=== PATIENT | female | born 1950 | race Caucasian/White ===

== ENCOUNTER 2017-06-24 09:01 | Emergency (ER) | payer OTHER ==
[~2017-06-24] VITALS: Ht 167.6 cm; Wt 102.5 kg
[~2017-06-24 09:01] MED LIST: ALLO100T PO; ASPI81CH43 GT; ATEN-60 PO; EZET10TA38 PO; GLIM2TAB33 PO; METF-370 PO
[2017-06-24 10:07] VITALS: BP 167/86
[2017-06-24 10:33] LABS: Basophils # (auto) 0.1 uL; Basophils % (auto) 0.7 % (0.0-2.0); Eosinophils # (auto) 0.1 uL; Eosinophils % (auto) 1.5 % (0.0-7.0); Hematocrit 41.3 % (36.0-46.0); Hemoglobin 13.9 g/dL (12.2-16.2); Lymphocytes # (auto) 2.1 uL; Lymphocytes % (auto) 25.6 % (10.0-50.0); Mean Corpuscular Hgb Conc. 33.8 g/dL (32.0-36.0); Mean Platelet Volume 9.3 fL (6.9-10.8); Monocytes # (auto) 0.4 uL; Monocytes % (auto) 4.4 % (0.0-12.0); Neutrophils # (auto) 5.5 uL; Neutrophils % (auto) 67.8 % (37.0-80.0); Nucleated Red Blood Cells % 0.2 %; Platelet Count (auto) 236 10^3/uL (140-450); Red Cell Distribution Width 13.3 % (11.8-14.3); White Blood Cell 8.1 10^3/uL (4.4-10.8)
[2017-06-24 10:37] LABS: Urine Bilirubin Negative (Negative); Urine Blood Negative /uL (Negative); Urine Color Yellow (Yellow); Urine Glucose Normal (Normal); Urine Ketone Negative (Negative); Urine Nitrite Negative (Negative); Urine RBC 9 /hpf (0 - 4); Urine Squamous Epithelial Cell FEW /hpf (<5); Urine Urobilinogen Normal (Negative); Urine WBC Clumps PRESENT /hpf (None Seen)
[2017-06-24 10:41] LABS: Albumin 3.6 g/dL (3.4-5.0); BUN/Creatinine Ratio 18.8; Bilirubin, Total 0.5 mg/dL (0.2-1.0); Calcium 9.6 mg/dL (8.5-10.1); Potassium 4.2 mmol/L (3.5-5.1); Total Protein 7.7 g/dL (6.4-8.2)
[2017-06-24] MEDS ORDERED: SODIUM CHLORIDE 0.9% 1,000 ML IV ONE (11:05)
[2017-06-24] MEDS ORDERED: cefTRIAXone 1GM/50ML D5W 50 ML IV ONE (11:15)
[2017-06-24] MEDS ORDERED: DIPHENOXYLATE W/ATROPINE 2.5 MG TAB PO ONE (11:45)
== END 2017-06-24 12:43 | disposition home or self-care (01) ==
LOC: ER 09:01
DX: N39.0 Urinary tract infection, site not specified (principal); R19.7 Diarrhea, unspecified; E11.9 Type 2 diabetes mellitus without complications; E78.5 Hyperlipidemia, unspecified; I25.2 Old myocardial infarction; F17.210 Nicotine dependence, cigarettes, uncomplicated; Z87.442 Personal history of urinary calculi; Z90.89 Acquired absence of other organs; Z90.710 Acquired absence of both cervix and uterus; Z95.1 Presence of aortocoronary bypass graft; Z79.899 Other long term (current) drug therapy; Z88.6 Allergy status to analgesic agent; Z88.8 Allergy status to other drugs, medicaments and biological substances
CPT/HCPCS: 36415; 80053; 81001; 85025; 87493; 93005; 96365; 99285; J0696; J7030

== ENCOUNTER 2020-11-13 09:35 | Emergency (ER) | payer OTHER ==
[~2020-11-13] VITALS: Ht 170.2 cm; Wt 104.3 kg
[~2020-11-13 09:35] MED LIST changes: +EZET10TA24 PO; -EZET10TA38 PO
[2020-11-13 10:11] LABS: Basophils # (auto) 0.1 10 ^3/uL (0-0.2); Basophils % (auto) 1.1 % (0.0-2.0); Eosinophils # (auto) 0.1 10 ^3/uL (0-0.8); Eosinophils % (auto) 2.2 % (0.0-7.0); Hematocrit 37.4 % (36.0-46.0); Hemoglobin 12.7 g/dL (12.2-16.2); Lymphocytes # (auto) 1.8 10 ^3/uL (0.4-5.4); Lymphocytes % (auto) 26.1 % (10.0-50.0); Mean Corpuscular Hemoglobin 29.7 pg (28.0-32.0); Mean Corpuscular Hgb Conc. 33.9 g/dL (32.0-36.0); Mean Corpuscular Volume 87.7 fL (80.0-100.0); Monocytes # (auto) 0.4 10 ^3/uL (0-1.3); Monocytes % (auto) 5.3 % (0.0-12.0); Neutrophils # (auto) 4.5 10 ^3/uL (1.6-8.6); Neutrophils % (auto) 65.3 % (37.0-80.0); Platelet Count (auto) 195 10^3/uL (140-450); Red Blood Cells 4.26 10^6/uL (4.0-5.20); Red Cell Distribution Width 13.8 % (11.8-14.3); White Blood Cell 6.8 10^3/uL (4.4-10.8)
[2020-11-13 10:23] LABS: Urine Bacteria FEW /hpf (None Seen); Urine Blood TRACE /uL (Negative); Urine Specific Gravity 1.014 (1.001-1.035); Urine WBC 2 /hpf (0 - 5)
[2020-11-13 10:27] LABS: Potassium 4.1 mmol/L (3.5-5.1)
[2020-11-13 10:33] LABS: Albumin 2.8 g/dL (3.4-5.0); BUN/Creatinine Ratio 15.1; Bilirubin, Total 0.4 mg/dL (0.2-1.0); Calcium 8.8 mg/dL (8.5-10.1); Magnesium 1.9 mg/dL (1.6-2.6); Total Protein 6.3 g/dL (6.4-8.2)
[2020-11-13 13:00] VITALS: BP 131/73
== END 2020-11-13 13:08 | disposition home or self-care (01) ==
LOC: ER 09:35
DX: N20.0 Calculus of kidney (principal); E11.65 Type 2 diabetes mellitus with hyperglycemia; E44.0 Moderate protein-calorie malnutrition; E78.5 Hyperlipidemia, unspecified; I25.2 Old myocardial infarction; F17.210 Nicotine dependence, cigarettes, uncomplicated; Z90.710 Acquired absence of both cervix and uterus; Z68.36 Body mass index [BMI] 36.0-36.9, adult; Z88.6 Allergy status to analgesic agent
CPT/HCPCS: 36415; 71045; 74176; 80053; 81001; 83735; 84484; 85025; 93005

== ENCOUNTER 2021-08-10 07:17 | Inpatient (IN) | payer OTHER ==
[~2021-08-10] VITALS: Ht 172.7 cm; Wt 109.7 kg
[2021-08-10 08:11] LABS: Basophils # (auto) 0.1 10 ^3/uL (0-0.2); Eosinophils # (auto) 0.2 10 ^3/uL (0-0.8); Eosinophils % (auto) 2.3 % (0.0-7.0); Hematocrit 38.6 % (36.0-46.0); Hemoglobin 12.6 g/dL (12.2-16.2); Lymphocytes # (auto) 1.8 10 ^3/uL (0.4-5.4); Lymphocytes % (auto) 22.2 % (10.0-50.0); Mean Corpuscular Hemoglobin 29.3 pg (28.0-32.0); Mean Corpuscular Hgb Conc. 32.6 g/dL (32.0-36.0); Mean Corpuscular Volume 89.9 fL (80.0-100.0); Monocytes # (auto) 0.4 10 ^3/uL (0-1.3); Monocytes % (auto) 5.3 % (0.0-12.0); Neutrophils # (auto) 5.5 10 ^3/uL (1.6-8.6); Neutrophils % (auto) 69.2 % (37.0-80.0); Nucleated Red Blood Cells % 0.1 %; Red Blood Cells 4.29 10^6/uL (4.0-5.20); Red Cell Distribution Width 13.6 % (11.8-14.3); White Blood Cell 7.9 10^3/uL (4.4-10.8)
[2021-08-10 08:21] LABS: Albumin 2.4 g/dL (3.4-5.0); Calcium 8.8 mg/dL (8.5-10.1); Potassium 4.3 mmol/L (3.5-5.1)
[2021-08-10 08:26] LABS: BUN/Creatinine Ratio 16.9; Bilirubin, Total 0.4 mg/dL (0.2-1.0); Total Protein 6.1 g/dL (6.4-8.2)
[2021-08-10] MEDS ORDERED: IOHEXOL 350 MG/ML 100ML IJ ONE (08:52)
[2021-08-10] MEDS ORDERED: ONDANSETRON HCL 4 MG/2 ML VIAL IV ONE (10:15)
[2021-08-10] MEDS ORDERED: MORPHINE SULFATE 4 MG/ML SYR/VIAL IV ONE (10:15)
[2021-08-10] MEDS ORDERED: NITROGLYCERIN 0.4 MG SL TAB SL ONE (12:00)
[2021-08-10] MEDS ORDERED: ONDANSETRON HCL 4 MG/2 ML VIAL IV PRN (13:45)
[2021-08-10] MEDS ORDERED: NITROGLYCERIN 0.4 MG SL TAB SL PRN (13:45)
[2021-08-10] MEDS ORDERED: FUROSEMIDE 40 MG/4 ML VIAL IV ONE (13:45)
[2021-08-10] MEDS ORDERED: ALBUTEROL SULF 2.5 MG/0.5ML(0.5%) NEB SOLN NEB PRN (13:45)
[2021-08-10] MEDS ORDERED: ASPirin 81 mg TAB PO ONE (13:45)
[2021-08-10] MEDS ORDERED: DEXTROSE (50%) 50ML SYRG IV PRN (13:45)
[2021-08-10] MEDS ORDERED: MORPHINE SULFATE INJECTION 2 MG/ML SYRG IV PRN (13:45)
[2021-08-10] MEDS ORDERED: ACETAMINOPHEN 325 MG TAB PO PRN (13:45)
[2021-08-10] MEDS ORDERED: METOPROLOL TARTRATE 25 MG TAB PO ONE (13:45)
[2021-08-10] MEDS: traMADol HCL 50 MG TAB PO PRN (15:06)
[2021-08-10] MEDS: ACCU-CHEK COMFORT CURVE STRIP VI SCH (18:17)
[2021-08-10 18:33] LABS: Urine Bacteria FEW /hpf (None Seen); Urine Blood Negative /uL (Negative); Urine Hyaline Cast FEW /lpf (0 - 2); Urine Specific Gravity 1.013 (1.001-1.035); Urine WBC 1 /hpf (0 - 5)
[2021-08-10] MEDS ORDERED: ENOXAPARIN SOD 100 MG/1 ML SYRINGE SC ONE (19:15)
[2021-08-10] MEDS: InsuLIN REG 1unit/0.01ml Soln (100units/ml) SC SCH (19:21)
[2021-08-11] MEDS: ATORVASTATIN 20 MG TAB PO SCH ×2 (00:01→21:54)
[2021-08-11] MEDS: TICAGRELOR 90 MG TAB PO SCH ×3 (00:01→21:54)
[2021-08-11] MEDS: RANOLAZINE ER 500 MG TAB PO SCH ×3 (00:02→21:52)
[2021-08-11] MEDS: METOPROLOL TARTRATE 25 MG TAB PO SCH ×3 (00:02→21:54)
[2021-08-11] MEDS: ACCU-CHEK COMFORT CURVE STRIP VI SCH ×4 (00:55→17:25)
[2021-08-11] MEDS: InsuLIN REG 1unit/0.01ml Soln (100units/ml) SC SCH ×4 (00:55→17:27)
[2021-08-11 04:12] VITALS: BP 155/69
[2021-08-11 06:02] LABS: Basophils # (auto) 0.1 10 ^3/uL (0-0.2); Basophils % (auto) 0.9 % (0.0-2.0); Eosinophils # (auto) 0.2 10 ^3/uL (0-0.8); Eosinophils % (auto) 2.4 % (0.0-7.0); Hematocrit 35.6 % (36.0-46.0); Lymphocytes % (auto) 23.7 % (10.0-50.0); Mean Corpuscular Hemoglobin 30.2 pg (28.0-32.0); Mean Corpuscular Hgb Conc. 33.8 g/dL (32.0-36.0); Mean Corpuscular Volume 89.2 fL (80.0-100.0); Monocytes # (auto) 0.6 10 ^3/uL (0-1.3); Monocytes % (auto) 6.5 % (0.0-12.0); Neutrophils # (auto) 5.7 10 ^3/uL (1.6-8.6); Neutrophils % (auto) 66.5 % (37.0-80.0); Red Blood Cells 3.99 10^6/uL (4.0-5.20); Red Cell Distribution Width 13.6 % (11.8-14.3); White Blood Cell 8.6 10^3/uL (4.4-10.8)
[2021-08-11] MEDS ORDERED: [UNRECOGNIZED DRUG - CODE] XX (06:14)
[2021-08-11] MEDS ORDERED: EZET10TA22 PO (06:14)
[2021-08-11] MEDS ORDERED: DICL1GEL50 TD (06:14)
[2021-08-11] MEDS ORDERED: NITR0.4S29 SL (06:14)
[2021-08-11] MEDS ORDERED: CHOL20007 OR (06:14)
[2021-08-11] MEDS ORDERED: CARV6.25 PO (06:14)
[2021-08-11] MEDS ORDERED: BENA10TA14 GT (06:14)
[2021-08-11] MEDS ORDERED: TICA90TA PO (06:14)
[2021-08-11] MEDS ORDERED: LEVEMIR SC (06:14)
[2021-08-11] MEDS ORDERED: LIDO5DIS21 TOP (06:14)
[2021-08-11] MEDS ORDERED: ATO40T PO (06:14)
[2021-08-11] MEDS ORDERED: LACT1CAP20 PO (06:14)
[2021-08-11] MEDS ORDERED: PANT40T PO (06:14)
[2021-08-11] MEDS ORDERED: GLIP10TA9 PO (06:14)
[2021-08-11] MEDS ORDERED: ISOS20TA49 PO (06:14)
[2021-08-11] MEDS ORDERED: GABA100C9 PO (06:14)
[2021-08-11] MEDS ORDERED: ACET-1156 PO (06:14)
[2021-08-11] MEDS ORDERED: AML5T GT (06:14)
[2021-08-11] MEDS ORDERED: ASPI81CH49 PO (06:14)
[2021-08-11 06:24] LABS: BUN/Creatinine Ratio 18.8; Calcium 8.8 mg/dL (8.5-10.1); Potassium 4.2 mmol/L (3.5-5.1)
[2021-08-11 06:29] LABS: INR 1.05 (0.9-1.15); Partial Thromboplastin Time 32.7 sec (23.6-33.0)
[2021-08-11 06:49] VITALS: BP 145/79
[2021-08-11] MEDS: ASPirin 81 mg TAB PO SCH (09:08)
[2021-08-11] MEDS: ENOXAPARIN SOD 40 MG/0.4 ML SYRINGE SC SCH (09:11)
[2021-08-11] MEDS: cefTRIAXone 1GM/50ML D5W 50 ML IV SCH (09:11)
[2021-08-11] MEDS: FUROSEMIDE 40 MG/4 ML VIAL IV SCH ×2 (11:27→17:44)
[2021-08-11 12:43] VITALS: BP 155/54
[2021-08-11 17:00] VITALS: BP 157/60
[2021-08-11 20:00] VITALS: BP 158/86
[2021-08-11] MEDS ORDERED: TEMAZEPAM 15 MG CAP PO ONE (21:15)
[2021-08-12] MEDS: InsuLIN REG 1unit/0.01ml Soln (100units/ml) SC SCH ×5 (00:42→23:39)
[2021-08-12] MEDS: ACCU-CHEK COMFORT CURVE STRIP VI SCH ×5 (00:45→23:40)
[2021-08-12] MEDS: FUROSEMIDE 40 MG/4 ML VIAL IV SCH ×2 (05:38→18:17)
[2021-08-12 05:48] VITALS: BP 142/65
[2021-08-12 06:22] LABS: BUN/Creatinine Ratio 19.4; Calcium 8.6 mg/dL (8.5-10.1); Magnesium 2.6 mg/dL (1.6-2.6); Potassium 3.8 mmol/L (3.5-5.1)
[2021-08-12] MEDS ORDERED: OMNIPAQUE ORAL SOLN 500ml 12mg/ml PO ONE (08:15)
[2021-08-12 08:20] LABS: Amylase 69 U/L (25-115); Lipase 170 U/L (73-393)
[2021-08-12] MEDS: cefTRIAXone 1GM/50ML D5W 50 ML IV SCH (08:50)
[2021-08-12 09:00] VITALS: BP 146/76
[2021-08-12] MEDS: TICAGRELOR 90 MG TAB PO SCH ×2 (10:35→21:36)
[2021-08-12] MEDS: RANOLAZINE ER 500 MG TAB PO SCH ×2 (10:35→21:36)
[2021-08-12] MEDS: ASPirin 81 mg TAB PO SCH (10:35)
[2021-08-12] MEDS: METOPROLOL TARTRATE 25 MG TAB PO SCH ×2 (10:36→21:50)
[2021-08-12] MEDS: ENOXAPARIN SOD 40 MG/0.4 ML SYRINGE SC SCH (10:36)
[2021-08-12 13:00] VITALS: BP 137/73
[2021-08-12 16:46] VITALS: BP 139/73
[2021-08-12] MEDS: ATORVASTATIN 20 MG TAB PO SCH (21:50)
[2021-08-12 22:00] VITALS: BP 149/79
[2021-08-12] MEDS ORDERED: TEMAZEPAM 15 MG CAP PO PRN (22:00)
[2021-08-13 05:00] VITALS: BP 137/50
[2021-08-13] MEDS: FUROSEMIDE 40 MG/4 ML VIAL IV SCH ×3 (05:59→18:16)
[2021-08-13] MEDS: ACCU-CHEK COMFORT CURVE STRIP VI SCH ×3 (06:01→17:34)
[2021-08-13] MEDS: InsuLIN REG 1unit/0.01ml Soln (100units/ml) SC SCH ×3 (06:01→18:15)
[2021-08-13] MEDS: traMADol HCL 50 MG TAB PO PRN (08:27)
[2021-08-13 09:00] VITALS: BP 152/77
[2021-08-13] MEDS: ASPirin 81 mg TAB PO SCH (10:59)
[2021-08-13] MEDS: RANOLAZINE ER 500 MG TAB PO SCH (10:59)
[2021-08-13] MEDS: METOPROLOL TARTRATE 25 MG TAB PO SCH (11:00)
[2021-08-13] MEDS: TICAGRELOR 90 MG TAB PO SCH (11:00)
[2021-08-13] MEDS: ENOXAPARIN SOD 40 MG/0.4 ML SYRINGE SC SCH (11:03)
[2021-08-13] MEDS: cefTRIAXone 1GM/50ML D5W 50 ML IV SCH (11:10)
[2021-08-13 13:00] VITALS: BP 157/62
[2021-08-13 16:54] VITALS: BP 152/72
[2021-08-13 17:00] VITALS: BP 178/78
[2021-08-13] MEDS ORDERED: cloNIDine HCL 0.1 MG TAB PO ONE (17:15)
[2021-08-13 18:05] VITALS: BP 158/78
== END 2021-08-13 18:30 | disposition home or self-care (01) | DRG 280 ==
LOC: ER 07:17 → TELE 13:41 → TELE-WESTW 23:36
PROVIDERS: ADMIT Internal Medicine; ATTEND Internal Medicine
DX: I21.4 Non-ST elevation (NSTEMI) myocardial infarction (principal); I50.41 Acute combined systolic (congestive) and diastolic (congestive) heart failure; E43 Unspecified severe protein-calorie malnutrition; N39.0 Urinary tract infection, site not specified; I13.0 Hypertensive heart and chronic kidney disease with heart failure and stage 1 through stage 4 chronic kidney disease, or unspecified chronic kidney disease; K86.3 Pseudocyst of pancreas; I25.10 Atherosclerotic heart disease of native coronary artery without angina pectoris; E66.01 Morbid (severe) obesity due to excess calories; E11.22 Type 2 diabetes mellitus with diabetic chronic kidney disease; I35.0 Nonrheumatic aortic (valve) stenosis; E78.5 Hyperlipidemia, unspecified; F17.210 Nicotine dependence, cigarettes, uncomplicated; Z20.822 Contact with and (suspected) exposure to COVID-19; I49.3 Ventricular premature depolarization; K57.10 Diverticulosis of small intestine without perforation or abscess without bleeding; N18.9 Chronic kidney disease, unspecified; Z79.82 Long term (current) use of aspirin; Z68.36 Body mass index [BMI] 36.0-36.9, adult; Z87.442 Personal history of urinary calculi; Z90.710 Acquired absence of both cervix and uterus; Z95.1 Presence of aortocoronary bypass graft; Z90.5 Acquired absence of kidney; Z88.5 Allergy status to narcotic agent; Z88.8 Allergy status to other drugs, medicaments and biological substances; Z90.49 Acquired absence of other specified parts of digestive tract; Z71.6 Tobacco abuse counseling
CPT/HCPCS: 36415; 71045; 71275; 74176; 80048; 80053; 81001; 82150; 82728; 82962; 83036; 83690; 83735; 83880; 84443; 84484; 85025; 85610; 85730; 86141; 86301; 86850; 86900; 86901; 87086; 87426; 93005; 93306; 96374; 96375; 99291; G0378; J0696; J1815; J2405

== ENCOUNTER 2023-07-21 09:52 | Inpatient (IN) | payer OTHER ==
[~2023-07-21] VITALS: Ht 167.6 cm; Wt 106.7 kg
[~2023-07-21 09:52] MED LIST changes: +ACET-1881 PO; +AML5T GT; +ASPI81CH49 PO; +ATO40T PO; +BENA10TA16 GT; +CARV6.25 PO; +CHOL20007 OR; +DICL1GEL73 TD; +EZET10TA22 PO; +GABA-1308 PO; +GLIP10TA9 PO; +ISOS20TA49 PO; +LACT1CAP20 PO; +LEVEMIR SC; +LIDO5DIS21 TOP; +NITR0.4S29 SL; +PANT40T PO; +TICA90TA PO; +[UNRECOGNIZED DRUG - CODE] XX
[2023-07-21 10:35] VITALS: PULSE 71; RESP 15; O2SAT 97
[2023-07-21 10:55] LABS: Basophils # (auto) 0.1 10 ^3/uL (0-0.2); Eosinophils # (auto) 0.2 10 ^3/uL (0-0.8); Eosinophils % (auto) 1.9 % (0.0-7.0); Hematocrit 30.9 % (36.0-46.0); Hemoglobin 10.3 g/dL (12.2-16.2); Lymphocytes # (auto) 2.1 10 ^3/uL (0.4-5.4); Lymphocytes % (auto) 24.7 % (10.0-50.0); Mean Corpuscular Hgb Conc. 33.2 g/dL (32.0-36.0); Mean Corpuscular Volume 90.4 fL (80.0-100.0); Monocytes # (auto) 0.6 10 ^3/uL (0-1.3); Monocytes % (auto) 7.6 % (0.0-12.0); Neutrophils # (auto) 5.4 10 ^3/uL (1.6-8.6); Neutrophils % (auto) 64.8 % (37.0-80.0); Red Blood Cells 3.42 10^6/uL (4.0-5.20); Red Cell Distribution Width 13.5 % (11.8-14.3); White Blood Cell 8.4 10^3/uL (4.4-10.8)
[2023-07-21 11:22] LABS: Alanine Aminotransferase 17 U/L (7-40); Albumin 3.6 g/dL (3.2-4.8); Alkaline Phosphatase 110 U/L (46-116); Anion Gap 9 (5-15); Aspartate Aminotransferase 17 U/L (13-40); Bilirubin, Total 0.3 mg/dL (0.2-1.0); Blood Urea Nitrogen 61 mg/dL (9-23); Calcium 8.8 mg/dL (8.5-10.1); Carbon Dioxide 20 mmol/L (20-30); Chloride 114 mmol/L (98-107); Glucose 158 mg/dL (74-106); Potassium 5.2 mmol/L (3.5-5.1); Sodium 143 mmol/L (136-145); Total Protein 5.4 g/dL (5.7-8.2)
[2023-07-21] MEDS ORDERED: DEXTROSE (50%) 50ML SYRG IV PRN (12:15)
[2023-07-21] MEDS ORDERED: ONDANSETRON HCL 4 MG/2 ML VIAL IV PRN (12:15)
[2023-07-21] MEDS ORDERED: NITROGLYCERIN 0.4 MG SL TAB SL PRN (12:15)
[2023-07-21] MEDS ORDERED: ACETAMINOPHEN 325 MG TAB PO PRN (12:15)
[2023-07-21 12:59] LABS: Triglycerides 184 mg/dL (< 150)
[2023-07-21 13:00] LABS: LDL Cholesterol 58 mg/dL (< 100)
[2023-07-21] MEDS ORDERED: SODIUM CHLORIDE 0.9% 1,000 ML IV SCH (13:00)
[2023-07-21] MEDS ORDERED: SODIUM ZIRCONIUM CYCL 10 GM PAK PO ONE (13:00)
[2023-07-21 13:01] LABS: Cholesterol 140 mg/dL (< 200); HDL Cholesterol 42 mg/dL (40-59)
[2023-07-21 13:06] LABS: INR 1.09 (0.9-1.15); Prothrombin Time 11.4 sec (9.3-11.8)
[2023-07-21] MEDS ORDERED: FUROSEMIDE 40 MG/4 ML VIAL IV ONE (13:15)
[2023-07-21 13:35] LABS: Urine Bacteria NONE SEEN /hpf (None Seen); Urine Blood TRACE /uL (Negative); Urine Clarity Clear (Clear); Urine Color Colorless (Yellow); Urine Protein, UAD 3+ (Negative); Urine Specific Gravity 1.013 (1.001-1.035); Urine Urobilinogen Normal (Negative); Urine WBC <1 /hpf (0 - 5); Urine pH 6.5 (5.0-8.0)
[2023-07-21 13:45] LABS: Amphetamine Screen, Urine Neg (NEGATIVE); Barbiturate Scree,Urine Neg (NEGATIVE); Benzodiazephine Screen, Urine Neg (NEGATIVE); Cocaine Screen, Urine Neg (NEGATIVE)
[2023-07-21 13:46] LABS: Cannabinoid Screen, Urine Neg (NEGATIVE); Creatinine, Urine 47.42 mg/dL (30.0-125.0); Opiate Scree,Urine Neg (NEGATIVE); Phencyclidine Screen, Urine Neg (NEGATIVE)
[2023-07-21] MEDS: GABAPENTIN 100 MG CAP PO SCH ×2 (14:00→22:00)
[2023-07-21] MEDS ORDERED: OLME20TA53 PO (14:13)
[2023-07-21] MEDS ORDERED: NIFE1TAB31 PO (14:30)
[2023-07-21] MEDS ORDERED: FURO40TA4 PO (14:31)
[2023-07-21] MEDS ORDERED: ERGO50003 PO (14:35)
[2023-07-21] MEDS ORDERED: DOCU-94 PO (14:37)
[2023-07-21] MEDS ORDERED: FLUT1SPR5 (14:38)
[2023-07-21] MEDS: InsuLIN REG 1unit/0.01ml Soln (100units/ml) SC SCH ×2 (17:00→22:00)
[2023-07-21] MEDS: ACCU-CHEK COMFORT CURVE STRIP VI SCH (17:16)
[2023-07-21 18:27] LABS: Magnesium 1.7 mg/dL (1.6-2.6)
[2023-07-21 18:28] LABS: Phosphorus 5.3 mg/dL (2.4-5.1)
[2023-07-21 18:37] VITALS: RESP 18
[2023-07-21 20:00] VITALS: PULSE 67; PULSE 71; RESP 20; O2SAT 98
[2023-07-21 22:00] VITALS: BP 150/50; PULSE 67; RESP 20; TEMP 97.6; O2SAT 98
[2023-07-21] MEDS: ENOXAPARIN SOD 100 MG/1 ML SYRINGE SC SCH (22:00)
[2023-07-21] MEDS: CARVEDILOL 3.125 MG TAB PO SCH (22:00)
[2023-07-21] MEDS: ISOSORBIDE MONONITRATE 20 MG TAB PO SCH (22:00)
[2023-07-22] VITALS (16 sets, daily range): BP systolic 113–173; BP diastolic 43–83; PULSE 58–85; RESP 12–24; TEMP 97.8–98.4; O2SAT 96–98
[2023-07-22] MEDS: D5W/SOD CHLO 0.9% 1,000 ML IV SCH ×2 (00:15→17:34)
[2023-07-22] MEDS: TICAGRELOR 90 MG TAB PO SCH ×3 (00:15→20:58)
[2023-07-22] MEDS: ATORVASTATIN 20 MG TAB PO SCH ×3 (00:19→21:23)
[2023-07-22] MEDS: ACCU-CHEK COMFORT CURVE STRIP VI SCH ×5 (00:21→21:22)
[2023-07-22 06:24] LABS: Basophils # (auto) 0.1 10 ^3/uL (0-0.2); Basophils % (auto) 0.7 % (0.0-2.0); Eosinophils # (auto) 0.2 10 ^3/uL (0-0.8); Eosinophils % (auto) 2.3 % (0.0-7.0); Hematocrit 29.5 % (36.0-46.0); Hemoglobin 9.5 g/dL (12.2-16.2); Lymphocytes # (auto) 2.4 10 ^3/uL (0.4-5.4); Lymphocytes % (auto) 32.9 % (10.0-50.0); Mean Corpuscular Hemoglobin 29.1 pg (28.0-32.0); Mean Corpuscular Hgb Conc. 32.2 g/dL (32.0-36.0); Mean Corpuscular Volume 90.4 fL (80.0-100.0); Monocytes # (auto) 0.6 10 ^3/uL (0-1.3); Neutrophils % (auto) 56.1 % (37.0-80.0); Nucleated Red Blood Cells % 0.1 %; Red Blood Cells 3.26 10^6/uL (4.0-5.20); Red Cell Distribution Width 13.7 % (11.8-14.3); White Blood Cell 7.2 10^3/uL (4.4-10.8)
[2023-07-22] MEDS: InsuLIN REG 1unit/0.01ml Soln (100units/ml) SC SCH ×4 (06:35→22:00)
[2023-07-22] MEDS: GABAPENTIN 100 MG CAP PO SCH ×3 (06:35→20:58)
[2023-07-22 06:38] LABS: Alanine Aminotransferase 12 U/L (7-40); Albumin 3.3 g/dL (3.2-4.8); Alkaline Phosphatase 87 U/L (46-116); Anion Gap 8 (5-15); Aspartate Aminotransferase 14 U/L (13-40); BUN/Creatinine Ratio 17.7 (10.0-20.0); Bilirubin, Total 0.2 mg/dL (0.2-1.0); Calcium 8.4 mg/dL (8.7-10.4); Carbon Dioxide 20 mmol/L (20-30); Chloride 118 mmol/L (98-107); Glucose 105 mg/dL (74-106); Potassium 4.2 mmol/L (3.5-5.1); Sodium 146 mmol/L (136-145)
[2023-07-22 06:39] LABS: Blood Urea Nitrogen 43 mg/dL (9-23); Total Protein 5.2 g/dL (5.7-8.2)
[2023-07-22 07:06] LABS: RPR Non Reactive (Non Reactive)
[2023-07-22] MEDS: ASPirin 81 mg TAB GT SCH (09:36)
[2023-07-22] MEDS: PANTOPRAZOLE 40 MG TAB PO SCH (09:37)
[2023-07-22] MEDS: amLODIPine BESYLATE 5 MG TAB GT SCH (09:37)
[2023-07-22] MEDS: FUROSEMIDE 40 MG/4 ML VIAL IV SCH (09:38)
[2023-07-22] MEDS: CARVEDILOL 3.125 MG TAB PO SCH ×2 (09:38→20:59)
[2023-07-22] MEDS: ENOXAPARIN SOD 100 MG/1 ML SYRINGE SC SCH (09:38)
[2023-07-22] MEDS: DOCUSATE SOD 100 MG CAP PO SCH (09:51)
[2023-07-22] MEDS ORDERED: BENAZEPRIL HCL 10 MG TAB GT SCH (10:00)
[2023-07-22] MEDS: ISOSORBIDE MONONITRATE 20 MG TAB PO SCH ×2 (10:00→20:59)
[2023-07-22] MEDS ORDERED: ACETYLCYSTEINE ORAL for CIN 20%(200MG/ML) 4ML PO ONE (11:00)
[2023-07-22] MEDS ORDERED: fentaNYL CITRATE 100 MCG/2 ML VL ONE (14:01)
[2023-07-22] MEDS ORDERED: VERAPAMIL 2.5MG/ML INJ 2ML VIAL IV ONE (14:01)
[2023-07-22] MEDS ORDERED: ANGIOMAX 250 MG VIAL IV ONE (14:01)
[2023-07-22] MEDS ORDERED: HEPARIN SODIUM (PORCINE) 5000 UNITS/ML 1ML VIAL ONE (14:01)
[2023-07-22] MEDS ORDERED: SODIUM CHL 0.9% 0 ML ONE (14:02)
[2023-07-22] MEDS ORDERED: MIDAZOLAM HCL 2MG/2ML 2ml VIAL (1mg/ml) ONE (14:02)
[2023-07-22] MEDS ORDERED: LIDOCAINE 2%HCL (LOCAL ANESTH.) INJ 20ML MDV ONE (14:02)
[2023-07-22] MEDS ORDERED: IODIXANOL 320MG/ML 100ML BTL IV ONE (14:02)
[2023-07-22] MEDS ORDERED: LORazepam 2MG/ML-1ML VIAL IV PRN (20:30)
[2023-07-22] MEDS: HEPARIN SODIUM (PORCINE) 5000 UNITS/ML 1ML VIAL SC SCH (21:03)
[2023-07-22] MEDS: ACETYLCYSTEINE ORAL for CIN 20%(200MG/ML) 4ML PO SCH (21:22)
[2023-07-23 04:34] LABS: Basophils # (auto) 0.1 10 ^3/uL (0-0.2); Basophils % (auto) 0.8 % (0.0-2.0); Eosinophils # (auto) 0.2 10 ^3/uL (0-0.8); Eosinophils % (auto) 2.2 % (0.0-7.0); Hematocrit 31.4 % (36.0-46.0); Hemoglobin 10.2 g/dL (12.2-16.2); Lymphocytes # (auto) 2.3 10 ^3/uL (0.4-5.4); Mean Corpuscular Hemoglobin 28.9 pg (28.0-32.0); Mean Corpuscular Hgb Conc. 32.4 g/dL (32.0-36.0); Mean Corpuscular Volume 89.2 fL (80.0-100.0); Monocytes # (auto) 0.7 10 ^3/uL (0-1.3); Monocytes % (auto) 8.5 % (0.0-12.0); Neutrophils # (auto) 4.9 10 ^3/uL (1.6-8.6); Neutrophils % (auto) 60.5 % (37.0-80.0); Red Blood Cells 3.52 10^6/uL (4.0-5.20); Red Cell Distribution Width 13.6 % (11.8-14.3); White Blood Cell 8.1 10^3/uL (4.4-10.8)
[2023-07-23 04:43] LABS: Chloride 113 mmol/L (98-107); Potassium 4.5 mmol/L (3.5-5.1); Sodium 142 mmol/L (136-145)
[2023-07-23 04:49] LABS: BUN/Creatinine Ratio 20.4 (10.0-20.0); Blood Urea Nitrogen 50 mg/dL (9-23); Glucose 135 mg/dL (74-106)
[2023-07-23 04:51] LABS: % Iron Saturation 24.7 % (15-50)
[2023-07-23 04:52] LABS: Anion Gap 9 (5-15); Carbon Dioxide 20 mmol/L (20-30)
[2023-07-23 05:00] VITALS: BP 128/60; PULSE 69; RESP 16; TEMP 98.3; O2SAT 96
[2023-07-23 05:02] LABS: Magnesium 1.5 mg/dL (1.6-2.6)
[2023-07-23] MEDS: GABAPENTIN 100 MG CAP PO SCH ×2 (05:47→13:59)
[2023-07-23] MEDS: ACCU-CHEK COMFORT CURVE STRIP VI SCH ×3 (05:53→18:01)
[2023-07-23] MEDS: InsuLIN REG 1unit/0.01ml Soln (100units/ml) SC SCH ×3 (05:53→18:03)
[2023-07-23 08:00] VITALS: PULSE 70; PULSE 75; RESP 20; O2SAT 97
[2023-07-23] MEDS: DOCUSATE SOD 100 MG CAP PO SCH (10:00)
[2023-07-23] MEDS: FUROSEMIDE 40 MG/4 ML VIAL IV SCH (10:04)
[2023-07-23] MEDS: ISOSORBIDE MONONITRATE 20 MG TAB PO SCH (10:05)
[2023-07-23] MEDS: ATORVASTATIN 20 MG TAB PO SCH (10:05)
[2023-07-23] MEDS: ASPirin 81 mg TAB GT SCH (10:06)
[2023-07-23] MEDS: PANTOPRAZOLE 40 MG TAB PO SCH (10:06)
[2023-07-23] MEDS: TICAGRELOR 90 MG TAB PO SCH (10:06)
[2023-07-23] MEDS: amLODIPine BESYLATE 5 MG TAB GT SCH (10:06)
[2023-07-23] MEDS: CARVEDILOL 3.125 MG TAB PO SCH (10:07)
[2023-07-23 10:12] VITALS: BP 157/52; PULSE 75; RESP 20; TEMP 98.1; O2SAT 97
[2023-07-23] MEDS: HEPARIN SODIUM (PORCINE) 5000 UNITS/ML 1ML VIAL SC SCH (10:16)
[2023-07-23 13:06] VITALS: BP 120/60; PULSE 62; RESP 20; TEMP 98.4; O2SAT 97
[2023-07-23] MEDS: ACETYLCYSTEINE ORAL for CIN 20%(200MG/ML) 4ML PO SCH (13:24)
[2023-07-23 17:00] VITALS: BP 133/59; PULSE 68; RESP 18; TEMP 98.4; O2SAT 97
[2023-07-23] MEDS: D5W/SOD CHLO 0.9% 1,000 ML IV SCH (18:12)
[2023-07-25 12:17] LABS: Folate (Folic Acid) 8.91 ng/mL (>5.38)
== END 2023-07-23 20:15 | disposition left against medical advice (07) | DRG 281 ==
LOC: ER 09:52 → TELE 12:37 → TELE-WESTW 18:21
PROVIDERS: ADMIT Internal Medicine Pulmonary Disease
PROC: 4A023N7 Measurement of Cardiac Sampling and Pressure, Left Heart, Percutaneous Approach (ICD-10-PCS; principal; 2023-07-22)
PROC: B211YZZ Fluoroscopy of Multiple Coronary Arteries using Other Contrast (ICD-10-PCS; 2023-07-22)
PROC: B215YZZ Fluoroscopy of Left Heart using Other Contrast (ICD-10-PCS; 2023-07-22)
PROC: B213YZZ Fluoroscopy of Multiple Coronary Artery Bypass Grafts using Other Contrast (ICD-10-PCS; 2023-07-22)
DX: I13.0 Hypertensive heart and chronic kidney disease with heart failure and stage 1 through stage 4 chronic kidney disease, or unspecified chronic kidney disease (principal); I21.A1 Myocardial infarction type 2; I50.32 Chronic diastolic (congestive) heart failure; N18.4 Chronic kidney disease, stage 4 (severe); D64.9 Anemia, unspecified; E87.5 Hyperkalemia; E11.22 Type 2 diabetes mellitus with diabetic chronic kidney disease; E78.5 Hyperlipidemia, unspecified; E66.9 Obesity, unspecified; K21.9 Gastro-esophageal reflux disease without esophagitis; F17.210 Nicotine dependence, cigarettes, uncomplicated; G89.29 Other chronic pain; E11.21 Type 2 diabetes mellitus with diabetic nephropathy; R80.9 Proteinuria, unspecified; I35.0 Nonrheumatic aortic (valve) stenosis; Z53.29 Procedure and treatment not carried out because of patient's decision for other reasons; M12.812 Other specific arthropathies, not elsewhere classified, left shoulder; Z79.899 Other long term (current) drug therapy; Z80.3 Family history of malignant neoplasm of breast; Z88.5 Allergy status to narcotic agent; I25.2 Old myocardial infarction; Z87.442 Personal history of urinary calculi; Z90.49 Acquired absence of other specified parts of digestive tract; Z90.5 Acquired absence of kidney; Z90.710 Acquired absence of both cervix and uterus; Z93.6 Other artificial openings of urinary tract status; Z95.1 Presence of aortocoronary bypass graft; Z98.61 Coronary angioplasty status; Z71.6 Tobacco abuse counseling; Z68.38 Body mass index [BMI] 38.0-38.9, adult
CPT/HCPCS: 36415; 70450; 70551; 71046; 72141; 73221; 76775; 80048; 80053; 80061; 80307; 81001; 82570; 82607; 82746; 82962; 83036; 83540; 83550; 83735; 83970; 84100; 84132; 84156; 84300; 84443; 84484; 85025; 85379; 85610; 86592; 92507; 92610; 93005; 93306; 93459; 93886; 93970; 97110; 97116; 97163; 97530; 99152; 99291; G0378; J1815; J2250; J7042; Q9967

== ENCOUNTER 2023-12-25 12:31 | Inpatient (IN) | payer OTHER ==
[~2023-12-25] VITALS: Ht 167.6 cm; Wt 99.3 kg
[~2023-12-25 12:31] MED LIST changes: -ATO40T PO; +ATOR-507 PO; -CARV6.25 PO; +CARV6.2517 PO; +DOCU-94 PO; +FLUT1SPR5; +FURO40TA4 PO; +NIFE1TAB31 PO; +OLME20TA53 PO; +[UNRECOGNIZED DRUG - CODE] PO
[2023-12-25 13:42] LABS: Alanine Aminotransferase 14 U/L (7-40); Albumin 3.8 g/dL (3.2-4.8); Alkaline Phosphatase 115 U/L (46-116); Anion Gap 8 (5-15); Aspartate Aminotransferase 15 U/L (13-40); BUN/Creatinine Ratio 14.3 (10.0-20.0); Bilirubin, Total 0.4 mg/dL (0.2-1.0); Blood Urea Nitrogen 38 mg/dL (9-23); Calcium 9.4 mg/dL (8.5-10.1); Carbon Dioxide 24 mmol/L (20-30); Chloride 111 mmol/L (98-107); Glucose 185 mg/dL (74-106); Magnesium 1.7 mg/dL (1.6-2.6); Potassium 4.7 mmol/L (3.5-5.1); Sodium 143 mmol/L (136-145); Total Protein 6.2 g/dL (5.7-8.2)
[2023-12-25 13:46] LABS: Basophils # (auto) 0.1 10 ^3/uL (0-0.2); Basophils % (auto) 1.1 % (0.0-2.0); Eosinophils # (auto) 0.2 10 ^3/uL (0-0.8); Eosinophils % (auto) 1.9 % (0.0-7.0); Hematocrit 30.1 % (36.0-46.0); Hemoglobin 9.8 g/dL (12.2-16.2); Lymphocytes # (auto) 2.2 10 ^3/uL (0.4-5.4); Lymphocytes % (auto) 25.8 % (10.0-50.0); Mean Corpuscular Hemoglobin 29.1 pg (28.0-32.0); Mean Corpuscular Hgb Conc. 32.5 g/dL (32.0-36.0); Mean Corpuscular Volume 89.4 fL (80.0-100.0); Monocytes # (auto) 0.6 10 ^3/uL (0-1.3); Monocytes % (auto) 6.7 % (0.0-12.0); Neutrophils # (auto) 5.6 10 ^3/uL (1.6-8.6); Neutrophils % (auto) 64.5 % (37.0-80.0); Red Blood Cells 3.36 10^6/uL (4.0-5.20); Red Cell Distribution Width 13.7 % (11.8-14.3); White Blood Cell 8.6 10^3/uL (4.4-10.8)
[2023-12-25 14:02] LABS: INR 1.06 (0.9-1.15); Partial Thromboplastin Time 26.3 SEC (24.5-34.5); Prothrombin Time 11.2 sec (9.3-11.8)
[2023-12-25] MEDS ORDERED: DOCUSATE SOD 100 MG CAP PO PRN (14:30)
[2023-12-25] MEDS ORDERED: NITROGLYCERIN 0.4 MG SL TAB SL PRN (14:30)
[2023-12-25] MEDS ORDERED: DEXTROSE (50%) 50ML SYRG IV PRN (14:30)
[2023-12-25 15:04] LABS: Urine Bacteria None Seen /hpf (None Seen)
[2023-12-25 15:16] LABS: Urine Blood TRACE /uL (Negative); Urine Clarity Clear (Clear); Urine Color Colorless (Yellow); Urine Protein, UAD 3+ (Negative); Urine Specific Gravity 1.008 (1.001-1.035); Urine Urobilinogen Normal (Negative); Urine WBC 2 /hpf (0 - 5)
[2023-12-25 15:45] LABS: Amphetamine Screen, Urine Neg (NEGATIVE); Barbiturate Scree,Urine Neg (NEGATIVE); Benzodiazephine Screen, Urine Neg (NEGATIVE); Cannabinoid Screen, Urine Neg (NEGATIVE); Cocaine Screen, Urine Neg (NEGATIVE); Opiate Scree,Urine Neg (NEGATIVE); Phencyclidine Screen, Urine Neg (NEGATIVE)
[2023-12-25] MEDS ORDERED: SODI650T PO (16:14)
[2023-12-25] MEDS ORDERED: LEVO25TA6 PO (16:14)
[2023-12-25] MEDS ORDERED: ATOR-47 PO (16:14)
[2023-12-25] MEDS ORDERED: HYDR25TA87 PO (16:14)
[2023-12-25] MEDS ORDERED: ISO60SRT PO (16:14)
[2023-12-25] MEDS: ATORVASTATIN 20 MG TAB PO SCH (20:35)
[2023-12-25] MEDS: SODIUM BICARBONATE 650 MG TAB PO SCH (20:36)
[2023-12-25] MEDS: CARVEDILOL 3.125 MG TAB PO SCH (20:36)
[2023-12-25] MEDS: FUROSEMIDE 40 MG/4 ML VIAL IV SCH (20:44)
[2023-12-25] MEDS: InsuLIN REG 1unit/0.01ml Soln (100units/ml) SC SCH (21:23)
[2023-12-25] MEDS: ACCU-CHEK COMFORT CURVE STRIP VI SCH (21:30)
[2023-12-25] MEDS: TICAGRELOR 90 MG TAB PO SCH (22:00)
[2023-12-26 06:14] LABS: Basophils # (auto) 0.1 10 ^3/uL (0-0.2); Eosinophils # (auto) 0.2 10 ^3/uL (0-0.8); Eosinophils % (auto) 2.4 % (0.0-7.0); Hematocrit 34.1 % (36.0-46.0); Hemoglobin 11.2 g/dL (12.2-16.2); Lymphocytes # (auto) 2.7 10 ^3/uL (0.4-5.4); Lymphocytes % (auto) 26.6 % (10.0-50.0); Mean Corpuscular Hemoglobin 29.6 pg (28.0-32.0); Mean Corpuscular Hgb Conc. 32.8 g/dL (32.0-36.0); Mean Corpuscular Volume 90.2 fL (80.0-100.0); Monocytes # (auto) 0.7 10 ^3/uL (0-1.3); Monocytes % (auto) 6.8 % (0.0-12.0); Neutrophils # (auto) 6.3 10 ^3/uL (1.6-8.6); Neutrophils % (auto) 63.2 % (37.0-80.0); Red Blood Cells 3.78 10^6/uL (4.0-5.20); Red Cell Distribution Width 13.8 % (11.8-14.3)
[2023-12-26 06:32] LABS: Alanine Aminotransferase 14 U/L (7-40); Alkaline Phosphatase 118 U/L (46-116); Anion Gap 10 (5-15); Aspartate Aminotransferase 16 U/L (13-40); BUN/Creatinine Ratio 15.2 (10.0-20.0); Blood Urea Nitrogen 44 mg/dL (9-23); Calcium 9.3 mg/dL (8.7-10.4); Carbon Dioxide 22 mmol/L (20-30); Chloride 111 mmol/L (98-107); Glucose 179 mg/dL (74-106); Potassium 4.5 mmol/L (3.5-5.1); Sodium 143 mmol/L (136-145)
[2023-12-26 06:33] LABS: Bilirubin, Total 0.4 mg/dL (0.2-1.0); Total Protein 6.7 g/dL (5.7-8.2)
[2023-12-26] MEDS: LEVOTHYROXINE SODIUM 25 MCG TAB PO SCH (08:16)
[2023-12-26 09:55] VITALS: PULSE 62; RESP 20; O2SAT 97
[2023-12-26] MEDS ORDERED: ENOXAPARIN SOD 30 MG/0.3 ML SYRINGE SC SCH (10:00)
[2023-12-26] MEDS: LOSARTAN POTASSIUM 50 MG TAB PO SCH (11:24)
[2023-12-26] MEDS: PANTOPRAZOLE 40 MG TAB PO SCH (11:25)
[2023-12-26] MEDS: ASPirin 81 mg TAB GT SCH (11:25)
[2023-12-26] MEDS: ISOSORBIDE MONONITRATE ER 60 MG TAB PO SCH (11:27)
[2023-12-26] MEDS: cefTRIAXone 1GM/50ML D5W 50 ML IV ONE (12:26)
[2023-12-26] MEDS: hydroCHLOROthiazide 25 MG TAB PO ONE (12:28)
[2023-12-26 12:29] LABS: CRP High Sensitivity 0.09 mg/dL (<1.0); Magnesium 1.7 mg/dL (1.6-2.6)
[2023-12-26] MEDS: ISOSORBIDE MONONITRATE ER 60 MG TAB PO ONE (12:29)
[2023-12-26 12:30] LABS: Phosphorus 5.6 mg/dL (2.4-5.1)
[2023-12-26] MEDS: amLODIPine BESYLATE 5 MG TAB PO ONE (12:30)
[2023-12-26 12:31] VITALS: PULSE 60; RESP 18; O2SAT 99
[2023-12-26] MEDS: hydrALAZINE HCL 20 MG/ML VL IV PRN (12:31)
[2023-12-26] MEDS: IPRATROPIUM BROM 0.5 MG/2.5ML INH SOL NEB SCH (12:31)
[2023-12-26] MEDS: LEVALBUTEROL HCL 1.25 MG/3 ML NEB NEB SCH (12:31)
[2023-12-26] MEDS: FUROSEMIDE 40 MG/4 ML VIAL IV SCH (14:21)
[2023-12-26] MEDS: ERGOCALCIFEROL 50,000 UNIT(1.25MG) CAP PO SCH (15:24)
[2023-12-26 17:04] VITALS: BP 141/54; PULSE 62; RESP 18; TEMP 97.5; O2SAT 95
[2023-12-26 17:20] VITALS: BP_SYST 152; BP_SYST 153; BP_DIAS 62; BP_DIAS 72; PULSE 77; PULSE 78; PULSE 85; RESP 20; TEMP 98; O2SAT 96
[2023-12-26 20:00] VITALS: BP 142/52; PULSE 66; PULSE 75; PULSE 83; RESP 18; RESP 75; TEMP 98.4; O2SAT 97
[2023-12-26 21:00] VITALS: BP 162/58; PULSE 75; RESP 17; TEMP 98.4; O2SAT 97
[2023-12-27] VITALS (17 sets, daily range): BP systolic 115–176; BP diastolic 51–85; PULSE 67–90; RESP 16–75; TEMP 97.2–98.4; O2SAT 90–100
[2023-12-27 07:26] LABS: Basophils # (auto) 0.1 10 ^3/uL (0-0.2); Eosinophils # (auto) 0.2 10 ^3/uL (0-0.8); Eosinophils % (auto) 2.4 % (0.0-7.0); Hematocrit 28.4 % (36.0-46.0); Hemoglobin 9.3 g/dL (12.2-16.2); Lymphocytes # (auto) 3.1 10 ^3/uL (0.4-5.4); Lymphocytes % (auto) 33.8 % (10.0-50.0); Mean Corpuscular Hemoglobin 29.5 pg (28.0-32.0); Mean Corpuscular Hgb Conc. 32.7 g/dL (32.0-36.0); Monocytes # (auto) 0.7 10 ^3/uL (0-1.3); Monocytes % (auto) 7.4 % (0.0-12.0); Neutrophils % (auto) 55.4 % (37.0-80.0); Nucleated Red Blood Cells % 0.1 %; Red Blood Cells 3.15 10^6/uL (4.0-5.20); Red Cell Distribution Width 13.9 % (11.8-14.3); White Blood Cell 9.1 10^3/uL (4.4-10.8)
[2023-12-27 08:51] LABS: Albumin 3.4 g/dL (3.2-4.8); Alkaline Phosphatase 91 U/L (46-116); Aspartate Aminotransferase 13 U/L (13-40); BUN/Creatinine Ratio 15.9 (10.0-20.0); Blood Urea Nitrogen 47 mg/dL (9-23); Calcium 9.2 mg/dL (8.5-10.1); Carbon Dioxide 23 mmol/L (20-30); Glucose 128 mg/dL (74-106); Magnesium 1.7 mg/dL (1.6-2.6); Potassium 4.2 mmol/L (3.5-5.1); Sodium 145 mmol/L (136-145)
[2023-12-27 08:52] LABS: Bilirubin, Total 0.3 mg/dL (0.2-1.0); Total Protein 5.5 g/dL (5.7-8.2)
[2023-12-27 08:56] LABS: Chloride 113 mmol/L (98-107)
[2023-12-27] MEDS ORDERED: ERGOCALCIFEROL 50,000 UNIT(1.25MG) CAP PO SCH (09:00)
[2023-12-27 09:01] LABS: Alanine Aminotransferase < 9 U/L (7-40)
[2023-12-27 09:02] LABS: Anion Gap 9 (5-15)
[2023-12-27] MEDS: cefTRIAXone 1GM/50ML D5W 50 ML IV SCH (09:39)
[2023-12-27] MEDS: hydroCHLOROthiazide 25 MG TAB PO SCH (09:40)
[2023-12-27] MEDS: ISOSORBIDE MONONITRATE ER 60 MG TAB PO SCH (09:41)
[2023-12-27] MEDS: amLODIPine BESYLATE 5 MG TAB PO SCH (09:43)
[2023-12-27] MEDS: ACETAMINOPHEN 325 MG TAB PO PRN (09:45)
[2023-12-27] MEDS ORDERED: GLIP10TA21 PO (14:06)
[2023-12-27] MEDS ORDERED: SODI5PAK PO (14:35)
[2023-12-27] MEDS ORDERED: ALBU108A5 INH (14:35)
[2023-12-27] MEDS ORDERED: CYCL-839 PO (14:35)
[2023-12-27] MEDS ORDERED: CHOL400T17 PO (14:35)
[2023-12-28] VITALS (12 sets, daily range): BP systolic 141–149; BP diastolic 57–81; PULSE 59–74; RESP 16–18; TEMP 36.6; O2SAT 94–100
[2023-12-28] MEDS: ONDANSETRON HCL 4 MG/2 ML VIAL IV PRN (01:15)
[2023-12-28 05:36] LABS: Basophils # (auto) 0.1 10 ^3/uL (0-0.2); Basophils % (auto) 0.8 % (0.0-2.0); Eosinophils # (auto) 0.2 10 ^3/uL (0-0.8); Eosinophils % (auto) 2.4 % (0.0-7.0); Hemoglobin 9.1 g/dL (12.2-16.2); Lymphocytes # (auto) 2.7 10 ^3/uL (0.4-5.4); Lymphocytes % (auto) 32.1 % (10.0-50.0); Mean Corpuscular Hemoglobin 29.2 pg (28.0-32.0); Mean Corpuscular Hgb Conc. 32.5 g/dL (32.0-36.0); Mean Corpuscular Volume 89.8 fL (80.0-100.0); Monocytes # (auto) 0.6 10 ^3/uL (0-1.3); Monocytes % (auto) 7.5 % (0.0-12.0); Neutrophils # (auto) 4.8 10 ^3/uL (1.6-8.6); Neutrophils % (auto) 57.2 % (37.0-80.0); Red Blood Cells 3.12 10^6/uL (4.0-5.20); Red Cell Distribution Width 13.9 % (11.8-14.3); White Blood Cell 8.4 10^3/uL (4.4-10.8)
[2023-12-28 05:56] LABS: Alkaline Phosphatase 90 U/L (46-116); Anion Gap 7 (5-15); Blood Urea Nitrogen 43 mg/dL (9-23); Calcium 8.6 mg/dL (8.7-10.4); Carbon Dioxide 25 mmol/L (20-30); Chloride 110 mmol/L (98-107); Glucose 160 mg/dL (74-106); Magnesium 1.8 mg/dL (1.6-2.6); Potassium 4.1 mmol/L (3.5-5.1); Sodium 142 mmol/L (136-145)
[2023-12-28 05:57] LABS: Albumin 3.2 g/dL (3.2-4.8); Aspartate Aminotransferase 10 U/L (13-40); Bilirubin, Total 0.4 mg/dL (0.2-1.0); Phosphorus 5.3 mg/dL (2.4-5.1)
[2023-12-28 05:58] LABS: Total Protein 5.5 g/dL (5.7-8.2)
[2023-12-28] MEDS: FUROSEMIDE 40 MG/4 ML VIAL IV SCH (06:00)
[2023-12-28 06:21] LABS: Alanine Aminotransferase 9 U/L (7-40)
[2023-12-28] MEDS: CARVEDILOL 12.5 MG TAB PO SCH (10:20)
[2023-12-28] MEDS: PANTOPRAZOLE 40 MG/10 ML VIAL INJ IV ONE (10:51)
[2023-12-28] MEDS ORDERED: EMPA1TAB PO (10:54)
[2023-12-28] MEDS ORDERED: FURO40TA4 PO (10:54)
[2023-12-28] MEDS ORDERED: CARV-216 PO (10:54)
[2023-12-28] MEDS ORDERED: diphenhdrAMINE HCL 25 MG CAP PO PRN (11:45)
[2023-12-28] MEDS: SUCRALFATE 1 GM TAB PO SCH (13:52)
[2023-12-28] MEDS ORDERED: FAMOTIDINE 20 MG TAB PO SCH (22:00)
[2023-12-28] MEDS ORDERED: PANTOPRAZOLE 40 MG/10 ML VIAL INJ IV SCH (22:00)
== END 2023-12-28 16:30 | disposition home or self-care (01) | DRG 291 ==
LOC: ER 12:31 → TELE 14:36 → TELE-WESTW 12-26 16:22
PROVIDERS: ADMIT Internal Medicine; ATTEND Anesthesiology
DX: I13.0 Hypertensive heart and chronic kidney disease with heart failure and stage 1 through stage 4 chronic kidney disease, or unspecified chronic kidney disease (principal); I50.33 Acute on chronic diastolic (congestive) heart failure; N17.0 Acute kidney failure with tubular necrosis; I24.9 Acute ischemic heart disease, unspecified; N18.4 Chronic kidney disease, stage 4 (severe); I25.10 Atherosclerotic heart disease of native coronary artery without angina pectoris; E78.5 Hyperlipidemia, unspecified; E11.22 Type 2 diabetes mellitus with diabetic chronic kidney disease; J45.909 Unspecified asthma, uncomplicated; E66.9 Obesity, unspecified; D64.9 Anemia, unspecified; I16.0 Hypertensive urgency; M10.9 Gout, unspecified; I35.0 Nonrheumatic aortic (valve) stenosis; E03.9 Hypothyroidism, unspecified; F17.210 Nicotine dependence, cigarettes, uncomplicated; Z95.1 Presence of aortocoronary bypass graft; Z88.1 Allergy status to other antibiotic agents; Z88.5 Allergy status to narcotic agent; Z79.899 Other long term (current) drug therapy; Z79.82 Long term (current) use of aspirin; Z79.1 Long term (current) use of non-steroidal anti-inflammatories (NSAID); Z90.710 Acquired absence of both cervix and uterus; Z87.442 Personal history of urinary calculi; Q75.2 Hypertelorism; Z80.3 Family history of malignant neoplasm of breast; Z90.5 Acquired absence of kidney; Z68.35 Body mass index [BMI] 35.0-35.9, adult
CPT/HCPCS: 36415; 71045; 74018; 76775; 80053; 80061; 80307; 81001; 82140; 82306; 82607; 82962; 83036; 83605; 83690; 83735; 83880; 84100; 84443; 84484; 85025; 85610; 85730; 86141; 86850; 86900; 86901; 86920; 87040; 87086; 87088; 87186; 93005; 93306; 93970; 94640; 96365; 99291; C9113; G0378; J1815; J2405

== ENCOUNTER 2024-01-31 15:25 | Emergency (ER) | payer OTHER ==
[~2024-01-31] VITALS: Ht 167.6 cm; Wt 95.0 kg
[~2024-01-31 15:25] MED LIST changes: -ACET-1881 PO; +ALBU108A5 INH; -AML5T GT; -ASPI81CH43 GT; -ATEN-60 PO; +ATOR-47 PO; -ATOR-507 PO; -BENA10TA16 GT; +CARV-216 PO; -CARV6.2517 PO; -CHOL20007 OR; -DICL1GEL73 TD; -EZET10TA24 PO; -GLIM2TAB33 PO; -GLIP10TA9 PO; +HYDR25TA87 PO; +ISO60SRT PO; -ISOS20TA49 PO; -LACT1CAP20 PO; -LEVEMIR SC; +LEVO25TA6 PO; -LIDO5DIS21 TOP; -NITR0.4S29 SL; -OLME20TA53 PO; +SODI5PAK PO; +SODI650T PO; -[UNRECOGNIZED DRUG - CODE] XX
[2024-01-31] MEDS: cloNIDine HCL 0.1 MG TAB PO ONE (16:16)
[2024-01-31 16:33] LABS: Urine Bacteria None Seen /hpf (None Seen)
[2024-01-31 16:47] LABS: Urine Blood TRACE /uL (Negative); Urine Clarity Clear (Clear); Urine Color Light-Yellow (Yellow); Urine Protein, UAD 3+ (Negative); Urine Specific Gravity 1.011 (1.001-1.035); Urine Urobilinogen Normal (Negative); Urine WBC 7 /hpf (0 - 5)
[2024-01-31 16:51] LABS: Basophils # (auto) 0.1 10 ^3/uL (0-0.2); Basophils % (auto) 0.9 % (0.0-2.0); Eosinophils # (auto) 0.1 10 ^3/uL (0-0.8); Eosinophils % (auto) 1.5 % (0.0-7.0); Hematocrit 28.9 % (36.0-46.0); Hemoglobin 9.5 g/dL (12.2-16.2); Lymphocytes % (auto) 20.9 % (10.0-50.0); Mean Corpuscular Hemoglobin 29.2 pg (28.0-32.0); Mean Corpuscular Hgb Conc. 32.8 g/dL (32.0-36.0); Mean Corpuscular Volume 89.1 fL (80.0-100.0); Monocytes # (auto) 0.7 10 ^3/uL (0-1.3); Monocytes % (auto) 7.2 % (0.0-12.0); Neutrophils # (auto) 6.7 10 ^3/uL (1.6-8.6); Neutrophils % (auto) 69.5 % (37.0-80.0); Red Blood Cells 3.24 10^6/uL (4.0-5.20); Red Cell Distribution Width 13.7 % (11.8-14.3); White Blood Cell 9.6 10^3/uL (4.4-10.8)
[2024-01-31 17:14] LABS: Alanine Aminotransferase 13 U/L (7-40); Alkaline Phosphatase 109 U/L (46-116); Anion Gap 6 (5-15); Aspartate Aminotransferase 11 U/L (13-40); BUN/Creatinine Ratio 20.8 (10.0-20.0); Blood Urea Nitrogen 57 mg/dL (9-23); Calcium 9.4 mg/dL (8.5-10.1); Carbon Dioxide 23 mmol/L (20-30); Chloride 115 mmol/L (98-107); Glucose 107 mg/dL (74-106); Potassium 4.7 mmol/L (3.5-5.1); Sodium 144 mmol/L (136-145)
[2024-01-31 17:15] LABS: Albumin 3.9 g/dL (3.2-4.8); Bilirubin, Total 0.4 mg/dL (0.2-1.0); Total Protein 6.3 g/dL (5.7-8.2)
[2024-01-31] MEDS ORDERED: CEFP200T15 PO (18:20)
[2024-01-31] MEDS ORDERED: HYDR-4902 PO (18:20)
[2024-01-31 18:36] VITALS: BP 151/57; PULSE 68; RESP 17; TEMP 98; O2SAT 95
== END 2024-01-31 18:37 | disposition home or self-care (01) ==
LOC: ER 15:25
DX: N12 Tubulo-interstitial nephritis, not specified as acute or chronic (principal); K80.20 Calculus of gallbladder without cholecystitis without obstruction; E11.9 Type 2 diabetes mellitus without complications; E78.5 Hyperlipidemia, unspecified; F17.210 Nicotine dependence, cigarettes, uncomplicated; Z90.710 Acquired absence of both cervix and uterus; Z87.442 Personal history of urinary calculi; Z88.6 Allergy status to analgesic agent
CPT/HCPCS: 36415; 71045; 74176; 76705; 80053; 81001; 82962; 83605; 83690; 83880; 84484; 85025; 93005

== ENCOUNTER 2024-02-07 16:41 | Emergency (ER) | payer OTHER ==
[~2024-02-07] VITALS: Ht 167.6 cm; Wt 102.3 kg
[~2024-02-07 16:41] MED LIST changes: +CEFP200T15 PO; +HYDR-4902 PO
[2024-02-07] MEDS: ACETAMINOPHEN 325 MG TAB PO ONE (21:00)
[2024-02-07 21:29] VITALS: BP 142/61; PULSE 66; RESP 17; TEMP 97.7; O2SAT 96
[2024-02-08] MEDS ORDERED: HYDR-4902 PO (00:33)
== END 2024-02-08 00:42 | disposition home or self-care (01) ==
LOC: ER 16:41
DX: J01.10 Acute frontal sinusitis, unspecified (principal); R51.9 Headache, unspecified; E11.22 Type 2 diabetes mellitus with diabetic chronic kidney disease; N18.9 Chronic kidney disease, unspecified; E78.5 Hyperlipidemia, unspecified; I25.2 Old myocardial infarction; F17.210 Nicotine dependence, cigarettes, uncomplicated; Z87.442 Personal history of urinary calculi; Z90.49 Acquired absence of other specified parts of digestive tract; Z90.710 Acquired absence of both cervix and uterus; Z95.1 Presence of aortocoronary bypass graft
CPT/HCPCS: 70450

== ENCOUNTER 2024-02-09 19:37 | Inpatient (IN) | payer OTHER ==
[~2024-02-09] VITALS: Ht 167.6 cm; Wt 110.8 kg
[2024-02-09 20:53] LABS: Basophils # (auto) 0.1 10 ^3/uL (0-0.2); Basophils % (auto) 1.1 % (0.0-2.0); Eosinophils # (auto) 0.1 10 ^3/uL (0-0.8); Hematocrit 23.8 % (36.0-46.0); Hemoglobin 7.9 g/dL (12.2-16.2); Lymphocytes # (auto) 2.8 10 ^3/uL (0.4-5.4); Lymphocytes % (auto) 37.7 % (10.0-50.0); Mean Corpuscular Hemoglobin 29.5 pg (28.0-32.0); Mean Corpuscular Hgb Conc. 33.2 g/dL (32.0-36.0); Monocytes # (auto) 0.5 10 ^3/uL (0-1.3); Monocytes % (auto) 6.5 % (0.0-12.0); Neutrophils # (auto) 3.8 10 ^3/uL (1.6-8.6); Neutrophils % (auto) 52.7 % (37.0-80.0); Nucleated Red Blood Cells % 0.1 %; Red Blood Cells 2.67 10^6/uL (4.0-5.20); Red Cell Distribution Width 13.8 % (11.8-14.3); White Blood Cell 7.3 10^3/uL (4.4-10.8)
[2024-02-09 21:13] LABS: Chloride 110 mmol/L (98-107); Potassium 4.7 mmol/L (3.5-5.1); Sodium 140 mmol/L (136-145)
[2024-02-09 21:14] LABS: Anion Gap 12 (5-15); Calcium 7.9 mg/dL (8.7-10.4); Carbon Dioxide 18 mmol/L (20-30)
[2024-02-09 21:19] LABS: BUN/Creatinine Ratio 18.6 (10.0-20.0); Blood Urea Nitrogen 72 mg/dL (9-23); Glucose 274 mg/dL (74-106)
[2024-02-09 21:30] VITALS: PULSE 79; RESP 94; O2SAT 96
[2024-02-09] MEDS: HEPARIN SODIUM (PORCINE) 5000 UNITS/ML 1ML VIAL IV ONE (22:41)
[2024-02-09 22:55] LABS: INR 1.07 (0.9-1.15); Partial Thromboplastin Time 27.1 SEC (24.5-34.5); Prothrombin Time 11.3 sec (9.3-11.8)
[2024-02-10] VITALS (9 sets, daily range): BP systolic 123–136; BP diastolic 40–46; PULSE 72–90; RESP 17–20; TEMP 97.9–98.8; O2SAT 95–98
[2024-02-10] MEDS ORDERED: DEXTROSE (50%) 50ML SYRG IV PRN
[2024-02-10] MEDS ORDERED: DOCUSATE SOD 100 MG CAP PO PRN
[2024-02-10] MEDS ORDERED: ACETAMINOPHEN 325 MG TAB PO PRN
[2024-02-10] MEDS ORDERED: hydrALAZINE HCL 20 MG/ML VL IV PRN
[2024-02-10] MEDS ORDERED: ONDANSETRON HCL 4 MG/2 ML VIAL IV PRN
[2024-02-10] MEDS: CALCIUM GLUC 1,000mg/50ml-NS 50 ML IV ONE (00:27)
[2024-02-10] MEDS: HEPARIN DRIP/D5W 100UNITS/ML 250 ML IV SCH ×2 (01:05→09:04)
[2024-02-10 01:40] LABS: Urine Bacteria FEW /hpf (None Seen); Urine Blood Negative /uL (Negative); Urine Clarity Clear (Clear); Urine Color Light-Yellow (Yellow); Urine Hyaline Cast FEW /lpf (0 - 2); Urine Protein, UAD 3+ (Negative); Urine Specific Gravity 1.015 (1.001-1.035); Urine Urobilinogen Normal (Negative); Urine WBC 4 /hpf (0 - 5)
[2024-02-10 04:40] LABS: Basophils # (auto) 0.1 10 ^3/uL (0-0.2); Basophils % (auto) 1.4 % (0.0-2.0); Eosinophils # (auto) 0.2 10 ^3/uL (0-0.8); Eosinophils % (auto) 2.3 % (0.0-7.0); Hematocrit 23.5 % (36.0-46.0); Hemoglobin 7.8 g/dL (12.2-16.2); Lymphocytes # (auto) 2.6 10 ^3/uL (0.4-5.4); Lymphocytes % (auto) 39.3 % (10.0-50.0); Mean Corpuscular Hemoglobin 29.7 pg (28.0-32.0); Mean Corpuscular Hgb Conc. 33.1 g/dL (32.0-36.0); Mean Corpuscular Volume 89.5 fL (80.0-100.0); Monocytes # (auto) 0.5 10 ^3/uL (0-1.3); Monocytes % (auto) 7.6 % (0.0-12.0); Neutrophils # (auto) 3.3 10 ^3/uL (1.6-8.6); Neutrophils % (auto) 49.4 % (37.0-80.0); Nucleated Red Blood Cells % 0.1 %; Red Blood Cells 2.63 10^6/uL (4.0-5.20); Red Cell Distribution Width 13.8 % (11.8-14.3); White Blood Cell 6.6 10^3/uL (4.4-10.8)
[2024-02-10 04:57] LABS: Alanine Aminotransferase 14 U/L (7-40); Albumin 3.3 g/dL (3.2-4.8); Alkaline Phosphatase 101 U/L (46-116); Anion Gap 10 (5-15); Aspartate Aminotransferase 23 U/L (13-40); BUN/Creatinine Ratio 19.4 (10.0-20.0); Blood Urea Nitrogen 75 mg/dL (9-23); Carbon Dioxide 20 mmol/L (20-30); Chloride 111 mmol/L (98-107); Glucose 158 mg/dL (74-106); Potassium 4.2 mmol/L (3.5-5.1); Sodium 141 mmol/L (136-145)
[2024-02-10 04:58] LABS: Bilirubin, Total < 0.2 mg/dL (0.2-1.0); Total Protein 4.9 g/dL (5.7-8.2)
[2024-02-10] MEDS: SODIUM CHLOR 0.9% PF (SALINE LOCK) 10ML VIAL/SYR IV SCH (06:02)
[2024-02-10] MEDS: LEVOTHYROXINE SODIUM 25 MCG TAB PO SCH (06:18)
[2024-02-10] MEDS: NITROGLYCERIN 0.4 MG SL TAB SL PRN (06:23)
[2024-02-10] MEDS: InsuLIN REG 1unit/0.01ml Soln (100units/ml) SC SCH ×2 (07:00→22:07)
[2024-02-10] MEDS: ACCU-CHEK COMFORT CURVE STRIP VI SCH (07:10)
[2024-02-10 07:14] LABS: INR 1.07 (0.9-1.15); Partial Thromboplastin Time 42.1 SEC (24.5-34.5); Prothrombin Time 11.3 sec (9.3-11.8)
[2024-02-10] MEDS: FAMOTIDINE (10MG/ML) 2ML VL IV SCH (08:56)
[2024-02-10] MEDS: CARVEDILOL 12.5 MG TAB PO SCH (08:57)
[2024-02-10 09:21] LABS: Amphetamine Screen, Urine Neg (NEGATIVE); Barbiturate Scree,Urine Neg (NEGATIVE); Benzodiazephine Screen, Urine Neg (NEGATIVE); Cocaine Screen, Urine Neg (NEGATIVE); Opiate Scree,Urine Neg (NEGATIVE); Phencyclidine Screen, Urine Neg (NEGATIVE)
[2024-02-10 09:22] LABS: Cannabinoid Screen, Urine Neg (NEGATIVE)
[2024-02-10 09:23] LABS: Magnesium 1.7 mg/dL (1.6-2.6)
[2024-02-10] MEDS ORDERED: EPOETIN ALFA-EPBX 10,000 UNIT/1ML VIAL SC ONE (10:00)
[2024-02-10] MEDS ORDERED: GLIP1TAB8 PO (10:19)
[2024-02-10] MEDS ORDERED: BUME2TAB5 PO (10:19)
[2024-02-10] MEDS ORDERED: ATOR-47 PO (10:19)
[2024-02-10] MEDS ORDERED: DICL1GEL59 EX (10:19)
[2024-02-10] MEDS ORDERED: INSUINJ37 SC (10:19)
[2024-02-10 16:29] LABS: INR 1.06 (0.9-1.15); Partial Thromboplastin Time 26.2 SEC (24.5-34.5); Prothrombin Time 11.2 sec (9.3-11.8)
[2024-02-10] MEDS: NICOTINE 21MG/24 HR TOPICAL PATCH TD ONE (18:45)
[2024-02-10] MEDS: MAGNESIUM OXIDE 400 MG TAB PO ONE (20:43)
[2024-02-10] MEDS: PANTOPRAZOLE 40 MG TAB PO ONE (20:44)
[2024-02-10] MEDS: ATORVASTATIN 20 MG TAB PO SCH (21:52)
[2024-02-10] MEDS ORDERED: ATORVASTATIN 20 MG TAB PO SCH (22:00)
[2024-02-11] VITALS (11 sets, daily range): BP systolic 114–138; BP diastolic 41–55; PULSE 65–76; RESP 18–21; TEMP 97.5–98.3; O2SAT 94–97
[2024-02-11 00:50] LABS: COVID19 ANTIGEN SOFIA FIA NEGATIVE (NEGATIVE); Rapid Influenza A Negative (Negative); Rapid Influenza B Negative (Negative)
[2024-02-11] MEDS: TICAGRELOR 60 MG TAB PO SCH (01:04)
[2024-02-11] MEDS: PANTOPRAZOLE 40 MG TAB PO SCH (05:45)
[2024-02-11] MEDS: FUROSEMIDE 100 MG/10ML VIAL IV SCH (06:00)
[2024-02-11 06:25] LABS: Calcium 8.1 mg/dL (8.5-10.1); Chloride 112 mmol/L (98-107); Potassium 4.3 mmol/L (3.5-5.1); Sodium 143 mmol/L (136-145)
[2024-02-11 06:26] LABS: Anion Gap 10 (5-15); Carbon Dioxide 21 mmol/L (20-30)
[2024-02-11 06:31] LABS: BUN/Creatinine Ratio 18.6 (10.0-20.0); Blood Urea Nitrogen 68 mg/dL (9-23); Glucose 75 mg/dL (74-106)
[2024-02-11 06:32] LABS: Magnesium 1.6 mg/dL (1.6-2.6)
[2024-02-11 06:33] LABS: Ferritin 47.6 ng/mL (10-291)
[2024-02-11] MEDS: NICOTINE 21MG/24 HR TOPICAL PATCH TD SCH (10:00)
[2024-02-11] MEDS: ASPirin 81 mg TAB PO SCH (10:06)
[2024-02-11] MEDS: ISOSORBIDE MONONITRATE ER 60 MG TAB PO SCH (10:07)
[2024-02-11] MEDS: MAGNESIUM OXIDE 400 MG TAB PO SCH (10:07)
[2024-02-11] MEDS: IRON SUCROSE COMPLEX 100 ML IV SCH (12:00)
[2024-02-11] MEDS: SEVELAMER 800 MG TAB PO SCH (17:53)
[2024-02-11] MEDS ORDERED: FUROSEMIDE 40 MG/4 ML VIAL IV SCH (18:00)
[2024-02-12] VITALS (16 sets, daily range): BP systolic 124–164; BP diastolic 46–83; PULSE 62–82; RESP 16–20; TEMP 97.7–98.8; O2SAT 94–100
[2024-02-12 05:49] LABS: Basophils # (auto) 0.1 10 ^3/uL (0-0.2); Basophils % (auto) 1.1 % (0.0-2.0); Eosinophils # (auto) 0.1 10 ^3/uL (0-0.8); Eosinophils % (auto) 2.1 % (0.0-7.0); Hematocrit 23.5 % (36.0-46.0); Hemoglobin 7.8 g/dL (12.2-16.2); Mean Corpuscular Hemoglobin 29.7 pg (28.0-32.0); Mean Corpuscular Hgb Conc. 33.2 g/dL (32.0-36.0); Mean Corpuscular Volume 89.5 fL (80.0-100.0); Monocytes # (auto) 0.5 10 ^3/uL (0-1.3); Monocytes % (auto) 8.3 % (0.0-12.0); Neutrophils # (auto) 3.6 10 ^3/uL (1.6-8.6); Neutrophils % (auto) 57.5 % (37.0-80.0); Nucleated Red Blood Cells % 0.1 %; Red Blood Cells 2.63 10^6/uL (4.0-5.20); Red Cell Distribution Width 13.5 % (11.8-14.3); White Blood Cell 6.3 10^3/uL (4.4-10.8)
[2024-02-12 05:59] LABS: Chloride 113 mmol/L (98-107); Potassium 4.5 mmol/L (3.5-5.1); Sodium 142 mmol/L (136-145)
[2024-02-12 06:00] LABS: Anion Gap 7 (5-15); Carbon Dioxide 22 mmol/L (20-30)
[2024-02-12 06:01] LABS: Calcium 8.8 mg/dL (8.7-10.4)
[2024-02-12 06:05] LABS: Glucose 106 mg/dL (74-106)
[2024-02-12 06:06] LABS: BUN/Creatinine Ratio 18.4 (10.0-20.0); Blood Urea Nitrogen 65 mg/dL (9-23); Magnesium 1.7 mg/dL (1.6-2.6)
[2024-02-12 06:08] LABS: Phosphorus 5.7 mg/dL (2.4-5.1)
[2024-02-12] MEDS: FUROSEMIDE 40 MG/4 ML VIAL IV SCH (09:40)
[2024-02-12] MEDS: SUCRALFATE 1 GM TAB PO SCH (10:25)
[2024-02-12] MEDS: ALBUTEROL SULF 2.5 MG/0.5ML(0.5%) NEB SOLN NEB PRN (10:46)
[2024-02-12] MEDS: IPRATROPIUM BROM 0.5 MG/2.5ML INH SOL NEB PRN (10:46)
[2024-02-12] MEDS: EPOETIN ALFA-EPBX 10,000 UNIT/1ML VIAL SC ONE (20:39)
[2024-02-13] VITALS (7 sets, daily range): BP systolic 101–186; BP diastolic 63–84; PULSE 61–76; RESP 18–20; TEMP 97.3–98.4; O2SAT 96–100
[2024-02-13 06:57] LABS: Basophils # (auto) 0.1 10 ^3/uL (0-0.2); Basophils % (auto) 1.1 % (0.0-2.0); Eosinophils # (auto) 0.1 10 ^3/uL (0-0.8); Eosinophils % (auto) 1.5 % (0.0-7.0); Hematocrit 25.8 % (36.0-46.0); Hemoglobin 8.7 g/dL (12.2-16.2); Lymphocytes # (auto) 2.1 10 ^3/uL (0.4-5.4); Lymphocytes % (auto) 29.8 % (10.0-50.0); Mean Corpuscular Hemoglobin 30.2 pg (28.0-32.0); Mean Corpuscular Hgb Conc. 33.7 g/dL (32.0-36.0); Mean Corpuscular Volume 89.6 fL (80.0-100.0); Monocytes # (auto) 0.6 10 ^3/uL (0-1.3); Neutrophils # (auto) 4.1 10 ^3/uL (1.6-8.6); Neutrophils % (auto) 58.6 % (37.0-80.0); Red Blood Cells 2.88 10^6/uL (4.0-5.20); Red Cell Distribution Width 14.2 % (11.8-14.3)
[2024-02-13 07:01] LABS: Anion Gap 8 (5-15); Carbon Dioxide 23 mmol/L (20-30); Chloride 114 mmol/L (98-107); Potassium 4.9 mmol/L (3.5-5.1); Sodium 145 mmol/L (136-145)
[2024-02-13 07:02] LABS: Calcium 8.7 mg/dL (8.5-10.1)
[2024-02-13 07:07] LABS: Blood Urea Nitrogen 62 mg/dL (9-23); Glucose 95 mg/dL (74-106)
[2024-02-13] MEDS: amLODIPine BESYLATE 5 MG TAB PO SCH (11:16)
[2024-02-13 13:01] LABS: Folate (Folic Acid) 7.14 ng/mL (>5.38)
[2024-02-13 13:02] LABS: Ferritin 104.4 ng/mL (10-291)
[2024-02-13 13:03] LABS: Folate (Folic Acid) 11.71 ng/mL (>5.38)
[2024-02-13] MEDS: CARVEDILOL 12.5 MG TAB PO ONE (13:15)
[2024-02-13] MEDS ORDERED: FERR1TAB36 PO (16:48)
[2024-02-13] MEDS ORDERED: SUCR1TAB PO (16:48)
[2024-02-13] MEDS ORDERED: NIC21P TD (16:48)
[2024-02-13] MEDS ORDERED: CARV-216 PO (16:48)
[2024-02-13] MEDS ORDERED: ACET-1882 PO (16:48)
[2024-02-13] MEDS ORDERED: CARVEDILOL 12.5 MG TAB PO SCH (22:00)
[2024-02-20 13:07] LABS: Vitamin D-2 25-Hydroxy 9.4 ng/mL (.)
[2024-02-21] MEDS ORDERED: CARV6.2551 PO (17:09)
== END 2024-02-13 19:15 | disposition home or self-care (01) | DRG 811 ==
LOC: ER 19:37 → EDBD 19:37 → EDSEX 19:37 → TELE 02-10 01:14 → TELE-WESTW 02-10 08:14
PROVIDERS: ADMIT Internal Medicine; ATTEND Emergency Medicine
PROC: 30233N1 Transfusion of Nonautologous Red Blood Cells into Peripheral Vein, Percutaneous Approach (ICD-10-PCS; principal; 2024-02-12)
DX: D50.9 Iron deficiency anemia, unspecified (principal); I21.A1 Myocardial infarction type 2; N17.0 Acute kidney failure with tubular necrosis; I50.32 Chronic diastolic (congestive) heart failure; N18.4 Chronic kidney disease, stage 4 (severe); I13.0 Hypertensive heart and chronic kidney disease with heart failure and stage 1 through stage 4 chronic kidney disease, or unspecified chronic kidney disease; I16.0 Hypertensive urgency; E11.22 Type 2 diabetes mellitus with diabetic chronic kidney disease; E11.65 Type 2 diabetes mellitus with hyperglycemia; E66.01 Morbid (severe) obesity due to excess calories; E78.5 Hyperlipidemia, unspecified; I35.0 Nonrheumatic aortic (valve) stenosis; K21.9 Gastro-esophageal reflux disease without esophagitis; E83.42 Hypomagnesemia; F17.210 Nicotine dependence, cigarettes, uncomplicated; E03.9 Hypothyroidism, unspecified; J45.909 Unspecified asthma, uncomplicated; Z20.822 Contact with and (suspected) exposure to COVID-19; K27.9 Peptic ulcer, site unspecified, unspecified as acute or chronic, without hemorrhage or perforation; E83.39 Other disorders of phosphorus metabolism; Z95.1 Presence of aortocoronary bypass graft; Z88.5 Allergy status to narcotic agent; Z88.8 Allergy status to other drugs, medicaments and biological substances; Z79.899 Other long term (current) drug therapy; Z79.891 Long term (current) use of opiate analgesic; Z90.710 Acquired absence of both cervix and uterus; Z87.442 Personal history of urinary calculi; Z88.6 Allergy status to analgesic agent; I25.2 Old myocardial infarction; Z80.3 Family history of malignant neoplasm of breast; Z68.39 Body mass index [BMI] 39.0-39.9, adult; Z90.5 Acquired absence of kidney; Z91.148 Patient's other noncompliance with medication regimen for other reason; Z80.0 Family history of malignant neoplasm of digestive organs; Z93.6 Other artificial openings of urinary tract status; Z98.61 Coronary angioplasty status
CPT/HCPCS: 36415; 71045; 80048; 80053; 80061; 80307; 81001; 82306; 82607; 82728; 82746; 82962; 83010; 83036; 83540; 83550; 83735; 83970; 84100; 84443; 84484; 85025; 85045; 85610; 85730; 86850; 86900; 86901; 86920; 87426; 87804; 93005; 94640; 99291; G0378; J1756; J1815; J3490

== ENCOUNTER 2024-03-02 11:24 | Inpatient (IN) | payer OTHER ==
[~2024-03-02] VITALS: Ht 167.6 cm; Wt 103.9 kg
[~2024-03-02 11:24] MED LIST changes: +ACET-1882 PO; -ALLO100T PO; +BUME2TAB5 PO; +CARV6.2551 PO; -CEFP200T15 PO; +DICL1GEL59 EX; -DOCU-94 PO; +FERR1TAB36 PO; -FURO40TA4 PO; +GLIP1TAB8 PO; +INSUINJ37 SC; -METF-370 PO; +NIC21P TD; -NIFE1TAB31 PO; +SUCR1TAB PO
[2024-03-02 13:32] LABS: Basophils # (auto) 0 10 ^3/uL (0-0.2); Basophils % (auto) 0.6 % (0.0-2.0); Eosinophils # (auto) 0.1 10 ^3/uL (0-0.8); Eosinophils % (auto) 1.4 % (0.0-7.0); Hematocrit 28.7 % (36.0-46.0); Hemoglobin 9.5 g/dL (12.2-16.2); Lymphocytes # (auto) 2.2 10 ^3/uL (0.4-5.4); Lymphocytes % (auto) 29.3 % (10.0-50.0); Mean Corpuscular Hemoglobin 29.8 pg (28.0-32.0); Mean Corpuscular Hgb Conc. 33.1 g/dL (32.0-36.0); Mean Corpuscular Volume 90.2 fL (80.0-100.0); Monocytes # (auto) 0.4 10 ^3/uL (0-1.3); Monocytes % (auto) 5.4 % (0.0-12.0); Neutrophils # (auto) 4.7 10 ^3/uL (1.6-8.6); Neutrophils % (auto) 63.3 % (37.0-80.0); Red Blood Cells 3.18 10^6/uL (4.0-5.20); Red Cell Distribution Width 14.4 % (11.8-14.3); White Blood Cell 7.4 10^3/uL (4.4-10.8)
[2024-03-02 13:50] LABS: Alanine Aminotransferase 16 U/L (7-40); Albumin 3.6 g/dL (3.2-4.8); Alkaline Phosphatase 97 U/L (46-116); Anion Gap 7 (5-15); Aspartate Aminotransferase 8 U/L (13-40); BUN/Creatinine Ratio 17.4 (10.0-20.0); Bilirubin, Total 0.3 mg/dL (0.2-1.0); Blood Urea Nitrogen 57 mg/dL (9-23); Calcium 9.2 mg/dL (8.7-10.4); Carbon Dioxide 24 mmol/L (20-30); Chloride 115 mmol/L (98-107); Glucose 86 mg/dL (74-106); Sodium 146 mmol/L (136-145); Total Protein 5.3 g/dL (5.7-8.2)
[2024-03-02 14:07] LABS: Urine Blood Negative /uL (Negative); Urine Clarity Clear (Clear); Urine Color Light-Yellow (Yellow); Urine Protein, UAD 3+ (Negative); Urine Specific Gravity 1.015 (1.001-1.035); Urine Urobilinogen Normal (Negative); Urine pH 6.5 (5.0-9.0)
[2024-03-02 15:11] LABS: INR 1.13 (0.9-1.15); Partial Thromboplastin Time 28.1 SEC (24.5-34.5); Prothrombin Time 11.9 sec (9.3-11.8)
[2024-03-02] MEDS ORDERED: ONDANSETRON HCL 4 MG/2 ML VIAL IV PRN (16:15)
[2024-03-02] MEDS ORDERED: ACETAMINOPHEN 325 MG TAB PO PRN (16:15)
[2024-03-02] MEDS ORDERED: HYDROmorphone HCL 2 MG/ML VL/or syr IV PRN (16:15)
[2024-03-02] MEDS: TAMSULOSIN HYDROCHLORIDE 0.4 MG CAP PO SCH (16:15)
[2024-03-02 18:30] VITALS: BP 148/46; PULSE 73; RESP 17; TEMP 98.1; O2SAT 95
[2024-03-02 18:43] VITALS: BP 148/46; PULSE 73; RESP 17; TEMP 98.1; O2SAT 95
[2024-03-02] MEDS: HYDROcodone-ACET 5/325MG TAB PO PRN (19:02)
[2024-03-02] MEDS: FUROSEMIDE 40 MG/4 ML VIAL IV SCH (19:03)
[2024-03-02 20:00] VITALS: PULSE 74; RESP 18; O2SAT 98
[2024-03-02] MEDS: TICAGRELOR 90 MG TAB PO SCH (21:18)
[2024-03-02] MEDS: METOPROLOL TARTRATE 25 MG TAB PO SCH (21:19)
[2024-03-02] MEDS: SODIUM CHLOR 0.9% PF (SALINE LOCK) 10ML VIAL/SYR IV SCH (21:19)
[2024-03-02 22:00] VITALS: BP 141/50; PULSE 77; RESP 18; TEMP 98.3; O2SAT 98
[2024-03-03] VITALS (8 sets, daily range): BP systolic 125–175; BP diastolic 49–78; PULSE 60–66; RESP 16–20; TEMP 97.6–98.1; O2SAT 95–100
[2024-03-03] MEDS: ASPirin 81 mg TAB PO SCH (09:26)
[2024-03-03] MEDS ORDERED: DEXTROSE (50%) 50ML SYRG IV PRN (11:30)
[2024-03-03] MEDS: InsuLIN REG 1unit/0.01ml Soln (100units/ml) SC SCH (11:30)
[2024-03-03] MEDS: ACCU-CHEK COMFORT CURVE STRIP VI SCH (11:30)
[2024-03-03] MEDS: LEVOTHYROXINE SODIUM 50 MCG TAB PO ONE (11:45)
[2024-03-03] MEDS: hydrALAZINE HCL 25 MG TAB PO SCH (12:25)
[2024-03-03 12:28] LABS: Chloride 114 mmol/L (98-107); Potassium 4.9 mmol/L (3.5-5.1); Sodium 144 mmol/L (136-145)
[2024-03-03 12:29] LABS: Anion Gap 6 (5-15); Calcium 9.4 mg/dL (8.7-10.4); Carbon Dioxide 24 mmol/L (20-30)
[2024-03-03 12:34] LABS: BUN/Creatinine Ratio 15.5 (10.0-20.0); Blood Urea Nitrogen 49 mg/dL (9-23); Glucose 76 mg/dL (74-106)
[2024-03-03] MEDS ORDERED: BUMETANIDE 2.5mg/10ml (0.25 mg/ml) INJ IV SCH (18:00)
[2024-03-03] MEDS: metOLazone 5 MG TAB PO ONE (18:30)
[2024-03-03] MEDS: BUMETANIDE INJECTION 12.5 MG in GIVE UN-DILUTED 0 ML IV SCH (18:30)
[2024-03-03] MEDS: ATORVASTATIN 20 MG TAB PO SCH (22:13)
[2024-03-03] MEDS: CARVEDILOL 3.125 MG TAB PO SCH (22:13)
[2024-03-04] VITALS (8 sets, daily range): BP systolic 132–166; BP diastolic 55–66; PULSE 60–84; RESP 14–20; TEMP 97.5–98.1; O2SAT 95–98
[2024-03-04] MEDS: LEVOTHYROXINE SODIUM 50 MCG TAB PO SCH (06:30)
[2024-03-04 09:17] LABS: Basophils # (auto) 0.1 10 ^3/uL (0-0.2); Basophils % (auto) 0.9 % (0.0-2.0); Eosinophils # (auto) 0.2 10 ^3/uL (0-0.8); Eosinophils % (auto) 2.6 % (0.0-7.0); Hematocrit 31.6 % (36.0-46.0); Hemoglobin 10.3 g/dL (12.2-16.2); Lymphocytes # (auto) 1.7 10 ^3/uL (0.4-5.4); Lymphocytes % (auto) 24.4 % (10.0-50.0); Mean Corpuscular Hgb Conc. 32.7 g/dL (32.0-36.0); Mean Corpuscular Volume 91.8 fL (80.0-100.0); Monocytes # (auto) 0.5 10 ^3/uL (0-1.3); Monocytes % (auto) 7.4 % (0.0-12.0); Neutrophils # (auto) 4.6 10 ^3/uL (1.6-8.6); Neutrophils % (auto) 64.7 % (37.0-80.0); Nucleated Red Blood Cells % 0.1 %; Red Blood Cells 3.44 10^6/uL (4.0-5.20); Red Cell Distribution Width 14.3 % (11.8-14.3); White Blood Cell 7.1 10^3/uL (4.4-10.8)
[2024-03-04] MEDS: metOLazone 5 MG TAB PO SCH (09:32)
[2024-03-04 09:38] LABS: Alanine Aminotransferase 14 U/L (7-40); Albumin 3.9 g/dL (3.2-4.8); Alkaline Phosphatase 105 U/L (46-116); Anion Gap 12 (5-15); Aspartate Aminotransferase 12 U/L (13-40); BUN/Creatinine Ratio 14.1 (10.0-20.0); Blood Urea Nitrogen 45 mg/dL (9-23); Calcium 9.3 mg/dL (8.7-10.4); Carbon Dioxide 17 mmol/L (20-30); Chloride 113 mmol/L (98-107); Glucose 116 mg/dL (74-106); LDL Cholesterol 104 mg/dL (< 100); Magnesium 1.5 mg/dL (1.6-2.6); Potassium 5.2 mmol/L (3.5-5.1); Sodium 142 mmol/L (136-145); Triglycerides 198 mg/dL (< 150)
[2024-03-04 09:39] LABS: Bilirubin, Total 0.4 mg/dL (0.2-1.0); Cholesterol 192 mg/dL (< 200); HDL Cholesterol 48 mg/dL (40-59)
[2024-03-04] MEDS: DOCUSATE SOD 100 MG CAP PO PRN (16:43)
[2024-03-04] MEDS: MAGNESIUM OXIDE 400 MG TAB PO ONE (16:43)
[2024-03-04] MEDS: SODIUM ZIRCONIUM CYCL 10 GM PAK PO ONE (16:43)
[2024-03-04] MEDS: SODIUM BICARBONATE 650 MG TAB PO SCH (21:47)
[2024-03-05] VITALS (8 sets, daily range): BP systolic 132–172; BP diastolic 41–67; PULSE 59–70; RESP 16–22; TEMP 97.6–98.2; O2SAT 94–100
[2024-03-05 07:02] LABS: Chloride 111 mmol/L (98-107); Potassium 4.7 mmol/L (3.5-5.1); Sodium 144 mmol/L (136-145)
[2024-03-05 07:03] LABS: Anion Gap 8 (5-15); Carbon Dioxide 25 mmol/L (20-30)
[2024-03-05 07:04] LABS: Calcium 8.9 mg/dL (8.7-10.4)
[2024-03-05 07:08] LABS: Glucose 86 mg/dL (74-106)
[2024-03-05 07:09] LABS: BUN/Creatinine Ratio 16.9 (10.0-20.0); Magnesium 1.6 mg/dL (1.6-2.6)
[2024-03-05 07:11] LABS: Phosphorus 5.5 mg/dL (2.4-5.1)
[2024-03-05 07:16] LABS: Blood Urea Nitrogen 59 mg/dL (9-23)
[2024-03-05] MEDS: MAGNESIUM OXIDE 400 MG TAB PO SCH (09:24)
[2024-03-05] MEDS ORDERED: FLUT1AER5 INH (17:09)
[2024-03-05] MEDS ORDERED: MIN25T PO (17:09)
[2024-03-05] MEDS ORDERED: NIFE1TAB31 PO (17:09)
[2024-03-06] VITALS (8 sets, daily range): BP systolic 140–165; BP diastolic 40–59; PULSE 70–90; RESP 16–20; TEMP 97.2–99.7; O2SAT 94–98
[2024-03-06 06:37] LABS: Chloride 108 mmol/L (98-107); Potassium 4.6 mmol/L (3.5-5.1); Sodium 143 mmol/L (136-145)
[2024-03-06 06:38] LABS: Anion Gap 8 (5-15); Calcium 9.2 mg/dL (8.7-10.4); Carbon Dioxide 27 mmol/L (20-30)
[2024-03-06 06:43] LABS: BUN/Creatinine Ratio 18.3 (10.0-20.0); Blood Urea Nitrogen 62 mg/dL (9-23); Glucose 108 mg/dL (74-106)
[2024-03-07 05:00] VITALS: BP 150/64; PULSE 97; RESP 18; TEMP 98.5; O2SAT 98
[2024-03-07 06:34] LABS: Anion Gap 10 (5-15); Carbon Dioxide 28 mmol/L (20-30); Chloride 104 mmol/L (98-107); Potassium 4.2 mmol/L (3.5-5.1); Sodium 142 mmol/L (136-145)
[2024-03-07 06:35] LABS: Calcium 9.4 mg/dL (8.7-10.4)
[2024-03-07 06:40] LABS: Blood Urea Nitrogen 61 mg/dL (9-23); Glucose 124 mg/dL (74-106)
[2024-03-07 08:30] VITALS: PULSE 75
[2024-03-07 09:00] VITALS: BP 155/54; PULSE 74; RESP 20; TEMP 98.4; O2SAT 97
[2024-03-07 09:54] VITALS: PULSE 73; RESP 16; O2SAT 95
[2024-03-07] MEDS ORDERED: BUME2TAB5 PO (09:59)
== END 2024-03-07 11:20 | disposition home or self-care (01) | DRG 280 ==
LOC: ER 11:24 → TELE 16:09 → ER 16:33 → TELE-EAST 18:12
PROVIDERS: ADMIT Internal Medicine; ATTEND Internal Medicine Geriatric Medicine
DX: I13.2 Hypertensive heart and chronic kidney disease with heart failure and with stage 5 chronic kidney disease, or end stage renal disease (principal); I50.33 Acute on chronic diastolic (congestive) heart failure; I21.A1 Myocardial infarction type 2; N17.9 Acute kidney failure, unspecified; N18.5 Chronic kidney disease, stage 5; N39.0 Urinary tract infection, site not specified; D63.8 Anemia in other chronic diseases classified elsewhere; E03.9 Hypothyroidism, unspecified; E66.01 Morbid (severe) obesity due to excess calories; E78.5 Hyperlipidemia, unspecified; I25.10 Atherosclerotic heart disease of native coronary artery without angina pectoris; I35.0 Nonrheumatic aortic (valve) stenosis; N20.0 Calculus of kidney; E11.22 Type 2 diabetes mellitus with diabetic chronic kidney disease; F17.210 Nicotine dependence, cigarettes, uncomplicated; E87.5 Hyperkalemia; E83.42 Hypomagnesemia; Z98.61 Coronary angioplasty status; Z95.1 Presence of aortocoronary bypass graft; Z90.710 Acquired absence of both cervix and uterus; Z80.3 Family history of malignant neoplasm of breast; Z80.0 Family history of malignant neoplasm of digestive organs; Z93.6 Other artificial openings of urinary tract status; Z90.5 Acquired absence of kidney; Z87.442 Personal history of urinary calculi; Z68.37 Body mass index [BMI] 37.0-37.9, adult
CPT/HCPCS: 36415; 71046; 74176; 76775; 80048; 80053; 80061; 81003; 82306; 82962; 83735; 83880; 83970; 84100; 84443; 84484; 85025; 85610; 85730; 93970; G0378; J1815

== ENCOUNTER 2024-03-15 10:16 | Inpatient (IN) | payer OTHER ==
[~2024-03-15] VITALS: Ht 167.6 cm; Wt 96.9 kg
[~2024-03-15 10:16] MED LIST changes: -CARV-216 PO; +FLUT1AER5 INH; -FLUT1SPR5; +MIN25T PO; +NIFE1TAB31 PO
[2024-03-15 10:55] LABS: Basophils # (auto) 0.1 10 ^3/uL (0-0.2); Basophils % (auto) 0.4 % (0.0-2.0); Eosinophils # (auto) 0.1 10 ^3/uL (0-0.8); Eosinophils % (auto) 0.6 % (0.0-7.0); Hematocrit 29.6 % (36.0-46.0); Hemoglobin 9.9 g/dL (12.2-16.2); Lymphocytes # (auto) 2.1 10 ^3/uL (0.4-5.4); Lymphocytes % (auto) 16.6 % (10.0-50.0); Mean Corpuscular Hemoglobin 29.7 pg (28.0-32.0); Mean Corpuscular Hgb Conc. 33.5 g/dL (32.0-36.0); Mean Corpuscular Volume 88.8 fL (80.0-100.0); Monocytes # (auto) 1.1 10 ^3/uL (0-1.3); Monocytes % (auto) 8.6 % (0.0-12.0); Neutrophils # (auto) 9.3 10 ^3/uL (1.6-8.6); Neutrophils % (auto) 73.8 % (37.0-80.0); Red Blood Cells 3.33 10^6/uL (4.0-5.20); Red Cell Distribution Width 14.1 % (11.8-14.3); White Blood Cell 12.6 10^3/uL (4.4-10.8)
[2024-03-15 11:00] VITALS: PULSE 78; RESP 19; O2SAT 95
[2024-03-15 11:00] LABS: Albumin 3.9 g/dL (3.2-4.8); Alkaline Phosphatase 105 U/L (46-116); Anion Gap 13 (5-15); Aspartate Aminotransferase < 8 U/L (13-40); BUN/Creatinine Ratio 25.5 (10.0-20.0); Carbon Dioxide 24 mmol/L (20-30); Chloride 105 mmol/L (98-107); Glucose 215 mg/dL (74-106); Potassium 3.8 mmol/L (3.5-5.1); Sodium 142 mmol/L (136-145)
[2024-03-15 11:01] LABS: Bilirubin, Total 0.3 mg/dL (0.2-1.0); Total Protein 6.4 g/dL (5.7-8.2)
[2024-03-15 11:02] LABS: Alanine Aminotransferase < 9 U/L (7-40)
[2024-03-15 11:05] LABS: Blood Urea Nitrogen 102 mg/dL (9-23)
[2024-03-15 11:15] LABS: Urine Bacteria FEW /hpf (None Seen); Urine Blood Negative /uL (Negative); Urine Clarity Turbid (Clear); Urine Color Light-Yellow (Yellow); Urine Protein, UAD 3+ (Negative); Urine Specific Gravity 1.014 (1.001-1.035); Urine Urobilinogen Normal (Negative); Urine WBC 1 /hpf (0 - 5); Urine pH 6.5 (5.0-9.0)
[2024-03-15] MEDS: BUMETANIDE 2.5mg/10ml (0.25 mg/ml) INJ IV ONE (11:37)
[2024-03-15] MEDS ORDERED: BUMETANIDE 2.5mg/10ml (0.25 mg/ml) INJ IV ONE (14:00)
[2024-03-15] MEDS ORDERED: methylPREDNISolone SOD SUCC 125 MG/2 ML VL IM ONE (14:00)
[2024-03-15] MEDS ORDERED: ALBUTEROL SULF 2.5 MG/0.5ML(0.5%) NEB SOLN NEB PRN (14:00)
[2024-03-15] MEDS ORDERED: DOCUSATE SOD 100 MG CAP PO PRN (14:00)
[2024-03-15] MEDS ORDERED: ONDANSETRON HCL 4 MG/2 ML VIAL IV PRN (14:00)
[2024-03-15] MEDS ORDERED: IPRATROPIUM BROM 0.5 MG/2.5ML INH SOL NEB PRN (14:00)
[2024-03-15] MEDS ORDERED: SODIUM BICARBONATE PO SCH (14:00)
[2024-03-15] MEDS ORDERED: NITROGLYCERIN 0.4 MG SL TAB SL PRN (14:00)
[2024-03-15] MEDS ORDERED: DEXTROSE (50%) 50ML SYRG IV PRN (14:00)
[2024-03-15] MEDS: HYDROcodone-ACET 5/325MG TAB PO ONE (14:57)
[2024-03-15 15:20] VITALS: BP 151/52; PULSE 74; RESP 16; TEMP 98.2; O2SAT 94
[2024-03-15] MEDS: ALBUTEROL SULF 2.5 MG/0.5ML(0.5%) NEB SOLN NEB ONE (15:21)
[2024-03-15] MEDS: IPRATROPIUM BROM 0.5 MG/2.5ML INH SOL NEB ONE (15:21)
[2024-03-15] MEDS: methylPREDNISolone SOD SUCC 125 MG/2 ML VL IV ONE (15:22)
[2024-03-15 15:31] LABS: Rapid Influenza A Negative (Negative); Rapid Influenza B Negative (Negative)
[2024-03-15 15:32] LABS: COVID19 ANTIGEN SOFIA FIA NEGATIVE (NEGATIVE)
[2024-03-15] MEDS: ACCU-CHEK COMFORT CURVE STRIP VI SCH (17:11)
[2024-03-15] MEDS: SUCRALFATE 1 GM TAB PO SCH (17:11)
[2024-03-15] MEDS: InsuLIN REG 1unit/0.01ml Soln (100units/ml) SC SCH ×2 (17:12→22:33)
[2024-03-15 18:01] VITALS: O2SAT 95
[2024-03-15 18:02] VITALS: O2SAT 95
[2024-03-15] MEDS: BUMETANIDE 2.5mg/10ml (0.25 mg/ml) INJ IV SCH (18:11)
[2024-03-15] MEDS: cefTRIAXone 1GM/50ML D5W 50 ML IV ONE (21:03)
[2024-03-15] MEDS: TICAGRELOR 90 MG TAB PO SCH (21:03)
[2024-03-15] MEDS: SODIUM BICARBONATE 650 MG TAB PO SCH (21:04)
[2024-03-15] MEDS: ATORVASTATIN 20 MG TAB PO SCH (21:04)
[2024-03-15] MEDS: HYDROcodone-ACET 5/325MG TAB PO PRN (21:05)
[2024-03-15] MEDS: CARVEDILOL 3.125 MG TAB PO SCH (21:06)
[2024-03-15] MEDS ORDERED: PATIENTS OWN MEDICATION (Carvedilol 1 TAB) PO SCH (22:00)
[2024-03-15 22:14] VITALS: BP 132/53; PULSE 79; RESP 20; TEMP 97.5; O2SAT 96
[2024-03-15] MEDS: GABAPENTIN 100 MG CAP PO SCH (22:36)
[2024-03-15] MEDS: methylPREDNISolone SOD SUCC 125 MG/2 ML VL IV SCH (23:08)
[2024-03-16] VITALS (12 sets, daily range): BP systolic 130–181; BP diastolic 43–71; PULSE 54–80; RESP 16–20; TEMP 97.1–97.8; O2SAT 94–97
[2024-03-16] MEDS: LEVOTHYROXINE SODIUM 25 MCG TAB PO SCH (06:19)
[2024-03-16 07:03] LABS: Basophils # (auto) 0 10 ^3/uL (0-0.2); Basophils % (auto) 0.1 % (0.0-2.0); Eosinophils # (auto) 0 10 ^3/uL (0-0.8); Hematocrit 30.3 % (36.0-46.0); Hemoglobin 10.1 g/dL (12.2-16.2); Lymphocytes # (auto) 0.6 10 ^3/uL (0.4-5.4); Lymphocytes % (auto) 6.5 % (10.0-50.0); Mean Corpuscular Hgb Conc. 33.4 g/dL (32.0-36.0); Mean Corpuscular Volume 89.6 fL (80.0-100.0); Monocytes # (auto) 0.2 10 ^3/uL (0-1.3); Monocytes % (auto) 1.7 % (0.0-12.0); Neutrophils # (auto) 9.1 10 ^3/uL (1.6-8.6); Neutrophils % (auto) 91.7 % (37.0-80.0); Red Blood Cells 3.38 10^6/uL (4.0-5.20); Red Cell Distribution Width 13.8 % (11.8-14.3); White Blood Cell 9.9 10^3/uL (4.4-10.8)
[2024-03-16 07:09] LABS: Albumin 3.7 g/dL (3.2-4.8); Alkaline Phosphatase 108 U/L (46-116); Anion Gap 14 (5-15); Aspartate Aminotransferase < 8 U/L (13-40); BUN/Creatinine Ratio 26.2 (10.0-20.0); Bilirubin, Total < 0.2 mg/dL (0.2-1.0); Calcium 9.4 mg/dL (8.7-10.4); Carbon Dioxide 23 mmol/L (20-30); Chloride 102 mmol/L (98-107); Potassium 3.8 mmol/L (3.5-5.1); Sodium 139 mmol/L (136-145); Total Protein 6.4 g/dL (5.7-8.2)
[2024-03-16 07:27] LABS: % Iron Saturation 16.6 % (15-50); Alanine Aminotransferase 9 U/L (7-40)
[2024-03-16 07:28] LABS: Blood Urea Nitrogen 106 mg/dL (9-23); Glucose 467 mg/dL (74-106)
[2024-03-16] MEDS: SODIUM CHLORIDE 0.9% 1,000 ML IV ONE (08:45)
[2024-03-16 09:17] LABS: Base Excess -3.5 mmol/L (-2.0-2.0)
[2024-03-16] MEDS: MINOXIDIL 2.5 MG TAB PO SCH (10:00)
[2024-03-16] MEDS ORDERED: INSULIN LANTUS (GLARGINE) 1 /0.01ml (100units/ml) SC SCH (10:00)
[2024-03-16] MEDS ORDERED: PATIENTS OWN MEDICATION (Atorvastatin Calcium 1 TAB) PO SCH (10:00)
[2024-03-16] MEDS: NICOTINE 21MG/24 HR TOPICAL PATCH TD SCH (10:00)
[2024-03-16] MEDS ORDERED: ENOXAPARIN SOD 30 MG/0.3 ML SYRINGE SC SCH (10:00)
[2024-03-16] MEDS: cefTRIAXone 1GM/50ML D5W 50 ML IV SCH (10:28)
[2024-03-16] MEDS: EPOETIN ALFA-EPBX 10,000 UNIT/1ML VIAL SC SCH (10:29)
[2024-03-16] MEDS: ISOSORBIDE MONONITRATE ER 60 MG TAB PO SCH (10:31)
[2024-03-16] MEDS: PANTOPRAZOLE 40 MG TAB PO SCH (10:32)
[2024-03-16] MEDS: NIFEdipine ER 30 MG TAB PO SCH (10:32)
[2024-03-16] MEDS: MUPIROCIN 2% OINT 15gm or 22gm FOR MRSA NARES EACHNOSTRI SCH (22:31)
[2024-03-17 01:00] VITALS: BP 127/54; PULSE 76; RESP 16; TEMP 98.1; O2SAT 96
[2024-03-17 05:00] VITALS: BP 132/52; PULSE 74; RESP 18; TEMP 97.7; O2SAT 95
[2024-03-17 07:34] LABS: Basophils # (auto) 0 10 ^3/uL (0-0.2); Eosinophils # (auto) 0 10 ^3/uL (0-0.8); Hematocrit 29.5 % (36.0-46.0); Hemoglobin 9.9 g/dL (12.2-16.2); Lymphocytes # (auto) 1.3 10 ^3/uL (0.4-5.4); Lymphocytes % (auto) 8.2 % (10.0-50.0); Mean Corpuscular Hemoglobin 29.5 pg (28.0-32.0); Mean Corpuscular Hgb Conc. 33.6 g/dL (32.0-36.0); Mean Corpuscular Volume 87.7 fL (80.0-100.0); Monocytes # (auto) 0.8 10 ^3/uL (0-1.3); Monocytes % (auto) 4.8 % (0.0-12.0); Neutrophils # (auto) 13.8 10 ^3/uL (1.6-8.6); Red Blood Cells 3.36 10^6/uL (4.0-5.20); Red Cell Distribution Width 13.9 % (11.8-14.3); White Blood Cell 15.8 10^3/uL (4.4-10.8)
[2024-03-17 07:50] LABS: Anion Gap 15 (5-15); Carbon Dioxide 23 mmol/L (20-30); Chloride 101 mmol/L (98-107); Potassium 3.9 mmol/L (3.5-5.1); Sodium 139 mmol/L (136-145)
[2024-03-17 07:52] LABS: Calcium 9.6 mg/dL (8.7-10.4)
[2024-03-17 07:56] LABS: Glucose 330 mg/dL (74-106)
[2024-03-17 07:57] LABS: BUN/Creatinine Ratio 26.4 (10.0-20.0)
[2024-03-17 07:58] LABS: Blood Urea Nitrogen 105 mg/dL (9-23)
[2024-03-17 08:00] VITALS: PULSE 60; RESP 20
[2024-03-17 09:23] VITALS: BP 129/69; PULSE 74; RESP 20; TEMP 98.4; O2SAT 96
[2024-03-17] MEDS: AZITHROMYCIN 500MG/ 250ML 250 ML IV SCH (09:50)
[2024-03-17] MEDS: ERGOCALCIFEROL 50,000 UNIT(1.25MG) CAP PO SCH (09:51)
[2024-03-17] MEDS: ASPirin 81 mg TAB PO SCH (09:56)
[2024-03-17] MEDS: INSULIN LANTUS (GLARGINE) 1 /0.01ml (100units/ml) SC SCH (11:17)
[2024-03-17 12:00] VITALS: BP 121/70; PULSE 65; RESP 20; TEMP 98.3; O2SAT 99
[2024-03-17] MEDS ORDERED: AZIT-74 PO (15:12)
[2024-03-17] MEDS ORDERED: AZIT500T PO (15:12)
[2024-03-17 16:53] VITALS: BP 128/55; PULSE 63; RESP 18; TEMP 98.2; O2SAT 96
== END 2024-03-17 17:52 | disposition home or self-care (01) | DRG 280 ==
LOC: ER 10:16 → TELE 14:08 → TELE-CENTR 22:15
PROVIDERS: ADMIT Internal Medicine; ATTEND Internal Medicine
DX: I21.4 Non-ST elevation (NSTEMI) myocardial infarction (principal); I50.33 Acute on chronic diastolic (congestive) heart failure; J96.00 Acute respiratory failure, unspecified whether with hypoxia or hypercapnia; I13.2 Hypertensive heart and chronic kidney disease with heart failure and with stage 5 chronic kidney disease, or end stage renal disease; N10 Acute pyelonephritis; N17.9 Acute kidney failure, unspecified; Z20.822 Contact with and (suspected) exposure to COVID-19; N18.5 Chronic kidney disease, stage 5; J44.0 Chronic obstructive pulmonary disease with (acute) lower respiratory infection; D72.829 Elevated white blood cell count, unspecified; D63.8 Anemia in other chronic diseases classified elsewhere; E11.22 Type 2 diabetes mellitus with diabetic chronic kidney disease; E66.01 Morbid (severe) obesity due to excess calories; F17.210 Nicotine dependence, cigarettes, uncomplicated; I35.0 Nonrheumatic aortic (valve) stenosis; E03.9 Hypothyroidism, unspecified; E11.65 Type 2 diabetes mellitus with hyperglycemia; J20.8 Acute bronchitis due to other specified organisms; E78.5 Hyperlipidemia, unspecified; Z87.442 Personal history of urinary calculi; Z68.33 Body mass index [BMI] 33.0-33.9, adult; I25.2 Old myocardial infarction; Z90.49 Acquired absence of other specified parts of digestive tract; Z90.710 Acquired absence of both cervix and uterus; Z95.1 Presence of aortocoronary bypass graft; Z88.5 Allergy status to narcotic agent; Z90.5 Acquired absence of kidney; Z80.3 Family history of malignant neoplasm of breast; Z80.0 Family history of malignant neoplasm of digestive organs; Z82.49 Family history of ischemic heart disease and other diseases of the circulatory system
CPT/HCPCS: 36415; 36600; 71045; 80048; 80053; 81001; 82010; 82306; 82607; 82728; 82805; 82962; 83036; 83540; 83550; 83880; 84484; 85025; 87070; 87081; 87086; 87205; 87426; 87804; 94640; 96365; 96372; 96375; 96376; 97110; 97116; 97163; 97530; G0378; J1815

== ENCOUNTER → 2024-04-03 | Outpatient (CLI) | payer OTHER ==
[~2024-04-03] MED LIST changes: +AZIT-74 PO; +AZIT500T PO; -MIN25T PO; -NIFE1TAB31 PO
[2024-04-03 10:34] LABS: Basophils # (auto) 0.1 10 ^3/uL (0-0.2); Basophils % (auto) 0.9 % (0.0-2.0); Eosinophils # (auto) 0.1 10 ^3/uL (0-0.8); Eosinophils % (auto) 1.6 % (0.0-7.0); Hematocrit 28.9 % (36.0-46.0); Hemoglobin 9.7 g/dL (12.2-16.2); Lymphocytes # (auto) 2.2 10 ^3/uL (0.4-5.4); Lymphocytes % (auto) 29.6 % (10.0-50.0); Mean Corpuscular Hemoglobin 29.6 pg (28.0-32.0); Mean Corpuscular Hgb Conc. 33.6 g/dL (32.0-36.0); Monocytes # (auto) 0.4 10 ^3/uL (0-1.3); Monocytes % (auto) 4.9 % (0.0-12.0); Neutrophils # (auto) 4.6 10 ^3/uL (1.6-8.6); Platelet Count (auto) 184 10^3/uL (140-450); Red Blood Cells 3.28 10^6/uL (4.0-5.20); Red Cell Distribution Width 14.3 % (11.8-14.3); White Blood Cell 7.3 10^3/uL (4.4-10.8)
[2024-04-03 11:00] LABS: Alanine Aminotransferase 13 U/L (7-40); Albumin 3.5 g/dL (3.2-4.8); Alkaline Phosphatase 90 U/L (46-116); Anion Gap 8 (5-15); Aspartate Aminotransferase 11 U/L (13-40); BUN/Creatinine Ratio 21.1 (10.0-20.0); Blood Urea Nitrogen 60 mg/dL (9-23); Calcium 8.4 mg/dL (8.7-10.4); Carbon Dioxide 22 mmol/L (20-30); Chloride 113 mmol/L (98-107); Cholesterol 151 mg/dL (< 200); Glucose 82 mg/dL (74-106); HDL Cholesterol 42 mg/dL (40-59); LDL Cholesterol 62 mg/dL (< 100); Potassium 3.8 mmol/L (3.5-5.1); Sodium 143 mmol/L (136-145); Triglycerides 223 mg/dL (< 150)
[2024-04-03 11:01] LABS: Bilirubin, Total 0.4 mg/dL (0.2-1.0); Total Protein 5.9 g/dL (5.7-8.2)
== END | disposition home or self-care (01) ==
LOC: LAB 10:20
PROVIDERS: ATTEND Internal Medicine
DX: I13.10 Hypertensive heart and chronic kidney disease without heart failure, with stage 1 through stage 4 chronic kidney disease, or unspecified chronic kidney disease (principal); E11.22 Type 2 diabetes mellitus with diabetic chronic kidney disease; E11.65 Type 2 diabetes mellitus with hyperglycemia; N18.9 Chronic kidney disease, unspecified; E55.9 Vitamin D deficiency, unspecified
CPT/HCPCS: 36415; 80053; 80061; 82306; 84443; 85025

== ENCOUNTER 2024-06-08 10:37 | Emergency (ER) | payer OTHER ==
[~2024-06-08] VITALS: Ht 167.6 cm; Wt 99.9 kg
[2024-06-08 11:24] LABS: Basophils # (auto) 0.1 10 ^3/uL (0-0.2); Basophils % (auto) 0.9 % (0.0-2.0); Eosinophils # (auto) 0.1 10 ^3/uL (0-0.8); Eosinophils % (auto) 1.5 % (0.0-7.0); Hematocrit 30.8 % (36.0-46.0); Hemoglobin 10.1 g/dL (12.2-16.2); Lymphocytes # (auto) 2.1 10 ^3/uL (0.4-5.4); Lymphocytes % (auto) 23.4 % (10.0-50.0); Mean Corpuscular Hemoglobin 29.7 pg (28.0-32.0); Mean Corpuscular Hgb Conc. 32.9 g/dL (32.0-36.0); Mean Corpuscular Volume 90.4 fL (80.0-100.0); Monocytes # (auto) 0.5 10 ^3/uL (0-1.3); Monocytes % (auto) 5.2 % (0.0-12.0); Neutrophils # (auto) 6.2 10 ^3/uL (1.6-8.6); Platelet Count (auto) 197 10^3/uL (140-450); Red Blood Cells 3.41 10^6/uL (4.0-5.20); Red Cell Distribution Width 14.6 % (11.8-14.3); White Blood Cell 8.9 10^3/uL (4.4-10.8)
[2024-06-08 11:27] LABS: Chloride 114 mmol/L (98-107); Potassium 4.5 mmol/L (3.5-5.1); Sodium 144 mmol/L (136-145)
[2024-06-08 11:28] LABS: Anion Gap 6 (5-15); Carbon Dioxide 24 mmol/L (20-31)
[2024-06-08 11:29] LABS: Calcium 8.8 mg/dL (8.7-10.4)
[2024-06-08 11:34] LABS: BUN/Creatinine Ratio 17.5 (10.0-20.0); Blood Urea Nitrogen 57 mg/dL (9-23); Glucose 140 mg/dL (74-106)
[2024-06-08 11:53] LABS: Urine Blood Negative /uL (Negative); Urine Clarity Turbid (Clear); Urine Color Colorless (Yellow); Urine Protein, UAD 3+ (Negative); Urine Specific Gravity 1.011 (1.001-1.035); Urine Urobilinogen Normal (Negative); Urine pH 6.5 (5.0-9.0)
[2024-06-08 14:17] LABS: Urine Bacteria MOD /hpf (None Seen)
[2024-06-08 14:18] LABS: Urine WBC None Seen /hpf (0 - 5)
[2024-06-08 15:35] VITALS: BP 164/72; TEMP 97.2
[2024-06-08 15:41] VITALS: PULSE 58; RESP 18; O2SAT 96
[2024-06-08] MEDS ORDERED: HYDROcodone-ACET 10/325MG TAB PO ONE (15:45)
== END 2024-06-08 15:49 | disposition home or self-care (01) ==
LOC: ER 10:37
DX: I50.9 Heart failure, unspecified (principal); I13.0 Hypertensive heart and chronic kidney disease with heart failure and stage 1 through stage 4 chronic kidney disease, or unspecified chronic kidney disease; N18.9 Chronic kidney disease, unspecified; E11.22 Type 2 diabetes mellitus with diabetic chronic kidney disease; I25.2 Old myocardial infarction; E78.5 Hyperlipidemia, unspecified; F17.210 Nicotine dependence, cigarettes, uncomplicated; Z90.49 Acquired absence of other specified parts of digestive tract; Z90.710 Acquired absence of both cervix and uterus; Z95.1 Presence of aortocoronary bypass graft; Z88.5 Allergy status to narcotic agent; Z88.8 Allergy status to other drugs, medicaments and biological substances; Z79.899 Other long term (current) drug therapy; Z79.51 Long term (current) use of inhaled steroids; Z79.02 Long term (current) use of antithrombotics/antiplatelets; Z79.84 Long term (current) use of oral hypoglycemic drugs
CPT/HCPCS: 36415; 80048; 81001; 83880; 85025; 93970

== ENCOUNTER 2024-06-29 09:34 | Inpatient (IN) | payer OTHER, MEDICAID ==
[~2024-06-29] VITALS: Ht 167.6 cm; Wt 109.6 kg
[2024-06-29] MEDS: ASPirin 81 mg TAB PO ONE (10:22)
--- NOTE | 2024-06-29 10:28 | ED.PDOC ---
History of Present Illness HPI Comments 73 year old female presents to the ED with chief complaint of chest/neck/back pain. Patient reports that she has been experiencing left sided chest pain with associated neck and back pain for the past week along with left arm pain for the past day. 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 Patient denies any N/V, SOB, fever, cough, dizziness, or headache. Chief Complaint: Back Pain Time Seen by MD: 10:24 Primary Care Provider: MAXWELL Reviewed Notes: Nurses Notes, Medications, Allergies Allergies: Coded Allergies: Codeine (Verified Allergy, Unknown, 09/05/15) Morphine (Verified Allergy, Unknown, 09/05/15) Nitrofurantoin (Verified Allergy, Unknown, 09/05/15) Home Meds Active Scripts Azithromycin (Zithromax) 250 Mg Tab, 250 MG PO DAILY for 4 Days, #4 TAB Prov:ROSELIA MONTOYA 03/17/24 Azithromycin (Zithromax) 500 Mg Tab, 1 TAB PO DAILY for 1 Day, #1 TAB Prov:ROSELIA MONTOYA RESIDENT 03/17/24 Bumetanide (Bumetanide) 2 Mg Tab, 1 TAB PO BID, #60 TAB 5 Refills Prov:REGINA CHRISTIAN MD 03/07/24 Ferrous Sulfate (Iron (Ferrous Sulfate)) 50 Mg Tab, 50 MG PO DAILY for 30 Days, #30 TAB Prov:BLANCA MARTINEZ 02/13/24 Sucralfate (Sucralfate) 1 Gm Tab, 1 GM PO QIDACHS for 30 Days, #120 TAB Prov:BLANCA MARTINEZ 02/13/24 Nicotine (Nicoderm 21MG/24HR) 1 Patch Ph, 1 PATCH TD DAILY for 30 Days, #1 PATCH Prov:BLANCA MARTINEZ 02/13/24 Acetaminophen (Acetaminophen) 325 Mg Tab, 650 MG PO Q6HP PRN for 30 Days, #240 TAB Prov:BLANCA MARTINEZ 02/13/24 Hydrocodone-Acetaminophen (Hydrocodone Bitartrate/AC 5-325 mg) 1 Tab Tab, 1 TAB PO Q6HPRN, #10 TAB 0 Refills Prov:HAYDE ELIZALDE 02/08/24 Reported Medications Fluticasone-Salmeterol (Wixela Inhub 100-50 Mcg/Dose) 1 Aer Aer, 1 PUFF INH Q12HR 03/05/24 Carvedilol (Carvedilol) 6.25 Mg Tab, 1 TAB PO BID 03/05/24 Atorvastatin Calcium (ATORVASTATIN CALCIUM) 80 Mg Tab, 1 TAB PO DAILY, #30 TAB 5 Refills 02/10/24 Glipizide (Glipizide Xl) 10 Mg Tab, 10 MG PO DAILY, TAB 02/10/24 Diclofenac Sodium (Topical) (Voltaren Arthritis Pain) 1 % Gel, 1 % EX PRN PRN for PAIN SCALE 1 THRU 6, GEL 02/10/24 Insulin Glargine (Lantus Solostar) 100 Unit/Ml Inj, 8 UNIT SC HS, INJ 02/10/24 Sodium Zirconium Cyclosilicate (Lokelma) 5 Gm Darrel, 5 GM PO UD Take 5 grams 3 times weekly. 12/27/23 Albuterol Sulfate (Albuterol Sulfate Hfa) 108 Mcg/Act Aer, 2 PUFF INH Q6HR PRN for WHEEZING 12/27/23 Levothyroxine Sodium (Levothyroxine Sodium) 25 Mcg Tab, 1 TAB PO QAM 12/25/23 Sodium Bicarbonate (Sodium Bicarbonate) 650 Mg Tab, 2 TAB PO TID 12/25/23 Isosorbide Mononitrate (Isosorbide Mononitrate ER) 60 Mg Tab, 1.5 TAB PO DAILY 12/25/23 Hydralazine HCl (Hydralazine HCl) 25 Mg Tab, 3 TAB PO TID 12/25/23 Ergocalciferol (Drisdol) 50,000 Unit Cap, 1 CAP PO QWEEKLY 07/21/23 Aspirin (Aspirin) 81 Mg Chw, 81 MG PO, TAB.CHEW 08/11/21 Ticagrelor Base (BRILINTA) 90 Mg Tab, 90 MG PO BID, TAB 08/11/21 Pantoprazole Sodium Sesquihydr (Pantoprazole Sodium) 40 Mg Tab, 1 TAB PO DAILY 08/11/21 Gabapentin (Gabapentin) 100 Mg Cap, 1 CAP PO BID 08/11/21 Ezetimibe (Zetia) 10 Mg Tab, 10 MG PO DAILY, TAB 12/28/21 Information Source: Patient Mode of Arrival: Ambulatory Severity: Moderate Timing: Weeks Duration: Since onset Prehospital treatment: None Past Medical History PAST MEDICAL HISTORY: CHF, CKF, DM, High Lipids, Kidney Stones, MS, UTI'S Surgical History: Appendectomy, CABG, Hysterectomy, PTCA Surgical History (Other): Partial Nephrectomy, Nephrostomy tube ORTHOTICS PROSTHETICS TECHNICIAN History: No Pertinent ORTHOTICS PROSTHETICS TECHNICIAN History Family History Family History: No family hx of Cancer, No family hx of Heart елена Social History Smoker: Cigarettes, Less Than 1 Pack/Day Alcohol: Denies ETOH Use Drugs: Denies Drug Use Lives In: Home Constitutional: denies: chills, diaphoresis, fatigue, fever, malaise, sweats, weakness, others EENTM: denies: blurred vision, double vision, ear bleeding, ear discharge, ear drainage, ear pain, ear ringing, eye pain, eye redness, hearing loss, mouth pain, mouth swelling, nasal discharge, nose bleeding, nose congestion, nose pain, photophobia, tearing, throat pain, throat swelling, voice changes, others Respiratory: denies: cough, hemoptysis, orthopnea, SOB at rest, shortness of breath, SOB with excertion, stridor, wheezing, others Cardiovascular: reports: chest pain, left arm pain; denies: dizzy spells, diaphoresis, Dyspnea on exertion, edema, irregular heart beat, lightheadedness, palpitations, PND, syncope, others Gastrointestinal: denies: abdomen distended, abdominal pain, blood streaked bowels, constipated, diarrhea, dysphagia, difficulty swallowing, hematemesis, melena, nausea, poor appetite, poor fluid intake, rectal bleeding, rectal pain, vomiting, others Genitourinary: denies: abnormal vagina bleeding, burning, dyspareunia, dysuria, flank pain, frequency, hematuria, incontinence, pain, , vagina discharge, urgency, others Neurological: denies: dizziness, fainting, headache, left sided numbness, left sided weakness, numbness, paresthesia, pre-existing deficit, right sided numbness, right sided weakness, seizure, speech problems, tingling, tremors, weakness, others Musculoskeletal: reports: back pain, neck pain; denies: gout, joint pain, joint swelling, muscle pain, muscle stiffness, others Integumetry: denies: bruises, change in color, change in hair/nails, dryness, laceration, lesions, lumps, rash, wounds, others Allergic/Immunocompromised: denies: Difficulty Healing, Frequent Infections, Hives, Itching, others Hematologic/Lymphatic: denies: anemia, blood clots, easy bleeding, easy bruising, swollen glands, others Endocrine: denies: excessive hunger, excessive sweating, excessive thirst, excessive urination, flushing, intolerance to cold, intolerance to heat, unexplained weight gain, unexplained weight loss, others Psychiatric: denies: anxiety, bipolar disorder, depression, hopeless, panic disorder, schizophrenia, sleepless, suicidal, others All Other Systems: Reviewed and Negative Physical Exam General Appearance: Moderate Distress, Normal HEENT: Normal ENT Inspection, PERRL/EOMI Neck: Full Range of Motion, Non-Tender, Normal, Normal Inspection Respiratory: Chest Non-Tender, Lungs Clear, No Accessory Muscle Use, No Respiratory Distress, Normal Breath Sounds Cardiovascular: No Edema, No JVD, No Murmur, No Gallop, Normal Peripheral Pulses, Regular Rate/Rhythm Breast Exam: Deferred Gastrointestinal: No Organomegaly, Non Tender, No Pulsatile Mass, Normal Bowel Sounds, Soft Genitalia: Deferred Pelvic: Deferred Rectal: Deferred Extremities: No calf tenderness, Normal capillary refill, Normal inspection, Normal range of motion, Non-tender, No pedal edema Musculoskeletal : Apperance: Normal Neurologic: Alert, litigation claim representative II-XII nml as Tested, No Motor Deficits, Normal Affect, Normal Mood, No Sensory Deficits Cerebellar Function: NOT DONE Reflexes: NOT DONE Skin: Dry, Normal Color, Warm Peripheral Pulses: 3+ Radial (R), 3+ Radial (L) Lymphatic: No Adenopathy Was a procedure done? Was a procedure done?: No Differential Dx Considerations may include: Chest pain Electrolyte imbalance X-Ray, Labs, Meds, VS Vital Signs Date Time Temp Pulse Resp B/P (MAP) Pulse Ox O2 Delivery O2 Flow Rate FiO2 06/29/24 12:00 97.9 72 15 118/45 (69) 98 97.9 06/29/24 12:00 72 15 98 Room Air* 0 21 06/29/24 11:30 97.8 65 15 124/45 (71) 98 97.8 06/29/24 10:23 97.8 70 17 108/37 (60) 98 97.8 06/29/24 09:48 97.4 76 20 114/56 (75) 99 97.4 06/29/24 09:48 97.4 76 20 114/56 (75) 99 Lab Test 06/29/24 11:25 06/29/24 10:20 Range/Units Troponin I High Sensitivity 254 *H 263 *H </=34 ng/L White Blood Count 7.4 4.4-10.8 10^3/uL Red Blood Count 3.05 L 4.0-5.20 10^6/uL Hemoglobin 9.5 L 12.2-16.2 g/dL Hematocrit 27.7 L 36.0-46.0 % Mean Corpuscular Volume 90.7 80.0-100.0 fL Mean Corpuscular Hemoglobin 31.1 28.0-32.0 pg Mean Corpuscular Hemoglobin Concent 34.3 32.0-36.0 g/dL Red Cell Distribution Width 14.4 H 11.8-14.3 % Platelet Count 197 140-450 10^3/uL Mean Platelet Volume 9.8 6.9-10.8 fL Neutrophils (%) (Auto) 70.4 37.0-80.0 % Lymphocytes (%) (Auto) 22.0 10.0-50.0 % Monocytes (%) (Auto) 4.8 0.0-12.0 % Eosinophils (%) (Auto) 1.8 0.0-7.0 % Basophils (%) (Auto) 1.0 0.0-2.0 % Neutrophils # (Auto) 5.2 1.6-8.6 10 ^3/uL Lymphocytes # (Auto) 1.6 0.4-5.4 10 ^3/uL Monocytes # (Auto) 0.4 0-1.3 10 ^3/uL Eosinophils # (Auto) 0.1 0-0.8 10 ^3/uL Basophils # (Auto) 0.1 0-0.2 10 ^3/uL Nucleated Red Blood Cells 0.1 % Sodium Level 145 136-145 mmol/L Potassium Level 4.5 3.5-5.1 mmol/L Chloride Level 112 H 98-107 mmol/L Carbon Dioxide Level 22 20-31 mmol/L Anion Gap 11 5-15 Blood Urea Nitrogen 59 H 9-23 mg/dL Creatinine 3.80 H 0.550-1.02 mg/dL Glomerular Filtration Rate Calc 12 >90 mL/min BUN/Creatinine Ratio 15.5 10.0-20.0 Serum Glucose 185 H 74-106 mg/dL Calcium Level 8.5 L 8.7-10.4 mg/dL Current Medications Medications (Trade) Dose Ordered Sig/Ezequiel Route Start Time Stop Time Status Last Admin Aspirin 162 mg ONCE ONCE PO 06/29/24 10:00 06/29/24 10:01 DC 06/29/24 10:22 Enoxaparin Sodium (Lovenox) 100 mg ONCE ONCE SC 06/29/24 11:15 06/29/24 11:16 DC 06/29/24 12:03 Patient alert. Complaining of chest pain. Radiation of the chest pain. Was given aspirin. Kidney function elevated. Blood sugar elevated. Cardiac marker elevated. Was given Lovenox. EKG reviewed does not show any acute changes. Echocardiogram. Cardiology consultation. Explained to the patient. Continue cardiac monitoring. Time of 1ST Reevaluation: 11:24 Reevaluation 1ST: Unchanged Patient Education/Counseling: Diagnosis, Treatment Family Education/Counseling: No Family Present Departure 1 Departure Time of Disposition: 13:22 Impression: Primary Impression: CHF (congestive heart failure) Qualified Codes: I50.43 - Acute on chronic combined systolic (congestive) and diastolic (congestive) heart failure Additional Impression: NSTEMI (non-ST elevated myocardial infarction) Disposition: ADMITTED INPATIENT Admit to: Med Surg Condition: Guarded Critical Care Note Critical Care Time?: Yes (90 min-critical care time only) Stability Stability form required: No Heart Score Heart Score: Heart Score Response (Comments) Value History Moderate Suspicious 1 EKG Normal 0 Age >65 2 Risk Factors >3 or Hx ASHD 2 Troponin >3 x's Normal limit 2 Total 7 I personally scribed for JACKELYN RÍOS MD ([email or web address]) on 06/29/24 at 10:28. Electronically submitted by Lew Blair ([email or web address]). JACKELYN RÍOS MD Jun 29, 2024 10:28
[2024-06-29 10:45] LABS: Chloride 112 mmol/L (98-107); Potassium 4.5 mmol/L (3.5-5.1); Sodium 145 mmol/L (136-145)
[2024-06-29 10:46] LABS: Anion Gap 11 (5-15); Calcium 8.5 mg/dL (8.7-10.4); Carbon Dioxide 22 mmol/L (20-31)
[2024-06-29 10:51] LABS: BUN/Creatinine Ratio 15.5 (10.0-20.0); Blood Urea Nitrogen 59 mg/dL (9-23); Glucose 185 mg/dL (74-106)
[2024-06-29 11:58] LABS: Basophils # (auto) 0.1 10 ^3/uL (0-0.2); Eosinophils # (auto) 0.1 10 ^3/uL (0-0.8); Eosinophils % (auto) 1.8 % (0.0-7.0); Hematocrit 27.7 % (36.0-46.0); Hemoglobin 9.5 g/dL (12.2-16.2); Lymphocytes # (auto) 1.6 10 ^3/uL (0.4-5.4); Mean Corpuscular Hemoglobin 31.1 pg (28.0-32.0); Mean Corpuscular Hgb Conc. 34.3 g/dL (32.0-36.0); Mean Corpuscular Volume 90.7 fL (80.0-100.0); Monocytes # (auto) 0.4 10 ^3/uL (0-1.3); Monocytes % (auto) 4.8 % (0.0-12.0); Neutrophils # (auto) 5.2 10 ^3/uL (1.6-8.6); Neutrophils % (auto) 70.4 % (37.0-80.0); Nucleated Red Blood Cells % 0.1 %; Platelet Count (auto) 197 10^3/uL (140-450); Red Blood Cells 3.05 10^6/uL (4.0-5.20); Red Cell Distribution Width 14.4 % (11.8-14.3); White Blood Cell 7.4 10^3/uL (4.4-10.8)
[2024-06-29 12:00] VITALS: PULSE 72; RESP 15; O2SAT 98
[2024-06-29] MEDS: ENOXAPARIN SOD 100 MG/1 ML SYRINGE SC ONE (12:03)
[2024-06-29] MEDS ORDERED: DEXTROSE (50%) 50ML SYRG IV PRN (14:00)
[2024-06-29] MEDS ORDERED: ONDANSETRON HCL 4 MG/2 ML VIAL IV PRN (14:00)
[2024-06-29] MEDS ORDERED: NITROGLYCERIN 0.4 MG SL TAB SL PRN (14:00)
--- NOTE | 2024-06-29 14:27 | DVHHP2 ---
History of Present Illness Reason for Visit: Chest Pain History of Present Illness 73 yo with PMH CKD, HTN, DM, HTN, MO, HLD, and recurrent UTIs was brought in with complaint of chest pain patient was evaluated in the patient has a strong history and was shown to have elevated trops current plan admission and evaluation and continued in patient management Cardiovascular: CAD, CHF, HTN, MO Renal/: UTI Endocrine: Diabetes Review of Systems Constitutional: Yes: Weakness; No: Fever, Chills, Sweats, Malaise, Other Eyes: No: Pain, Vision change, Conjunctivae inflammation, Eyelid inflammation, Other, Redness ENT: No: Ear pain, Ear discharge, Nose pain, Nose discharge, Nose congestion, Mouth pain, Mouth swelling, Throat pain, Throat swelling, Other Respiratory: No: Cough, Dry, Shortness of breath, SOB with excertion, Wheezing, Hemoptysis, Pleuritic Pain, Sputum, Wheezing, Other Cardiovascular: Chest Pain; No: Palpitations, Orthopnea, Paroxysmal Noc. Dyspnea, Edema, Lt Headedness, Other Gastrointestinal: No: Nausea, Vomiting, Abdominal Pain, Diarrhea, Constipation, Melena, Hematochezia, Other Genitourinary: No Dysuria, No Frequency, No Incontinence, No Hematuria, No Retention, No Other Musculoskeletal: No: other, neck pain, shoulder pain, arm pain, back pain, hand pain, leg pain, foot pain Skin: No: Rash, Lesions, Jaundice, Bruising, Other Neurological: No: Weakness, Numbness, Incoordination, Change in speech, Confusion, Seizures, Other Allergies: Coded Allergies: Codeine (Verified Allergy, Unknown, 09/05/15) Morphine (Verified Allergy, Unknown, 09/05/15) Nitrofurantoin (Verified Allergy, Unknown, 09/05/15) Medications Current Medications Medications Dose Ordered Sig/Ezequiel Route Start Time Stop Time Status Last Admin Dose Admin Sodium Chloride 1,000 ml @ 75 mls/hr [id number] IV 06/29/24 14:00 UNV Aspirin 81 mg DAILY PO 06/30/24 10:00 UNV Clopidogrel Bisulfate 75 mg DAILY PO 06/30/24 10:00 UNV Atorvastatin Calcium 40 mg HS PO 06/29/24 22:00 UNV Metoprolol Tartrate 12.5 mg Q12HR PO 06/29/24 22:00 UNV Acetaminophen 650 mg Q6HP PRN PO 06/29/24 14:00 UNV Docusate Sodium 100 mg DAILY PO 06/30/24 10:00 UNV Ondansetron HCl 4 mg Q4HP PRN IV 06/29/24 14:00 UNV Lisinopril 10 mg DAILY PO 06/30/24 10:00 UNV Nitroglycerin 0.4 mg Q5MINP PRN SL 06/29/24 14:00 UNV Diagnostic Test (Pha) 1 strip ACHS 06/29/24 17:00 UNV Insulin Human Regular HS SC 06/29/24 22:00 UNV Insulin Human Regular AC SC 06/29/24 17:00 UNV Dextrose 50 ml UD PRN IV 06/29/24 14:00 UNV Exam Vital Signs Vital Signs Date Time Temp Pulse Resp B/P (MAP) Pulse Ox O2 Delivery O2 Flow Rate FiO2 06/29/24 12:00 97.9 72 15 118/45 (69) 98 97.9 06/29/24 12:00 Room Air* 0 21 General Appearance: Alert, Oriented X3 HEENT: Atraumatic, PERRLA Respiratory: Clear to auscultation, Normal air movement Cardiovascular: Regular rate, Normal S1, Normal S2 Abdominal: Normal bowel sounds, Soft, No tenderness Extremities: No clubbing, No cyanosis, No edema Skin: No rashes, No breakdown, No significant lesion Neuro: Normal gait, Normal speech, Strength at 5/5 X4 ext Psych/Mental Status: Mood NL Labs/Xrays Labs Test 06/29/24 13:35 06/29/24 10:20 Range/Units White Blood Count 7.4 4.4-10.8 10^3/uL Red Blood Count 3.05 L 4.0-5.20 10^6/uL Hemoglobin 9.5 L 12.2-16.2 g/dL Hematocrit 27.7 L 36.0-46.0 % Mean Corpuscular Volume 90.7 80.0-100.0 fL Mean Corpuscular Hemoglobin 31.1 28.0-32.0 pg Mean Corpuscular Hemoglobin Concent 34.3 32.0-36.0 g/dL Red Cell Distribution Width 14.4 H 11.8-14.3 % Platelet Count 197 140-450 10^3/uL Mean Platelet Volume 9.8 6.9-10.8 fL Neutrophils (%) (Auto) 70.4 37.0-80.0 % Lymphocytes (%) (Auto) 22.0 10.0-50.0 % Monocytes (%) (Auto) 4.8 0.0-12.0 % Eosinophils (%) (Auto) 1.8 0.0-7.0 % Basophils (%) (Auto) 1.0 0.0-2.0 % Neutrophils # (Auto) 5.2 1.6-8.6 10 ^3/uL Lymphocytes # (Auto) 1.6 0.4-5.4 10 ^3/uL Monocytes # (Auto) 0.4 0-1.3 10 ^3/uL Eosinophils # (Auto) 0.1 0-0.8 10 ^3/uL Basophils # (Auto) 0.1 0-0.2 10 ^3/uL Nucleated Red Blood Cells 0.1 % Sodium Level 145 136-145 mmol/L Potassium Level 4.5 3.5-5.1 mmol/L Chloride Level 112 H 98-107 mmol/L Carbon Dioxide Level 22 20-31 mmol/L Anion Gap 11 5-15 Blood Urea Nitrogen 59 H 9-23 mg/dL Creatinine 3.80 H 0.550-1.02 mg/dL Glomerular Filtration Rate Calc 12 >90 mL/min BUN/Creatinine Ratio 15.5 10.0-20.0 Serum Glucose 185 H 74-106 mg/dL Calcium Level 8.5 L 8.7-10.4 mg/dL Assessment/Plan Assessment/Plan Admit to Tele Nstemi Chest Pain elevated trop history CHF CAD and MO cardio consult for possible cath chest pain protocol trops in the 200s cxr ordered DM hyperglycemia noted home meds restarted sliding scale started as well HTN c/w home meds HLD c/w home meds high intensity statins history recurrent UTI UA ordered follow up if abx required awaiting collection Plan discussed with: Patient My Orders Orders - CORI ALEX MD Procedure Category Date Status Time * Cardiology Consult CONS 06/29/24 Transmitted 13:57 Chest Xray 1 View XY 06/29/24 Logged 13:57 Admit ADMIT 06/29/24 Transmitted 13:57 Code Status CODE 06/29/24 Transmitted 13:57 Regulator Operator CHRIS 06/29/24 In Process 13:57 Cardiac DIET 06/29/24 Transmitted Diet-2gna,Lofat,Lochol Dinner Sodium Chloride 0.9% PHA 06/29/24 Logged 14:00 Aspirin Tablet PHA 06/30/24 Logged 10:00 Clopidogrel Bisulfate PHA 06/30/24 Logged (Plavix) 10:00 Atorvastatin (Lipitor) PHA 06/29/24 Logged 22:00 Metoprolol Tartrate PHA 06/29/24 Logged Tablet (Lopressor Ta 22:00 Acetaminophen Tablet PHA 06/29/24 Logged (Tylenol Tablet) 14:00 Docusate Sodium PHA 06/30/24 Logged Capsule (Colace 10:00 Complete Blood Count LAB 06/30/24 Verified 04:00 Basic Metabolic Panel LAB 06/30/24 Verified 04:00 Magnesium LAB 06/30/24 Verified 04:00 Ondansetron Hcl PHA 06/29/24 Logged (Zofran) 14:00 Electrocardigram EKG 06/29/24 Logged 13:57 Alum & Mag PHA 06/29/24 Logged Hydrox-Simethicone 14:00 Lisinopril Tablet PHA 06/30/24 Logged (Zestril Tablet) 10:00 Cardiac CHRIS 06/29/24 In Process Rehabilitation - Outpa Comprehensive LAB 07/01/24 Verified Metabolic Panel 04:00 Nitroglycerin PHA 06/29/24 Logged Sublingual (Ntrostat 14:00 Notify Of Changes [facility] 06/29/24 In Process From Base 13:57 Medical Device Sales Consultant For [facility] 06/29/24 In Process 24 Hours 13:57 Emergency Dysrhythmia [facility] 06/29/24 In Process Protocol 13:57 Rhythm Strips Once [facility] 06/29/24 In Process Every Shift 13:57 Oxygen By Nasal RT 06/29/24 Transmitted Cannula 13:57 Stat Ekg For Chest CHRIS 06/29/24 In Process Pain 13:57 Glucose Blood PHA 06/29/24 Logged (Accu-Chek Comfort 17:00 Insulin R (Human) PHA 06/29/24 Logged (Insulin R) 22:00 Insulin R (Human) PHA 06/29/24 Logged (Insulin R) 17:00 Dextrose 50% Syringe PHA 06/29/24 Logged 14:00 Urinalysis LAB 06/29/24 Logged 14:09 Gabapentin Capsule PHA 06/29/24 Transmitted (Neurontin Capsule) 22:00 Hydralazine Hcl PHA 06/29/24 Transmitted Tablet (Apresoline 22:00 Isosorbide PHA 06/30/24 Transmitted Mononitrate Tablet 10:00 Levothyroxine Tablet PHA 06/30/24 Transmitted (Synthroid Tablet) 07:00 Pantoprazole Tablet PHA 06/30/24 Transmitted (Protonix Tablet) 10:00 Ticagrelor (Brilinta) PHA 06/29/24 Transmitted 22:00 (Nf) Atorvastatin PHA 06/30/24 Transmitted Calcium 10:00 (Nf) Bumetanide PHA 06/29/24 Transmitted 22:00 (Nf) Carvedilol PHA 06/29/24 Transmitted 22:00 (Nf) Insulin Glargine PHA 06/29/24 Transmitted (Lantus Solostar) 22:00 Problem List: (1) Diabetes (2) Hyperglycemia (3) Chest pain (4) Acute coronary syndrome (5) Renal insufficiency (6) Elevated troponin (7) Hypertensive urgency (8) Acute chest pain (9) Non-STEMI (non-ST elevated myocardial infarction) (10) CHF (congestive heart failure) Date of Service: Jun 29, 2024 Billing Provider: CORI ALEX MD Common Visit Codes: [id number] INP/OBS CARE (HIGH) CORI ALEX MD Jun 29, 2024 14:27
--- NOTE | 2024-06-29 14:52 | DVH ---
CHEST RADIOGRAPH Indication:chest pain Technique: Single frontal view of the chest was obtained COMPARISON: XY CHEST PORTABLE on DOS: 03/15/24, XY CHEST PORTABLE on DOS: 02/13/24, XY CHEST PORTABLE on DOS: 02/09/24 FINDINGS: Lines and Tubes: Median sternotomy Lungs: Clear Pleura: No effusion. No pneumothorax. Cardiomediastinal contours: Cardiomegaly Bones: Unremarkable IMPRESSION: Cardiomegaly
[2024-06-29] MEDS: MAALOX PLUS or MAALOX 30 ML PO ONE (16:36)
[2024-06-29] MEDS: SODIUM CHLORIDE 0.9% 1,000 ML IV SCH ×2 (16:37→21:07)
[2024-06-29] MEDS: InsuLIN REG 1unit/0.01ml Soln (100units/ml) SC SCH ×2 (17:00→22:07)
[2024-06-29] MEDS: ACCU-CHEK COMFORT CURVE STRIP VI SCH (17:13)
[2024-06-29] MEDS: BUMETANIDE 1 MG TAB PO SCH (18:46)
[2024-06-29 19:35] VITALS: PULSE 71; RESP 15; O2SAT 98
[2024-06-29] MEDS ORDERED: SODIUM CHLORIDE 0.9% 1,000 ML IV SCH (19:45)
[2024-06-29] MEDS: GABAPENTIN 100 MG CAP PO SCH (20:07)
[2024-06-29] MEDS: ATORVASTATIN 20 MG TAB PO SCH (20:50)
[2024-06-29] MEDS: CARVEDILOL 3.125 MG TAB PO SCH (21:04)
[2024-06-29] MEDS ORDERED: METOPROLOL TARTRATE 25 MG TAB PO SCH (22:00)
[2024-06-29] MEDS ORDERED: hydrALAZINE HCL 25 MG TAB PO SCH (22:00)
[2024-06-29] MEDS ORDERED: ATORVASTATIN 20 MG TAB PO SCH (22:00)
[2024-06-29] MEDS: ACETAMINOPHEN 325 MG TAB PO PRN (22:02)
[2024-06-29] MEDS: TICAGRELOR 90 MG TAB PO SCH (22:03)
[2024-06-29] MEDS: INSULIN LANTUS (GLARGINE) 1 /0.01ml (100units/ml) SC SCH (22:11)
[2024-06-29 22:12] VITALS: BP 121/57; PULSE 75; RESP 20; TEMP 98.3; O2SAT 94
[2024-06-30] VITALS (8 sets, daily range): BP systolic 116–144; BP diastolic 37–57; PULSE 68–87; RESP 16–20; TEMP 36.7; O2SAT 92–95
[2024-06-30] MEDS: LEVOTHYROXINE SODIUM 25 MCG TAB PO SCH (06:04)
[2024-06-30 06:21] LABS: Urine Bacteria None Seen /hpf (None Seen)
[2024-06-30 06:36] LABS: Basophils # (auto) 0 10 ^3/uL (0-0.2); Basophils % (auto) 0.7 % (0.0-2.0); Eosinophils # (auto) 0.1 10 ^3/uL (0-0.8); Eosinophils % (auto) 1.7 % (0.0-7.0); Hematocrit 25.5 % (36.0-46.0); Hemoglobin 8.5 g/dL (12.2-16.2); Lymphocytes # (auto) 2.1 10 ^3/uL (0.4-5.4); Lymphocytes % (auto) 29.7 % (10.0-50.0); Mean Corpuscular Hemoglobin 30.3 pg (28.0-32.0); Mean Corpuscular Hgb Conc. 33.5 g/dL (32.0-36.0); Mean Corpuscular Volume 90.6 fL (80.0-100.0); Monocytes # (auto) 0.5 10 ^3/uL (0-1.3); Monocytes % (auto) 6.4 % (0.0-12.0); Neutrophils # (auto) 4.4 10 ^3/uL (1.6-8.6); Neutrophils % (auto) 61.5 % (37.0-80.0); Platelet Count (auto) 165 10^3/uL (140-450); Red Blood Cells 2.81 10^6/uL (4.0-5.20); Red Cell Distribution Width 14.4 % (11.8-14.3); White Blood Cell 7.2 10^3/uL (4.4-10.8)
[2024-06-30 06:39] LABS: Urine Blood Negative /uL (Negative); Urine Clarity Clear (Clear); Urine Color Light-Yellow (Yellow); Urine Protein, UAD 3+ (Negative); Urine Specific Gravity 1.015 (1.001-1.035); Urine Urobilinogen Normal (Negative); Urine WBC 5 /hpf (0 - 5); Urine pH 6.5 (5.0-9.0)
[2024-06-30 06:49] LABS: Anion Gap 13 (5-15); Carbon Dioxide 20 mmol/L (20-31); Chloride 114 mmol/L (98-107); Potassium 4.5 mmol/L (3.5-5.1); Sodium 147 mmol/L (136-145)
[2024-06-30 06:50] LABS: Calcium 8.4 mg/dL (8.7-10.4)
[2024-06-30 06:55] LABS: BUN/Creatinine Ratio 16.2 (10.0-20.0); Blood Urea Nitrogen 62 mg/dL (9-23); Glucose 65 mg/dL (74-106); Magnesium 1.8 mg/dL (1.6-2.6)
--- NOTE | 2024-06-30 07:01 | ECG ---
[facility] Test Date: 2024-06-29 Test Time: 10:07:49 Pat Name: VINCENT PASTOR Department: ER Room: 0245T A Gender: F Furnace Tapper: RICHELLE : 1950 Requested By: CORI ALEX Order Number: [id number] Reading MD: Vijay Ruelas Measurements Intervals [place] Rate: 70 P: 128 ND: 159 QRS: 33 QRSD: 87 T: 221 QT: 469 QTc: 507 Interpretive Statements Sinus rhythm Probable LVH with secondary repol abnrm Prolonged QT interval Baseline wander in lead(s) V6 Electronically Signed On 07-05-2024 13:22:55 PST by Vijay Ruelas Please click the below link to view image of tracing.
[2024-06-30] MEDS: DOCUSATE SOD 100 MG CAP PO SCH (09:51)
[2024-06-30] MEDS: ASPirin 81 mg TAB PO SCH (09:52)
[2024-06-30] MEDS: PANTOPRAZOLE 40 MG TAB PO SCH (09:52)
[2024-06-30] MEDS: ISOSORBIDE MONONITRATE ER 60 MG TAB PO SCH (09:57)
[2024-06-30] MEDS: LISINOPRIL 5 MG TAB PO SCH (09:58)
[2024-06-30] MEDS ORDERED: CLOPIDOGREL BISULFATE 75 MG TAB PO SCH (10:00)
--- NOTE | 2024-06-30 12:58 | DVHINCON2 ---
Date Seen: Jun 30, 2024 Referring Physician MD Ольга Reason for Consultation Elevated troponin History of Present Illness 73-year-old female with PMH for CAD 3V CABG 2003, total of 7 stents on Brilinta and aspirin, HFpEF, CKD stage IV, diabetes, thyroid disease, continued tobacco use, HTN, and HLD presents to the hospital with left arm pain and numbness radiating of 10 neck and head associated with some chest tightness. Patient states she has been having increased left arm pain and numbness that has been on: For the last week or so. Got to the point where her pain started to cause some chest tightness and discomfort. Chest tightness is across the upper chest area, nonradiating, 11/22. Upon evaluation in the ER patient noted to have elevated troponins trending 263, 254, 238. CXR showing cardiomegaly, no pulmonary congestion/edema. EKG reviewed and shows sinus rhythm, LVH, inferior lateral T-wave abnormalities unchanged from previous EKG. Past Medical History CAD s/p 3 V CABG 2013, PTCA with multiple stents total 7. CKD Diastolic heart failure Hypothyroidism Diabetes Past Surgical History 3 V CABG 2013 Coronary angiogram s/p angioplasty and stent (7 stents). Family History: Acute respiratory distress syndrome G8 FATHER, Cardiomegaly 19 CHILD FH: esophageal cancer G8 BROTHER FH: respiratory disease G8 FATHER, FHx: breast cancer G8 MOTHER, FHx: kidney failure G8 MOTHER, Ischemic heart disease 19 CHILD Kidney stone Social History Continues to smoke 2-3 cigarettes a day. Denies alcohol use. Denies illicit drug use. Allergies: Coded Allergies: Codeine (Verified Allergy, Unknown, 09/05/15) Morphine (Verified Allergy, Unknown, 09/05/15) Nitrofurantoin (Verified Allergy, Unknown, 09/05/15) Home Meds Active Scripts Azithromycin (Zithromax) 250 Mg Tab, 250 MG PO DAILY for 4 Days, #4 TAB Prov:ROSELIA MONTOYA RESIDENT 03/17/24 Azithromycin (Zithromax) 500 Mg Tab, 1 TAB PO DAILY for 1 Day, #1 TAB Prov:ROSELIA MONTOYA RESIDENT 03/17/24 Bumetanide (Bumetanide) 2 Mg Tab, 1 TAB PO BID, #60 TAB 5 Refills Prov:REGINA CHRISTIAN MD 03/07/24 Ferrous Sulfate (Iron (Ferrous Sulfate)) 50 Mg Tab, 50 MG PO DAILY for 30 Days, #30 TAB Prov:BLANCA MARTINEZ RESIDENT 02/13/24 Sucralfate (Sucralfate) 1 Gm Tab, 1 GM PO QIDACHS for 30 Days, #120 TAB Prov:BLANCA MARTINEZ 02/13/24 Nicotine (Nicoderm 21MG/24HR) 1 Patch Ph, 1 PATCH TD DAILY for 30 Days, #1 PATCH Prov:BLANCA MARTINEZ RESIDENT 02/13/24 Acetaminophen (Acetaminophen) 325 Mg Tab, 650 MG PO Q6HP PRN for 30 Days, #240 TAB Prov:BLANCA MARTINEZ 02/13/24 Hydrocodone-Acetaminophen (Hydrocodone Bitartrate/AC 5-325 mg) 1 Tab Tab, 1 TAB PO Q6HPRN, #10 TAB 0 Refills Prov:HAYDE ELIZALDE 02/08/24 Reported Medications Fluticasone-Salmeterol (Wixela Inhub 100-50 Mcg/Dose) 1 Aer Aer, 1 PUFF INH Q12HR 03/05/24 Carvedilol (Carvedilol) 6.25 Mg Tab, 1 TAB PO BID 03/05/24 Atorvastatin Calcium (ATORVASTATIN CALCIUM) 80 Mg Tab, 1 TAB PO DAILY, #30 TAB 5 Refills 02/10/24 Glipizide (Glipizide Xl) 10 Mg Tab, 10 MG PO DAILY, TAB 02/10/24 Diclofenac Sodium (Topical) (Voltaren Arthritis Pain) 1 % Gel, 1 % EX PRN PRN for PAIN SCALE 1 THRU 6, GEL 02/10/24 Insulin Glargine (Lantus Solostar) 100 Unit/Ml Inj, 8 UNIT SC HS, INJ 02/10/24 Sodium Zirconium Cyclosilicate (Lokelma) 5 Gm Darrel, 5 GM PO UD Take 5 grams 3 times weekly. 12/27/23 Albuterol Sulfate (Albuterol Sulfate Hfa) 108 Mcg/Act Aer, 2 PUFF INH Q6HR PRN for WHEEZING 12/27/23 Levothyroxine Sodium (Levothyroxine Sodium) 25 Mcg Tab, 1 TAB PO QAM 12/25/23 Sodium Bicarbonate (Sodium Bicarbonate) 650 Mg Tab, 2 TAB PO TID 12/25/23 Isosorbide Mononitrate (Isosorbide Mononitrate ER) 60 Mg Tab, 1.5 TAB PO DAILY 12/25/23 Hydralazine HCl (Hydralazine HCl) 25 Mg Tab, 3 TAB PO TID 12/25/23 Ergocalciferol (Drisdol) 50,000 Unit Cap, 1 CAP PO QWEEKLY 07/21/23 Aspirin (Aspirin) 81 Mg Chw, 81 MG PO, TAB.CHEW 08/11/21 Ticagrelor Base (BRILINTA) 90 Mg Tab, 90 MG PO BID, TAB 08/11/21 Pantoprazole Sodium Sesquihydr (Pantoprazole Sodium) 40 Mg Tab, 1 TAB PO DAILY 08/11/21 Gabapentin (Gabapentin) 100 Mg Cap, 1 CAP PO BID 08/11/21 Ezetimibe (Zetia) 10 Mg Tab, 10 MG PO DAILY, TAB 08/11/21 Current Medications Current Medications Medications (Trade) Dose Ordered Sig/Ezequiel Route PRN Reason Start Time Stop Time Status Last Admin Sodium Chloride 1,000 ml @ 75 mls/hr [id number] IV 06/29/24 14:00 06/29/24 20:52 DC 06/29/24 16:37 Aspirin 81 mg DAILY PO 06/30/24 10:00 06/30/24 09:52 Clopidogrel Bisulfate (Plavix) 75 mg DAILY PO 06/30/24 10:00 UNV Atorvastatin Calcium (Lipitor) 40 mg HS PO 06/29/24 22:00 06/29/24 16:01 DC Metoprolol Tartrate (Lopressor Tablet) 12.5 mg Q12HR PO 06/29/24 22:00 UNV Acetaminophen (Tylenol Tablet) 650 mg Q6HP PRN PO MILD PAIN (1-3 PAIN SCALE) 06/29/24 14:00 06/29/24 22:02 Docusate Sodium (Colace Capsule) 100 mg DAILY PO 06/30/24 10:00 06/30/24 09:51 Ondansetron HCl (Zofran) 4 mg Q4HP PRN IV NAUSEA / VOMITING 06/29/24 14:00 Lisinopril (Zestril Tablet) 10 mg DAILY PO 06/30/24 10:00 Nitroglycerin (Ntrostat Sublingual) 0.4 mg Q5MINP PRN SL FOR CHEST PAIN 06/29/24 14:00 Diagnostic Test (Pha) (Accu-Chek Comfort Curve T) 1 strip ACHS 06/29/24 17:00 06/30/24 06:05 Insulin Human Regular (InsuLIN R) HS SC 06/29/24 22:00 06/29/24 22:07 Insulin Human Regular (InsuLIN R) AC SC 06/29/24 17:00 Dextrose 50 ml UD PRN IV Blood Sugar LESS THAN 60 06/29/24 14:00 Gabapentin (Neurontin Capsule) 100 mg BID PO 06/29/24 22:00 06/30/24 09:53 Hydralazine HCl (Apresoline Tablet) 75 mg TID PO 06/29/24 22:00 Cancel Isosorbide Mononitrate (Imdur Er Tablet) 90 mg DAILY PO 06/30/24 10:00 Levothyroxine Sodium (Synthroid Tablet) 25 mcg QAM PO 06/30/24 07:00 06/30/24 06:04 Pantoprazole Sodium (Protonix Tablet) 40 mg DAILY PO 06/30/24 10:00 06/30/24 09:52 Ticagrelor (Brilinta) 90 mg BID PO 06/29/24 22:00 06/30/24 09:51 Atorvastatin Calcium (Lipitor) 80 mg HS PO 06/29/24 22:00 06/29/24 20:50 Bumetanide (Bumex Tablet) 2 mg BIDD PO 06/29/24 18:00 Carvedilol (Coreg Tablet) 6.25 mg BID PO 06/29/24 22:00 Insulin Glargine (Lantus) 8 units HS SC 06/29/24 22:00 06/29/24 22:11 Sodium Chloride 1,000 ml @ 60 mls/hr [id number] IV 06/29/24 19:45 06/29/24 20:54 DC Sodium Chloride 1,000 ml @ 60 mls/hr [id number] IV 06/29/24 20:00 06/29/24 21:07 Bumetanide (Bumex Tablet) 1 mg BIDD PO 06/30/24 18:00 06/30/24 06:28 DC Review of Systems Constitutional: No: Fever, Chills, Sweats, Weakness, Malaise, Other Eyes: No: Pain, Vision change, Conjunctivae inflammation, Eyelid inflammation, Other, Redness ENT: No: Ear pain, Ear discharge, Nose pain, Nose discharge, Nose congestion, Mouth pain, Mouth swelling, Throat pain, Throat swelling, Other Respiratory: No: Cough, Dry, Shortness of breath, SOB with exertion, Wheezing, Hemoptysis, Pleuritic Pain, Sputum, Wheezing, Other Cardiovascular: ; No: Chest Pain Palpitations, Orthopnea, Paroxysmal Noc. Dyspnea, , Lt Headedness, Other positive: Chest tightness, shortness of breath with exertion, Edema Gastrointestinal: No: Nausea, Vomiting, Abdominal Pain, Diarrhea, Constipation, Melena, Hematochezia, Other Genitourinary: No Dysuria, No Frequency, No Incontinence, No Hematuria, No Retention, No Other Musculoskeletal: neck pain; No: other, shoulder pain, arm pain, back pain, hand pain, leg pain, foot pain positive: Left arm and neck numbness, pain Skin: No: Rash, Lesions, Jaundice, Bruising, Other Neurological: Other (Dizziness, headache.); No: Weakness, Numbness, Incoordination, Change in speech, Confusion, Seizures Vital Signs Vital Signs Date Time Temp Pulse Resp B/P (MAP) Pulse Ox O2 Delivery O2 Flow Rate FiO2 06/30/24 09:58 116/49 06/30/24 09:56 78 06/30/24 09:00 98.0 18 94 98.0 06/30/24 08:10 Room Air* 0 21 Physical Exam General appearance: Patient is well-developed, well-nourished, in no acute distress. HEENT: Exam shows: Normocephalic, atraumatic, PERRLA, EOMI Neck: Supple, no bruits Chest: Equal chest excursion bilaterally. Breath sounds diminished. Heart: Rhythm: Regular rate; no murmur or gallop Abdomen: Exam shows: Soft, nontender, nondistended Musculoskeletal: No clubbing, no cyanosis, + lower extremity edema Dermatology: Skin warm, moist. Neurological: Exam shows: Alert and oriented x4, normal speech Available prior records, labs, EKG, rhythm strips reviewed and interpreted Labs/Diagnostic Data Labs Test 06/30/24 06:20 06/30/24 05:54 06/30/24 05:53 06/29/24 13:35 Range/Units Urine Color Light-yellow Yellow Urine Clarity Clear Clear Urine pH 6.5 5.0-9.0 Urine Specific [place] 1.015 1.001-1.035 Urine Protein 3+ H Negative Urine Ketones Negative Negative Urine Blood Negative Negative /uL Urine Nitrite Negative Negative Urine Bilirubin Negative Negative Urine Urobilinogen Normal Negative mg/dL Urine Leukocyte Esterase Negative Negative /uL Urine RBC <1 0 - 4 /hpf Urine WBC 5 0 - 5 /hpf Urine Squamous Epithelial Cells Few <5 /hpf Urine Bacteria None seen None Seen /hpf Urine Glucose Trace Normal mg/dL White Blood Count 7.2 4.4-10.8 10^3/uL Red Blood Count 2.81 L 4.0-5.20 10^6/uL Hemoglobin 8.5 L 12.2-16.2 g/dL Hematocrit 25.5 L 36.0-46.0 % Mean Corpuscular Volume 90.6 80.0-100.0 fL Mean Corpuscular Hemoglobin 30.3 28.0-32.0 pg Mean Corpuscular Hemoglobin Concent 33.5 32.0-36.0 g/dL Red Cell Distribution Width 14.4 H 11.8-14.3 % Platelet Count 165 140-450 10^3/uL Mean Platelet Volume 9.8 6.9-10.8 fL Neutrophils (%) (Auto) 61.5 37.0-80.0 % Lymphocytes (%) (Auto) 29.7 10.0-50.0 % Monocytes (%) (Auto) 6.4 0.0-12.0 % Eosinophils (%) (Auto) 1.7 0.0-7.0 % Basophils (%) (Auto) 0.7 0.0-2.0 % Neutrophils # (Auto) 4.4 1.6-8.6 10 ^3/uL Lymphocytes # (Auto) 2.1 0.4-5.4 10 ^3/uL Monocytes # (Auto) 0.5 0-1.3 10 ^3/uL Eosinophils # (Auto) 0.1 0-0.8 10 ^3/uL Basophils # (Auto) 0 0-0.2 10 ^3/uL Nucleated Red Blood Cells 0.0 % Sodium Level 147 H 136-145 mmol/L Potassium Level 4.5 3.5-5.1 mmol/L Chloride Level 114 H 98-107 mmol/L Carbon Dioxide Level 20 20-31 mmol/L Anion Gap 13 5-15 Blood Urea Nitrogen 62 H 9-23 mg/dL Creatinine 3.83 H 0.550-1.02 mg/dL Glomerular Filtration Rate Calc 12 >90 mL/min BUN/Creatinine Ratio 16.2 10.0-20.0 Serum Glucose 65 L 74-106 mg/dL Calcium Level 8.4 L 8.7-10.4 mg/dL Magnesium Level 1.8 1.6-2.6 mg/dL POC Glucose 67 L 70-106 mg/dl Troponin I High Sensitivity 238 *H </=34 ng/L Assessment (Dr. Caputo) NSTEMI type II Acute on chronic decompensated HFpEF Severe coronary artery disease status post multiple PTCAs x7 GARY and triple vessel CABG (on Brilinta and Aspirin) HX Systolic murmur with aortic valve stenosis, moderate degree Hypertension Dyslipidemia CKD Stage IV Type 2 diabetes mellitus Thyroid disease Active tobacco use Morbid obesity Right next, Left arm pain, numbness Plan/Recommendation Plan/Recommendation * Continue aspirin, Brilinta, and statin. * Follow-up echo for positive tropes and history of aortic stenosis. * BP control. Continued on Coreg, lisinopril. * Antianginals with isosorbide. * Continue on Bumex 2 mg p.o. b.i.d., monitor response, monitor kidney function. Case Discussed with Dr Caputo. The patient underwent a recent cardiac catheterization revealing a chronically occluded RCA and widely patent graft of the left internal mammary artery to the LAD and saphenous vein graft to the obtuse marginal branch as well as a widely patent stent to the saphenous vein graft of the obtuse marginal branch with Dr. Metcalf on 07/22/23. Continue with medical management. Critical care, time spent: 40 minutes This medical document was created using an electronic medical record system with voice recognition software and computerized dictation system. Although this document has been carefully reviewed, there might still be some phonetic and typographical errors. Occasional wrong-word or ``sound-alike substitutions may have occurred due to the inherent limitations of voice recognition software. These areas are purely typographical due to imperfections of the software programs and do not reflect any compromise in the patient's medical care. Please read the chart carefully and recognize, using context, where these substitutions have occurred. Thank you for allowing me to participate in the management of this patient. Plan discussed with: Patient Date of Service: Jun 30, 2024 Billing Provider: NICHOLAS HYLTON Cardiology Common Codes: [id number] INP/OBS CARE (High), [id number] CARE 30-74 MIN NICHOLAS HYLTON Jun 30, 2024 12:58
[2024-06-30] MEDS ORDERED: RANO500G PO (15:16)
--- NOTE | 2024-06-30 15:19 | DVHDS2 ---
Discharge Summary Date of Admission Jun 29, 2024 at 13:57 Date of Discharge: Jun 30, 2024 Labs/Diagnostic Data: Laboratory Results Test 06/30/24 12:27 06/30/24 06:20 06/30/24 05:54 06/29/24 13:35 POC Glucose 120 mg/dl (70-106) Urine Color Light-yellow (Yellow) Urine Clarity Clear (Clear) Urine pH 6.5 (5.0-9.0) Urine Specific [place] 1.015 (1.001-1.035) Urine Protein 3+ (Negative) Urine Ketones Negative (Negative) Urine Blood Negative /uL (Negative) Urine Nitrite Negative (Negative) Urine Bilirubin Negative (Negative) Urine Urobilinogen Normal mg/dL (Negative) Urine Leukocyte Esterase Negative /uL (Negative) Urine RBC <1 /hpf (0 - 4) Urine WBC 5 /hpf (0 - 5) Urine Squamous Epithelial Cells Few /hpf (<5) Urine Bacteria None seen /hpf (None Seen) Urine Glucose Trace mg/dL (Normal) White Blood Count 7.2 10^3/uL (4.4-10.8) Red Blood Count 2.81 10^6/uL (4.0-5.20) Hemoglobin 8.5 g/dL (12.2-16.2) Hematocrit 25.5 % (36.0-46.0) Mean Corpuscular Volume 90.6 fL (80.0-100.0) Mean Corpuscular Hemoglobin 30.3 pg (28.0-32.0) Mean Corpuscular Hemoglobin Concent 33.5 g/dL (32.0-36.0) Red Cell Distribution Width 14.4 % (11.8-14.3) Platelet Count 165 10^3/uL (140-450) Mean Platelet Volume 9.8 fL (6.9-10.8) Neutrophils (%) (Auto) 61.5 % (37.0-80.0) Lymphocytes (%) (Auto) 29.7 % (10.0-50.0) Monocytes (%) (Auto) 6.4 % (0.0-12.0) Eosinophils (%) (Auto) 1.7 % (0.0-7.0) Basophils (%) (Auto) 0.7 % (0.0-2.0) Neutrophils # (Auto) 4.4 10 ^3/uL (1.6-8.6) Lymphocytes # (Auto) 2.1 10 ^3/uL (0.4-5.4) Monocytes # (Auto) 0.5 10 ^3/uL (0-1.3) Eosinophils # (Auto) 0.1 10 ^3/uL (0-0.8) Basophils # (Auto) 0 10 ^3/uL (0-0.2) Nucleated Red Blood Cells 0.0 % Sodium Level 147 mmol/L (136-145) Potassium Level 4.5 mmol/L (3.5-5.1) Chloride Level 114 mmol/L (98-107) Carbon Dioxide Level 20 mmol/L (20-31) Anion Gap 13 (5-15) Blood Urea Nitrogen 62 mg/dL (9-23) Creatinine 3.83 mg/dL (0.550-1.02) Glomerular Filtration Rate Calc 12 mL/min (>90) BUN/Creatinine Ratio 16.2 (10.0-20.0) Serum Glucose 65 mg/dL (74-106) Calcium Level 8.4 mg/dL (8.7-10.4) Magnesium Level 1.8 mg/dL (1.6-2.6) Troponin I High Sensitivity 238 ng/L (</=34) Other Laboratory Tests 06/30/24 05:54 Brief Hx & Hospital Course: 73-year-old female with PMH for CAD 3V CABG 2003, total of 7 stents on Brilinta and aspirin, HFpEF, CKD stage IV, diabetes, thyroid disease, continued tobacco use, HTN, and HLD presents to the hospital with left arm pain and numbness radiating of 10 neck and head associated with some chest tightness. Patient states she has been having increased left arm pain and numbness that has been on: For the last week or so. Got to the point where her pain started to cause some chest tightness and discomfort. Chest tightness is across the upper chest area, nonradiating, 11/22. Upon evaluation in the ER patient noted to have elevated troponins trending 263, 254, 238. CXR showing cardiomegaly, no pulmonary congestion/edema. EKG reviewed and shows sinus rhythm, LVH, inferior lateral T-wave abnormalities unchanged from previous EKG.. Upon further questioning, patient reports her left arm pain started in the neck and to her shoulder more prominent at night while sleeping on her pillow. Patients symptoms possibly due to Cervical Radiculopathy, will get MRI C Spine prior to discharge. Patient also had an MRI of the shoulder in July 2023, results were reviewed. Needs outpatient Ortho consult. Condition at Discharge: Poor Final Diagnosis/Problems List Chest Pain CAD Cervical Radiculopathy Discharge Disposition: Home Discharge Instruct/Medications Diet: Cardiac 2g Na,low cholest (2 gm sodium, low cholesterol) Activity: Light activity Follow Up/Referral: DC Clinic on Tuesday Ortho Clinic in 2 weeks Medications: Resume Home Meds Discharge Statement: "Patient was advised to return to the ER or call 911 if any headaches, dizziness, shortness of breath, chest pain, abdominal pain, bleeding, fevers, or worsening of medical condition. Patient was counseled about treatment plan, medications, possible side effects, patientverbalized understanding. All questions were answered to the best of my ability. This discharge took greater then 30 minutes in planning, reviewing documentation, counseling the patient, and discussing with other team members." ASSESSMENT ASSESSMENT Assessment Date of Service: Jun 30, 2024 Billing Provider: BRIAN BAKER MD Common Visit Codes: 68292-OIN/OBS DISCH DAY >30min BRIAN BAKER MD Jun 30, 2024 15:19
--- NOTE | 2024-06-30 15:46 | DVHSR ---
APPROVED REPORT EXAM: Two-dimensional and M-mode echocardiogram with Doppler and color Doppler. Blood Pressure: 134/37 mmHg INDICATION Aortic Stenosis RISK FACTORS Obesity: Height: 5' 6", Weight: 241 DIMENSIONS LVDd5.0 (3.8-5.7cm)LA (2D)4.8 (1.9-4.0cm)Aortic Root3.2 (2.0-3.7cm) LVDs3.3 (2.5-4.0cm)LA (MM) (1.9-4.0cm)Aortic Cusp Exc1.2 (1.5-2.0cm) EF (%) 63.0 (55-70%)Rt. Atrium4.4 (1.9-4.0cm)Asc. Aorta cm IVSd1.4 (0.7-1.1cm)RV (D) (1.8-2.4cm) PWd1.6 (0.7-1.1cm) Mitral Valve MitralMitral Stenosis E wave1.20m/sMV Mean GR.mmHg A wave1.30m/sMV Peak GR.mmHg E/A ratio0.92D MVAcm2 Aortic Valve Aortic ValveAortic Stenosis V11.10m/Codi Mean GR.21mmHg V23.00m/Codi Peak GR.37mmHg LVOT Diameter2.1 (1.8-2.4cm)Doppler AVA1.27cm2 Pulmonic Valve V20.80m/s Tricuspid Valve TR Velocity3.20m/s [id number] Conclusion lvef 55% byvisual estimate severe LVH severe calcified aortic valve, at least moderate , mean graidnet of 21 mmhg moderate MAC moderate tricuspid regurg
[2024-06-30] MEDS: RANOLAZINE ER 500 MG TAB PO ONE (16:22)
--- NOTE | 2024-06-30 16:51 | DVH ---
CLINICAL INFORMATION: 73 years old, Female; Cervical Radiculopathy. TECHNIQUE: Multisequence multiplanar MRI images of the cervical spine were obtained without contrast . COMPARISON: Prior MRI of the cervical spine dated 07/23/2023. FINDINGS: Bones: Straightening of the normal cervical lordosis. No significant spondylolisthesis. Vertebral bod y heights are maintained. Posterior elements are intact. No acute fracture. No focal suspicious marro w signal abnormality. Spinal cord: Spinal cord is normal in signal intensity and morphology. Paraspinal soft tissues: There is edema involving the interspinous and supraspinous ligaments, most p rominent at the C3-C4, C4-C5, C5-C6, and C6-C7 levels, new or more conspicuous compared to the prior MRI, may be due to sequela of ligamentous sprains or nonspecific inflammation. Other: Motion artifact limits evaluation. Cervical disc levels: C2-C3: Disc desiccation. No significant spinal canal or neural foraminal stenosis. C3-C4: Disc desiccation with central disc extrusion, similar to the prior exam, abutting the ventral aspect of the spinal cord and causing moderate spinal canal stenosis. No significant neural foraminal stenosis. C4-C5: Disc desiccation with moderate disc space narrowing and central disc extrusion, similar in dottie earance compared to the prior exam, causing moderate spinal canal stenosis and abutting and mildly in denting the ventral aspect of the spinal cord. Facet and uncinate hypertrophy with moderate right and [id number] left neural foraminal stenosis. C5-C6: Disc desiccation with severe disc space narrowing and diffuse disc bulge with prominent tetryl blender operator ior disc osteophyte complex causing severe spinal canal stenosis, abutting and indenting the ventral aspect of the spinal cord and effacing the lateral recesses. Facet and uncinate hypertrophy with brian re left and moderate right neural foraminal stenoses. C6-C7: Disc desiccation with moderate to severe disc space narrowing and diffuse disc bulge causing m oderate to severe spinal canal stenosis and effacement of the lateral recesses. There is abutment and mild indentation of the ventral aspect of the spinal cord. Severe left and moderate to severe right neural foraminal stenoses. C7-T1: Disc desiccation. No significant spinal canal or neural foraminal stenosis. IMPRESSION: 1. Degenerative disc disease and facet /uncinate disease in the cervical spine with associated spinal canal, subarticular, and neural foraminal stenoses as detailed above. The degree of spinal canal and neural foraminal stenosis appear similar to the prior exam. 2. Motion artifact limits evaluation, particularly for signal abnormality in the spinal cord. 3. Edema in the along the supraspinous and interspinous ligaments at multiple levels as detailed abov e, may be sequela of sprains or nonspecific inflammation. Correlate with clinical findings. 4. Additional findings as detailed above.
[2024-06-30] MEDS ORDERED: BUMETANIDE 1 MG TAB PO SCH (18:00)
[2024-06-30] MEDS ORDERED: RANOLAZINE ER 500 MG TAB PO SCH (22:00)
--- NOTE | 2024-07-02 14:15 | ECG ---
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
== END 2024-06-30 19:52 | disposition home or self-care (01) | DRG 280 ==
LOC: ER 09:35 → TELE 13:57 → TELE-EAST 21:18
PROVIDERS: ADMIT Hospitalist; ATTEND Hospitalist
DX: I13.0 Hypertensive heart and chronic kidney disease with heart failure and stage 1 through stage 4 chronic kidney disease, or unspecified chronic kidney disease (principal); I50.33 Acute on chronic diastolic (congestive) heart failure; I21.A1 Myocardial infarction type 2; N18.4 Chronic kidney disease, stage 4 (severe); M54.12 Radiculopathy, cervical region; F17.210 Nicotine dependence, cigarettes, uncomplicated; I25.10 Atherosclerotic heart disease of native coronary artery without angina pectoris; E78.5 Hyperlipidemia, unspecified; E11.22 Type 2 diabetes mellitus with diabetic chronic kidney disease; E11.65 Type 2 diabetes mellitus with hyperglycemia; E03.9 Hypothyroidism, unspecified; E66.01 Morbid (severe) obesity due to excess calories; Z88.5 Allergy status to narcotic agent; Z93.6 Other artificial openings of urinary tract status; Z90.710 Acquired absence of both cervix and uterus; Z95.1 Presence of aortocoronary bypass graft; Z90.5 Acquired absence of kidney; Z87.442 Personal history of urinary calculi; Z80.3 Family history of malignant neoplasm of breast; Z80.0 Family history of malignant neoplasm of digestive organs; Z87.440 Personal history of urinary (tract) infections; Z68.39 Body mass index [BMI] 39.0-39.9, adult; Z79.4 Long term (current) use of insulin
CPT/HCPCS: 36415; 71045; 72141; 80048; 81001; 82962; 83735; 84484; 85025; 93005; 93306; 99291; 99292; G0378; J1815

== ENCOUNTER 2024-07-16 09:47 | Inpatient (IN) | payer OTHER, MEDICAID ==
[~2024-07-16] VITALS: Ht 167.6 cm; Wt 102.0 kg
[~2024-07-16 09:47] MED LIST changes: -AZIT-74 PO; -AZIT500T PO; +CARV12.544 PO; -HYDR-4902 PO; +NITR0.4S29 SL; +RANO500G PO; -SUCR1TAB PO
--- NOTE | 2024-07-16 10:29 | ECG ---
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
--- NOTE | 2024-07-16 10:40 | ED.PDOC ---
HPI (NEURO) HPI Comments 73y F who presents to the ED for chief complaint of generalized weakness. Pt states she went to PCP office earlier this AM for general check up and associated L foot pain and swelling. Pt states while at PCP appt, pt has vitals checked and states vitals showed heart rate in the 40's and prior to appt with PCP, pt was referred to the ED for further evaluation. Pt states in the ED, she has been having L foot pain and swelling for the past 2 days. Pt states the pain is constant, non-radiating, with associated exacerbation of pain while ambulating and no relieving factors. Pt states this AM, while getting ready for PCP appt, she felt weak and had associated dizziness but states it came and went prior to leaving the house and states she is feeling dizzy now. Pt now in the ED, otherwise denies chest pain, shortness of breath, fever, cough, chills, dysuria, headache, nausea or vomiting. Pt in the ED, is alert and oriented x 4 and otherwise has noted heart rate of 48 and blood pressure of 132/29 with all other vitals in normal range. Pt otherwise has noted medical history including history of HTN, DM, CKD, SC and asthma. Pt otherwise denies any other symptoms at this time. Chief Complaint: General Weakness Time Seen by MD: 10:36 Primary Care Provider: MAXWELL Garcia Notes: Medications, Allergies Information Source: Patient Mode of Arrival: Wheelchair Brought in by: self Past Medical History PAST MEDICAL HISTORY: CHF, CKF, DM, High Lipids, Kidney Stones, SC, UTI'S Surgical History: Appendectomy, CABG, Hysterectomy, PTCA Surgical History (Other): partial nephrectomy, CLOCK SMITH History: No Pertinent CLOCK SMITH History Family History Family History: No family hx of Cancer, No family hx of Heart елена Social History Smoker: Cigarettes, Less Than 1 Pack/Day Alcohol: Denies ETOH Use Drugs: Denies Drug Use Lives In: Home Constitutional: reports: malaise, weakness; denies: chills, diaphoresis, fatigue, fever, sweats, others EENTM: denies: blurred vision, double vision, ear bleeding, ear discharge, ear drainage, ear pain, ear ringing, eye pain, eye redness, hearing loss, mouth pain, mouth swelling, nasal discharge, nose bleeding, nose congestion, nose pain, photophobia, tearing, throat pain, throat swelling, voice changes, others Respiratory: denies: cough, hemoptysis, orthopnea, SOB at rest, shortness of breath, SOB with excertion, stridor, wheezing, others Cardiovascular: denies: chest pain, dizzy spells, diaphoresis, Dyspnea on exertion, edema, irregular heart beat, left arm pain, lightheadedness, palpitations, PND, syncope, others Gastrointestinal: denies: abdomen distended, abdominal pain, blood streaked bowels, constipated, diarrhea, dysphagia, difficulty swallowing, hematemesis, melena, nausea, poor appetite, poor fluid intake, rectal bleeding, rectal pain, vomiting, others Genitourinary: denies: abnormal vagina bleeding, burning, dyspareunia, dysuria, flank pain, frequency, hematuria, incontinence, pain, , vagina dischar ge, urgency, others Neurological: reports: dizziness; denies: fainting, headache, left sided numbness, left sided weakness, numbness, paresthesia, pre-existing deficit, right sided numbness, right sided weakness, seizure, speech problems, tingling, tremors, weakness, others Musculoskeletal: reports: joint swelling (LLE); denies: back pain, gout, joint pain, muscle pain, muscle stiffness, neck pain, others Integumetry: denies: bruises, change in color, change in hair/nails, dryness, laceration, lesions, lumps, rash, wounds, others Allergic/Immunocompromised: denies: Difficulty Healing, Frequent Infections, Hives, Itching, others Hematologic/Lymphatic: denies: anemia, blood clots, easy bleeding, easy bruising, swollen glands, others Endocrine: denies: excessive hunger, excessive sweating, excessive thirst, excessive urination, flushing, intolerance to cold, intolerance to heat, unexplained weight gain, unexplained weight loss, others Psychiatric: denies: anxiety, bipolar disorder, depression, hopeless, panic disorder, schizophrenia, sleepless, suicidal, others All Other Systems: Reviewed and Negative Physical Exam General Appearance: No Apparent Distress, Obese HEENT: Normal ENT Inspection Neck: Full Range of Motion, Normal Inspection Respiratory: Lungs Clear, No Accessory Muscle Use, No Respiratory Distress, Normal Breath Sounds Cardiovascular: Bradycardia, No JVD Breast Exam: Deferred Gastrointestinal: Non Tender, Soft Genitalia: Deferred Pelvic: Deferred Rectal: Deferred Extremities: Leg edema, Normal range of motion, Pedal edema, Swelling, Tender ( L foot dorsum) Neurologic: Alert (Oriented x4), Normal Affect, Normal Mood, Other (No gross focal deficit) Cerebellar Function: NOT DONE Reflexes: NOT DONE Skin: Dry, Pallor, Warm Lymphatic: NOT DONE EKG EKG : Comments Sinus bradycardia, rate 40, normal WV and QRS intervals, QTC prolonged at 506, normal axis, LVH, occasional PACs, inferior and lateral T-wave inversion with minimal ST depression Was a procedure done? Was a procedure done?: No Differential Diagnosis (SZ) General Weakness: Anemia, Dehydration, Electrolyte imbalance, Encephalopathy, H ypoglycemia, Hypovolemia, TIA, Other (DVT, PE, arrhythmia) X-Ray, Labs, Meds, VS Vital Signs Date Time Temp Pulse Resp B/P (MAP) Pulse Ox O2 Delivery O2 Flow Rate FiO2 07/16/24 11:48 Room Air* 0 21 07/16/24 11:47 48 16 117/46 (69) 98 07/16/24 10:04 40 07/16/24 09:55 97.5 48 18 132/29 (63) 97 Lab Test 07/16/24 13:51 07/16/24 11:36 07/16/24 10:44 Range/Units Troponin I High Sensitivity 26 27 28 </=34 ng/L White Blood Count 9.6 4.4-10.8 10^3/uL Red Blood Count 3.03 L 4.0-5.20 10^6/uL Hemoglobin 9.1 L 12.2-16.2 g/dL Hematocrit 27.8 L 36.0-46.0 % Mean Corpuscular Volume 91.7 80.0-100.0 fL Mean Corpuscular Hemoglobin 30.1 28.0-32.0 pg Mean Corpuscular Hemoglobin Concent 32.8 32.0-36.0 g/dL Red Cell Distribution Width 14.1 11.8-14.3 % Platelet Count 202 140-450 10^3/uL Mean Platelet Volume 10.0 6.9-10.8 fL Neutrophils (%) (Auto) 74.5 37.0-80.0 % Lymphocytes (%) (Auto) 17.9 10.0-50.0 % Monocytes (%) (Auto) 5.9 0.0-12.0 % Eosinophils (%) (Auto) 0.9 0.0-7.0 % Basophils (%) (Auto) 0.8 0.0-2.0 % Neutrophils # (Auto) 7.2 1.6-8.6 10 ^3/uL Lymphocytes # (Auto) 1.7 0.4-5.4 10 ^3/uL Monocytes # (Auto) 0.6 0-1.3 10 ^3/uL Eosinophils # (Auto) 0.1 0-0.8 10 ^3/uL Basophils # (Auto) 0.1 0-0.2 10 ^3/uL Nucleated Red Blood Cells 0.1 % Prothrombin Time 11.6 9.3-11.8 sec Prothrombin Time INR 1.10 0.9-1.15 Activated Partial Thromboplast Time 29.1 24.5-34.5 SEC Sodium Level 142 136-145 mmol/L Potassium Level 3.9 3.5-5.1 mmol/L Chloride Level 102 98-107 mmol/L Carbon Dioxide Level 25 20-31 mmol/L Anion Gap 15 5-15 Blood Urea Nitrogen 114 *H 9-23 mg/dL Creatinine 5.20 H 0.550-1.02 mg/dL Glomerular Filtration Rate Calc 8 >90 mL/min BUN/Creatinine Ratio 21.9 H 10.0-20.0 Serum Glucose 260 H 74-106 mg/dL Hemoglobin A1c 6.3 H <5.7 % A1C Calcium Level 8.4 L 8.7-10.4 mg/dL Total Bilirubin 0.2 0.2-1.0 mg/dL Aspartate Amino Transferase (AST) < 8 L 13-40 U/L Alanine Aminotransferase (ALT) 10 7-40 U/L Alkaline Phosphatase 92 46-116 U/L B-Type Natriuretic Peptide 324.81 0-100 pg/mL Total Protein 6.4 5.7-8.2 g/dL Albumin 4.0 3.2-4.8 g/dL Current Medications Medications (Trade) Dose Ordered Sig/Ezequiel Route Start Time Stop Time Status Last Admin Acetaminophen/ Hydrocodone Bitart ([place] 5/325MG Tab) 1 tab ONCE ONCE PO 07/16/24 10:45 07/16/24 10:46 DC 07/16/24 11:53 [facility] [id number] [place] [id number] Ph: [phone] DIAGNOSTIC IMAGING Diagnostic Imaging Report : [id number] Signed PATIENT: VINCENT PASTOR ACCT: [id number] UNIT: [id number] : 1950 LOC: ER ROOM / BED: / AGE / SEX: 73 / F ADM STATUS: REG ER SERVICE 1031 ORDERING PHYSICIAN: SRINIVAS MCMULLEN MD PROCEDURE(s): LFOOT - L FOOT 3 VIEW XRAY REASON: pain ORDER NUMBER(s): [id number], ACCESSION NUMBER(s): [id number] CLINICAL INDICATION: pain TECHNIQUE: XY L FOOT 3 VIEW XRAY Comparison: None FINDINGS/IMPRESSION: There is no evidence of acute fracture or dislocation. The visualized joint space is well maintained. The alignment is anatomical. There is no radiopaque foreign body. ATED BY: JENAE MICHAEL MD DICTATED DATE/TIME: 07/16/24 113 SIGNED BY: JENAE MICHAEL MD SIGNED DATE/TIME: 07/16/24 113 CC: [place] [id number] Ph: [phone] DIAGNOSTIC IMAGING Diagnostic Imaging Report : [id number] Signed PATIENT: VINCENT PASTOR ACCT: [id number] UNIT: [id number] : 1950 LOC: ER ROOM / BED: / AGE / SEX: 73 / F ADM STATUS: REG ER SERVICE 1031 ORDERING PHYSICIAN: SRINIVAS MCMULLEN MD PROCEDURE(s): LLDVT - LT Lower DVT REASON: L foot pain, lle edema ORDER NUMBER(s): [id number], ACCESSION NUMBER(s): [id number] Left lower extremity venous duplex Clinical History: L foot pain, lle edema Comparison: US BILAT LOWER DVT on DOS: 06/08/24, US BILAT LOWER DVT on DOS: 03/03/24, US BILAT LOWER DVT on DOS: 12/25/23, US BILAT LOWER DVT on DOS: 07/21/23 Findings: Duplex Doppler evaluation of the deep venous system of the left lower extremity from the common femoral vein to the popliteal vein including color Doppler and spectral/pulsed waveform analysis was performed. The common femoral vein demonstrates appropriate compressibility and waveform variability. There is compressibility/patency of the great saphenous vein at the proximal thigh. The femoral vein demonstrates appropriate compressibility and waveform variability. The deep femoral vein demonstrates appropriate compressibility and waveform variability. The popliteal vein demonstrates appropriate compressibility and waveform variability. There is normal compressibility at the tibioperoneal trunk. Impression: No left femoropopliteal venous thrombosis. If clinical concern/symptoms persist or worsen, short-interval follow-up study is suggested. ATED BY: JENAE MICHAEL MD DICTATED DATE/TIME: 07/16/24 113 SIGNED BY: JENAE MICHEAL MD SIGNED DATE/TIME: 07/16/24 113 CC: [place] [id number] Ph: [phone] DIAGNOSTIC IMAGING Diagnostic Imaging Report : [id number] Signed PATIENT: VINCENT PASTOR ACCT: [id number] UNIT: [id number] : 1950 LOC: ER ROOM / BED: / AGE / SEX: 73 / F ADM STATUS: REG ER SERVICE 1031 ORDERING PHYSICIAN: SRINIVAS MCMULLEN MD PROCEDURE(s): CXRP - CHEST PORTABLE REASON: bradycardia ORDER NUMBER(s): [id number], ACCESSION NUMBER(s): [id number] CHEST RADIOGRAPH Indication: bradycardia Technique: Single frontal view of the chest was obtained Comparison: XY CHEST XRAY 1 VIEW on DOS: 06/29/24, XY CHEST PORTABLE on DOS: 03/15/24, XY CHEST PORTABLE on DOS: 02/13/24, XY CHEST PORTABLE on DOS: 02/09/24, XY CHEST XRAY 1 VIEW on DOS: 01/31/24 FINDINGS: Lines and Tubes: None Lungs: No focal consolidation. Pleura: No effusion. No pneumothorax. Cardiomediastinal contours: Unremarkable Bones: No acute osseous abnormality. IMPRESSION: No acute cardiopulmonary disease. ATED BY: JENAE MICHAEL MD DICTATED DATE/TIME: 07/16/24 113 SIGNED BY: JENAE MICHAEL MD SIGNED DATE/TIME: 07/16/241130 CC: X-Ray, Labs, Meds, VS Comment 73-year-old female with a history of diabetes, CAD, CHF, CKD, dyslipidemia, SC referred by primary physician's office for bradycardia. Patient complaining of generalized weakness, dizziness and left foot pain. Vitals remarkable for temperature 97.5, heart rate 40, BP 132/29 Exam remarkable for bradycardia, 2+ pitting edema bilateral lower extremities, left foot soft tissue tenderness on the dorsum, associated with soft tissue swelling EKG Sinus bradycardia, rate 40, normal WV and QRS intervals, QTC prolonged at 506, normal axis, LVH, occasional PACs, inferior and lateral T-wave inversion with minimal ST depression Chest x-ray no acute disease Left foot x-ray unremarkable Left lower extremity Doppler ultrasound negative DVT CBC remarkable for hemoglobin 9.1, hematocrit 27.8, CMP remarkable for BUN 114, creatinine 5.2, glucose 260 BNP 324.81, troponin negative Patient treated with the following in the ED: 1 L 0.9 normal saline IV bolus, [place] 5/325 mg p.o. On re-evaluation, patient resting comfortably, heart rate is still in the 40s, blood pressure stable. Plan is to admit the patient for cardiology and nephrology evaluation. Time of 1ST Reevaluation: 11:10 Reevaluation 1ST: Unchanged Time of 2ND Reevaluation: 11:37 Reevaluation 2ND: Unchanged Patient Education/Counseling: Diagnosis, Treatment Family Education/Counseling: No Family Present Departure 1 Departure Time of Disposition: 12:00 Impression: Primary Impression: Symptomatic bradycardia Additional Impression: Acute on chronic renal failure Qualified Codes: N17.9 - Acute kidney failure, unspecified; N18.9 - Chronic kidney disease, unspecified Disposition: 09 ADMITTED INPATIENT Admit to: [facility] Condition: Guarded Critical Care Note Critical Care Time?: No Stability Stability form required: No Heart Score Heart Score: Heart Score Response (Comments) Value History Moderate Suspicious [address]-Deviation 2 Age >65 2 Risk Factors >3 or Hx ASHD 2 Troponin Normal limit 0 Total 7 I personally scribed for SRINIVAS MCMULLEN MD ([email or web address]) on 07/16/24 at 10:40. Electronically submitted by Mi Enciso ([facility] I personally scribed for SRINIVAS MCMULLEN MD ([facility]) on 07/16/24 at 11:48. Electronically submitted by Mi Enciso ([facility] SRINIVAS MCMULLEN MD Jul 16, 2024 10:40
[2024-07-16 11:05] LABS: Basophils # (auto) 0.1 10 ^3/uL (0-0.2); Basophils % (auto) 0.8 % (0.0-2.0); Eosinophils # (auto) 0.1 10 ^3/uL (0-0.8); Eosinophils % (auto) 0.9 % (0.0-7.0); Hematocrit 27.8 % (36.0-46.0); Hemoglobin 9.1 g/dL (12.2-16.2); Lymphocytes # (auto) 1.7 10 ^3/uL (0.4-5.4); Lymphocytes % (auto) 17.9 % (10.0-50.0); Mean Corpuscular Hemoglobin 30.1 pg (28.0-32.0); Mean Corpuscular Hgb Conc. 32.8 g/dL (32.0-36.0); Mean Corpuscular Volume 91.7 fL (80.0-100.0); Monocytes # (auto) 0.6 10 ^3/uL (0-1.3); Monocytes % (auto) 5.9 % (0.0-12.0); Neutrophils # (auto) 7.2 10 ^3/uL (1.6-8.6); Neutrophils % (auto) 74.5 % (37.0-80.0); Nucleated Red Blood Cells % 0.1 %; Platelet Count (auto) 202 10^3/uL (140-450); Red Blood Cells 3.03 10^6/uL (4.0-5.20); Red Cell Distribution Width 14.1 % (11.8-14.3); White Blood Cell 9.6 10^3/uL (4.4-10.8)
[2024-07-16 11:26] LABS: INR 1.1 (0.9-1.15); Partial Thromboplastin Time 29.1 SEC (24.5-34.5); Prothrombin Time 11.6 sec (9.3-11.8)
--- NOTE | 2024-07-16 11:33 | DVH ---
CHEST RADIOGRAPH Indication: bradycardia Technique: Single frontal view of the chest was obtained Comparison: XY CHEST XRAY 1 VIEW on DOS: 06/29/24, XY CHEST PORTABLE on DOS: 03/15/24, XY CHEST PORTABL E on DOS: 02/13/24, XY CHEST PORTABLE on DOS: 02/09/24, XY CHEST XRAY 1 VIEW on DOS: 01/31/24 FINDINGS: Lines and Tubes: None Lungs: No focal consolidation. Pleura: No effusion. No pneumothorax. Cardiomediastinal contours: Unremarkable Bones: No acute osseous abnormality. IMPRESSION: No acute cardiopulmonary disease.
--- NOTE | 2024-07-16 11:34 | DVH ---
CLINICAL INDICATION: pain TECHNIQUE: XY L FOOT 3 VIEW XRAY Comparison: None FINDINGS/IMPRESSION: There is no evidence of acute fracture or dislocation. The visualized joint space is well maintained. The alignment is anatomical. There is no radiopaque foreign body.
--- NOTE | 2024-07-16 11:34 | DVH ---
Left lower extremity venous duplex Clinical History: L foot pain, lle edema Comparison: US BILAT LOWER DVT on DOS: 06/08/24, US BILAT LOWER DVT on DOS: 03/03/24, US BILAT LOWER D VT on DOS: 12/25/23, US BILAT LOWER DVT on DOS: 07/21/23 Findings: Duplex Doppler evaluation of the deep venous system of the left lower extremity from the common femor al vein to the popliteal vein including color Doppler and spectral/pulsed waveform analysis was perfo rmed. The common femoral vein demonstrates appropriate compressibility and waveform variability. There is compressibility/patency of the great saphenous vein at the proximal thigh. The femoral vein demonstrates appropriate compressibility and waveform variability. The deep femoral vein demonstrates appropriate compressibility and waveform variability. The popliteal vein demonstrates appropriate compressibility and waveform variability. There is normal compressibility at the tibioperoneal trunk. Impression: No left femoropopliteal venous thrombosis. If clinical concern/symptoms persist or worsen, short-interval follow-up study is suggested.
[2024-07-16 11:38] LABS: Alanine Aminotransferase 10 U/L (7-40); Alkaline Phosphatase 92 U/L (46-116); Calcium 8.4 mg/dL (8.7-10.4); Carbon Dioxide 25 mmol/L (20-31); Chloride 102 mmol/L (98-107)
[2024-07-16 11:39] LABS: Anion Gap 15 (5-15); Aspartate Aminotransferase < 8 U/L (13-40); BUN/Creatinine Ratio 21.9 (10.0-20.0); Bilirubin, Total 0.2 mg/dL (0.2-1.0); Glucose 260 mg/dL (74-106); Potassium 3.9 mmol/L (3.5-5.1); Sodium 142 mmol/L (136-145); Total Protein 6.4 g/dL (5.7-8.2)
[2024-07-16 11:42] LABS: Blood Urea Nitrogen 114 mg/dL (9-23)
[2024-07-16] MEDS: HYDROcodone-ACET 5/325MG TAB PO ONE (11:53)
--- NOTE | 2024-07-16 14:47 | DVHHP2 ---
History of Present Illness Reason for Visit: bradycardia History of Present Illness Heena Burris is a 73YO F with pmHx of CHF, CKD, DM, HLD, Kidney stones, KS, UTI's, appendectomy, CABG, Hysterectomy, PTCA, and right partial nephrectomy who presents to the ED for bradycardia. She reports she was in the clinic for a f/u and her doctor sent her to the ED for evaluation. Patient also complains of left foot pain and swelling. Patient denies any chest pain, shortness of breath, trauma/fall injury, N/V/D, and abdominal pain. Patient reports her coreg was recently increased from 6.25mg to 12.5mg by her PCP. She was informed her heart rate baseline is in the 60s. Cardiovascular: CHF, KS, hyperipidemia Renal/: UTI, Other (kidney stones) Endocrine: Diabetes Past Surgical History: Appendectomy, CABG, Hysterectomy, Other (PTCA and partial nephrectomy right) Family History: None Smoke: <1 pack per day ALCOHOL: none Drugs: None Lives: Roommate Domestic Violence: Neg Review of Systems Constitutional: No: Fever, Chills, Sweats, Weakness, Malaise, Other Eyes: No: Pain, Vision change, Conjunctivae inflammation, Eyelid inflammation, Other, Redness ENT: No: Ear pain, Ear discharge, Nose pain, Nose discharge, Nose congestion, Mouth pain, Mouth swelling, Throat pain, Throat swelling, Other Respiratory: No: Cough, Dry, Shortness of breath, SOB with excertion, Wheezing, Hemoptysis, Pleuritic Pain, Sputum, Wheezing, Other Cardiovascular: No: Chest Pain, Palpitations, Orthopnea, Paroxysmal Noc. Dyspnea, Edema, Lt Headedness, Other Gastrointestinal: No: Nausea, Vomiting, Abdominal Pain, Diarrhea, Constipation, Melena, Hematochezia, Other Genitourinary: No Dysuria, No Frequency, No Incontinence, No Hematuria, No Retention, No Other Musculoskeletal: foot pain; No: other, neck pain, shoulder pain, arm pain, back pain, hand pain, leg pain Skin: No: Rash, Lesions, Jaundice, Bruising, Other Neurological: No: Weakness, Numbness, Incoordination, Change in speech, Confusion, Seizures, Other Allergies: Coded Allergies: Codeine (Verified Allergy, Unknown, 09/05/15) Morphine (Verified Allergy, Unknown, 09/05/15) Nitrofurantoin (Verified Allergy, Unknown, 09/05/15) Exam Vital Signs Vital Signs Date Time Temp Pulse Resp B/P (MAP) Pulse Ox O2 Delivery O2 Flow Rate FiO2 07/16/24 11:48 Room Air* 0 21 07/16/24 11:47 48 16 117/46 (69) 98 07/16/24 09:55 97.5 General Appearance: Alert, Oriented X3, Cooperative, No acute distress HEENT: Atraumatic, PERRLA, EOMI, Mucous membr. moist/pink Respiratory: Clear to auscultation, Normal air movement Cardiovascular: Normal S1, Normal S2, No murmurs Abdominal: Normal bowel sounds, Soft, No tenderness, No hepatospenomegaly, No masses Extremities: No clubbing, No cyanosis Neuro: Normal speech, Normal tone, Sensation intact Psych/Mental Status: Mental status NL, Mood NL Labs/Xrays Labs Test 07/16/24 13:51 07/16/24 10:44 Range/Units Troponin I High Sensitivity 26 </=34 ng/L White Blood Count 9.6 4.4-10.8 10^3/uL Red Blood Count 3.03 L 4.0-5.20 10^6/uL Hemoglobin 9.1 L 12.2-16.2 g/dL Hematocrit 27.8 L 36.0-46.0 % Mean Corpuscular Volume 91.7 80.0-100.0 fL Mean Corpuscular Hemoglobin 30.1 28.0-32.0 pg Mean Corpuscular Hemoglobin Concent 32.8 32.0-36.0 g/dL Red Cell Distribution Width 14.1 11.8-14.3 % Platelet Count 202 140-450 10^3/uL Mean Platelet Volume 10.0 6.9-10.8 fL Neutrophils (%) (Auto) 74.5 37.0-80.0 % Lymphocytes (%) (Auto) 17.9 10.0-50.0 % Monocytes (%) (Auto) 5.9 0.0-12.0 % Eosinophils (%) (Auto) 0.9 0.0-7.0 % Basophils (%) (Auto) 0.8 0.0-2.0 % Neutrophils # (Auto) 7.2 1.6-8.6 10 ^3/uL Lymphocytes # (Auto) 1.7 0.4-5.4 10 ^3/uL Monocytes # (Auto) 0.6 0-1.3 10 ^3/uL Eosinophils # (Auto) 0.1 0-0.8 10 ^3/uL Basophils # (Auto) 0.1 0-0.2 10 ^3/uL Nucleated Red Blood Cells 0.1 % Prothrombin Time 11.6 9.3-11.8 sec Prothrombin Time INR 1.10 0.9-1.15 Activated Partial Thromboplast Time 29.1 24.5-34.5 SEC Sodium Level 142 136-145 mmol/L Potassium Level 3.9 3.5-5.1 mmol/L Chloride Level 102 98-107 mmol/L Carbon Dioxide Level 25 20-31 mmol/L Anion Gap 15 5-15 Blood Urea Nitrogen 114 *H 9-23 mg/dL Creatinine 5.20 H 0.550-1.02 mg/dL Glomerular Filtration Rate Calc 8 >90 mL/min BUN/Creatinine Ratio 21.9 H 10.0-20.0 Serum Glucose 260 H 74-106 mg/dL Calcium Level 8.4 L 8.7-10.4 mg/dL Total Bilirubin 0.2 0.2-1.0 mg/dL Aspartate Amino Transferase (AST) < 8 L 13-40 U/L Alanine Aminotransferase (ALT) 10 7-40 U/L Alkaline Phosphatase 92 46-116 U/L B-Type Natriuretic Peptide 324.81 0-100 pg/mL Total Protein 6.4 5.7-8.2 g/dL Albumin 4.0 3.2-4.8 g/dL CLINICAL INDICATION: pain TECHNIQUE: XY L FOOT 3 VIEW XRAY FINDINGS/IMPRESSION: There is no evidence of acute fracture or dislocation. The visualized joint space is well maintained. The alignment is anatomical. There is no radiopaque foreign body. Left lower extremity venous duplex Clinical History: L foot pain, lle edema Findings: Duplex Doppler evaluation of the deep venous system of the left lower extremity from the common femoral vein to the popliteal vein including color Doppler and spectral/pulsed waveform analysis was performed. The common femoral vein demonstrates appropriate compressibility and waveform variability. There is compressibility/patency of the great saphenous vein at the proximal thigh. The femoral vein demonstrates appropriate compressibility and waveform variability. The deep femoral vein demonstrates appropriate compressibility and waveform variability. The popliteal vein demonstrates appropriate compressibility and waveform variability. There is normal compressibility at the tibioperoneal trunk. Impression: No left femoropopliteal venous thrombosis. If clinical concern/symptoms persist or worsen, short-interval follow-up study is suggested. CHEST RADIOGRAPH FINDINGS: Lines and Tubes: None Lungs: No focal consolidation. Pleura: No effusion. No pneumothorax. Cardiomediastinal contours: Unremarkable Bones: No acute osseous abnormality. IMPRESSION: No acute cardiopulmonary disease. Assessment/Plan Assessment/Plan Assessment: Bradycardia 2nd drug induced Acute on chronic renal failure Left foot edema Hx of CHF CKD DM HLD Kidney stones - bilateral KS >10years ago UTI's Plan: Admit to tele Nephro cx Pain management Antiemetics XR foot noted diuretics Extremity venous study noted CXR noted ISS and Accuchecks HgbA1C 6.3 Diet as tolerated Monitor labs UA Home medications reconciled Plan discussed with: Patient Problem List: (1) Bradycardia, drug induced (2) Edema of left foot (3) Acute on chronic renal failure (4) Diabetes mellitus with hyperglycemia (5) Kidney stones (6) CHF (congestive heart failure) (7) Diabetes (8) History of partial nephrectomy (9) History of PTCA (10) History of hysterectomy (11) History of appendectomy (12) HLD (hyperlipidemia) Date of Service: Jul 16, 2024 Billing Provider: KATELYN DORSEY Common Visit Codes: [id number] INP/OBS CARE (MOD) KATELYN DORSEY Jul 16, 2024 14:47
[2024-07-16] MEDS ORDERED: DEXTROSE (50%) 50ML SYRG IV PRN (15:15)
[2024-07-16] MEDS ORDERED: NITROGLYCERIN 0.4 MG SL TAB SL PRN ×2 (15:15)
[2024-07-16] MEDS: FUROSEMIDE 40 MG/4 ML VIAL IV ONE ×2 (15:15→22:52)
[2024-07-16] MEDS ORDERED: MORPHINE SULFATE 4 MG/ML SYR/VIAL IV PRN (15:15)
[2024-07-16] MEDS ORDERED: LORazepam 0.5 MG TAB PO PRN (15:15)
[2024-07-16] MEDS ORDERED: MORPHINE SULFATE INJ 2 MG/ml SYRG IV PRN (15:15)
[2024-07-16] MEDS ORDERED: PANT40TA57 PO (15:19)
[2024-07-16] MEDS ORDERED: EZET-10 PO (15:19)
[2024-07-16] MEDS ORDERED: LORA-483 PO (15:19)
[2024-07-16] MEDS ORDERED: METO10TA7 PO (15:19)
[2024-07-16] MEDS ORDERED: GAB100C PO (15:19)
[2024-07-16] MEDS ORDERED: ALBUTEROL SULF HFA 90MCG INH 200DOSE IN PRN (15:30)
[2024-07-16] MEDS ORDERED: ERGOCALCIFEROL 50,000 UNIT(1.25MG) CAP PO SCH (15:30)
[2024-07-16] MEDS ORDERED: SODIUM ZIRCONIUM CYCL 10 GM PAK PO SCH (15:30)
[2024-07-16] MEDS: ACCU-CHEK COMFORT CURVE STRIP VI SCH (16:00)
[2024-07-16] MEDS: InsuLIN REG 1unit/0.01ml Soln (100units/ml) SC SCH (16:00)
[2024-07-16 19:30] VITALS: PULSE 41; RESP 21; O2SAT 96
[2024-07-16 19:30] LABS: Urine Bacteria FEW /hpf (None Seen); Urine Blood Negative /uL (Negative); Urine Clarity Turbid (Clear); Urine Color Light-Yellow (Yellow); Urine Protein, UAD 3+ (Negative); Urine Specific Gravity 1.014 (1.001-1.035); Urine Urobilinogen Normal (Negative); Urine WBC 2 /hpf (0 - 5)
[2024-07-16 21:50] VITALS: BP 125/35; PULSE 45; RESP 18; TEMP 97.9; O2SAT 96
[2024-07-16] MEDS: CARVEDILOL 3.125 MG TAB PO ONE (22:00)
[2024-07-16] MEDS: TICAGRELOR 90 MG TAB PO SCH (22:43)
[2024-07-16] MEDS: ATORVASTATIN 20 MG TAB PO SCH (22:43)
[2024-07-16] MEDS: SODIUM BICARBONATE 650 MG TAB PO SCH (22:43)
[2024-07-16] MEDS: hydrALAZINE HCL 25 MG TAB PO SCH (22:44)
[2024-07-17] VITALS (9 sets, daily range): BP systolic 117–151; BP diastolic 30–61; PULSE 43–48; RESP 16–18; TEMP 98–99.3; O2SAT 95–99
[2024-07-17] MEDS: LEVOTHYROXINE SODIUM 25 MCG TAB PO SCH (06:11)
[2024-07-17 06:49] LABS: Basophils # (auto) 0.1 10 ^3/uL (0-0.2); Basophils % (auto) 0.6 % (0.0-2.0); Eosinophils # (auto) 0.1 10 ^3/uL (0-0.8); Eosinophils % (auto) 1.1 % (0.0-7.0); Hematocrit 25.2 % (36.0-46.0); Hemoglobin 8.6 g/dL (12.2-16.2); Lymphocytes # (auto) 2.6 10 ^3/uL (0.4-5.4); Lymphocytes % (auto) 26.5 % (10.0-50.0); Mean Corpuscular Hemoglobin 30.5 pg (28.0-32.0); Mean Corpuscular Volume 89.7 fL (80.0-100.0); Monocytes # (auto) 0.9 10 ^3/uL (0-1.3); Monocytes % (auto) 9.3 % (0.0-12.0); Neutrophils # (auto) 6.1 10 ^3/uL (1.6-8.6); Neutrophils % (auto) 62.5 % (37.0-80.0); Platelet Count (auto) 180 10^3/uL (140-450); Red Blood Cells 2.81 10^6/uL (4.0-5.20); Red Cell Distribution Width 13.9 % (11.8-14.3); White Blood Cell 9.8 10^3/uL (4.4-10.8)
[2024-07-17 07:18] LABS: Albumin 3.6 g/dL (3.2-4.8); Alkaline Phosphatase 72 U/L (46-116); Anion Gap 18 (5-15); Aspartate Aminotransferase < 8 U/L (13-40); BUN/Creatinine Ratio 22.3 (10.0-20.0); Calcium 8.3 mg/dL (8.7-10.4); Carbon Dioxide 22 mmol/L (20-31); Chloride 105 mmol/L (98-107); Glucose 62 mg/dL (74-106); Potassium 3.6 mmol/L (3.5-5.1); Sodium 145 mmol/L (136-145)
[2024-07-17 07:19] LABS: Bilirubin, Total 0.2 mg/dL (0.2-1.0); Total Protein 5.8 g/dL (5.7-8.2)
[2024-07-17 07:33] LABS: Alanine Aminotransferase < 9 U/L (7-40)
[2024-07-17 07:34] LABS: Blood Urea Nitrogen 116 mg/dL (9-23)
[2024-07-17] MEDS: DOCUSATE SOD 100 MG CAP PO SCH (10:28)
[2024-07-17] MEDS: ISOSORBIDE MONONITRATE ER 60 MG TAB PO SCH (10:30)
[2024-07-17 12:34] LABS: % Iron Saturation 11.8 % (15-50)
[2024-07-17 12:35] LABS: Magnesium 1.6 mg/dL (1.6-2.6)
[2024-07-17 12:37] LABS: Phosphorus 10.7 mg/dL (2.4-5.1)
[2024-07-17] MEDS: FUROSEMIDE 100 MG/10ML VIAL IV SCH (13:03)
--- NOTE | 2024-07-17 14:30 | DVHCONRES ---
Date Seen: Jul 17, 2024 Resident Creating Document: JULIETA CLIFFORD RESIDENT Referring Physician SUNITA Reason for Consultation Acute on chronic renal failure History of Present Illness Patient is 73-year-old female with past medical history of CKD stage five, CHF, diabetes mellitus, hyperlipidemia, kidney stones, FL,UTI's, appendectomy, CABG, Hysterectomy, PTCA, and right partial nephrectomy who presented to hospital with a chief complaint of bradycardia. However patient denying any syncopal episode, dizziness or kidney other symptoms. Patient also complaining of mild left foot pain and swelling. Patient denied any other complaints including chest pain, shortness of breath, any other symptoms. As per patient is currently on beta blockers which was increased dose by primary care physician. No any other complaints. Nephrology consultation was done for management of acute on chronic renal failure. As per patient patient has been diagnosed with CKD stage 5, discussion about dialysis was done before in nephrology clinic. No other new complaints at this point. Past Medical History As per HPI Past Surgical History As per HPI Family History: Acute respiratory distress syndrome G8 FATHER, Cardiomegaly 19 CHILD FH: esophageal cancer G8 BROTHER FH: respiratory disease G8 FATHER, FHx: breast cancer G8 MOTHER, FHx: kidney failure G8 MOTHER, Ischemic heart disease 19 CHILD Kidney stone Allergies: Coded Allergies: Codeine (Verified Allergy, Unknown, 09/05/15) Morphine (Verified Allergy, Unknown, 09/05/15) Nitrofurantoin (Verified Allergy, Unknown, 09/05/15) Home Meds Active Scripts Ranolazine (Aspruzyo Sprinkle) 500 Mg Gra, 500 MG PO BID for 14 Days, #28 GM Prov:BRIAN BAKER MD 06/30/24 Bumetanide (Bumetanide) 2 Mg Tab, 1 TAB PO BID, #60 TAB 5 Refills Prov:REGINA CHRISTIAN MD 03/07/24 Ferrous Sulfate (Iron (Ferrous Sulfate)) 50 Mg Tab, 50 MG PO DAILY for 30 Days, #30 TAB Prov:BLANCA MARTINEZ 02/13/24 Nicotine (Nicoderm 21MG/24HR) 1 Patch Ph, 1 PATCH TD DAILY for 30 Days, #1 PATCH Prov:BLANCA MARTINEZ 02/13/24 Acetaminophen (Acetaminophen) 325 Mg Tab, 650 MG PO Q6HP PRN for 30 Days, #240 TAB Prov:BLANCA MARTINEZ RESIDENT 02/13/24 Reported Medications Ezetimibe (Ezetimibe) 10 Mg Tab, 1 TAB PO DAILY 07/16/24 Gabapentin (Gabapentin) 100 Mg Cap, PO 07/16/24 Pantoprazole Sodium Sesquihydr (Pantoprazole Sodium Dr) 40 Mg Tab, 1 TAB PO DAILY 07/16/24 Loratadine (CLARITIN TABLET) 10 Mg Tb, 1 TAB PO DAILY 07/16/24 Metolazone (Metolazone) 10 Mg Tab, 2 TAB PO DAILY 07/16/24 Fluticasone-Salmeterol (Wixela Inhub 100-50 Mcg/Dose) 1 Aer Aer, 1 PUFF INH Q12HR 03/05/24 Carvedilol (Carvedilol) 6.25 Mg Tab, 1 TAB PO BID 03/05/24 Atorvastatin Calcium (ATORVASTATIN CALCIUM) 80 Mg Tab, 1 TAB PO DAILY, #30 TAB 5 Refills 02/10/24 Glipizide (Glipizide Xl) 10 Mg Tab, 10 MG PO DAILY, TAB 02/10/24 Diclofenac Sodium (Topical) (Voltaren Arthritis Pain) 1 % Gel, 1 % EX PRN PRN for PAIN SCALE 1 THRU 6, GEL 02/10/24 Insulin Glargine (Lantus Solostar) 100 Unit/Ml Inj, 8 UNIT SC HS, INJ 02/10/24 Sodium Zirconium Cyclosilicate (Lokelma) 5 Gm Darrel, 5 GM PO UD Take 5 grams 3 times weekly. 12/27/23 Albuterol Sulfate (Albuterol Sulfate Hfa) 108 Mcg/Act Aer, 2 PUFF INH Q6HR PRN for WHEEZING 12/27/23 Levothyroxine Sodium (Levothyroxine Sodium) 25 Mcg Tab, 1 TAB PO QAM 12/25/23 Sodium Bicarbonate (Sodium Bicarbonate) 650 Mg Tab, 2 TAB PO TID 12/25/23 Isosorbide Mononitrate (Isosorbide Mononitrate ER) 60 Mg Tab, 1.5 TAB PO DAILY 12/25/23 Hydralazine HCl (Hydralazine HCl) 25 Mg Tab, 3 TAB PO TID 12/25/23 Ergocalciferol (Drisdol) 50,000 Unit Cap, 1 CAP PO QWEEKLY 07/21/23 Aspirin (Aspirin) 81 Mg Chw, 81 MG PO, TAB.CHEW 08/11/21 Ticagrelor Base (BRILINTA) 90 Mg Tab, 90 MG PO BID, TAB 08/11/21 Pantoprazole Sodium Sesquihydr (Pantoprazole Sodium) 40 Mg Tab, 1 TAB PO DAILY 08/11/21 Gabapentin (Gabapentin) 100 Mg Cap, 1 CAP PO BID 08/11/21 Ezetimibe (Zetia) 10 Mg Tab, 10 MG PO DAILY, TAB 08/11/21 Current Medications Current Medications Medications (Trade) Dose Ordered Sig/Ezequiel Route PRN Reason Start Time Stop Time Status Last Admin Morphine Sulfate 2 mg Q30MP PRN IV FOR CHEST PAIN 07/16/24 15:15 07/16/24 15:25 DC Acetaminophen (Tylenol Tablet) 650 mg Q6HP PRN PO MILD PAIN (1-3 PAIN SCALE) 07/16/24 15:15 Lorazepam (Ativan Tablet) 0.5 mg Q6HP PRN PO ANXIETY 07/16/24 15:15 Docusate Sodium (Colace Capsule) 100 mg DAILY PO 07/17/24 10:00 07/17/24 10:28 Nitroglycerin (Ntrostat Sublingual) 0.4 mg Q5MINP PRN SL FOR CHEST PAIN 07/16/24 15:15 07/16/24 15:25 DC Ondansetron HCl (Zofran) 4 mg Q4HP PRN IV NAUSEA / VOMITING 07/16/24 15:15 Nitroglycerin (Ntrostat Sublingual) 0.4 mg Q5MINP PRN SL FOR CHEST PAIN 07/16/24 15:15 Morphine Sulfate 2 mg Q30M PRN IV FOR CHEST PAIN 07/16/24 15:15 Hold Diagnostic Test (Pha) (Accu-Chek Comfort Curve T) 1 strip IQ4HR 07/16/24 16:00 07/17/24 10:54 Insulin Human Regular (InsuLIN R) IQ4HR SC 07/16/24 16:00 07/16/24 23:55 Dextrose 50 ml UD PRN IV Blood Sugar LESS THAN 60 07/16/24 15:15 Albuterol (Ventolin Hfa) 90 mcg Q6HR PRN IN WHEEZING 07/16/24 15:30 07/16/24 15:31 DC Ergocalciferol (Vitamin D 50,000 Unit) 50,000 unit QWEEKLY PO 07/16/24 15:30 Hydralazine HCl (Apresoline Tablet) 75 mg TID PO 07/16/24 22:00 07/17/24 06:10 Isosorbide Mononitrate (Imdur Er Tablet) 90 mg DAILY PO 07/17/24 10:00 07/17/24 10:30 Levothyroxine Sodium (Synthroid Tablet) 25 mcg QAM PO 07/17/24 07:00 07/17/24 06:11 Zirconium Oxide (Lokelma) 5 gm UD PO 07/16/24 15:30 Ticagrelor (Brilinta) 90 mg BID PO 07/16/24 22:00 07/17/24 10:28 Atorvastatin Calcium (Lipitor) 80 mg HS PO 07/16/24 22:00 07/16/24 22:43 Patient Own Medication 1 puff Q12HR PO 07/16/24 22:00 Sodium Bicarbonate 1,300 mg TID PO 07/16/24 22:00 07/17/24 06:11 Furosemide (Lasix Injection) 80 mg BIDD IV 07/17/24 10:45 07/17/24 13:03 Calcium Acetate (Phoslo Capsule) 1,334 mg TIDWMEALS PO 07/17/24 18:00 Ergocalciferol (Vitamin D 50,000 Unit) 50,000 unit Q7D PO 07/17/24 13:15 Epoetin Leo-epbx (Retacrit) 10,000 unit TUTHSA SC 07/17/24 13:15 Iron Sucrose 110 ml @ 110 mls/hr DAILY@1200 IV 07/17/24 13:15 07/21/24 12:59 Review of Systems Patient complaining of generalized bone pain and cramping of muscle. Eyes: No Pain, No Vision change, No Conjunctivae inflammation, No Eyelid inflammation, No Other, No Redness ENT: No Ear pain, No Ear discharge, No Nose pain, No Nose discharge, No Nose congestion, No Mouth pain, No Mouth swelling, No Throat pain, No Throat swelling, No Other Cardiovascular: No Chest Pain, No Palpitations, No Orthopnea, No Paroxysmal Noc. Dyspnea, No Edema, No Lt Headedness, No Other Respiratory: No Cough, No Dry, No Shortness of breath, No SOB with excertion, No Wheezing, No Hemoptysis, No Pleuritic Pain, No Sputum, No Other Gastrointestinal: No Nausea, No Vomiting, No Abdominal Pain, No Diarrhea, No Constipation, No Melena, No Hematochezia, No Other Genitourinary: No Dysuria, No Frequency, No Incontinence, No Hematuria, No Retention, No Other Musculoskeletal: No other, No neck pain, No shoulder pain, No arm pain, No back pain, No hand pain, No leg pain, No foot pain Skin: No Rash, No Lesions, No Jaundice, No Bruising, No Other Vital Signs Vital Signs Date Time Temp Pulse Resp B/P (MAP) Pulse Ox O2 Delivery O2 Flow Rate FiO2 07/17/24 13:03 118/57 07/17/24 09:00 98.5 46 17 96 98.5 07/17/24 00:43 Room Air* 0 21 Physical Exam General Appearance: Cooperative. Well developed. Well nourished. NAD Head Exam: Normal inspection Neck Exam: Normal inspection. Non-tender. Normal alignment Pulmonary/Respiratory: Chest non-tender. Clear bilateral breath sounds Cardiovascular/Chest: Regular rate and rhythm. No murmurs. No JVD. Peripheral Pulses: 2+ Radial (R). 2+ Radial (L). 2+ Pedal (R). 2+ Pedal (L) Abdominal Exam: Normal bowel sounds. Soft. Nontender. No hepatospenomegaly. No masses Ankle Exam: Negative ankle edema Lower extremities: Negative lower extremity edema Neuro/Mental Status: A&O x4. Coherent Thoughts/Psych: Normal thought pattern. Appropriate mood and affect. Good judgement and insight Appearance: In no acute distress Skin Exam: Normal inspection. Normal color. Warm. Dry Labs/Diagnostic Data Labs Test 07/17/24 10:52 07/17/24 05:19 07/16/24 19:05 07/16/24 13:51 Range/Units POC Glucose 195 H 70-106 mg/dl White Blood Count 9.8 4.4-10.8 10^3/uL Red Blood Count 2.81 L 4.0-5.20 10^6/uL Hemoglobin 8.6 L 12.2-16.2 g/dL Hematocrit 25.2 L 36.0-46.0 % Mean Corpuscular Volume 89.7 80.0-100.0 fL Mean Corpuscular Hemoglobin 30.5 28.0-32.0 pg Mean Corpuscular Hemoglobin Concent 34.0 32.0-36.0 g/dL Red Cell Distribution Width 13.9 11.8-14.3 % Platelet Count 180 140-450 10^3/uL Mean Platelet Volume 10.3 6.9-10.8 fL Neutrophils (%) (Auto) 62.5 37.0-80.0 % Lymphocytes (%) (Auto) 26.5 10.0-50.0 % Monocytes (%) (Auto) 9.3 0.0-12.0 % Eosinophils (%) (Auto) 1.1 0.0-7.0 % Basophils (%) (Auto) 0.6 0.0-2.0 % Neutrophils # (Auto) 6.1 1.6-8.6 10 ^3/uL Lymphocytes # (Auto) 2.6 0.4-5.4 10 ^3/uL Monocytes # (Auto) 0.9 0-1.3 10 ^3/uL Eosinophils # (Auto) 0.1 0-0.8 10 ^3/uL Basophils # (Auto) 0.1 0-0.2 10 ^3/uL Nucleated Red Blood Cells 0.0 % Sodium Level 145 136-145 mmol/L Potassium Level 3.6 3.5-5.1 mmol/L Chloride Level 105 98-107 mmol/L Carbon Dioxide Level 22 20-31 mmol/L Anion Gap 18 H 5-15 Blood Urea Nitrogen 116 *H 9-23 mg/dL Creatinine 5.21 H 0.550-1.02 mg/dL Glomerular Filtration Rate Calc 8 >90 mL/min BUN/Creatinine Ratio 22.3 H 10.0-20.0 Serum Glucose 62 L 74-106 mg/dL Calcium Level 8.3 L 8.7-10.4 mg/dL Phosphorus Level 10.7 H 2.4-5.1 mg/dL Magnesium Level 1.6 1.6-2.6 mg/dL Iron Level 29 L 50-170 ug/dL Total Iron Binding Capacity 245 L 250-425 ug/dL Percent Iron Saturation 11.8 L 15-50 % Ferritin 123.2 10-291 ng/mL Total Bilirubin 0.2 0.2-1.0 mg/dL Aspartate Amino Transferase (AST) < 8 L 13-40 U/L Alanine Aminotransferase (ALT) < 9 7-40 U/L Alkaline Phosphatase 72 46-116 U/L Total Protein 5.8 5.7-8.2 g/dL Albumin 3.6 3.2-4.8 g/dL Parathyroid Hormone (Intact) 970.1 H 18.4-80.1 pg/mL Urine Color Light-yellow Yellow Urine Clarity Turbid H Clear Urine pH 6.0 5.0-9.0 Urine Specific [place] 1.014 1.001-1.035 Urine Protein 3+ H Negative Urine Ketones Negative Negative Urine Blood Negative Negative /uL Urine Nitrite Negative Negative Urine Bilirubin Negative Negative Urine Urobilinogen Normal Negative mg/dL Urine Leukocyte Esterase Negative Negative /uL Urine RBC 1 0 - 4 /hpf Urine WBC 2 0 - 5 /hpf Urine Squamous Epithelial Cells Mod <5 /hpf Urine Bacteria Few H None Seen /hpf Urine Glucose 1+ H Normal mg/dL Troponin I High Sensitivity 26 </=34 ng/L Test 07/16/24 10:44 Range/Units Prothrombin Time 11.6 9.3-11.8 sec Prothrombin Time INR 1.10 0.9-1.15 Activated Partial Thromboplast Time 29.1 24.5-34.5 SEC Hemoglobin A1c 6.3 H <5.7 % A1C B-Type Natriuretic Peptide 324.81 0-100 pg/mL Microbiology Date/Time Source Procedure Growth Status 07/17/24 06:40 Nose MRSA Screen - Final Complete Assessment ESRD requiring hemodialysis Iron-deficiency anemia Hypokalemia Hyperphosphatemia Bradycardia likely secondary to high-dose beta juan manuel Coreg Diabetes mellitus type 2 Hyperlipidemia History of FL and CHF Plan/recommendation Dr. Cleary -Prolonged discussion regarding dialysis: Patient agreeing for hemodialysis. -Radiology consultation has been done for tunnel dialysis catheter insertion. -continue IV lasix 80 mg given low GFR -possible hemodialysis tomorrow or day after tomorrow -renal diet, low-sodium diet. -renal ultrasound on 03/02/2024:Atrophic kidneys with minimal renal parenchymal disease. -iron-deficiency anemia: Iron supplement, epoetin, vitamin-D supplement. -recommended phosphate binder and potassium binder Plan discussed with: Patient, Other (RN) JULIETA CLIFFORD RESIDENT Jul 17, 2024 14:30
[2024-07-17] MEDS ORDERED: GLUCAGON EMERG KIT 1mg/1ml SUBCUT ONE (15:15)
--- NOTE | 2024-07-17 15:24 | DVHPN2 ---
Subjective Seen and examined at bedside, for Dialysis Catheter placement by IR. Then patient will start on Dialysis. Changes from previous H/P or p: No Changes Eyes: No Pain, No Vision change, No Conjunctivae inflammation, No Eyelid inflammation, No Other, No Redness ENT: No Ear pain, No Ear discharge, No Nose pain, No Nose discharge, No Nose congestion, No Mouth pain, No Mouth swelling, No Throat pain, No Throat swelling, No Other Cardiovascular: No Chest Pain, No Palpitations, No Orthopnea, No Paroxysmal Noc. Dyspnea, No Edema, No Lt Headedness, No Other Respiratory: No Cough, No Dry, No Shortness of breath, No SOB with excertion, No Wheezing, No Hemoptysis, No Pleuritic Pain, No Sputum, No Other Gastrointestinal: No Nausea, No Vomiting, No Abdominal Pain, No Diarrhea, No Constipation, No Melena, No Hematochezia, No Other Genitourinary: No Dysuria, No Frequency, No Incontinence, No Hematuria, No Retention, No Other Musculoskeletal: No other, No neck pain, No shoulder pain, No arm pain, No back pain, No hand pain, No leg pain; foot pain Skin: No Rash, No Lesions, No Jaundice, No Bruising, No Other Objective Vitals Vital Signs Date Time Temp Pulse Resp B/P (MAP) Pulse Ox O2 Delivery O2 Flow Rate FiO2 07/17/24 13:03 118/57 07/17/24 13:00 98.0 45 16 95 98.0 07/17/24 00:43 Room Air* 0 21 Intake/Output Intake and Output 07/17/24 07:00 Intake Total 200 ml Balance 200 ml Intake Oral 200 ml # Voids 2 Medications Current Medications Medications Dose Ordered Sig/Ezequiel Route Start Time Stop Time Status Last Admin Dose Admin Acetaminophen 650 mg Q6HP PRN PO 07/16/24 15:15 Lorazepam 0.5 mg Q6HP PRN PO 07/16/24 15:15 Docusate Sodium 100 mg DAILY PO 07/17/24 10:00 07/17/24 10:28 100 MG Ondansetron HCl 4 mg Q4HP PRN IV 07/16/24 15:15 Nitroglycerin 0.4 mg Q5MINP PRN SL 07/16/24 15:15 Morphine Sulfate 2 mg Q30M PRN IV 07/16/24 15:15 Hold Diagnostic Test (Pha) 1 strip IQ4HR 07/16/24 16:00 07/17/24 10:54 1 STRIP Insulin Human Regular IQ4HR SC 07/16/24 16:00 07/16/24 23:55 3 UNITS Dextrose 50 ml UD PRN IV 07/16/24 15:15 Ergocalciferol 50,000 unit QWEEKLY PO 07/16/24 15:30 Hydralazine HCl 75 mg TID PO 07/16/24 22:00 07/17/24 06:10 75 MG Isosorbide Mononitrate 90 mg DAILY PO 07/17/24 10:00 07/17/24 10:30 90 MG Levothyroxine Sodium 25 mcg QAM PO 07/17/24 07:00 07/17/24 06:11 25 MCG Zirconium Oxide 5 gm UD PO 07/16/24 15:30 Ticagrelor 90 mg BID PO 07/16/24 22:00 07/17/24 10:28 90 MG Atorvastatin Calcium 80 mg HS PO 07/16/24 22:00 07/16/24 22:43 80 MG Patient Own Medication 1 puff Q12HR PO 07/16/24 22:00 Sodium Bicarbonate 1,300 mg TID PO 07/16/24 22:00 07/17/24 06:11 1,300 MG Furosemide 80 mg BIDD IV 07/17/24 10:45 07/17/24 13:03 80 MG Calcium Acetate 1,334 mg TIDWMEALS PO 07/17/24 18:00 Ergocalciferol 50,000 unit Q7D PO 07/17/24 13:15 Epoetin Leo-epbx 10,000 unit TUTHSA [place] 07/17/24 13:15 Iron Sucrose 110 ml @ 110 mls/hr DAILY@1200 IV 07/17/24 13:15 07/21/24 12:59 Laboratory Results Laboratory Tests 07/17/24 05:19 Chemistry Test 07/17/24 05:19 Albumin 3.6 g/dL (3.2-4.8) Calcium Level 8.3 mg/dL (8.7-10.4) L Magnesium Level 1.6 mg/dL (1.6-2.6) Phosphorus Level 10.7 mg/dL (2.4-5.1) H Total Protein 5.8 g/dL (5.7-8.2) LFT Test 07/17/24 05:19 Alanine Aminotransferase (ALT) < 9 U/L (7-40) Alkaline Phosphatase 72 U/L (46-116) Aspartate Amino Transferase (AST) < 8 U/L (13-40) L Total Bilirubin 0.2 mg/dL (0.2-1.0) Urinalysis Test 07/16/24 19:05 Urine Color Light-yellow (Yellow) Urine Clarity Turbid (Clear) H Urine pH 6.0 (5.0-9.0) Urine Specific [place] 1.014 (1.001-1.035) Urine Protein 3+ (Negative) H Urine Ketones Negative (Negative) Urine Blood Negative /uL (Negative) Urine Nitrite Negative (Negative) Urine Bilirubin Negative (Negative) Urine Urobilinogen Normal mg/dL (Negative) Urine Leukocyte Esterase Negative /uL (Negative) Urine RBC 1 /hpf (0 - 4) Urine WBC 2 /hpf (0 - 5) Urine Squamous Epithelial Cells Mod /hpf (<5) Urine Bacteria Few /hpf (None Seen) H Urine Glucose 1+ mg/dL (Normal) H Microbiology Microbiology Date/Time Source Procedure Growth Status 07/17/24 06:40 Nose MRSA Screen - Final Complete Assessment/Plan Assessment/Plan ESRD requiring hemodialysis- Start Dialysis Iron-deficiency anemia- Check FOBT Hypokalemia Hyperphosphatemia Bradycardia likely secondary to high-dose beta juan manuel Coreg- DC COreg. Glucagon. Monitor. Hypothyroid- Check TFT Diabetes mellitus type 2 A1c 6.3 Hyperlipidemia History of [place] and CHF Goals of care- FULL CODE Plan discussed with: Patient My Orders Orders - BRIAN BAKER MD Procedure Category Date Status Time Thyroid Stimulating LAB 07/17/24 Logged Hormone 15:13 Free T4 (Free LAB 07/17/24 Logged Thyroxine) 15:13 Glucagon PHA 07/17/24 Logged Hydrochloride (Rdna) 15:15 Lactulose Oral PHA 07/17/24 Logged 15:30 Stool Occult Blood LAB 07/17/24 Logged 15:16 Complete Blood Count LAB 07/17/24 Logged 15:16 Complete Blood Count LAB 07/18/24 Verified 04:00 * Solar Pv Installer CONS 07/17/24 Transmitted Consult Date of Service: Jul 17, 2024 Billing Provider: BRIAN BAKER MD Common Visit Codes: [id number] INP/OBS CARE(HIGH) Secondary Visit Codes: [id number] CARE PLAN 30 MINUTES BRIAN BAKER MD Jul 17, 2024 15:24
[2024-07-17] MEDS: LACTULOSE 20Gm/30ML SOLN PO ONE (15:30)
[2024-07-17] MEDS: ERGOCALCIFEROL 50,000 UNIT(1.25MG) CAP PO SCH (15:44)
[2024-07-17] MEDS: IRON SUCROSE COMPLEX 110 ML IV SCH (16:06)
[2024-07-17 16:37] LABS: Basophils # (auto) 0.1 10 ^3/uL (0-0.2); Basophils % (auto) 0.5 % (0.0-2.0); Eosinophils # (auto) 0.1 10 ^3/uL (0-0.8); Eosinophils % (auto) 0.9 % (0.0-7.0); Hematocrit 26.1 % (36.0-46.0); Hemoglobin 8.7 g/dL (12.2-16.2); Lymphocytes # (auto) 2.8 10 ^3/uL (0.4-5.4); Lymphocytes % (auto) 27.2 % (10.0-50.0); Mean Corpuscular Hemoglobin 30.2 pg (28.0-32.0); Mean Corpuscular Hgb Conc. 33.4 g/dL (32.0-36.0); Mean Corpuscular Volume 90.3 fL (80.0-100.0); Monocytes # (auto) 0.9 10 ^3/uL (0-1.3); Neutrophils # (auto) 6.4 10 ^3/uL (1.6-8.6); Neutrophils % (auto) 62.4 % (37.0-80.0); Nucleated Red Blood Cells % 0.1 %; Platelet Count (auto) 193 10^3/uL (140-450); Red Blood Cells 2.89 10^6/uL (4.0-5.20); Red Cell Distribution Width 13.8 % (11.8-14.3); White Blood Cell 10.2 10^3/uL (4.4-10.8)
[2024-07-17] MEDS: EPOETIN ALFA-EPBX 10,000 UNIT/1ML VIAL SC SCH (17:03)
[2024-07-17] MEDS: CALCIUM ACETATE 667 MG CAP PO SCH (19:22)
[2024-07-17] MEDS: GLUCAGON EMERG KIT 1mg/1ml IV ONE (21:52)
[2024-07-18] VITALS (10 sets, daily range): BP systolic 120–147; BP diastolic 30–63; PULSE 45–49; RESP 12–47; TEMP 97–98.4; O2SAT 92–99
[2024-07-18 05:31] LABS: Basophils # (auto) 0.1 10 ^3/uL (0-0.2); Basophils % (auto) 0.6 % (0.0-2.0); Eosinophils # (auto) 0.1 10 ^3/uL (0-0.8); Hemoglobin 7.8 g/dL (12.2-16.2); Lymphocytes # (auto) 2.7 10 ^3/uL (0.4-5.4); Mean Corpuscular Volume 90.2 fL (80.0-100.0); Red Cell Distribution Width 14.1 % (11.8-14.3)
[2024-07-18 05:33] LABS: Eosinophils % (auto) 1.3 % (0.0-7.0); Lymphocytes % (auto) 30.6 % (10.0-50.0); Mean Corpuscular Hemoglobin 30.6 pg (28.0-32.0); Mean Corpuscular Hgb Conc. 33.9 g/dL (32.0-36.0); Monocytes # (auto) 0.9 10 ^3/uL (0-1.3); Monocytes % (auto) 10.5 % (0.0-12.0); Platelet Count (auto) 173 10^3/uL (140-450); Red Blood Cells 2.55 10^6/uL (4.0-5.20); White Blood Cell 8.8 10^3/uL (4.4-10.8)
[2024-07-18 05:48] LABS: Chloride 105 mmol/L (98-107); Potassium 3.8 mmol/L (3.5-5.1)
[2024-07-18 05:49] LABS: Anion Gap 15 (5-15); Carbon Dioxide 25 mmol/L (20-31)
[2024-07-18 05:54] LABS: BUN/Creatinine Ratio 22.5 (10.0-20.0); Glucose 85 mg/dL (74-106)
[2024-07-18 06:51] LABS: Calcium 8.5 mg/dL (8.7-10.4); Sodium 145 mmol/L (136-145)
[2024-07-18 06:52] LABS: Blood Urea Nitrogen 121 mg/dL (9-23)
[2024-07-18] MEDS: fentaNYL CITRATE 100 MCG/2 ML VL ONE (10:45)
[2024-07-18] MEDS: HEPARIN SODIUM (PORCINE) 5000 UNITS/ML 1ML VIAL ONE (10:45)
[2024-07-18] MEDS: LIDOCAINE 2%HCL (LOCAL ANESTH.) INJ 20ML MDV ONE (10:46)
[2024-07-18] MEDS: MIDAZOLAM HCL 2MG/2ML 2ml VIAL (1mg/ml) ONE (10:46)
[2024-07-18] MEDS: ceFAZolin 1GM/50ML 50 ML IV ONE (11:04)
--- NOTE | 2024-07-18 11:16 | DVHPN2 ---
Subjective Seen and examined at bedside, for Dialysis Catheter placement by IR today. Then patient will start on Dialysis. Changes from previous H/P or p: No Changes Eyes: No Pain, No Vision change, No Conjunctivae inflammation, No Eyelid inflammation, No Other, No Redness ENT: No Ear pain, No Ear discharge, No Nose pain, No Nose discharge, No Nose congestion, No Mouth pain, No Mouth swelling, No Throat pain, No Throat swelling, No Other Cardiovascular: No Chest Pain, No Palpitations, No Orthopnea, No Paroxysmal Noc. Dyspnea, No Edema, No Lt Headedness, No Other Respiratory: No Cough, No Dry, No Shortness of breath, No SOB with excertion, No Wheezing, No Hemoptysis, No Pleuritic Pain, No Sputum, No Other Gastrointestinal: No Nausea, No Vomiting, No Abdominal Pain, No Diarrhea, No Constipation, No Melena, No Hematochezia, No Other Genitourinary: No Dysuria, No Frequency, No Incontinence, No Hematuria, No Retention, No Other Musculoskeletal: No other, No neck pain, No shoulder pain, No arm pain, No back pain, No hand pain, No leg pain; foot pain Skin: No Rash, No Lesions, No Jaundice, No Bruising, No Other Objective Vitals Vital Signs Date Time Temp Pulse Resp B/P (MAP) Pulse Ox O2 Delivery O2 Flow Rate FiO2 07/18/24 09:00 97.7 48 47 128/30 (62) 94 97.7 07/17/24 20:00 Room Air* 0 21 Intake/Output Intake and Output 07/18/24 07:00 Intake Total 1200 ml Balance 1200 ml Intake Oral 1200 ml # Voids 7 # Bowel Movements 1 General Appearance: Alert, Oriented X3, Cooperative, No acute distress HEENT: Atraumatic Lungs: Clear to auscultation Cardiovascular: Normal S1, Normal S2, Other (bradycardia) Abdomen: Normal bowel sounds, Soft Rectal: Deferred Psych/Mental Status: Mental status NL Medications Current Medications Medications Dose Ordered Sig/Ezequiel Route Start Time Stop Time Status Last Admin Dose Admin Acetaminophen 650 mg Q6HP PRN PO 07/16/24 15:15 Lorazepam 0.5 mg Q6HP PRN PO 07/16/24 15:15 Docusate Sodium 100 mg DAILY PO 07/17/24 10:00 07/17/24 10:28 100 MG Ondansetron HCl 4 mg Q4HP PRN IV 07/16/24 15:15 Nitroglycerin 0.4 mg Q5MINP PRN SL 07/16/24 15:15 Morphine Sulfate 2 mg Q30M PRN IV 07/16/24 15:15 Hold Diagnostic Test (Pha) 1 strip IQ4HR 07/16/24 16:00 07/18/24 08:00 1 STRIP Insulin Human Regular IQ4HR SC 07/16/24 16:00 07/18/24 00:57 3 UNITS Dextrose 50 ml UD PRN IV 07/16/24 15:15 Ergocalciferol 50,000 unit QWEEKLY PO 07/16/24 15:30 Hydralazine HCl 75 mg TID PO 07/16/24 22:00 07/18/24 06:18 75 MG Isosorbide Mononitrate 90 mg DAILY PO 07/17/24 10:00 07/17/24 10:30 90 MG Levothyroxine Sodium 25 mcg QAM PO 07/17/24 07:00 07/18/24 06:18 25 MCG Zirconium Oxide 5 gm UD PO 07/16/24 15:30 Ticagrelor 90 mg BID PO 07/16/24 22:00 07/17/24 21:55 90 MG Atorvastatin Calcium 80 mg HS PO 07/16/24 22:00 07/17/24 21:55 80 MG Patient Own Medication 1 puff Q12HR PO 07/16/24 22:00 Sodium Bicarbonate 1,300 mg TID PO 07/16/24 22:00 07/18/24 06:18 1,300 MG Furosemide 80 mg BIDD IV 07/17/24 10:45 07/18/24 06:19 80 MG Calcium Acetate 1,334 mg TIDWMEALS PO 07/17/24 18:00 07/18/24 08:35 1,334 MG Ergocalciferol 50,000 unit Q7D PO 07/17/24 13:15 07/17/24 15:44 50,000 UNIT Epoetin Leo-epbx 10,000 unit TUTHSA SC 07/17/24 13:15 07/17/24 17:03 10,000 UNIT Iron Sucrose 110 ml @ 110 mls/hr DAILY@1200 IV 07/17/24 13:15 07/21/24 12:59 12/3/24 16:06 110 MLS/HR Laboratory Results Laboratory Tests 07/18/24 05:05 Chemistry Test 07/18/24 05:05 Calcium Level 8.5 mg/dL (8.7-10.4) L HgA1c, TSH Test 07/17/24 16:00 Thyroid Stimulating Hormone (TSH) 3.08 uIU/mL (0.55-4.78) Urinalysis Test 07/16/24 19:05 Urine Color Light-yellow (Yellow) Urine Clarity Turbid (Clear) H Urine pH 6.0 (5.0-9.0) Urine Specific [place] 1.014 (1.001-1.035) Urine Protein 3+ (Negative) H Urine Ketones Negative (Negative) Urine Blood Negative /uL (Negative) Urine Nitrite Negative (Negative) Urine Bilirubin Negative (Negative) Urine Urobilinogen Normal mg/dL (Negative) Urine Leukocyte Esterase Negative /uL (Negative) Urine RBC 1 /hpf (0 - 4) Urine WBC 2 /hpf (0 - 5) Urine Squamous Epithelial Cells Mod /hpf (<5) Urine Bacteria Few /hpf (None Seen) H Urine Glucose 1+ mg/dL (Normal) H Microbiology Microbiology Date/Time Source Procedure Growth Status 07/17/24 06:40 Nose MRSA Screen - Final Complete Assessment/Plan Assessment/Plan ESRD requiring hemodialysis- Start Dialysis Iron-deficiency anemia- Check FOBT Hypokalemia Hyperphosphatemia Bradycardia likely secondary to high-dose beta juan manuel Coreg- DC COreg. Glucagon. Monitor. Hypothyroid- Check TFT Diabetes mellitus type 2 A1c 6.3 Hyperlipidemia History of [place] and CHF Goals of care- FULL CODE Plan discussed with: Other My Orders Orders - BRIAN BAKER MD Procedure Category Date Status Time * Apprenticeship Consultant CONS 07/17/24 Transmitted Consult Electrocardigram EKG 07/17/24 Logged 17:23 Cl Central Venous CL 07/18/24 Logged Cath, Cvad 08:29 Date of Service: Jul 18, 2024 Billing Provider: BRIAN BAKER MD Common Visit Codes: [id number] INP/OBS CARE(HIGH) BRIAN BAKER MD Jul 18, 2024 11:16
--- NOTE | 2024-07-18 11:46 | DVHPNRES ---
Progress Note Date Seen: Jul 18, 2024 Resident Creating Document: JULIETA CLIFFORD RESIDENT Medical Necessity Reason Pt with a Central, PICC or Fol: No Subjective Review of Systems History of Present Illness Patient is 73-year-old female with past medical history of CKD stage five, CHF, diabetes mellitus, hyperlipidemia, kidney stones, HI,UTI's, appendectomy, CABG, Hysterectomy, PTCA, and right partial nephrectomy who presented to hospital with a chief complaint of bradycardia. However patient denying any syncopal episode, dizziness or kidney other symptoms. Patient also complaining of mild left foot pain and swelling. Patient denied any other complaints including chest pain, shortness of breath, any other symptoms. As per patient is currently on beta blockers which was increased dose by primary care physician. No any other complaints. Nephrology consultation was done for management of acute on chronic renal failure. As per patient patient has been diagnosed with CKD stage 5, discussion about dialysis was done before in nephrology clinic. No other new complaints at this point. Patient is getting general dialysis catheter by IR, plan for dialysis today. Objective vital signs Vital Sign Date Time Temp Pulse Resp B/P (MAP) Pulse Ox O2 Delivery O2 Flow Rate FiO2 07/18/24 09:00 97.7 48 47 128/30 (62) 94 97.7 07/17/24 20:00 Room Air* 0 21 Total Intake and Output 07/17/24 07/17/24 07/18/24 15:00 23:00 07:00 Intake Total 500 ml 700 ml Balance 500 ml 700 ml medications Current Medications Medications Dose Ordered Sig/Ezequiel Route Start Time Stop Time Status Last Admin Dose Admin Acetaminophen 650 mg Q6HP PRN PO 07/16/24 15:15 Lorazepam 0.5 mg Q6HP PRN PO 07/16/24 15:15 Docusate Sodium 100 mg DAILY PO 07/17/24 10:00 07/17/24 10:28 100 MG Ondansetron HCl 4 mg Q4HP PRN IV 07/16/24 15:15 Nitroglycerin 0.4 mg Q5MINP PRN SL 07/16/24 15:15 Morphine Sulfate 2 mg Q30M PRN IV 07/16/24 15:15 Hold Diagnostic Test (Pha) 1 strip IQ4HR 07/16/24 16:00 07/18/24 08:00 1 STRIP Insulin Human Regular IQ4HR SC 07/16/24 16:00 07/18/24 00:57 3 UNITS Dextrose 50 ml UD PRN IV 07/16/24 15:15 Ergocalciferol 50,000 unit QWEEKLY PO 07/16/24 15:30 Hydralazine HCl 75 mg TID PO 07/16/24 22:00 07/18/24 06:18 75 MG Isosorbide Mononitrate 90 mg DAILY PO 07/17/24 10:00 07/17/24 10:30 90 MG Levothyroxine Sodium 25 mcg QAM PO 07/17/24 07:00 07/18/24 06:18 25 MCG Zirconium Oxide 5 gm UD PO 07/16/24 15:30 Ticagrelor 90 mg BID PO 07/16/24 22:00 07/17/24 21:55 90 MG Atorvastatin Calcium 80 mg HS PO 07/16/24 22:00 07/17/24 21:55 80 MG Patient Own Medication 1 puff Q12HR PO 07/16/24 22:00 Sodium Bicarbonate 1,300 mg TID PO 07/16/24 22:00 07/18/24 06:18 1,300 MG Furosemide 80 mg BIDD IV 07/17/24 10:45 07/18/24 06:19 80 MG Calcium Acetate 1,334 mg TIDWMEALS PO 07/17/24 18:00 07/18/24 08:35 1,334 MG Ergocalciferol 50,000 unit Q7D PO 07/17/24 13:15 07/17/24 15:44 50,000 UNIT Epoetin Leo-epbx 10,000 unit TUTHSA SC 07/17/24 13:15 07/17/24 17:03 10,000 UNIT Iron Sucrose 110 ml @ 110 mls/hr DAILY@1200 IV 07/17/24 13:15 07/21/24 12:59 07/17/24 16:06 110 MLS/HR Examination General Appearance: Cooperative. Well developed. Well nourished. NAD Head Exam: Normal inspection Neck Exam: Normal inspection. Non-tender. Normal alignment Pulmonary/Respiratory: Chest non-tender. Clear bilateral breath sounds Cardiovascular/Chest: Regular rate and rhythm. No murmurs. No JVD. Peripheral Pulses: 2+ Radial (R). 2+ Radial (L). 2+ Pedal (R). 2+ Pedal (L) Abdominal Exam: Normal bowel sounds. Soft. Nontender. No hepatospenomegaly. No masses Ankle Exam: Negative ankle edema Lower extremities: Negative lower extremity edema Neuro/Mental Status: A&O x4. Coherent Thoughts/Psych: Normal thought pattern. Appropriate mood and affect. Good judgement and insight Appearance: In no acute distress Skin Exam: Normal inspection. Normal color. Warm. Dry laboratory and microbiology Laboratory Tests 07/18/24 05:05 Test 07/18/24 05:05 Range/Units Serum Glucose 85 74-106 mg/dL Microbiology Date/Time Source Procedure Growth Status 07/17/24 06:40 Nose MRSA Screen - Final Complete Problem List/Assessment/Plan Problem List/Assessment/Plan ESRD requiring hemodialysis Iron-deficiency anemia Hypokalemia Hyperphosphatemia Bradycardia likely secondary to high-dose beta juan manuel Coreg Diabetes mellitus type 2 Hyperlipidemia History of HI and CHF Plan/recommendation Dr. Cleary -plan for hemodialysis today. -tunnel dialysis catheter insertion by IR today -continue IV lasix 80 mg given low GFR -renal diet, low-sodium diet. -renal ultrasound on 03/02/2024:Atrophic kidneys with minimal renal parenchymal disease. -iron-deficiency anemia: Iron supplement, epoetin, vitamin-D supplement. -recommended phosphate binder and potassium binder Plan discussed with: Other (RN) JULIETA CLIFFORD RESIDENT Jul 18, 2024 11:46
--- NOTE | 2024-07-18 12:24 | DVH ---
XY Insertion of Venous Cath, HISTORY: HD CATH PL PROCEDURE: Informed consent was obtained. The patient was placed supine on the interventional table. 1 gram of Ancef was given. A limited localization ultrasound of the right neck base was obtained. The right neck base and upper chest were prepped with chlorhexidine which was allowed to dry and draped in the usual sterile fashion. Time out was performed. IV sedation was administered. The skin and the soft tissues were infiltrated with 1% Lidocaine. With real-time ultrasound guidance, the internal jug ular vein was accessed with a micropuncture kit, and an image documenting patency was recorded to PAC S. A subcutaneous tunneled tract was created from the right upper chest to the venotomy site. A 14.[address] [place] [address], 23 cm long hemodialysis catheter was advanced through the tunneled tract. Fluoroscopy was used to advance a guidewire through the internal jugular vein into the inferior vena cava. Following serial dilatation, a 15 [place] peel-away sheath was introduced, though which was adva nced the catheter into the right atrium. The catheter tip position was confirmed with fluoroscopy. Th ere was satisfactory flow in both lumens. The catheter lumens were flushed with saline and heparin wa s left indwelling in the catheter. A post-procedure image of the chest was obtained. The neck incisio n site was closed with a Dermabond and dressed sterilely. The catheter was sutured at the skin surfac e and exit site also dressed sterilely. No immediate complication was identified. DAP 548 FLUOROSCOPY TIME: 2.5 minutes. SEDATION: Dr. Yifan Hardy was personally responsible for the administration of moderate sedation during the procedure performed, including the use of an independent trained observer who had no other duties during the procedure. The drugs utilized were IV fentanyl and versed (see nursing log for details). The total time of supervision by the attending physician was approximately 30 minutes. FINDINGS: Widely patent right IJV. Post procedure image demonstrates smooth course of the hemodialysi s catheter with the tip in the right atrium. IMPRESSION: Placement of 14.[address] [place] [address], 23 cm long hemodialysis catheter through right internal jugular vein. Plan: Please contact IR for removal when no longer needed.
[2024-07-18] MEDS ORDERED: SODIUM CHL 0.9% 1000 ML BAG XX ONE (14:30)
[2024-07-18] MEDS: ONDANSETRON HCL 4 MG/2 ML VIAL IV PRN (14:31)
[2024-07-19] VITALS (8 sets, daily range): BP systolic 107–152; BP diastolic 30–106; PULSE 45–88; RESP 16–24; TEMP 98.1–98.8; O2SAT 90–100
[2024-07-19] MEDS: ACETAMINOPHEN 325 MG TAB PO PRN (05:34)
[2024-07-19 06:55] LABS: Anion Gap 14 (5-15); Carbon Dioxide 27 mmol/L (20-31); Chloride 104 mmol/L (98-107); Potassium 3.7 mmol/L (3.5-5.1); Sodium 145 mmol/L (136-145)
[2024-07-19 06:56] LABS: Calcium 8.9 mg/dL (8.7-10.4)
[2024-07-19 07:01] LABS: BUN/Creatinine Ratio 20.1 (10.0-20.0)
[2024-07-19 07:19] LABS: Glucose 124 mg/dL (74-106)
[2024-07-19 07:21] LABS: Blood Urea Nitrogen 90 mg/dL (9-23)
[2024-07-19] MEDS ORDERED: SODIUM CHL 0.9% 1000 ML BAG XX ONE (08:15)
--- NOTE | 2024-07-19 10:45 | DVHPN2 ---
Progress Note Date Seen: Jul 19, 2024 Resident Creating Document: JULIETA CLIFFORD RESIDENT Medical Necessity Reason Pt with a Central, PICC or Fol: No Subjective Review of Systems Patient underwent dialysis yesterday without any complication. Patient complaining of diarrhea since yesterday. No any other new complaints. Objective vital signs Vital Sign Date Time Temp Pulse Resp B/P (MAP) Pulse Ox O2 Delivery O2 Flow Rate FiO2 07/19/24 10:13 132/48 07/19/24 08:05 98.2 47 19 98 98.2 07/18/24 20:00 Room Air* 0 21 Total Intake and Output 07/18/24 07/18/24 07/19/24 15:00 23:00 07:00 Intake Total 400 ml 0 ml Balance 400 ml 0 ml medications Current Medications Medications Dose Ordered Sig/Ezequiel Route Start Time Stop Time Status Last Admin Dose Admin Acetaminophen 650 mg Q6HP PRN PO 07/16/24 15:15 07/19/24 05:34 650 MG Lorazepam 0.5 mg Q6HP PRN PO 07/16/24 15:15 Docusate Sodium 100 mg DAILY PO 07/17/24 10:00 07/18/24 13:24 100 MG Ondansetron HCl 4 mg Q4HP PRN IV 07/16/24 15:15 07/18/24 14:31 4 MG Nitroglycerin 0.4 mg Q5MINP PRN SL 07/16/24 15:15 Morphine Sulfate 2 mg Q30M PRN IV 07/16/24 15:15 Hold Diagnostic Test (Pha) 1 strip IQ4HR 07/16/24 16:00 07/19/24 08:00 1 STRIP Insulin Human Regular IQ4HR SC 07/16/24 16:00 07/19/24 02:05 2 UNITS Dextrose 50 ml UD PRN IV 07/16/24 15:15 Hydralazine HCl 75 mg TID PO 07/16/24 22:00 07/19/24 05:34 75 MG Isosorbide Mononitrate 90 mg DAILY PO 07/17/24 10:00 07/19/24 10:13 90 MG Levothyroxine Sodium 25 mcg QAM PO 07/17/24 07:00 07/19/24 06:23 25 MCG Zirconium Oxide 5 gm UD PO 07/16/24 15:30 Ticagrelor 90 mg BID PO 07/16/24 22:00 07/19/24 10:09 90 MG Atorvastatin Calcium 80 mg HS PO 07/16/24 22:00 07/18/24 22:12 80 MG Patient Own Medication 1 puff Q12HR PO 07/16/24 22:00 Sodium Bicarbonate 1,300 mg TID PO 07/16/24 22:00 07/19/24 05:35 1,300 MG Furosemide 80 mg BIDD IV 07/17/24 10:45 07/18/24 18:30 80 MG Calcium Acetate 1,334 mg TIDWMEALS PO 07/17/24 18:00 07/19/24 10:09 1,334 MG Ergocalciferol 50,000 unit Q7D PO 07/17/24 13:15 07/17/24 15:44 50,000 UNIT Epoetin Leo-epbx 10,000 unit TUTHSA SC 07/17/24 13:15 07/17/24 17:03 10,000 UNIT Iron Sucrose 110 ml @ 110 mls/hr DAILY@1200 IV 07/17/24 13:15 07/21/24 12:59 07/18/24 14:20 110 MLS/HR Examination General Appearance: Cooperative. Well developed. Well nourished. NAD Head Exam: Normal inspection Neck Exam: Normal inspection. Non-tender. Normal alignment Pulmonary/Respiratory: Chest non-tender. Clear bilateral breath sounds Cardiovascular/Chest: Regular rate and rhythm. No murmurs. No JVD. Peripheral Pulses: 2+ Radial (R). 2+ Radial (L). 2+ Pedal (R). 2+ Pedal (L) Abdominal Exam: Normal bowel sounds. Soft. Nontender. No hepatospenomegaly. No masses Ankle Exam: Negative ankle edema Lower extremities: Negative lower extremity edema Neuro/Mental Status: A&O x4. Coherent Thoughts/Psych: Normal thought pattern. Appropriate mood and affect. Good judgement and insight Appearance: In no acute distress Skin Exam: Normal inspection. Normal color. Warm. Dry laboratory and microbiology Laboratory Tests 07/19/24 05:11 07/18/24 05:05 Test 07/19/24 05:11 Range/Units Serum Glucose 124 H 74-106 mg/dL Microbiology Date/Time Source Procedure Growth Status 07/17/24 06:40 Nose MRSA Screen - Final Complete Problem List/Assessment/Plan Problem List/Assessment/Plan ESRD requiring hemodialysis Iron-deficiency anemia Hypokalemia Hyperphosphatemia Bradycardia likely secondary to high-dose beta juan manuel Coreg Diabetes mellitus type 2 Hyperlipidemia History of NC and CHF Plan/recommendation Dr. Cleary -plan for hemodialysis today as well. -tunnel dialysis catheter for IV access -continue IV lasix 80 mg given low GFR -renal diet, low-sodium diet. -renal ultrasound on 03/02/2024:Atrophic kidneys with minimal renal parenchymal disease. -iron-deficiency anemia: Iron supplement, epoetin, vitamin-D supplement. -recommended phosphate binder and potassium binder Plan discussed with: Patient, Other (RN) JULIETA CLIFFORD RESIDENT Jul 19, 2024 10:44
[2024-07-19 10:58] LABS: Hepatitis A Ab IgM Negative; Hepatitis B Core IgM Negative (Negative); Hepatitis B Surface Antigen Negative (Negative); Hepatitis C Antibody Negative (Negative)
[2024-07-19] MEDS: LOPERAMIDE HCL 2 MG CAP/TAB PO PRN (15:12)
--- NOTE | 2024-07-19 17:14 | DVHPN2 ---
Subjective Seen and examined at bedside, for Dialysis Catheter placement by IR today. Then patient will start on Dialysis. Changes from previous H/P or p: No Changes Eyes: No Pain, No Vision change, No Conjunctivae inflammation, No Eyelid inflammation, No Other, No Redness ENT: No Ear pain, No Ear discharge, No Nose pain, No Nose discharge, No Nose congestion, No Mouth pain, No Mouth swelling, No Throat pain, No Throat swelling, No Other Cardiovascular: No Chest Pain, No Palpitations, No Orthopnea, No Paroxysmal Noc. Dyspnea, No Edema, No Lt Headedness, No Other Respiratory: No Cough, No Dry, No Shortness of breath, No SOB with excertion, No Wheezing, No Hemoptysis, No Pleuritic Pain, No Sputum, No Other Gastrointestinal: No Nausea, No Vomiting, No Abdominal Pain, No Diarrhea, No Constipation, No Melena, No Hematochezia, No Other Genitourinary: No Dysuria, No Frequency, No Incontinence, No Hematuria, No Retention, No Other Musculoskeletal: No other, No neck pain, No shoulder pain, No arm pain, No back pain, No hand pain, No leg pain; foot pain Skin: No Rash, No Lesions, No Jaundice, No Bruising, No Other Objective Vitals Vital Signs Date Time Temp Pulse Resp B/P (MAP) Pulse Ox O2 Delivery O2 Flow Rate FiO2 07/19/24 16:20 98.1 49 16 112/33 (59) 98 98.1 07/19/24 08:00 Room Air* 0 21 Intake/Output Intake and Output 07/19/24 07:00 Intake Total 400 ml Balance 400 ml Intake Oral 400 ml # Voids 5 # Bowel Movements 9 General Appearance: Alert, Oriented X3, Cooperative, No acute distress HEENT: Atraumatic Neck: Other (Right Dialysis Catheter) Lungs: Clear to auscultation Cardiovascular: Normal S1, Normal S2, Other (bradycardia) Abdomen: Normal bowel sounds, Soft Rectal: Deferred Psych/Mental Status: Mental status NL Medications Current Medications Medications Dose Ordered Sig/Ezequiel Route Start Time Stop Time Status Last Admin Dose Admin Acetaminophen 650 mg Q6HP PRN PO 07/16/24 15:15 07/19/24 05:34 650 MG Lorazepam 0.5 mg Q6HP PRN PO 07/16/24 15:15 Docusate Sodium 100 mg DAILY PO 07/17/24 10:00 07/18/24 13:24 100 MG Ondansetron HCl 4 mg Q4HP PRN IV 07/16/24 15:15 07/18/24 14:31 4 MG Nitroglycerin 0.4 mg Q5MINP PRN SL 07/16/24 15:15 Morphine Sulfate 2 mg Q30M PRN IV 07/16/24 15:15 Hold Diagnostic Test (Pha) 1 strip IQ4HR 07/16/24 16:00 07/19/24 12:00 1 STRIP Insulin Human Regular IQ4HR SC 07/16/24 16:00 07/19/24 12:34 2 UNITS Dextrose 50 ml UD PRN IV 07/16/24 15:15 Hydralazine HCl 75 mg TID PO 07/16/24 22:00 07/19/24 05:34 75 MG Isosorbide Mononitrate 90 mg DAILY PO 07/17/24 10:00 07/19/24 10:13 90 MG Levothyroxine Sodium 25 mcg QAM PO 07/17/24 07:00 07/19/24 06:23 25 MCG Zirconium Oxide 5 gm UD PO 07/16/24 15:30 Ticagrelor 90 mg BID PO 07/16/24 22:00 07/19/24 10:09 90 MG Atorvastatin Calcium 80 mg HS PO 07/16/24 22:00 07/18/24 22:12 80 MG Patient Own Medication 1 puff Q12HR PO 07/16/24 22:00 Sodium Bicarbonate 1,300 mg TID PO 07/16/24 22:00 07/19/24 15:12 1,300 MG Furosemide 80 mg BIDD IV 07/17/24 10:45 07/18/24 18:30 80 MG Calcium Acetate 1,334 mg TIDWMEALS PO 07/17/24 18:00 07/19/24 12:25 1,334 MG Ergocalciferol 50,000 unit Q7D PO 07/17/24 13:15 07/17/24 15:44 50,000 UNIT Epoetin Leo-epbx 10,000 unit TUTHSA SC 07/17/24 13:15 07/17/24 17:03 10,000 UNIT Iron Sucrose 110 ml @ 110 mls/hr DAILY@1200 IV 07/17/24 13:15 12/24 12:59 07/19/24 12:25 110 MLS/HR Saccharomyces Boulardii 250 mg DAILY PO 07/20/24 10:00 Loperamide HCl 2 mg PRN PRN PO 07/19/24 14:15 07/19/24 15:12 2 MG Laboratory Results Laboratory Tests 07/18/24 05:05 07/19/24 05:11 Chemistry Test 07/19/24 05:11 Calcium Level 8.9 mg/dL (8.7-10.4) Urinalysis Test 07/16/24 19:05 Urine Color Light-yellow (Yellow) Urine Clarity Turbid (Clear) H Urine pH 6.0 (5.0-9.0) Urine Specific [place] 1.014 (1.001-1.035) Urine Protein 3+ (Negative) H Urine Ketones Negative (Negative) Urine Blood Negative /uL (Negative) Urine Nitrite Negative (Negative) Urine Bilirubin Negative (Negative) Urine Urobilinogen Normal mg/dL (Negative) Urine Leukocyte Esterase Negative /uL (Negative) Urine RBC 1 /hpf (0 - 4) Urine WBC 2 /hpf (0 - 5) Urine Squamous Epithelial Cells Mod /hpf (<5) Urine Bacteria Few /hpf (None Seen) H Urine Glucose 1+ mg/dL (Normal) H Microbiology Microbiology Date/Time Source Procedure Growth Status 07/17/24 06:40 Nose MRSA Screen - Final Complete Assessment/Plan Assessment/Plan ESRD requiring hemodialysis- Start Dialysis Iron-deficiency anemia- Check FOBT Hypokalemia Hyperphosphatemia Bradycardia likely secondary to high-dose beta juan manuel Coreg- DC Coreg. Glucagon. Monitor. Hypothyroid- Check TFT Diabetes mellitus type 2 A1c 6.3 Hyperlipidemia History of [place] and CHF Goals of care- FULL CODE Plan discussed with: Patient Date of Service: Jul 19, 2024 Billing Provider: BRIAN BAKER MD Common Visit Codes: [id number] INP/OBS CARE(HIGH) BRIAN BAKER MD Jul 19, 2024 17:13
[2024-07-20 01:00] VITALS: BP 150/50; PULSE 50; RESP 18; TEMP 98.7; O2SAT 98
[2024-07-20 05:00] VITALS: BP 136/47; PULSE 48; RESP 20; TEMP 98.7; O2SAT 90
[2024-07-20 08:00] VITALS: PULSE 44; PULSE 54; RESP 18; O2SAT 95
[2024-07-20 09:20] VITALS: BP 108/49; PULSE 54; RESP 18; TEMP 98.2; O2SAT 95
[2024-07-20] MEDS: FLORASTOR (S. BOULARDII) 250 MG CAP PO SCH (09:44)
[2024-07-20 13:00] VITALS: BP 141/50; PULSE 55; RESP 18; TEMP 98.3; O2SAT 94
[2024-07-20] MEDS ORDERED: ERGO1CAP23 PO (16:22)
[2024-07-20] MEDS ORDERED: FERR1TAB36 PO (16:24)
--- NOTE | 2024-07-20 16:29 | DVHDS2 ---
Discharge Summary Date of Admission Jul 16, 2024 at 15:02 Date of Discharge: Jul 20, 2024 Admitting Diagnosis ESRD Labs/Diagnostic Data: Laboratory Results Test 07/20/24 11:38 07/19/24 05:11 07/18/24 05:05 07/17/24 21:00 POC Glucose 143 mg/dl (70-106) Sodium Level 145 mmol/L (136-145) Potassium Level 3.7 mmol/L (3.5-5.1) Chloride Level 104 mmol/L (98-107) Carbon Dioxide Level 27 mmol/L (20-31) Anion Gap 14 (5-15) Blood Urea Nitrogen 90 mg/dL (9-23) Creatinine 4.48 mg/dL (0.550-1.02) Glomerular Filtration Rate Calc 10 mL/min (>90) BUN/Creatinine Ratio 20.1 (10.0-20.0) Serum Glucose 124 mg/dL (74-106) Calcium Level 8.9 mg/dL (8.7-10.4) White Blood Count 8.8 10^3/uL (4.4-10.8) Red Blood Count 2.55 10^6/uL (4.0-5.20) Hemoglobin 7.8 g/dL (12.2-16.2) Hematocrit 23.0 % (36.0-46.0) Mean Corpuscular Volume 90.2 fL (80.0-100.0) Mean Corpuscular Hemoglobin 30.6 pg (28.0-32.0) Mean Corpuscular Hemoglobin Concent 33.9 g/dL (32.0-36.0) Red Cell Distribution Width 14.1 % (11.8-14.3) Platelet Count 173 10^3/uL (140-450) Mean Platelet Volume 9.9 fL (6.9-10.8) Neutrophils (%) (Auto) 57.0 % (37.0-80.0) Lymphocytes (%) (Auto) 30.6 % (10.0-50.0) Monocytes (%) (Auto) 10.5 % (0.0-12.0) Eosinophils (%) (Auto) 1.3 % (0.0-7.0) Basophils (%) (Auto) 0.6 % (0.0-2.0) Neutrophils # (Auto) 5.0 10 ^3/uL (1.6-8.6) Lymphocytes # (Auto) 2.7 10 ^3/uL (0.4-5.4) Monocytes # (Auto) 0.9 10 ^3/uL (0-1.3) Eosinophils # (Auto) 0.1 10 ^3/uL (0-0.8) Basophils # (Auto) 0.1 10 ^3/uL (0-0.2) Nucleated Red Blood Cells 0.0 % Stool Occult Blood Negative (Negative) Stool Occult Blood Sample #3 (Negative) Test 07/17/24 16:00 07/17/24 05:19 07/16/24 19:05 07/16/24 13:51 Thyroid Stimulating Hormone (TSH) 3.08 uIU/mL (0.55-4.78) Free Thyroxine (T4) Calculated 0.89 ng/dL (0.89-1.76) Phosphorus Level 10.7 mg/dL (2.4-5.1) Magnesium Level 1.6 mg/dL (1.6-2.6) Iron Level 29 ug/dL (50-170) Total Iron Binding Capacity 245 ug/dL (250-425) Percent Iron Saturation 11.8 % (15-50) Ferritin 123.2 ng/mL (10-291) Total Bilirubin 0.2 mg/dL (0.2-1.0) Aspartate Amino Transferase (AST) < 8 U/L (13-40) Alanine Aminotransferase (ALT) < 9 U/L (7-40) Alkaline Phosphatase 72 U/L (46-116) Total Protein 5.8 g/dL (5.7-8.2) Albumin 3.6 g/dL (3.2-4.8) Parathyroid Hormone (Intact) 970.1 pg/mL (18.4-80.1) Hepatitis A IgM Antibody Negative Hepatitis B Surface Antigen Negative (Negative) Hepatitis B Core IgM Antibody Negative (Negative) Hepatitis C Antibody Negative (Negative) Urine Color Light-yellow (Yellow) Urine Clarity Turbid (Clear) Urine pH 6.0 (5.0-9.0) Urine Specific [place] 1.014 (1.001-1.035) Urine Protein 3+ (Negative) Urine Ketones Negative (Negative) Urine Blood Negative /uL (Negative) Urine Nitrite Negative (Negative) Urine Bilirubin Negative (Negative) Urine Urobilinogen Normal mg/dL (Negative) Urine Leukocyte Esterase Negative /uL (Negative) Urine RBC 1 /hpf (0 - 4) Urine WBC 2 /hpf (0 - 5) Urine Squamous Epithelial Cells Mod /hpf (<5) Urine Bacteria Few /hpf (None Seen) Urine Glucose 1+ mg/dL (Normal) Troponin I High Sensitivity 26 ng/L (</=34) Test 07/16/24 10:44 Prothrombin Time 11.6 sec (9.3-11.8) Prothrombin Time INR 1.10 (0.9-1.15) Activated Partial Thromboplast Time 29.1 SEC (24.5-34.5) Hemoglobin A1c 6.3 % A1C (<5.7) B-Type Natriuretic Peptide 324.81 pg/mL (0-100) Other Laboratory Tests 07/19/24 05:11 07/18/24 05:05 Brief Hx & Hospital Course: Patient was admitted for worsening renal failure, started on Hemodialysis. Patient was incidentally found to have bradycardia due to carvedilol. Patient is asymptomatic. Patient wishes to be discharged home patient has chair time set up, had a discussion with the patient's son at bedside. Patient will also see Cardiology attending him on Tuesday morning. Patient advised to stop carvedilol at home. Condition at Discharge: Poor Final Diagnosis/Problems List ESRD requiring hemodialysis- Start Dialysis Iron-deficiency anemia- Check FOBT Hypokalemia Hyperphosphatemia Bradycardia likely secondary to high-dose beta juan manuel Coreg- DC Coreg. Glucagon. Monitor. Hypothyroid- Check TFT Diabetes mellitus type 2 A1c 6.3 Hyperlipidemia History of MD and CHF Goals of care- FULL CODE Discharge Disposition: Home Discharge Statement: "Patient was advised to return to the ER or call 911 if any headaches, dizziness, shortness of breath, chest pain, abdominal pain, bleeding, fevers, or worsening of medical condition. Patient was counseled about treatment plan, medications, possible side effects, patientverbalized understanding. All questions were answered to the best of my ability. This discharge took greater then 30 minutes in planning, reviewing documentation, counseling the patient, and discussing with other team members." ASSESSMENT ASSESSMENT Assessment Date of Service: Jul 20, 2024 Billing Provider: BRIAN BAKER MD Common Visit Codes: [id number] DISCH DAY >30min BRIAN BAKER MD Jul 20, 2024 16:29
--- NOTE | 2024-07-20 16:36 | DVHPN2 ---
Progress Note - Dictate Date Seen: Jul 20, 2024 Medical Necessity Reason Pt with a Central, PICC or Fol: No Subjective Awake, patient's family at bedside vital signs Vital Sign Date Time Temp Pulse Resp B/P (MAP) Pulse Ox O2 Delivery O2 Flow Rate FiO2 07/20/24 13:00 98.3 55 18 141/50 (80) 94 98.3 07/20/24 08:00 Room Air* 0 21 Total Intake and Output 07/19/24 07/19/24 07/20/24 15:00 23:00 07:00 Intake Total 110 ml 2300 ml 0 ml Output Total 600 ml Balance 110 ml 1700 ml 0 ml medications Current Medications Medications Dose Ordered Sig/Ezequiel Route Start Time Stop Time Status Last Admin Dose Admin Acetaminophen 650 mg Q6HP PRN PO 07/16/24 15:15 07/19/24 05:34 650 MG Lorazepam 0.5 mg Q6HP PRN PO 07/16/24 15:15 Docusate Sodium 100 mg DAILY PO 07/17/24 10:00 07/18/24 13:24 100 MG Ondansetron HCl 4 mg Q4HP PRN IV 07/16/24 15:15 07/18/24 14:31 4 MG Nitroglycerin 0.4 mg Q5MINP PRN SL 07/16/24 15:15 Morphine Sulfate 2 mg Q30M PRN IV 07/16/24 15:15 Hold Diagnostic Test (Pha) 1 strip IQ4HR 07/16/24 16:00 07/20/24 12:00 1 STRIP Insulin Human Regular IQ4HR SC 07/16/24 16:00 07/20/24 12:00 2 UNITS Dextrose 50 ml UD PRN IV 07/16/24 15:15 Hydralazine HCl 75 mg TID PO 07/16/24 22:00 07/20/24 05:42 75 MG Isosorbide Mononitrate 90 mg DAILY PO 07/17/24 10:00 07/20/24 09:45 90 MG Levothyroxine Sodium 25 mcg QAM PO 07/17/24 07:00 07/20/24 05:42 25 MCG Zirconium Oxide 5 gm UD PO 07/16/24 15:30 Ticagrelor 90 mg BID PO 07/16/24 22:00 07/20/24 09:44 90 MG Atorvastatin Calcium 80 mg HS PO 07/16/24 22:00 07/19/24 20:46 80 MG Patient Own Medication 1 puff Q12HR PO 07/16/24 22:00 Sodium Bicarbonate 1,300 mg TID PO 07/16/24 22:00 07/20/24 05:42 1,300 MG Furosemide 80 mg BIDD IV 07/17/24 10:45 07/20/24 05:43 80 MG Calcium Acetate 1,334 mg TIDWMEALS PO 07/17/24 18:00 07/20/24 13:02 1,334 MG Ergocalciferol 50,000 unit Q7D PO 07/17/24 13:15 07/17/24 15:44 50,000 UNIT Epoetin Leo-epbx 10,000 unit TUTHSA SC 07/17/24 13:15 07/17/24 17:03 10,000 UNIT Iron Sucrose 110 ml @ 110 mls/hr DAILY@1200 IV 07/17/24 13:15 07/21/24 12:59 07/20/24 13:01 110 MLS/HR Saccharomyces Boulardii 250 mg DAILY PO 07/20/24 10:00 07/20/24 09:44 250 MG Loperamide HCl 2 mg PRN PRN PO 07/19/24 14:15 07/19/24 15:12 2 MG objective Gen: nad heent: nc/at, mmm lungs: cta anteriorly cvs: no rub abd: soft, bowel sounds audible ext: + edema laboratory and microbiology Laboratory Tests 07/19/24 05:11 07/18/24 05:05 Test 07/19/24 05:11 Range/Units Serum Glucose 124 H 74-106 mg/dL Assessment/Plan Problem List/Assessment/Plan ESRD requiring hemodialysis Iron-deficiency anemia Hypokalemia Hyperphosphatemia Bradycardia likely secondary to high-dose beta juan manuel Coreg Diabetes mellitus type 2 Hyperlipidemia History of NE and CHF Plan/recommendation - we will continue with outpatient dialysis - discussed plan of care with patient's son Dietary Evaluation Review Comments: Recomend/Consider: Renal specific 60g protein restriction plus CCHO-60 added to pt's current cardiac diet, for better controlled DM and avoiding toxic uremic symdrome. Encourage compliant to her multiple dietary restrictions. Expected Outcomes/Goals: controlled DM, controlled CKD uremic symdrome. gradual weight loss. Plan discussed with: Patient, Son TOM MCGHEE MD Jul 20, 2024 16:36
[2024-07-20 17:13] VITALS: BP 155/44; PULSE 56; RESP 18; TEMP 98.1; O2SAT 93
== END 2024-07-20 18:02 | disposition home or self-care (01) | DRG 674 ==
LOC: ER 09:47 → TELE 15:02 → TELE-EAST 15:10
PROVIDERS: ATTEND Internal Medicine
PROC: 0JH63XZ Insertion of Tunneled Vascular Access Device into Chest Subcutaneous Tissue and Fascia, Percutaneous Approach (ICD-10-PCS; principal; 2024-07-18)
PROC: 02HV33Z Insertion of Infusion Device into Superior Vena Cava, Percutaneous Approach (ICD-10-PCS; 2024-07-18)
PROC: B518ZZA Fluoroscopy of Superior Vena Cava, Guidance (ICD-10-PCS; 2024-07-18)
PROC: B548ZZA Ultrasonography of Superior Vena Cava, Guidance (ICD-10-PCS; 2024-07-18)
PROC: 5A1D70Z Performance of Urinary Filtration, Intermittent, Less than 6 Hours Per Day (ICD-10-PCS; 2024-07-18)
PROC: 5A1D70Z Performance of Urinary Filtration, Intermittent, Less than 6 Hours Per Day (ICD-10-PCS; 2024-07-19)
DX: N17.9 Acute kidney failure, unspecified (principal); I13.2 Hypertensive heart and chronic kidney disease with heart failure and with stage 5 chronic kidney disease, or end stage renal disease; N39.0 Urinary tract infection, site not specified; N18.6 End stage renal disease; R00.1 Bradycardia, unspecified; E87.6 Hypokalemia; E11.65 Type 2 diabetes mellitus with hyperglycemia; D50.9 Iron deficiency anemia, unspecified; E03.9 Hypothyroidism, unspecified; E11.22 Type 2 diabetes mellitus with diabetic chronic kidney disease; E78.5 Hyperlipidemia, unspecified; T44.7X5A Adverse effect of beta-adrenoreceptor antagonists, initial encounter; F17.210 Nicotine dependence, cigarettes, uncomplicated; E83.39 Other disorders of phosphorus metabolism; N20.0 Calculus of kidney; I50.9 Heart failure, unspecified; I25.2 Old myocardial infarction; Z90.5 Acquired absence of kidney; Z90.710 Acquired absence of both cervix and uterus; Z95.1 Presence of aortocoronary bypass graft; Z88.5 Allergy status to narcotic agent; Z83.6 Family history of other diseases of the respiratory system; Z80.0 Family history of malignant neoplasm of digestive organs; Z80.3 Family history of malignant neoplasm of breast; Z99.2 Dependence on renal dialysis; Z87.442 Personal history of urinary calculi; Z90.49 Acquired absence of other specified parts of digestive tract; Z98.61 Coronary angioplasty status; Y92.89 Other specified places as the place of occurrence of the external cause
CPT/HCPCS: 36415; 36558; 71045; 73630; 77001; 80048; 80053; 80074; 81001; 82270; 82728; 82962; 83036; 83540; 83550; 83735; 83880; 83970; 84100; 84439; 84443; 84484; 85025; 85610; 85730; 87081; 90935; 93005; 93971; 96374; 97163; 99152; C1894; G0378; J1642; J1756; J1815; J2250; J2405

== ENCOUNTER 2024-07-25 09:22 | Inpatient (IN) | payer OTHER, MEDICAID ==
[~2024-07-25] VITALS: Ht 167.6 cm; Wt 100.8 kg
[~2024-07-25 09:22] MED LIST changes: -CARV6.2551 PO; +ERGO1CAP23 PO; +LORA-483 PO; +METO10TA7 PO; -PANT40T PO; +PANT40TA57 PO
[2024-07-25] MEDS: SODIUM CHLORIDE 0.9% 1,000 ML IV ONE (10:05)
[2024-07-25 10:18] LABS: Basophils # (auto) 0.1 10 ^3/uL (0-0.2); Basophils % (auto) 0.5 % (0.0-2.0); Eosinophils # (auto) 0.1 10 ^3/uL (0-0.8); Eosinophils % (auto) 0.9 % (0.0-7.0); Hematocrit 26.9 % (36.0-46.0); Hemoglobin 8.8 g/dL (12.2-16.2); Lymphocytes # (auto) 1.9 10 ^3/uL (0.4-5.4); Lymphocytes % (auto) 19.3 % (10.0-50.0); Mean Corpuscular Hemoglobin 29.7 pg (28.0-32.0); Mean Corpuscular Hgb Conc. 32.8 g/dL (32.0-36.0); Mean Corpuscular Volume 90.5 fL (80.0-100.0); Monocytes # (auto) 0.5 10 ^3/uL (0-1.3); Monocytes % (auto) 5.2 % (0.0-12.0); Neutrophils # (auto) 7.1 10 ^3/uL (1.6-8.6); Neutrophils % (auto) 74.1 % (37.0-80.0); Platelet Count (auto) 231 10^3/uL (140-450); Red Blood Cells 2.97 10^6/uL (4.0-5.20); Red Cell Distribution Width 13.9 % (11.8-14.3); White Blood Cell 9.7 10^3/uL (4.4-10.8)
[2024-07-25 10:34] LABS: Alanine Aminotransferase 19 U/L (7-40); Albumin 3.7 g/dL (3.2-4.8); Alkaline Phosphatase 99 U/L (46-116); Anion Gap 7 (5-15); Aspartate Aminotransferase 25 U/L (13-40); BUN/Creatinine Ratio 12.4 (10.0-20.0); Carbon Dioxide 29 mmol/L (20-31); Chloride 105 mmol/L (98-107); Magnesium 1.7 mg/dL (1.6-2.6); Sodium 141 mmol/L (136-145)
[2024-07-25 10:35] LABS: Bilirubin, Total 0.3 mg/dL (0.2-1.0); Total Protein 6.1 g/dL (5.7-8.2)
--- NOTE | 2024-07-25 10:37 | DVH ---
EXAM: XY CHEST TWO VIEWS ROUTINE CLINICAL HISTORY: sob COMPARISON: XY CHEST TWO VIEWS ROUTINE on DOS: 03/02/24, XY CHEST TWO VIEWS ROUTINE on DOS: 07/21/23 TECHNIQUE: Frontal and lateral view of the chest was obtained FINDINGS: Lines and Tubes: Right tunneled dialysis catheter tip projects over the superior vena cava. Lungs: No focal consolidation. Pleura: No effusion. No pneumothorax. Cardiomediastinal contours: Unremarkable. Atherosclerotic vascular calcifications of the thoracic ao rta are noted. Bones: No acute osseous abnormality. Chronic right rib fractures. IMPRESSION: No acute cardiopulmonary disease.
[2024-07-25 10:38] LABS: Blood Urea Nitrogen 29 mg/dL (9-23); Calcium 8.5 mg/dL (8.7-10.4); Glucose 125 mg/dL (74-106); Potassium 3.1 mmol/L (3.5-5.1)
--- NOTE | 2024-07-25 11:41 | ED.PDOC ---
History of Present Illness HPI Comments 73 y/o F, with a Hx of CABG, CHF, COPD, DM, ESRD w/HD M/W/F, ESRD, GERD, HLD, HTN, LA, PTCA, thyroid disease, UTI's, and tobacco abuse, is BIBA for c/o bradycardia, shortness of breath, nausea, and dysuria, today. Per EMS report, patient endorses on shortness of breath onset, this morning, while receiving di alysis in addition to being found bradycardic by dialysis faculty staff then. Patient is stated to have not finished dialysis, with only 250ml fluids removed. At time of assessment, patient endorses on having difficulty breathing along with nausea and burning dysuria since yesterday evening in addition to reporting of recent discharge from hospital admission for bradycardia Tuesday (07/20/24) at [facility]. She denies having any chest pain, palpitations, cough, vomiting, fever, chills, or other associated symptoms or modifiers at this time. Chief Complaint: Shortness of Breath Time Seen by MD: 10:45 Primary Care Provider: FELICIA Reviewed Notes: Nurses Notes, Medications, Allergies Allergies: Coded Allergies: Codeine (Verified Allergy, Unknown, 09/05/15) Morphine (Verified Allergy, Unknown, 09/05/15) Nitrofurantoin (Verified Allergy, Unknown, 09/05/15) Home Meds Active Scripts Ferrous Sulfate (Iron (Ferrous Sulfate)) 50 Mg Tab, 50 MG PO QAM for 30 Days, #30 TAB Prov:BRIAN BAKER MD 07/20/24 Ergocalciferol (VITAMIN D 92361 UNIT) 50,000 [place], [address] UNIT PO Q7D for 12 Days, #12 CAP Prov:BRIAN BAKER MD 07/20/24 Ranolazine (Aspruzyo Sprinkle) 500 Mg Gra, 500 MG PO BID for 14 Days, #28 GM Prov:BRIAN BAKER MD 06/30/24 Bumetanide (Bumetanide) 2 Mg Tab, 1 TAB PO BID, #60 TAB 5 Refills Prov:REGINA CHRISTIAN MD 03/07/24 Ferrous Sulfate (Iron (Ferrous Sulfate)) 50 Mg Tab, 50 MG PO DAILY for 30 Days, #30 TAB Prov:BLANCA MARTINEZ 02/13/24 Nicotine (Nicoderm 21MG/24HR) 1 Patch Ph, 1 PATCH TD DAILY for 30 Days, #1 PATCH Prov:BLANCA MARTINEZ RESIDENT 02/13/24 Acetaminophen (Acetaminophen) 325 Mg Tab, 650 MG PO Q6HP PRN for 30 Days, #240 TAB Prov:BLANCA MARTINEZ RESIDENT 02/13/24 Reported Medications Pantoprazole Sodium Sesquihydr (Pantoprazole Sodium Dr) 40 Mg Tab, 1 TAB PO DAILY 07/16/24 Loratadine (CLARITIN TABLET) 10 Mg Tb, 1 TAB PO DAILY 07/16/24 Metolazone (Metolazone) 10 Mg Tab, 2 TAB PO DAILY 07/16/24 Fluticasone-Salmeterol (Wixela Inhub 100-50 Mcg/Dose) 1 Aer Aer, 1 PUFF INH Q12HR 03/05/24 Atorvastatin Calcium (ATORVASTATIN CALCIUM) 80 Mg Tab, 1 TAB PO DAILY, #30 TAB 5 Refills 02/10/24 Glipizide (Glipizide Xl) 10 Mg Tab, 10 MG PO DAILY, TAB 02/10/24 Diclofenac Sodium (Topical) (Voltaren Arthritis Pain) 1 % Gel, 1 % EX PRN PRN for PAIN SCALE 1 THRU 6, GEL 02/10/24 Insulin Glargine (Lantus Solostar) 100 Unit/Ml Inj, 8 UNIT SC HS, INJ 02/10/24 Sodium Zirconium Cyclosilicate (Lokelma) 5 Gm Darrel, 5 GM PO UD Take 5 grams 3 times weekly. 12/27/23 Albuterol Sulfate (Albuterol Sulfate Hfa) 108 Mcg/Act Aer, 2 PUFF INH Q6HR PRN for WHEEZING 12/27/23 Levothyroxine Sodium (Levothyroxine Sodium) 25 Mcg Tab, 1 TAB PO QAM 12/25/23 Sodium Bicarbonate (Sodium Bicarbonate) 650 Mg Tab, 2 TAB PO TID 12/25/23 Isosorbide Mononitrate (Isosorbide Mononitrate ER) 60 Mg Tab, 1.5 TAB PO DAILY 12/25/23 Hydralazine HCl (Hydralazine HCl) 25 Mg Tab, 3 TAB PO TID 12/25/23 Ergocalciferol (Drisdol) 50,000 Unit Cap, 1 CAP PO QWEEKLY 07/21/23 Aspirin (Aspirin) 81 Mg Chw, 81 MG PO, TAB.CHEW 08/11/21 Ticagrelor Base (BRILINTA) 90 Mg Tab, 90 MG PO BID, TAB 08/11/21 Gabapentin (Gabapentin) 100 Mg Cap, 1 CAP PO BID 08/11/21 Ezetimibe (Zetia) 10 Mg Tab, 10 MG PO DAILY, TAB 08/11/21 Discontinued Reported Medications Ezetimibe (Ezetimibe) 10 Mg Tab, 1 TAB PO DAILY 07/16/24 Gabapentin (Gabapentin) 100 Mg Cap, PO 07/16/24 Carvedilol (Carvedilol) 6.25 Mg Tab, 1 TAB PO BID 03/05/24 Pantoprazole Sodium Sesquihydr (Pantoprazole Sodium) 40 Mg Tab, 1 TAB PO DAILY 08/11/21 Information Source: Patient, Emergency Med Personnel Mode of Arrival: EMS Severity: Moderate Timing: Hours Duration: Since onset Prehospital treatment: 12 Lead EKG, Senior Oracle Adf Developer Past Medical History PAST MEDICAL HISTORY: CHF, CKF, COPD, DM, ESRD (w/HD M/W/F), GERD, High Lipids, HTN, Kidney Stones, LA, Thyroid, UTI'S Surgical History: Appendectomy, CABG, Hysterectomy, PTCA Surgical History (Other): lithrotripsy, nephrectomy, hemodialysis jaswinder-catheter, nephrostomy tube CUTTING TORCH OPERATOR History: No Pertinent CUTTING TORCH OPERATOR History Family History Family History: No family hx of Cancer, No family hx of Heart елена Social History Smoker: Cigarettes, Less Than 1 Pack/Day Alcohol: Denies ETOH Use Drugs: Denies Drug Use Lives In: Home Respiratory: reports: shortness of breath Cardiovascular: reports: others (bradycardia) Gastrointestinal: reports: nausea Genitourinary: reports: dysuria All Other Systems: Reviewed and Negative (negative unless otherwise stated above or in HPI) Physical Exam General Appearance: Moderate Distress, Obese HEENT: Normal ENT Inspection, PERRL/EOMI Neck: Full Range of Motion, Non-Tender Respiratory: Crackles, Decreased Breath Sounds, Expiration, Inspiration, No Respiratory Distress Cardiovascular: Bradycardia, No Murmur, Normal Peripheral Pulses, Regular Rate/Rhythm Breast Exam: Deferred Gastrointestinal: No Organomegaly, Non Tender, No Pulsatile Mass, Normal Bowel Sounds, Soft Genitalia: Deferred Pelvic: Deferred Rectal: Deferred Extremities: No calf tenderness, Normal capillary refill, Normal inspection, Normal range of motion, Non-tender, No pedal edema Neurologic: Alert, inspector aligning II-XII nml as Tested, No Motor Deficits, Normal Affect, Normal Mood, No Sensory Deficits Cerebellar Function: NOT DONE Reflexes: NOT DONE Skin: Dry, Normal Color, Warm Peripheral Pulses: 1+ carotid (L) Lymphatic: No Adenopathy Was a procedure done? Was a procedure done?: No EKG EKG : Pulse Rate (adult): 43 [place]: Normal Cardiac Rhythm: SB Block: None Hypertrophy: LVH ST: Ischemia Differential Dx Considerations may include: bradycardia, arrhythmia, PE, LA, PNA, bronchitis, URI, UTI electrolyte imbalance dysrhythmia hypothyroidism ischemic heart disease uncontrolled diabetes anemia renal failure pulmonary embolus CHF X-Ray, Labs, Meds, VS Vital Signs Date Time Temp Pulse Resp B/P (MAP) Pulse Ox O2 Delivery O2 Flow Rate FiO2 07/25/24 11:41 43 07/25/24 10:16 97.2 45 15 148/84 (105) 98 97.2 07/25/24 10:13 Room Air* 0 21 07/25/24 09:30 97.8 42 14 155/85 (108) 95 07/25/24 09:26 43 Lab Test 07/25/24 11:08 07/25/24 10:02 Range/Units Troponin I High Sensitivity 22 24 </=34 ng/L White Blood Count 9.7 4.4-10.8 10^3/uL Red Blood Count 2.97 L 4.0-5.20 10^6/uL Hemoglobin 8.8 L 12.2-16.2 g/dL Hematocrit 26.9 L 36.0-46.0 % Mean Corpuscular Volume 90.5 80.0-100.0 fL Mean Corpuscular Hemoglobin 29.7 28.0-32.0 pg Mean Corpuscular Hemoglobin Concent 32.8 32.0-36.0 g/dL Red Cell Distribution Width 13.9 11.8-14.3 % Platelet Count 231 140-450 10^3/uL Mean Platelet Volume 8.7 6.9-10.8 fL Neutrophils (%) (Auto) 74.1 37.0-80.0 % Lymphocytes (%) (Auto) 19.3 10.0-50.0 % Monocytes (%) (Auto) 5.2 0.0-12.0 % Eosinophils (%) (Auto) 0.9 0.0-7.0 % Basophils (%) (Auto) 0.5 0.0-2.0 % Neutrophils # (Auto) 7.1 1.6-8.6 10 ^3/uL Lymphocytes # (Auto) 1.9 0.4-5.4 10 ^3/uL Monocytes # (Auto) 0.5 0-1.3 10 ^3/uL Eosinophils # (Auto) 0.1 0-0.8 10 ^3/uL Basophils # (Auto) 0.1 0-0.2 10 ^3/uL Nucleated Red Blood Cells 0.0 % D-Dimer, Quantitative 1.17 H 0.0-0.49 mg/L FEU Sodium Level 141 136-145 mmol/L Potassium Level 3.1 L 3.5-5.1 mmol/L Chloride Level 105 98-107 mmol/L Carbon Dioxide Level 29 20-31 mmol/L Anion Gap 7 5-15 Blood Urea Nitrogen 29 H 9-23 mg/dL Creatinine 2.33 #H 0.550-1.02 mg/dL Glomerular Filtration Rate Calc 22 >90 mL/min BUN/Creatinine Ratio 12.4 10.0-20.0 Serum Glucose 125 H 74-106 mg/dL Calcium Level 8.5 L 8.7-10.4 mg/dL Magnesium Level 1.7 1.6-2.6 mg/dL Total Bilirubin 0.3 0.2-1.0 mg/dL Aspartate Amino Transferase (AST) 25 13-40 U/L Alanine Aminotransferase (ALT) 19 7-40 U/L Alkaline Phosphatase 99 46-116 U/L B-Type Natriuretic Peptide 366.02 0-100 pg/mL Total Protein 6.1 5.7-8.2 g/dL Albumin 3.7 3.2-4.8 g/dL Thyroid Stimulating Hormone (TSH) 2.86 0.55-4.78 uIU/mL Current Medications Medications (Trade) Dose Ordered Sig/Ezequiel Route Start Time Stop Time Status Last Admin Sodium Chloride 1,000 ml @ 30 mls/hr Q24H ONCE IV 07/25/24 10:00 07/26/24 09:59 07/25/24 10:05 [facility] [address] [facility] [address] Ph: [phone] DIAGNOSTIC IMAGING Diagnostic Imaging Report : [id number] Signed PATIENT: VINCENT PASTOR ACCT: [id number] UNIT: [id number] : 1950 LOC: ER ROOM / BED: / AGE / SEX: 73 / F ADM STATUS: REG ER SERVICE [id number] ORDERING PHYSICIAN: MARLENA THOMPSON MD PROCEDURE(s): CXR2 - CHEST TWO VIEWS ROUTINE REASON: sob ORDER NUMBER(s): [id number], ACCESSION NUMBER(s): [id number] EXAM: XY CHEST TWO VIEWS ROUTINE CLINICAL HISTORY: sob COMPARISON: XY CHEST TWO VIEWS ROUTINE on DOS: 03/02/24, XY CHEST TWO VIEWS ROUTINE on DOS: 07/21/23 TECHNIQUE: Frontal and lateral view of the chest was obtained FINDINGS: Lines and Tubes: Right tunneled dialysis catheter tip projects over the superior vena cava. Lungs: No focal consolidation. Pleura: No effusion. No pneumothorax. Cardiomediastinal contours: Unremarkable. Atherosclerotic vascular estelle cifications of the thoracic aorta are noted. Bones: No acute osseous abnormality. Chronic right rib fractures. IMPRESSION: No acute cardiopulmonary disease. ATED BY: MICHAELA PEREZ MD DICTATED DATE/TIME: 07/25/24 1036 SIGNED BY: MICHAELA PEREZ MD SIGNED DATE/TIME: 07/25/24 1036 CC: X-Ray, Labs, Meds, VS Comment Course in the emergency department eventful patient came in complaining of shortness of breath generalized weakness and bradycardia patient is on Brilinta and has multiple issues hypertension anemia CKD diabetes CHF COPD hypo th yroidism Chest x-ray is normal EKG shows sinus bradycardia at 43 with left ventricular hypertrophy and global ischemic changes and also QT interval prolonged CBC 9700 with 74% neutrophils H&H 8.8 and 27 Magnesium 1.7 D-dimer elevated at 1.17 BNP 366.02 Troponin 24 and 22 CMP potassium is 3.1 GFR at 22 blood sugar 125 and TSH 2.86 Patient will be admitted for further care Time of 1ST Reevaluation: 11:15 Reevaluation 1ST: Unchanged Patient Education/Counseling: Diagnosis, Treatment Family Education/Counseling: No Family Present Additional Information - I reviewed the following notes from patient's past medical encounters: previous hospital admission discharge summary on 07/20/24 - The following tests were ordered, and results were reviewed by me: Troponin, CXR, TSH levels, BNP, D-dimer, Mg2+, CBC, CMP, EKG - Additional information was gathered from interviewing the following independent Historian: EMT - I reviewed and agreed with the following test results read by other provider: CXR - I discussed treatments and results with medical personnel Departure 1 Departure Time of Disposition: 12:21 Impression: Primary Impression: Symptomatic bradycardia Additional Impressions: Dyspnea and respiratory abnormalities CHF (congestive heart failure) Qualified Codes: I50.43 - Acute on chronic combined systolic (congestive) and diastolic (congestive) heart failure History of partial nephrectomy Anemia of chronic disease Hypokalemia Prolonged QT interval End stage renal failure on dialysis Disposition: ADMITTED INPATIENT Condition: Guarded Critical Care Note Critical Care Time?: Yes (45 min-critical care time only) Stability Stability form required: Yes Unstable for transfer: Telemetry monitoring, Requires medication (Requires Med for stabilization) Heart Score Heart Score: Heart Score Response (Comments) Value History Moderate Suspicious 1 EKG Repolarization Disturb 1 Age >65 2 Risk Factors >3 or Hx ASHD 2 Troponin Normal limit 0 Total 6 I personally scribed for MARLENA THOMPSON MD ([email or web address]) on 07/25/24 at 11:41. Electronically submitted by Cehncho Wilkerson ([email or web address]). I personally scribed for MARLENA THOMPSON MD ([email or web address]) on 07/25/24 at 11:44. Electronically submitted by Chencho Wilkerson ([email or web address]). MARLENA THOMPSON MD Jul 25, 2024 11:41
[2024-07-25] MEDS: POTASSIUM EFFERVESENT TAB 25 MEQ PO ONE (12:19)
[2024-07-25] MEDS: MAGNESIUM SULFATE 1GM/100ML 100 ML IV SCH (13:19)
[2024-07-25 14:28] LABS: Urine Bacteria FEW /hpf (None Seen); Urine Blood Negative /uL (Negative); Urine Clarity Clear (Clear); Urine Color Light-Yellow (Yellow); Urine Protein, UAD 3+ (Negative); Urine Specific Gravity 1.009 (1.001-1.035); Urine Urobilinogen Normal (Negative); Urine WBC 87 /hpf (0 - 5); Urine pH 7.5 (5.0-9.0)
[2024-07-25] MEDS ORDERED: NITROGLYCERIN 0.4 MG SL TAB SL PRN ×2 (14:30→15:00)
--- NOTE | 2024-07-25 14:46 | DVHHP2 ---
History of Present Illness Reason for Visit: Low heart rate History of Present Illness 73-year-old female past medical history CABG CHF COPD end-stage renal disease on Fridays diabetes GERDs hyperlipidemia hypertension NH surgical history PTCA appy CABG hysterectomy nephrectomy PermCath placement chief complaint patient was recently discharged here July 18 2024 for bradycardia due to Coreg but she returns because she went to dialysis today she ended up having a heart rate that was found to be 37 patient complains of just some lightheadedness. They contributing to her bradycardia to medications the patient has not been taking any meds only when it appears she might have taking his nifedipine which it appears can lower the heart rate. Patient states has not taken anything else. She currently denies chest pain no shortness with the breath. She did state that she was told that if she is bradycardic she needs to return back to the ER for evaluation. She states she did see her filtrose crusher on Tuesday and they were going to put a fast in place to monitor her. Her filtrose crusher Dr. Ravi. Patient also states she had received dialysis last time was this morning by Dr. Edis almeida. When evaluating patient's labs and imaging Mag was given potassium normal saline was provided hemoglobin was 8.8 26.9 potassium was 3.1 creatinine was 2.33 and 29 glucose was 125 troponin was negative BNP was 366.02 TSH was unremarkable D-dimer was elevated at 1.77 chest x-ray was unremarkable patient had an echocardiogram completed June 30, 2024 EF was 55%. With these findings we will admit patient to deal you for cardiology evaluation for acute bradycardia Past Medical History See HPI above Past Surgical History See HPI above Family History Reviewed, non-contributory to the management of this case. Past Social History Patient does smoke by history but denies drug or alcohol use Review of Systems Allergies: Coded Allergies: Codeine (Verified Allergy, Unknown, 09/05/15) Morphine (Verified Allergy, Unknown, 09/05/15) Nitrofurantoin (Verified Allergy, Unknown, 09/05/15) Medications Current Medications Medications Dose Ordered Sig/Ezequiel Route Start Time Stop Time Status Last Admin Dose Admin Magnesium Sulfate/ Dextrose 100 ml @ 100 mls/hr Q1H IV 07/25/24 12:30 07/25/24 14:29 07/25/24 13:19 100 MLS/HR Exam Vital Signs Vital Signs Date Time Temp Pulse Resp B/P (MAP) Pulse Ox O2 Delivery O2 Flow Rate FiO2 07/25/24 13:00 41 17 170/35 (80) 99 07/25/24 10:16 97.2 97.2 07/25/24 10:13 Room Air* 0 21 Labs/Xrays Chest x-ray unremarkable I reviewed labs, imaging CT scan abdomen pelvis, EKG and all diagnostic studies on this patient from ED records and the medical chart Labs Test 07/25/24 13:56 07/25/24 13:19 07/25/24 10:02 Range/Units Troponin I High Sensitivity 24 </=34 ng/L White Blood Count 9.7 4.4-10.8 10^3/uL Red Blood Count 2.97 L 4.0-5.20 10^6/uL Hemoglobin 8.8 L 12.2-16.2 g/dL Hematocrit 26.9 L 36.0-46.0 % Mean Corpuscular Volume 90.5 80.0-100.0 fL Mean Corpuscular Hemoglobin 29.7 28.0-32.0 pg Mean Corpuscular Hemoglobin Concent 32.8 32.0-36.0 g/dL Red Cell Distribution Width 13.9 11.8-14.3 % Platelet Count 231 140-450 10^3/uL Mean Platelet Volume 8.7 6.9-10.8 fL Neutrophils (%) (Auto) 74.1 37.0-80.0 % Lymphocytes (%) (Auto) 19.3 10.0-50.0 % Monocytes (%) (Auto) 5.2 0.0-12.0 % Eosinophils (%) (Auto) 0.9 0.0-7.0 % Basophils (%) (Auto) 0.5 0.0-2.0 % Neutrophils # (Auto) 7.1 1.6-8.6 10 ^3/uL Lymphocytes # (Auto) 1.9 0.4-5.4 10 ^3/uL Monocytes # (Auto) 0.5 0-1.3 10 ^3/uL Eosinophils # (Auto) 0.1 0-0.8 10 ^3/uL Basophils # (Auto) 0.1 0-0.2 10 ^3/uL Nucleated Red Blood Cells 0.0 % D-Dimer, Quantitative 1.17 H 0.0-0.49 mg/L FEU Sodium Level 141 136-145 mmol/L Potassium Level 3.1 L 3.5-5.1 mmol/L Chloride Level 105 98-107 mmol/L Carbon Dioxide Level 29 20-31 mmol/L Anion Gap 7 5-15 Blood Urea Nitrogen 29 H 9-23 mg/dL Creatinine 2.33 #H 0.550-1.02 mg/dL Glomerular Filtration Rate Calc 22 >90 mL/min BUN/Creatinine Ratio 12.4 10.0-20.0 Serum Glucose 125 H 74-106 mg/dL Calcium Level 8.5 L 8.7-10.4 mg/dL Magnesium Level 1.7 1.6-2.6 mg/dL Total Bilirubin 0.3 0.2-1.0 mg/dL Aspartate Amino Transferase (AST) 25 13-40 U/L Alanine Aminotransferase (ALT) 19 7-40 U/L Alkaline Phosphatase 99 46-116 U/L B-Type Natriuretic Peptide 366.02 0-100 pg/mL Total Protein 6.1 5.7-8.2 g/dL Albumin 3.7 3.2-4.8 g/dL Thyroid Stimulating Hormone (TSH) 2.86 0.55-4.78 uIU/mL Assessment/Plan Assessment/Plan acute bradycardia was admitted for beta juan manuel toxicity on 07/20/2024 last admission pt hr was low d/t coreg medication was d/c pt was found to have hr 30's per pt only medication possible contribute is nifedipine will hold for now ordered atropine prn hr<40 consistent consider dopamine drip titrate drip to keep hr >50 ordered cards consult fu recs echo completed 06/30/24 ef 55 % ordered mag phos fu results can consider isoproterenol drip (used to raise hr and blood pressure treat heart rhythm problems) tsh normal may need to consider pacemaker acute severe symptomatic bradycardia likley from nifedipine or cardiac ordered atropine prn consider dopamine drip pacer pads in place ordered cards consult fu recs acute on chronic Hypokalemia replaced by er team fu k in am ordered mag and phos fu results acute elevation in ddimer with dyspnea ddimer elevated will need to persue vq scan in setting of renal disease fu results ordered lovenox for now uncontrolled type 2 dm accucheck ac/hs with sliding scale for now A1c 6.3 on 07/17/24 chronic copd no exacerbation ordered albuterol/atrovent prn sob keep sats >92% on ra chronic hld cont home medication uncontrolled benign essential hypotensive will hold home medication blood pressure medication chronic ESRD requiring hemodialysis- on hd went today consult dr horton group fu recs chronic Iron-deficiency anemia likely chronic disease improved from last admission completed occult blood negative 07/17/24 monitor for down trend acute on chronic Hypokalemia replaced by er team oscar k in am ordered mag and phos fu results chronic Hypothyroid cont home medication tsh in normal range chronic History of NH and CHF no exacerbation cont home medication Tobacco dependence I counseld the patient for 6 min about smoking suggestions did offer nicotine patch but patient declined patch and tobacco education smoking code [id number] fen/ppx diet protonx lovenox until pe ruled out hl plan admit to dat monitor for bradycardia cards consult Plan discussed with: Patient, Other (sister ) My Orders Orders - MARCOS JEFFERY DNP Procedure Category Date Status Time * Cardiology Consult CONS 07/25/24 Transmitted 14:14 Ergocalciferol PHA 07/25/24 Verified (Vitamin D 50,000 14:30 Ezetimibe (Zetia) PHA 07/26/24 Verified 10:00 Gabapentin Capsule PHA 07/25/24 Verified (Neurontin Capsule) 22:00 Hydralazine Hcl PHA 07/25/24 Verified Tablet (Apresoline 22:00 Levothyroxine Tablet PHA 07/26/24 Verified (Synthroid Tablet) 07:00 Loratadine Tablet PHA 07/26/24 Verified (Claritin Tablet) 10:00 Nicotine 21mg/24hr PHA 07/26/24 Verified (Nicoderm 21mg/24hr) 10:00 Pantoprazole Tablet PHA 07/26/24 Verified (Protonix Tablet) 10:00 Ticagrelor (Brilinta) PHA 07/25/24 Verified 22:00 (Nf) Atorvastatin PHA 07/26/24 Verified Calcium 10:00 (Nf) Bumetanide PHA 07/25/24 Verified 22:00 (Nf) Ferrous Sulfate PHA 07/26/24 Verified (Iron (Ferrous Sulf 10:00 (Nf) Metolazone PHA 07/26/24 Verified 10:00 (Nf) Ranolazine PHA 07/25/24 Verified (Aspruzyo Sprinkle) 22:00 (Nf) Sodium PHA 07/25/24 Verified Bicarbonate 22:00 Date of Service: Jul 25, 2024 Billing Provider: MARCOS JEFFERY DNP Common Visit Codes: [id number] INP/OBS CARE (HIGH) MARCOS JEFFERY DNP Jul 25, 2024 14:46
--- NOTE | 2024-07-25 14:51 | DVH ---
NUCLEAR MEDICINE VENTILATION/PERFUSION LUNG SCAN. INDICATION: PULMONARY EMBOLISM COMPARISON: None TECHNIQUE: Following intravenous demonstration of 5.3 millicuries of technetium 99m MAA, and inhala tion of 4.2 mCi of Xe 133 scintigrams were obtained in multiple projections of the lungs. FINDINGS: There is normal uptake of radionuclide on both the ventilation and perfusion portions of the examinat ion. No mismatched perfusion defects are demonstrated. Uptake is normally homogeneous. IMPRESSION: Low probability for PE.
[2024-07-25] MEDS ORDERED: DOCUSATE SOD 100 MG CAP PO PRN (15:00)
[2024-07-25] MEDS ORDERED: ONDANSETRON HCL 4 MG/2 ML VIAL IV PRN (15:00)
[2024-07-25 15:14] LABS: Magnesium 1.6 mg/dL (1.6-2.6)
[2024-07-25 15:15] LABS: Phosphorus 3.2 mg/dL (2.4-5.1)
[2024-07-25] MEDS: ATROPINE SULF 1 MG/10ml SYR IV ONE (15:31)
[2024-07-25] MEDS: ENOXAPARIN SOD 100 MG/1 ML SYRINGE SC ONE (15:37)
--- NOTE | 2024-07-25 15:49 | DVHINCON2 ---
Date Seen: Jul 25, 2024 Referring Physician CATRACHITO Oglesby Reason for Consultation sinus bradycardia History of Present Illness This is a 73-year-old female patient who presents to emergency room with chief complaint of symptomatic bradycardia. The patient reports that she was at dialysis getting dialyzed when the nurses noticed that the patient's heart rate was sustaining in the low 40s. EMS was called and the patient was transferred to this facility for further evaluation. Initial twelve lead electrocardiogram reveals sinus bradycardia with diffuse ST segment depression and prolonged QTc interval. The patient denies any cardiac symptoms. Significant past medical hi story includes severe coronary artery disease status post multiple PTCAs x7 GARY (on Brilinta and ASA) and triple bypass CABG (2013), myocardial infarction, hypertension, hyperlipidemia,ESRD on hemodialysis, type 2 diabetes mellitus, thyroid disease, tobacco use, and obesity. The patient reports previously being on carvedilol in which she states that she has since been taken off for over one week. The patient states that she follows carbon lamp cleaner Dr. Ray in the outpatient setting. Past Medical History Past medical history reviewed. No other significant than mentioned above. Past Surgical History Triple-vessel CABG in 2013 Partial right nephrectomy Hysterectomy Family History: Acute respiratory distress syndrome G8 FATHER, Cardiomegaly 19 CHILD FH: esophageal cancer G8 BROTHER FH: respiratory disease G8 FATHER, FHx: breast cancer G8 MOTHER, FHx: kidney failure G8 MOTHER, Ischemic heart disease 19 CHILD Kidney stone Family History Family history reviewed. Social History Patient has a 40 pack-year history, currently smokes approximately three cigarettes per day Patient denies any alcohol use Patient denies any drug use Allergies: Coded Allergies: Codeine (Verified Allergy, Unknown, 09/05/15) Morphine (Verified Allergy, Unknown, 09/05/15) Nitrofurantoin (Verified Allergy, Unknown, 09/05/15) Home Meds Active Scripts Ferrous Sulfate (Iron (Ferrous Sulfate)) 50 Mg Tab, 50 MG PO QAM for 30 Days, #30 TAB Prov:BRIAN BAKER MD 07/20/24 Ergocalciferol (VITAMIN D 60430 UNIT) 50,000 [place], [address] UNIT PO Q7D for 12 Days, #12 CAP Prov:BRIAN BAKER MD 07/20/24 Ranolazine (Aspruzyo Sprinkle) 500 Mg Gra, 500 MG PO BID for 14 Days, #28 GM Prov:BRIAN BAKER MD 06/30/24 Bumetanide (Bumetanide) 2 Mg Tab, 1 TAB PO BID, #60 TAB 5 Refills Prov:REGINA CHRISTIAN MD 03/07/24 Ferrous Sulfate (Iron (Ferrous Sulfate)) 50 Mg Tab, 50 MG PO DAILY for 30 Days, #30 TAB Prov:BLANCA MARTINEZ RESIDENT 02/13/24 Nicotine (Nicoderm 21MG/24HR) 1 Patch Ph, 1 PATCH TD DAILY for 30 Days, #1 PATCH Prov:BLANCA MARTINEZ RESIDENT 02/13/24 Acetaminophen (Acetaminophen) 325 Mg Tab, 650 MG PO Q6HP PRN for 30 Days, #240 TAB Prov:BLANCA MARTINEZ RESIDENT 02/13/24 Reported Medications Pantoprazole Sodium Sesquihydr (Pantoprazole Sodium Dr) 40 Mg Tab, 1 TAB PO DAILY 07/16/24 Loratadine (CLARITIN TABLET) 10 Mg Tb, 1 TAB PO DAILY 07/16/24 Metolazone (Metolazone) 10 Mg Tab, 2 TAB PO DAILY 07/16/24 Fluticasone-Salmeterol (Wixela Inhub 100-50 Mcg/Dose) 1 Aer Aer, 1 PUFF INH Q12HR 03/05/24 Atorvastatin Calcium (ATORVASTATIN CALCIUM) 80 Mg Tab, 1 TAB PO DAILY, #30 TAB 5 Refills 02/10/24 Glipizide (Glipizide Xl) 10 Mg Tab, 10 MG PO DAILY, TAB 02/10/24 Diclofenac Sodium (Topical) (Voltaren Arthritis Pain) 1 % Gel, 1 % EX PRN PRN for PAIN SCALE 1 THRU 6, GEL 02/10/24 Insulin Glargine (Lantus Solostar) 100 Unit/Ml Inj, 8 UNIT SC HS, INJ 02/10/24 Sodium Zirconium Cyclosilicate (Lokelma) 5 Gm Darrel, 5 GM PO UD Take 5 grams 3 times weekly. 12/27/23 Albuterol Sulfate (Albuterol Sulfate Hfa) 108 Mcg/Act Aer, 2 PUFF INH Q6HR PRN for WHEEZING 12/27/23 Levothyroxine Sodium (Levothyroxine Sodium) 25 Mcg Tab, 1 TAB PO QAM 12/25/23 Sodium Bicarbonate (Sodium Bicarbonate) 650 Mg Tab, 2 TAB PO TID 12/25/23 Isosorbide Mononitrate (Isosorbide Mononitrate ER) 60 Mg Tab, 1.5 TAB PO DAILY 12/25/23 Hydralazine HCl (Hydralazine HCl) 25 Mg Tab, 3 TAB PO TID 12/25/23 Ergocalciferol (Drisdol) 50,000 Unit Cap, 1 CAP PO QWEEKLY 07/21/23 Aspirin (Aspirin) 81 Mg Chw, 81 MG PO, TAB.CHEW 08/11/21 Ticagrelor Base (BRILINTA) 90 Mg Tab, 90 MG PO BID, TAB 08/11/21 Gabapentin (Gabapentin) 100 Mg Cap, 1 CAP PO BID 08/11/21 Ezetimibe (Zetia) 10 Mg Tab, 10 MG PO DAILY, TAB 08/11/21 Discontinued Reported Medications Ezetimibe (Ezetimibe) 10 Mg Tab, 1 TAB PO DAILY 07/16/24 Gabapentin (Gabapentin) 100 Mg Cap, PO 07/16/24 Carvedilol (Carvedilol) 6.25 Mg Tab, 1 TAB PO BID 03/05/24 Pantoprazole Sodium Sesquihydr (Pantoprazole Sodium) 40 Mg Tab, 1 TAB PO DAILY 08/11/21 Home Meds Home medications reviewed. Current Medications Current Medications Medications (Trade) Dose Ordered Sig/Ezequiel Route PRN Reason Start Time Stop Time Status Last Admin Magnesium Sulfate/ Dextrose 100 ml @ 100 mls/hr Q1H IV 07/25/24 12:30 07/25/24 14:29 DC 07/25/24 15:37 Ergocalciferol (Vitamin D 50,000 Unit) 50,000 unit QWEEKLY PO 07/25/24 14:30 EZETIMIBE (Zetia) 10 mg DAILY PO 07/26/24 10:00 Gabapentin (Neurontin Capsule) 100 mg BID PO 07/25/24 22:00 Hydralazine HCl (Apresoline Tablet) 75 mg TID PO 07/25/24 22:00 Levothyroxine Sodium (Synthroid Tablet) 25 mcg QAM PO 07/26/24 07:00 Loratadine (Claritin Tablet) 10 mg DAILY PO 07/26/24 10:00 Nicotine (Nicoderm 21MG/ 24HR) 1 patch DAILY TD 07/26/24 10:00 Pantoprazole Sodium (Protonix Tablet) 40 mg DAILY PO 07/26/24 10:00 Ticagrelor (Brilinta) 90 mg BID PO 07/25/24 22:00 Atorvastatin Calcium (Lipitor) 80 mg HS PO 07/25/24 22:00 Bumetanide (Bumex Tablet) 2 mg BIDD PO 07/25/24 18:00 Patient Own Medication 50 mg DAILY PO 07/26/24 10:00 Metolazone (Zaroxolyn) 20 mg DAILY PO 07/26/24 10:00 Ranolazine (Ranexa ER) 500 mg BID PO 07/25/24 22:00 Sodium Bicarbonate 1,300 mg BID PO 07/25/24 22:00 Nitroglycerin (Ntrostat Sublingual) 0.4 mg Q5MINP PRN SL FOR CHEST PAIN 07/25/24 14:30 07/25/24 15:06 DC Diagnostic Test (Pha) (Accu-Chek Comfort Curve T) 1 strip ACHS 07/25/24 17:00 Insulin Human Regular (InsuLIN R) ACHS SC 07/25/24 17:00 Dextrose 50 ml UD PRN IV Blood Sugar LESS THAN 60 07/25/24 14:30 Enoxaparin Sodium (Lovenox) 100 mg DAILY SC 07/26/24 10:00 Ondansetron HCl (Zofran) 4 mg Q4HP PRN IV NAUSEA / VOMITING 07/25/24 15:00 Docusate Sodium (Colace Capsule) 100 mg BIDPRN PRN PO FOR CONSTIPATION 07/25/24 15:00 Nitroglycerin (Ntrostat Sublingual) 0.4 mg Q5MINP PRN SL FOR CHEST PAIN 07/25/24 15:00 Review of Systems Constitutional: Fatigue Ears, Nose, & Throat: No symptom reported Eyes: No symptom reported Neurological: No symptoms reported Pulmonary/Respiratory: No symptoms reported Cardiovascular: No symptom reported Gastrointestinal: No symptom reported Genitourinary: No symptom reported Musculoskeletal: No symptom reported Skin: No symptom reported Psychiatric: No symptom reported Endocrine: No symptom reported Hematologic/Lymphatic: No symptom reported Vital Signs Vital Signs Date Time Temp Pulse Resp B/P (MAP) Pulse Ox O2 Delivery O2 Flow Rate FiO2 07/25/24 13:00 41 17 170/35 (80) 99 07/25/24 10:16 97.2 97.2 07/25/24 10:13 Room Air* 0 21 Physical Exam General Appearance: Cooperative. Obese Pulmonary/Respiratory: Clear, bilateral breaths sounds. Cardiovascular/Chest: Regular rate and rhythm. Peripheral Pulses: 2+ Radial (R). 2+ Radial (L). 2+ Pedal (R). 2+ Pedal (L) Abdominal Exam: Normal bowel sounds. Ankle Exam: 3+ pitting edema Lower extremities: 3+ bilateral lower extremity edema Neuro/Mental Status: A/OX4, coherent. Thoughts/Psych: Normal thought pattern. Appropriate mood and affect. Good judgment and insight. Appearance: No acute distress. Skin Exam: Normal inspection. Normal color. Warm and dry. Labs/Diagnostic Data Labs Test 07/25/24 13:56 07/25/24 13:19 07/25/24 10:02 Range/Units Urine Color Light-yellow Yellow Urine Clarity Clear Clear Urine pH 7.5 5.0-9.0 Urine Specific Richards 1.009 1.001-1.035 Urine Protein 3+ H Negative Urine Ketones Negative Negative Urine Blood Negative Negative /uL Urine Nitrite Negative Negative Urine Bilirubin Negative Negative Urine Urobilinogen Normal Negative mg/dL Urine Leukocyte Esterase 1+ Negative /uL Urine RBC 2 0 - 4 /hpf Urine WBC 87 0 - 5 /hpf Urine Squamous Epithelial Cells Few <5 /hpf Urine Bacteria Few H None Seen /hpf Urine Glucose Trace Normal mg/dL Troponin I High Sensitivity 24 </=34 ng/L White Blood Count 9.7 4.4-10.8 10^3/uL Red Blood Count 2.97 L 4.0-5.20 10^6/uL Hemoglobin 8.8 L 12.2-16.2 g/dL Hematocrit 26.9 L 36.0-46.0 % Mean Corpuscular Volume 90.5 80.0-100.0 fL Mean Corpuscular Hemoglobin 29.7 28.0-32.0 pg Mean Corpuscular Hemoglobin Concent 32.8 32.0-36.0 g/dL Red Cell Distribution Width 13.9 11.8-14.3 % Platelet Count 231 140-450 10^3/uL Mean Platelet Volume 8.7 6.9-10.8 fL Neutrophils (%) (Auto) 74.1 37.0-80.0 % Lymphocytes (%) (Auto) 19.3 10.0-50.0 % Monocytes (%) (Auto) 5.2 0.0-12.0 % Eosinophils (%) (Auto) 0.9 0.0-7.0 % Basophils (%) (Auto) 0.5 0.0-2.0 % Neutrophils # (Auto) 7.1 1.6-8.6 10 ^3/uL Lymphocytes # (Auto) 1.9 0.4-5.4 10 ^3/uL Monocytes # (Auto) 0.5 0-1.3 10 ^3/uL Eosinophils # (Auto) 0.1 0-0.8 10 ^3/uL Basophils # (Auto) 0.1 0-0.2 10 ^3/uL Nucleated Red Blood Cells 0.0 % D-Dimer, Quantitative 1.17 H 0.0-0.49 mg/L FEU Sodium Level 141 136-145 mmol/L Potassium Level 3.1 L 3.5-5.1 mmol/L Chloride Level 105 98-107 mmol/L Carbon Dioxide Level 29 20-31 mmol/L Anion Gap 7 5-15 Blood Urea Nitrogen 29 H 9-23 mg/dL Creatinine 2.33 #H 0.550-1.02 mg/dL Glomerular Filtration Rate Calc 22 >90 mL/min BUN/Creatinine Ratio 12.4 10.0-20.0 Serum Glucose 125 H 74-106 mg/dL Calcium Level 8.5 L 8.7-10.4 mg/dL Phosphorus Level 3.2 2.4-5.1 mg/dL Magnesium Level 1.6 1.6-2.6 mg/dL Total Bilirubin 0.3 0.2-1.0 mg/dL Aspartate Amino Transferase (AST) 25 13-40 U/L Alanine Aminotransferase (ALT) 19 7-40 U/L Alkaline Phosphatase 99 46-116 U/L B-Type Natriuretic Peptide 366.02 0-100 pg/mL Total Protein 6.1 5.7-8.2 g/dL Albumin 3.7 3.2-4.8 g/dL Thyroid Stimulating Hormone (TSH) 2.86 0.55-4.78 uIU/mL Assessment Symptomatic bradycardia with intermittent second degree type II AV block Severe coronary artery disease status post multiple PTCAs x7 GARY and double bypass CABG (on Brilinta and Aspirin) History of myocardial infarction Moderate aortic valve stenosis Tricuspid valve regurgitation, moderate degree Hypertension Dyslipidemia End-stage renal disease on hemodialysis Type 2 diabetes mellitus Thyroid disease Tobacco use Morbid obesity Plan/Recommendation We will continue following plan/recommendations (Dr. Ray): * Echocardiogram from 06/30/2024 reveals EF 55% * Avoid AV meg blocking agents * Consider dopamine drip for chronotropic support if tolerated * Avoid medications that prolong QT interval Case reviewed and discussed with . Given that the patient is going into intermittent second-degree type 2 AV block, the patient qualifies for permanent pacemaker insertion. The procedure was discussed with the patient full detail including risks and benefits. The patient is agreeable and will u ndergo permanent pacemaker insertion (Micra leadless) on 07/26/2024 at first availability. Thank you for allowing us to care for this patient. Please call with any questions or concerns. Critical care time spent: 46 minutes This medical document was created using an electronic medical record system with voice recognition software and computerized dictation system. Although this document has been carefully reviewed, there might still be some phonetic and typographical errors. Occasional wrong-word or ``sound-alike substitutions may have occurred due to the inherent limitations of voice recognition software. These areas are purely typographical due to imperfections of the software programs and do not reflect any compromise in the patient's medical care. Please read the chart carefully and recognize, using context, where these substitutions have occurred. Plan discussed with: Patient Date of Service: Jul 25, 2024 Billing Provider: JUAN LUIS RAY MD Cardiology Common Codes: 55334-[id number] INP/OBS CARE (High) Cardiology Consultation Codes: [id number] CONSULT <45MIN DONALDO MORENO BONE DRIER OPERATOR Jul 25, 2024 15:49
[2024-07-25] MEDS: ACCU-CHEK COMFORT CURVE STRIP VI SCH (17:00)
[2024-07-25] MEDS: InsuLIN REG 1unit/0.01ml Soln (100units/ml) SC SCH (17:42)
[2024-07-25] MEDS: BUMETANIDE 1 MG TAB PO SCH (18:13)
[2024-07-25 19:15] VITALS: PULSE 45; RESP 18; O2SAT 95
[2024-07-25 19:15] LABS: INR 1.13 (0.9-1.15); Prothrombin Time 11.9 sec (9.3-11.8)
[2024-07-25] MEDS: ATORVASTATIN 20 MG TAB PO SCH (20:57)
[2024-07-25] MEDS: hydrALAZINE HCL 25 MG TAB PO SCH (20:58)
[2024-07-25] MEDS: SODIUM BICARBONATE 650 MG TAB PO SCH (20:58)
[2024-07-25] MEDS: GABAPENTIN 100 MG CAP PO SCH (20:59)
[2024-07-25] MEDS: TICAGRELOR 90 MG TAB PO SCH (21:08)
[2024-07-25] MEDS: RANOLAZINE ER 500 MG TAB PO SCH (21:08)
[2024-07-26] VITALS (12 sets, daily range): BP systolic 114–145; BP diastolic 46–70; PULSE 39–99; RESP 12–20; TEMP 98–98.3; O2SAT 94–100
[2024-07-26] MEDS: ALBUMIN 5% 250 ML IV ONE (03:20)
[2024-07-26 05:39] LABS: Eosinophils # (auto) 0.1 10 ^3/uL (0-0.8); Lymphocytes # (auto) 2.1 10 ^3/uL (0.4-5.4); White Blood Cell 7.8 10^3/uL (4.4-10.8)
[2024-07-26 05:40] LABS: Basophils # (auto) 0 10 ^3/uL (0-0.2); Basophils % (auto) 0.6 % (0.0-2.0); Eosinophils % (auto) 1.3 % (0.0-7.0); Hematocrit 23.6 % (36.0-46.0); Hemoglobin 7.9 g/dL (12.2-16.2); Lymphocytes % (auto) 26.5 % (10.0-50.0); Mean Corpuscular Hemoglobin 30.5 pg (28.0-32.0); Mean Corpuscular Hgb Conc. 33.5 g/dL (32.0-36.0); Mean Corpuscular Volume 90.8 fL (80.0-100.0); Monocytes # (auto) 0.6 10 ^3/uL (0-1.3); Monocytes % (auto) 7.3 % (0.0-12.0); Neutrophils % (auto) 64.3 % (37.0-80.0); Platelet Count (auto) 194 10^3/uL (140-450); Red Cell Distribution Width 13.8 % (11.8-14.3)
[2024-07-26 05:43] LABS: Alanine Aminotransferase 15 U/L (7-40); Albumin 3.4 g/dL (3.2-4.8); Alkaline Phosphatase 65 U/L (46-116); Anion Gap 9 (5-15); Aspartate Aminotransferase 13 U/L (13-40); Bilirubin, Total 0.4 mg/dL (0.2-1.0); Carbon Dioxide 31 mmol/L (20-31); Chloride 104 mmol/L (98-107); Potassium 3.6 mmol/L (3.5-5.1); Sodium 144 mmol/L (136-145)
[2024-07-26 06:29] LABS: Blood Urea Nitrogen 31 mg/dL (9-23); Calcium 8.5 mg/dL (8.7-10.4); Glucose 53 mg/dL (74-106); Total Protein 5.3 g/dL (5.7-8.2)
[2024-07-26] MEDS: LEVOTHYROXINE SODIUM 25 MCG TAB PO SCH (06:46)
[2024-07-26] MEDS: DEXTROSE (50%) 50ML SYRG IV PRN (06:46)
[2024-07-26] MEDS: ENOXAPARIN SOD 100 MG/1 ML SYRINGE SC SCH (10:00)
[2024-07-26] MEDS: LORATADINE 10 MG TAB PO SCH (10:00)
[2024-07-26] MEDS: NICOTINE 21MG/24 HR TOPICAL PATCH TD SCH (10:00)
[2024-07-26] MEDS: EZETIMIBE 10 MG TAB PO SCH (10:00)
[2024-07-26] MEDS: FERROUS SULFATE 50 MG PO SCH (10:00)
[2024-07-26] MEDS: ERGOCALCIFEROL 50,000 UNIT(1.25MG) CAP PO SCH (11:44)
[2024-07-26] MEDS: metOLazone 5 MG TAB PO SCH (11:46)
[2024-07-26] MEDS: PANTOPRAZOLE 40 MG TAB PO SCH (11:46)
[2024-07-26] MEDS: MIDAZOLAM HCL 2MG/2ML 2ml VIAL (1mg/ml) ONE (15:10)
[2024-07-26] MEDS: LIDOCAINE 2%HCL (LOCAL ANESTH.) INJ 20ML MDV ONE (15:10)
[2024-07-26] MEDS: fentaNYL CITRATE 100 MCG/2 ML VL ONE (15:10)
[2024-07-26] MEDS: HEPARIN SODIUM (PORCINE) 5000 UNITS/ML 1ML VIAL ONE (15:33)
[2024-07-26] MEDS: hydrALAZINE HCL 20 MG/ML VL ONE (15:47)
[2024-07-26] MEDS ORDERED: [UNRECOGNIZED DRUG - CODE] PO (16:33)
--- NOTE | 2024-07-26 17:04 | DVHPN2 ---
Subjective For MICRA pacemaker today. Changes from previous H/P or p: No Changes Objective Vitals Vital Signs Date Time Temp Pulse Resp B/P (MAP) Pulse Ox O2 Delivery O2 Flow Rate FiO2 07/26/24 12:05 43 20 179/47 (91) 95 07/26/24 08:00 Nasal Cannula* 2 28 07/26/24 01:45 97.8 97.8 Intake/Output Intake and Output 07/26/24 07:00 Intake Total 600 ml Balance 600 ml Intake IV Total 600 ml Exam Gen: in bed NAD Neck: Dialysis Catheter Cvs: N S1/S2, RRR Resp: BLAE Abd: Soft, NT, BS+ Windows Security Engineer: AAO x 4 Medications Current Medications Medications Dose Ordered Sig/Ezequiel Route Start Time Stop Time Status Last Admin Dose Admin Ergocalciferol 50,000 unit QWEEKLY PO 07/25/24 14:30 07/26/24 11:44 50,000 UNIT EZETIMIBE 10 mg DAILY PO 07/26/24 10:00 Gabapentin 100 mg BID PO 07/25/24 22:00 07/26/24 10:00 100 MG Hydralazine HCl 75 mg TID PO 07/25/24 22:00 Levothyroxine Sodium 25 mcg QAM PO 07/26/24 07:00 07/26/24 06:46 25 MCG Loratadine 10 mg DAILY PO 07/26/24 10:00 07/26/24 10:00 10 MG Nicotine 1 patch DAILY TD 07/26/24 10:00 Pantoprazole Sodium 40 mg DAILY PO 07/26/24 10:00 07/26/24 11:46 40 MG Ticagrelor 90 mg BID PO 07/25/24 22:00 07/25/24 21:08 90 MG Atorvastatin Calcium 80 mg HS PO 07/25/24 22:00 07/25/24 20:57 80 MG Bumetanide 2 mg BIDD PO 07/25/24 18:00 07/26/24 05:45 2 MG Patient Own Medication 50 mg DAILY PO 07/26/24 10:00 07/26/24 10:00 50 MG Metolazone 20 mg DAILY PO 07/26/24 10:00 07/26/24 11:46 20 MG Ranolazine 500 mg BID PO 07/25/24 22:00 07/26/24 11:44 500 MG Sodium Bicarbonate 1,300 mg BID PO 07/25/24 22:00 07/26/24 11:47 1,300 MG Diagnostic Test (Pha) 1 strip ACHS 07/25/24 17:00 07/26/24 11:30 1 STRIP Insulin Human Regular ACHS SC 07/25/24 17:00 07/25/24 22:00 2 UNITS Dextrose 50 ml UD PRN IV 07/25/24 14:30 07/26/24 06:46 50 ML Enoxaparin Sodium 100 mg DAILY SC 07/26/24 10:00 Ondansetron HCl 4 mg Q4HP PRN IV 07/25/24 15:00 Docusate Sodium 100 mg BIDPRN PRN PO 07/25/24 15:00 Nitroglycerin 0.4 mg Q5MINP PRN SL 07/25/24 15:00 Laboratory Results Laboratory Tests 07/26/24 05:00 Chemistry Test 07/26/24 05:00 Albumin 3.4 g/dL (3.2-4.8) Calcium Level 8.5 mg/dL (8.7-10.4) L Total Protein 5.3 g/dL (5.7-8.2) L Coagulation Test 07/25/24 18:30 Prothrombin Time 11.9 sec (9.3-11.8) H Prothrombin Time INR 1.13 (0.9-1.15) Activated Partial Thromboplast Time 35.0 SEC (24.5-34.5) H LFT Test 07/26/24 05:00 Alanine Aminotransferase (ALT) 15 U/L (7-40) Alkaline Phosphatase 65 U/L (46-116) Aspartate Amino Transferase (AST) 13 U/L (13-40) Total Bilirubin 0.4 mg/dL (0.2-1.0) Urinalysis Test 07/25/24 13:56 Urine Color Light-yellow (Yellow) Urine Clarity Clear (Clear) Urine pH 7.5 (5.0-9.0) Urine Specific [place] [facility] 1.009 (1.001-1.035) Urine Protein 3+ (Negative) H Urine Ketones Negative (Negative) Urine Blood Negative /uL (Negative) Urine Nitrite Negative (Negative) Urine Bilirubin Negative (Negative) Urine Urobilinogen Normal mg/dL (Negative) Urine Leukocyte Esterase 1+ /uL (Negative) Urine RBC 2 /hpf (0 - 4) Urine WBC 87 /hpf (0 - 5) Urine Squamous Epithelial Cells Few /hpf (<5) Urine Bacteria Few /hpf (None Seen) H Urine Glucose Trace mg/dL (Normal) Assessment/Plan Assessment/Plan # Symptomatic Bradycardia - MICRA Pacemaker # ESRD on HD # Anemia - Iron Infusion # Goals of care- FULL CODE Plan discussed with: Patient My Orders Orders - BRIAN BAKER MD Procedure Category Date Status Time Iron Sucrose Complex PHA 07/27/24 Logged (Venofer) 12:00 Date of Service: Jul 26, 2024 Billing Provider: BRIAN BAKER MD Common Visit Codes: [id number] INP/OBS CARE(LOW) Secondary Visit Codes: [id number] CARE PLAN 30 MINUTES BRIAN BAKER MD Jul 26, 2024 17:04
--- NOTE | 2024-07-26 17:15 | DVHOP2 ---
Operative Report - 2 Report Details Date: 07/26/24 Preop Diagnosis: Second-degree AV block with two-to-one conduction, Mobitz type 2. Postop Diagnosis: Successful implantation of leadless pacemaker micro AV to without complication. This was done via right transfemoral approach. Surgeon: Roldan Phillip MD Anesthesiologist: Conscious sedation using25 mcg of fentanyl as well as a mg of midazolam. It was given by the primary slag expander myself in the presence of the attending nurses. Patient was monitored for total of 35 minutes without obvious complication. Anesthesia: Local Consent: The patient was informed of the risks and benefits of the procedure. These include but are not limited to complications of anesthesia, postoperative infection, incomplete relief of symptoms, recurrence of symptoms, damage to blood vessels, nerves and tendons, deep venous thrombosis, pulmonary embolism and possible need for repeat surgery in the future. Indications for Surgery: This is a 73-year-old female patient who presents to emergency room with chief complaint of symptomatic bradycardia. The patient reports that she was at dialysis getting dialyzed when the nurses noticed that the patient's heart rate was sustaining in the low 40s. EMS was called and the patient was transferred to this facility for further evaluation. Initial twelve lead electrocardiogram reveals sinus bradycardia with diffuse ST segment depression and prolonged QTc interval. The patient denies any cardiac symptoms. Significant past medical history includes severe coronary artery disease status post multiple PTCAs x7 GARY (on Brilinta and ASA) and triple bypass CABG (2013), myocardial infarction, hypertension, hyperlipidemia,ESRD on hemodialysis, type 2 diabetes mellitus, thyroid disease, tobacco use, and obesity. The patient reports previously being on carvedilol in which she states that she has since been taken off for over one week. The patient states that she follows slag expander Dr. Phillip in the outpatient setting, however while the patient is in the telemetry unit she was found to have two-to-one AV block Mobitz type for which pacemaker was indicated. After discussing with the patient we are planning to undergo leadless Micra AV2 pacemaker given history of renal failure with a renal dialysis that require venous vascular access. It will be safer to undergo leadless pacemaker given risk of infection as well as need of central line insertion Name of Procedure Performed 1. Ultrasound-guided right femoral venous access. Right femoral vein cine angiography. Confirming the location of the puncture 2. Successful implantation of MICRA AV 2 leadless pacemaker via right femoral venous access. 3. Right ventriculogram confirming the position of the lead less pacemaker implantation site. 4. Vascular closure using figure of eight as well as flow stasis for cinching down the suture. 5. Conscious sedation using25 mcg of fentanyl as well as1 mg IV midazolam. Procedure Details Procedure Details: Procedure note and vascular access, after informed consent was obtained, risks, benefits, complications, and and alternatives were discussed in details with the patient who agrees to have the procedure done. At the beginning of the procedure, the right coronary area were prepped and draped in regular sterile fashion. Under ultrasound guidance we were able to identify the right femoral vein, using micropuncture kit and after applying 1% 10 cc of xylocaine to the right coronary area we were able to place a micropuncture sheath using modified Seldinger technique. This was exchanged then for a six Croatian sheath using the modified Seldinger technique over the wire. Then a cine femoral angiography was done to confirm the location of the femoral venous access. Which was appropriate. Then a multipurpose catheter was used to advance a J-tip wire all the way to the SVC crossing the right atrium. The multipurpose catheter was kept in place and a Supra core stiff wire was advanced to the superior vena cava before the multipurpose catheter was withdrawn. Then over the stiff wire we were able to dilate the right femoral venous access tract using multiple dilators at different sizes starting at eight Croatian, 10 Croatian,12 Croatian,14 Croatian,18 Croatian, and 24 and Croatian dilators before a 24 Croatian sheath was p laced with a dilator and advanced all the way to the mid right atrial size. Dilator was withdrawn and the sheath was kept in place. Then a Micra pacer loading system was prepped and flushed, and then 5000 heparin was given to the patient before the micro pacer loading system was advanced through the sheath all the way to the mid atrium. With the of anteflexed technique we were able to pass the tricuspid annulus to the right ventricular cavity and then with counter-clockwise and advancement was made to attached the the tip of the loading catheter to the septum. Then confirmation of the location was made using cine angiography and YARITZA 10 degree as well as RUSSO 10 degree confirming that we are against the septum. Frequent PVC was noted as valve then the level of the pacer was released the device was loaded using the blue button and then testing of output threshold sensitivity and impedance was made. After confirming good location findings of the for prongs position been flared out, the tug test was made, and then flossing was made for the suture holding of the tip of the pacer to the loading device, finding the more tense part of the rope it was caught the flossing suture was removed. Micra was checked once gain for threshold output sensitivity and impedance pacing threshold dropped down at 0.24 milliseconds indicating good attachment to the intra-aortic ventricular septum. Then the loading sheath was withdrawn over the stiff wire figure of eight suture was made and the suture were stitched to the skin using a flow stasis device. Excellent hemostasis was obtained. The parameters of the device is as follows. 1. The device was model number [id number], the serial number was [id number] E sash sticker is [employer] implant date was 07/26/2024, implants side was RV septum. 2. The device measured data were: Right ventricular P2 R-wave ratio stent to 1 mV pacing impedance 930 the pacing threshold was 1.5 At 0.24 millisecond. 3. The Jefferson parameter settings were pacing mode VDD mode switches of the lower rate is 50 the upper rate of trach in was 120 pulse width was 0.24 and the sensitivity was2 mV with an amplitude of 2.5 volts. Impression and plan: 1. Successful implantation of Micra device AV2 for type 2 second-degree AV block with atrial tracking. It was VDD mode with a lower rate of 50 and upper tracking rate of 120 beats per minute. 2. Patient has right ventricular venous access for which flow stasis was placed it would need to be in place for 24 hours. Bedrest for24 hours and right femoral venous stasis device removal tomorrow Condition Good Disposition ROLDAN PHILLIP MD Jul 26, 2024 17:15
--- NOTE | 2024-07-26 17:27 | DVH ---
EXAMINATION: AP portable chest radiograph CLINICAL HISTORY: S/P PACEMAKER COMPARISON: XY CHEST PORTABLE on DOS: 07/16/24, XY CHEST XRAY 1 VIEW on DOS: 06/29/24, XY CHEST PORTAB LE on DOS: 03/15/24 TECHNIQUE: Single supine film of the chest FINDINGS: Dual-lumen catheter in place in the right internal jugular vein with the tip at the cavoatrial juncti on. Sternal wire sutures in place. Metallic foreign body overlying the left heart may represent a loop recorder . No dominant consolidations. The costophrenic angles are clear. No sizable pleural effusions or pneumo thorax identified. The cardiomediastinal silhouette appears within normal limits given technique. IMPRESSION: 1. Dual-lumen catheter in place from the internal jugular vein on the right with the tip at the cavoa trial junction. There is no pneumothorax. 2. 3 cm radiopaque foreign body overlying the cardiac silhouette. 3. Sternal wire sutures in place.
[2024-07-26] MEDS ORDERED: HYDROcodone-ACET 5/325MG TAB ONE (18:18)
[2024-07-26] MEDS: HYDROcodone-ACET 5/325MG TAB PO PRN (18:20)
[2024-07-27] VITALS (8 sets, daily range): BP systolic 120–157; BP diastolic 54–68; PULSE 76–91; RESP 16–22; TEMP 97.5–98.9; O2SAT 93–98
--- NOTE | 2024-07-27 06:55 | DVH ---
CHEST RADIOGRAPH Indication: S/P micra leadless pacemaker Technique: Single supine film of the chest Comparison: XY CHEST PORTABLE on DOS: 07/26/24, XY CHEST PORTABLE on DOS: 07/16/24, XY CHEST XRAY 1 EW on DOS: 06/29/24, XY CHEST PORTABLE on DOS: 03/15/24, XY CHEST PORTABLE on DOS: 02/13/24, XY CHEST POR TABLE on DOS: 07/26/24 FINDINGS: Dual-lumen catheter in place in the right internal jugular vein with the tip at the cavoatrial juncti on. Sternal wire sutures in place. Metallic foreign body overlying the left heart may represent a loop recorder . No dominant consolidations. The costophrenic angles are clear. No sizable pleural effusions or pneumo thorax identified. The cardiomediastinal silhouette appears within normal limits given technique. IMPRESSION: 1. Dual-lumen catheter in place from the internal jugular vein on the right with the tip at the cavoa trial junction. There is no pneumothorax. 2. 3 cm radiopaque foreign body overlying the cardiac silhouette. 3. Sternal wire sutures in place.
--- NOTE | 2024-07-27 11:21 | DVHPN2 ---
Subjective The patient is seen and examined at bedside. Local Area Network Administrator's was will just remove her pressure bandage from her cardiac catheterization. The patient said she is supposed to have hemodialysis today. Reviewed: Care Plan, H&P, Labs, Medications, Previous Orders, Radiology Changes from previous H/P or p: No Changes Objective Vitals Vital Signs Date Time Temp Pulse Resp B/P (MAP) Pulse Ox O2 Delivery O2 Flow Rate FiO2 07/27/24 09:00 98.4 76 18 136/54 (81) 95 98.4 07/26/24 19:20 Nasal Cannula* 2 28 Intake/Output Intake and Output 07/27/24 07:00 Intake Total 450 ml Output Total 0 ml Balance 450 ml Intake Oral 450 ml Output Urine Total 0 ml General Appearance: Alert, Oriented X3, Cooperative, No acute distress HEENT: Atraumatic, PERRLA, EOMI, Mucous membr. moist/pink Neck: Supple Lungs: Clear to auscultation, Normal air movement Cardiovascular: Regular rate, Normal S1, Normal S2, No murmurs, Gallops, Rubs Abdomen: Normal bowel sounds, Soft, No hepatospenomegaly Neuro: Cranial nerves 3-12 NL Psych/Mental Status: Mental status NL Medications Current Medications Medications Dose Ordered Sig/Ezequiel Route Start Time Stop Time Status Last Admin Dose Admin Ergocalciferol 50,000 unit QWEEKLY PO 07/25/24 14:30 07/26/24 11:44 50,000 UNIT EZETIMIBE 10 mg DAILY PO 07/26/24 10:00 Gabapentin 100 mg BID PO 07/25/24 22:00 07/26/24 23:34 100 MG Hydralazine HCl 75 mg TID PO 07/25/24 22:00 07/27/24 06:24 75 MG Levothyroxine Sodium 25 mcg QAM PO 07/26/24 07:00 07/27/24 06:25 25 MCG Loratadine 10 mg DAILY PO 07/26/24 10:00 07/26/24 10:00 10 MG Nicotine 1 patch DAILY TD 07/26/24 10:00 Pantoprazole Sodium 40 mg DAILY PO 07/26/24 10:00 07/26/24 11:46 40 MG Ticagrelor 90 mg BID PO 07/25/24 22:00 07/26/24 23:36 90 MG Atorvastatin Calcium 80 mg HS PO 07/25/24 22:00 07/26/24 23:34 80 MG Bumetanide 2 mg BIDD PO 07/25/24 18:00 07/27/24 06:25 2 MG Patient Own Medication 50 mg DAILY PO 07/26/24 10:00 07/26/24 10:00 50 MG Metolazone 20 mg DAILY PO 07/26/24 10:00 07/26/24 11:46 20 MG Ranolazine 500 mg BID PO 07/25/24 22:00 07/26/24 23:36 500 MG Sodium Bicarbonate 1,300 mg BID PO 07/25/24 22:00 07/26/24 23:36 1,300 MG Diagnostic Test (Pha) 1 strip ACHS 07/25/24 17:00 07/26/24 22:00 1 STRIP Insulin Human Regular ACHS SC 07/25/24 17:00 07/26/24 22:00 3 UNITS Dextrose 50 ml UD PRN IV 07/25/24 14:30 07/26/24 06:46 50 ML Enoxaparin Sodium 100 mg DAILY SC 07/26/24 10:00 Ondansetron HCl 4 mg Q4HP PRN IV 07/25/24 15:00 Docusate Sodium 100 mg BIDPRN PRN PO 07/25/24 15:00 Nitroglycerin 0.4 mg Q5MINP PRN SL 07/25/24 15:00 Iron Sucrose 110 ml @ 110 mls/hr DAILY@1200 IV 07/27/24 12:00 07/31/24 12:59 Acetaminophen/ Hydrocodone Bitart 1 tab Q6HPRN PRN PO 07/26/24 18:15 07/27/24 01:17 1 TAB Aspirin 81 mg DAILY PO 07/27/24 10:00 Laboratory Results Laboratory Tests 07/26/24 05:00 Urinalysis Test 07/25/24 13:56 Urine Color Light-yellow (Yellow) Urine Clarity Clear (Clear) Urine pH 7.5 (5.0-9.0) Urine Specific [place] 1.009 (1.001-1.035) Urine Protein 3+ (Negative) H Urine Ketones Negative (Negative) Urine Blood Negative /uL (Negative) Urine Nitrite Negative (Negative) Urine Bilirubin Negative (Negative) Urine Urobilinogen Normal mg/dL (Negative) Urine Leukocyte Esterase 1+ /uL (Negative) Urine RBC 2 /hpf (0 - 4) Urine WBC 87 /hpf (0 - 5) Urine Squamous Epithelial Cells Few /hpf (<5) Urine Bacteria Few /hpf (None Seen) H Urine Glucose Trace mg/dL (Normal) Labs and/or images reviewed: Labs reviewed by me Assessment/Plan Assessment/Plan Symptom bradycardia status post MICRA pacemaker. ESRD on HD Anemia of chronic disease, status post iron infusions Plan: Continuing current management. We will consult Dr Randhawa service for hemodialysis. The patient had dialysis Tuesday. Her last h emodialysis was on Tuesday. Plan discussed with: Patient Date of Service: Jul 27, 2024 Billing Provider: LÓPEZ DE MD Common Visit Codes: [id number] INP/OBS CARE(HIGH) LÓPEZ DE MD Jul 27, 2024 11:21
[2024-07-27] MEDS: ASPirin 81 mg TAB PO SCH (12:14)
[2024-07-27] MEDS: IRON SUCROSE COMPLEX 110 ML IV SCH (12:17)
--- NOTE | 2024-07-27 12:40 | DVHINCON2 ---
Date of service: Jul 27, 2024 Reason for Consultation End-stage renal disease History of Present Illness 73-year-old female past medical history of hypertension diabetes newly started on dialysis on previous admission to this hospital. Presents to the hospital with bradycardia. She was diagnosed with second-degree heart block. She is status post permanent pacemaker placement July 26. Nephrology is consulted today for dialysis management Allergies: Coded Allergies: Codeine (Verified Allergy, Unknown, 09/05/15) Morphine (Verified Allergy, Unknown, 09/05/15) Nitrofurantoin (Verified Allergy, Unknown, 09/05/15) Home Meds Active Scripts Ranolazine (Aspruzyo Sprinkle) 500 Mg Gra, 500 MG PO BID for 14 Days, #28 GM Prov:BRIAN BAKER MD 06/30/24 Bumetanide (Bumetanide) 2 Mg Tab, 1 TAB PO BID, #60 TAB 5 Refills Prov:REGINA CHRISTIAN MD 03/07/24 Ferrous Sulfate (Iron (Ferrous Sulfate)) 50 Mg Tab, 50 MG PO DAILY for 30 Days, #30 TAB Prov:BLANCA MARTINEZ 02/13/24 Nicotine (Nicoderm 21MG/24HR) 1 Patch Ph, 1 PATCH TD DAILY for 30 Days, #1 PATCH Prov:BLANCA MARTINEZ 02/13/24 Acetaminophen (Acetaminophen) 325 Mg Tab, 650 MG PO Q6HP PRN for 30 Days, #240 TAB Prov:BLANCA MARTINEZ 02/13/24 Reported Medications Minoxidil (Loniten) 10 Mg Tb, 1 TAB PO DAILY for 90 Days, #90 07/26/24 Nitroglycerin (Nitrostat) 0.4 Mg Sub, MG SL UD for 25 Days, #25 07/26/24 Carvedilol (Carvedilol) 12.5 Mg Tab, 1 TAB PO BID for 30 Days, #60 07/26/24 Pantoprazole Sodium Sesquihydr (Pantoprazole Sodium Dr) 40 Mg Tab, 1 TAB PO DAILY 07/16/24 Loratadine (CLARITIN TABLET) 10 Mg Tb, 1 TAB PO DAILY 07/16/24 Metolazone (Metolazone) 10 Mg Tab, 2 TAB PO DAILY 07/16/24 Fluticasone-Salmeterol (Wixela Inhub 100-50 Mcg/Dose) 1 Aer Aer, 1 PUFF INH Q12HR 03/05/24 Atorvastatin Calcium (ATORVASTATIN CALCIUM) 80 Mg Tab, 1 TAB PO DAILY, #30 TAB 5 Refills 02/10/24 Glipizide (Glipizide Xl) 10 Mg Tab, 1 TAB PO BID for 78 Days, #156 02/10/24 Diclofenac Sodium (Topical) (Voltaren Arthritis Pain) 1 % Gel, 1 % EX PRN PRN for PAIN SCALE 1 THRU 6, GEL 02/10/24 Insulin Glargine (Lantus Solostar) 100 Unit/Ml Inj, 8 UNIT SC HS, INJ 02/10/24 Sodium Zirconium Cyclosilicate (Lokelma) 5 Gm Darrel, 5 GM PO UD Take 5 grams 3 times weekly. 12/27/23 Albuterol Sulfate (Albuterol Sulfate Hfa) 108 Mcg/Act Aer, 2 PUFF INH Q6HR PRN for WHEEZING 12/27/23 Levothyroxine Sodium (Levothyroxine Sodium) 25 Mcg Tab, 1 TAB PO QAM 12/25/23 Sodium Bicarbonate (Sodium Bicarbonate) 650 Mg Tab, 2 TAB PO TID for 90 Days, #360 12/25/23 Isosorbide Mononitrate (Isosorbide Mononitrate ER) 60 Mg Tab, 1.5 TAB PO DAILY for 60 Days, #90 12/25/23 Hydralazine HCl (Hydralazine HCl) 25 Mg Tab, 1 TAB PO TID for 90 Days, #270 12/25/23 Ergocalciferol (Drisdol) 50,000 Unit Cap, 1 CAP PO QWEEKLY 07/21/23 Aspirin (Aspirin) 81 Mg Chw, 81 MG PO, TAB.CHEW 08/11/21 Ticagrelor Base (BRILINTA) 90 Mg Tab, 90 MG PO BID, TAB 08/11/21 Gabapentin (Gabapentin) 100 Mg Cap, 1 CAP PO BID 08/11/21 Ezetimibe (Zetia) 10 Mg Tab, 10 MG PO DAILY, TAB 08/11/21 Current Medications Current Medications Medications (Trade) Dose Ordered Sig/Ezequiel Route PRN Reason Start Time Stop Time Status Last Admin Epoetin Leo-epbx (Retacrit) 10,000 unit MWF@2100 SC 07/27/24 21:00 07/27/24 21:24 Family History: Acute respiratory distress syndrome G8 FATHER, Cardiomegaly 19 CHILD FH: esophageal cancer G8 BROTHER FH: respiratory disease G8 FATHER, FHx: breast cancer G8 MOTHER, FHx: kidney failure G8 MOTHER, Ischemic heart disease 19 CHILD Kidney stone H&P Exam Vital Signs/I&O Vital Sign Date Time Temp Pulse Resp B/P (MAP) Pulse Ox O2 Delivery O2 Flow Rate FiO2 07/28/24 10:45 148/66 07/28/24 09:00 97.4 78 18 99 97.4 07/28/24 08:00 Room Air* 0 N/A Nasal Cannula* Intake and Output 07/27/24 07/28/24 19:00 07:00 Intake Total 1430 ml 250 ml Balance 1430 ml 250 ml Intake Oral 1320 ml 250 ml IV Total 110 ml # Voids 5 4 Physical Exam white female NAD tunnel HD catheter s/p PPM no edema Labs/Diagnostic Data Labs/Diagnostic Data Laboratory Tests Test 07/28/24 12:34 07/28/24 05:53 07/28/24 05:10 07/27/24 21:07 Range/Units POC Glucose 157 H 90 146 H 70-106 mg/dl Phosphorus Level 4.1 2.4-5.1 mg/dL Test 07/27/24 18:10 07/27/24 13:25 07/27/24 11:07 07/27/24 06:11 Range/Units POC Glucose 212 H 192 H 103 70-106 mg/dl White Blood Count 8.7 4.4-10.8 10^3/uL Red Blood Count 2.75 L 4.0-5.20 10^6/uL Hemoglobin 8.3 L 12.2-16.2 g/dL Hematocrit 25.0 L 36.0-46.0 % Mean Corpuscular Volume 91.0 80.0-100.0 fL Mean Corpuscular Hemoglobin 30.2 28.0-32.0 pg Mean Corpuscular Hemoglobin Concent 33.1 32.0-36.0 g/dL Red Cell Distribution Width 14.1 11.8-14.3 % Platelet Count 196 140-450 10^3/uL Mean Platelet Volume 8.9 6.9-10.8 fL Neutrophils (%) (Auto) 74.5 37.0-80.0 % Lymphocytes (%) (Auto) 16.5 10.0-50.0 % Monocytes (%) (Auto) 7.2 0.0-12.0 % Eosinophils (%) (Auto) 1.2 0.0-7.0 % Basophils (%) (Auto) 0.6 0.0-2.0 % Neutrophils # (Auto) 6.5 1.6-8.6 10 ^3/uL Lymphocytes # (Auto) 1.4 0.4-5.4 10 ^3/uL Monocytes # (Auto) 0.6 0-1.3 10 ^3/uL Eosinophils # (Auto) 0.1 0-0.8 10 ^3/uL Basophils # (Auto) 0.1 0-0.2 10 ^3/uL Nucleated Red Blood Cells 0.0 % Sodium Level 141 136-145 mmol/L Potassium Level 3.8 3.5-5.1 mmol/L Chloride Level 103 98-107 mmol/L Carbon Dioxide Level 30 20-31 mmol/L Anion Gap 8 5-15 Blood Urea Nitrogen 38 H 9-23 mg/dL Creatinine 4.05 #H 0.550-1.02 mg/dL Glomerular Filtration Rate Calc 11 >90 mL/min BUN/Creatinine Ratio 9.4 L 10.0-20.0 Serum Glucose 243 H 74-106 mg/dL Calcium Level 8.8 8.7-10.4 mg/dL Iron Level 198 H 50-170 ug/dL Total Iron Binding Capacity 222 L 250-425 ug/dL Percent Iron Saturation 89.2 H 15-50 % Ferritin 855.7 H 10-291 ng/mL Test 07/26/24 23:17 07/26/24 11:19 07/26/24 07:14 07/26/24 06:43 Range/Units POC Glucose 180 H 90 155 H 56 L 70-106 mg/dl Test 07/26/24 05:00 07/25/24 22:16 07/25/24 18:30 07/25/24 17:35 Range/Units White Blood Count 7.8 4.4-10.8 10^3/uL Red Blood Count 2.60 L 4.0-5.20 10^6/uL Hemoglobin 7.9 L 12.2-16.2 g/dL Hematocrit 23.6 #L 36.0-46.0 % Mean Corpuscular Volume 90.8 80.0-100.0 fL Mean Corpuscular Hemoglobin 30.5 28.0-32.0 pg Mean Corpuscular Hemoglobin Concent 33.5 32.0-36.0 g/dL Red Cell Distribution Width 13.8 11.8-14.3 % Platelet Count 194 140-450 10^3/uL Mean Platelet Volume 9.0 6.9-10.8 fL Neutrophils (%) (Auto) 64.3 37.0-80.0 % Lymphocytes (%) (Auto) 26.5 10.0-50.0 % Monocytes (%) (Auto) 7.3 0.0-12.0 % Eosinophils (%) (Auto) 1.3 0.0-7.0 % Basophils (%) (Auto) 0.6 0.0-2.0 % Neutrophils # (Auto) 5.0 1.6-8.6 10 ^3/uL Lymphocytes # (Auto) 2.1 0.4-5.4 10 ^3/uL Monocytes # (Auto) 0.6 0-1.3 10 ^3/uL Eosinophils # (Auto) 0.1 0-0.8 10 ^3/uL Basophils # (Auto) 0 0-0.2 10 ^3/uL Nucleated Red Blood Cells 0.0 % Sodium Level 144 136-145 mmol/L Potassium Level 3.6 3.5-5.1 mmol/L Chloride Level 104 98-107 mmol/L Carbon Dioxide Level 31 20-31 mmol/L Anion Gap 9 5-15 Blood Urea Nitrogen 31 H 9-23 mg/dL Creatinine 3.09 #H 0.550-1.02 mg/dL Glomerular Filtration Rate Calc 15 >90 mL/min BUN/Creatinine Ratio 10.0 10.0-20.0 Serum Glucose 53 L 74-106 mg/dL Calcium Level 8.5 L 8.7-10.4 mg/dL Total Bilirubin 0.4 0.2-1.0 mg/dL Aspartate Amino Transferase (AST) 13 13-40 U/L Alanine Aminotransferase (ALT) 15 7-40 U/L Alkaline Phosphatase 65 46-116 U/L Total Protein 5.3 L 5.7-8.2 g/dL Albumin 3.4 3.2-4.8 g/dL POC Glucose 152 H 59 L 70-106 mg/dl Prothrombin Time 11.9 H 9.3-11.8 sec Prothrombin Time INR 1.13 0.9-1.15 Activated Partial Thromboplast Time 35.0 H 24.5-34.5 SEC Test 07/25/24 13:56 07/25/24 13:19 07/25/24 11:08 07/25/24 10:02 Range/Units Urine Color Light-yellow Yellow Urine Clarity Clear Clear Urine pH 7.5 5.0-9.0 Urine Specific [place] 1.009 1.001-1.035 Urine Protein 3+ H Negative Urine Ketones Negative Negative Urine Blood Negative Negative /uL Urine Nitrite Negative Negative Urine Bilirubin Negative Negative Urine Urobilinogen Normal Negative mg/dL Urine Leukocyte Esterase 1+ Negative /uL Urine RBC 2 0 - 4 /hpf Urine WBC 87 0 - 5 /hpf Urine Squamous Epithelial Cells Few <5 /hpf Urine Bacteria Few H None Seen /hpf Urine Glucose Trace Normal mg/dL Troponin I High Sensitivity 24 24 </=34 ng/L White Blood Count 9.7 4.4-10.8 10^3/uL Red Blood Count 2.97 L 4.0-5.20 10^6/uL Hemoglobin 8.8 L 12.2-16.2 g/dL Hematocrit 26.9 L 36.0-46.0 % Mean Corpuscular Volume 90.5 80.0-100.0 fL Mean Corpuscular Hemoglobin 29.7 28.0-32.0 pg Mean Corpuscular Hemoglobin Concent 32.8 32.0-36.0 g/dL Red Cell Distribution Width 13.9 11.8-14.3 % Platelet Count 231 140-450 10^3/uL Mean Platelet Volume 8.7 6.9-10.8 fL Neutrophils (%) (Auto) 74.1 37.0-80.0 % Lymphocytes (%) (Auto) 19.3 10.0-50.0 % Monocytes (%) (Auto) 5.2 0.0-12.0 % Eosinophils (%) (Auto) 0.9 0.0-7.0 % Basophils (%) (Auto) 0.5 0.0-2.0 % Neutrophils # (Auto) 7.1 1.6-8.6 10 ^3/uL Lymphocytes # (Auto) 1.9 0.4-5.4 10 ^3/uL Monocytes # (Auto) 0.5 0-1.3 10 ^3/uL Eosinophils # (Auto) 0.1 0-0.8 10 ^3/uL Basophils # (Auto) 0.1 0-0.2 10 ^3/uL Nucleated Red Blood Cells 0.0 % D-Dimer, Quantitative 1.17 H 0.0-0.49 mg/L FEU Sodium Level 141 136-145 mmol/L Potassium Level 3.1 L 3.5-5.1 mmol/L Chloride Level 105 98-107 mmol/L Carbon Dioxide Level 29 20-31 mmol/L Anion Gap 7 5-15 Blood Urea Nitrogen 29 H 9-23 mg/dL Creatinine 2.33 #H 0.550-1.02 mg/dL Glomerular Filtration Rate Calc 22 >90 mL/min BUN/Creatinine Ratio 12.4 10.0-20.0 Serum Glucose 125 H 74-106 mg/dL Calcium Level 8.5 L 8.7-10.4 mg/dL Phosphorus Level 3.2 2.4-5.1 mg/dL Magnesium Level 1.6 1.6-2.6 mg/dL Total Bilirubin 0.3 0.2-1.0 mg/dL Aspartate Amino Transferase (AST) 25 13-40 U/L Alanine Aminotransferase (ALT) 19 7-40 U/L Alkaline Phosphatase 99 46-116 U/L B-Type Natriuretic Peptide 366.02 0-100 pg/mL Total Protein 6.1 5.7-8.2 g/dL Albumin 3.7 3.2-4.8 g/dL Thyroid Stimulating Hormone (TSH) 2.86 0.55-4.78 uIU/mL Microbiology Date/Time Source Procedure Growth Status 07/27/24 00:00 Nose MRSA Screen - Final Complete Assessment End-stage renal disease on hemodialysis Bradycardia secondary to heart block status post pacemaker Hypertension Anemia due to chronic kidney disease Rate control and hemodynamic control as per primary team Avoid hypotension We will schedule hemodialysis treatment today Epogen with dialysis Renal diet Rest of care as per primary medical team Plan discussed with: Patient LAURENMainorSHRAVAN MD Jul 27, 2024 12:40
[2024-07-27] MEDS ORDERED: EPOETIN ALFA-EPBX 10,000 UNIT/1ML VIAL SC SCH (12:45)
[2024-07-27 14:16] LABS: Chloride 103 mmol/L (98-107); Potassium 3.8 mmol/L (3.5-5.1); Sodium 141 mmol/L (136-145)
[2024-07-27 14:18] LABS: Anion Gap 8 (5-15); Calcium 8.8 mg/dL (8.7-10.4); Carbon Dioxide 30 mmol/L (20-31)
[2024-07-27 14:23] LABS: BUN/Creatinine Ratio 9.4 (10.0-20.0)
[2024-07-27 14:24] LABS: Basophils % (auto) 0.6 % (0.0-2.0); Eosinophils # (auto) 0.1 10 ^3/uL (0-0.8); Eosinophils % (auto) 1.2 % (0.0-7.0); Hemoglobin 8.3 g/dL (12.2-16.2); Neutrophils # (auto) 6.5 10 ^3/uL (1.6-8.6)
[2024-07-27 14:25] LABS: % Iron Saturation 89.2 % (15-50)
[2024-07-27 14:26] LABS: Basophils # (auto) 0.1 10 ^3/uL (0-0.2); Lymphocytes # (auto) 1.4 10 ^3/uL (0.4-5.4); Lymphocytes % (auto) 16.5 % (10.0-50.0); Mean Corpuscular Hemoglobin 30.2 pg (28.0-32.0); Mean Corpuscular Hgb Conc. 33.1 g/dL (32.0-36.0); Monocytes # (auto) 0.6 10 ^3/uL (0-1.3); Monocytes % (auto) 7.2 % (0.0-12.0); Neutrophils % (auto) 74.5 % (37.0-80.0); Platelet Count (auto) 196 10^3/uL (140-450); Red Blood Cells 2.75 10^6/uL (4.0-5.20); Red Cell Distribution Width 14.1 % (11.8-14.3); White Blood Cell 8.7 10^3/uL (4.4-10.8)
[2024-07-27 14:41] LABS: Blood Urea Nitrogen 38 mg/dL (9-23); Glucose 243 mg/dL (74-106)
--- NOTE | 2024-07-27 15:12 | DVHPN2 ---
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 Flow stasis device removed from right groin Objective vital signs Vital Sign Date Time Temp Pulse Resp B/P (MAP) Pulse Ox O2 Delivery O2 Flow Rate FiO2 07/27/24 13:00 98.2 78 20 132/54 (80) 96 98.2 07/26/24 19:20 Nasal Cannula* 2 28 Total Intake and Output 07/26/24 07/26/24 07/27/24 15:00 23:00 07:00 Intake Total 450 ml Output Total 0 ml Balance 450 ml medications Current Medications Medications Dose Ordered Sig/Ezequiel Route Start Time Stop Time Status Last Admin Dose Admin Ergocalciferol 50,000 unit QWEEKLY PO 07/25/24 14:30 07/26/24 11:44 50,000 UNIT EZETIMIBE 10 mg DAILY PO 07/26/24 10:00 07/27/24 12:13 10 MG Gabapentin 100 mg BID PO 07/25/24 22:00 07/27/24 12:14 100 MG Hydralazine HCl 75 mg TID PO 07/25/24 22:00 07/27/24 06:24 75 MG Levothyroxine Sodium 25 mcg QAM PO 07/26/24 07:00 07/27/24 06:25 25 MCG Loratadine 10 mg DAILY PO 07/26/24 10:00 07/27/24 12:15 10 MG Nicotine 1 patch DAILY TD 07/26/24 10:00 Pantoprazole Sodium 40 mg DAILY PO 07/26/24 10:00 07/27/24 12:13 40 MG Ticagrelor 90 mg BID PO 07/25/24 22:00 07/27/24 12:14 90 MG Atorvastatin Calcium 80 mg HS PO 07/25/24 22:00 07/26/24 23:34 80 MG Bumetanide 2 mg BIDD PO 07/25/24 18:00 07/27/24 06:25 2 MG Patient Own Medication 50 mg DAILY PO 07/26/24 10:00 07/26/24 10:00 50 MG Metolazone 20 mg DAILY PO 07/26/24 10:00 07/27/24 12:14 20 MG Ranolazine 500 mg BID PO 07/25/24 22:00 07/27/24 12:13 500 MG Sodium Bicarbonate 1,300 mg BID PO 12/11/24 22:00 07/27/24 12:13 1,300 MG Diagnostic Test (Pha) 1 strip ACHS 07/25/24 17:00 07/27/24 11:30 1 STRIP Insulin Human Regular ACHS SC 07/25/24 17:00 07/27/24 12:30 3 UNITS Dextrose 50 ml UD PRN IV 07/25/24 14:30 07/26/24 06:46 50 ML Enoxaparin Sodium 100 mg DAILY SC 07/26/24 10:00 07/27/24 12:16 100 MG Ondansetron HCl 4 mg Q4HP PRN IV 07/25/24 15:00 Docusate Sodium 100 mg BIDPRN PRN PO 07/25/24 15:00 Nitroglycerin 0.4 mg Q5MINP PRN SL 07/25/24 15:00 Iron Sucrose 110 ml @ 110 mls/hr DAILY@1200 IV 07/27/24 12:00 07/31/24 12:59 07/27/24 12:17 110 MLS/HR Acetaminophen/ Hydrocodone Bitart 1 tab Q6HPRN PRN PO 07/26/24 18:15 07/27/24 12:32 1 TAB Aspirin 81 mg DAILY PO 07/27/24 10:00 07/27/24 12:14 81 MG Epoetin Leo-epbx 10,000 unit MWF SC 07/27/24 12:45 Examination: GENERAL:Normal, LUNGS:Normal, CVS:Normal, NEURO:Normal laboratory and microbiology Laboratory Tests 07/27/24 13:25 Test 07/27/24 13:25 Range/Units Serum Glucose 243 H 74-106 mg/dL Problem List/Assessment/Plan Problem List/Assessment/Plan Symptomatic bradycardia with intermittent second degree type II AV block s/p Micra leadless pacemaker insertion Severe coronary artery disease status post multiple PTCAs x7 GARY and double bypass CABG (on Brilinta and Aspirin) History of myocardial infarction Moderate aortic valve stenosis Tricuspid valve regurgitation, moderate degree Hypertension Dyslipidemia End-stage renal disease on hemodialysis Type 2 diabetes mellitus Thyroid disease Tobacco use Morbid obesity Plan/Recommendation (Dr. Ray): Patient seen and examined at bedside with . Echocardiogram from 06/30/2024 reveals an EF of 55%. Patient underwent a successful implantation of micra leadless pacemaker. Chest x-ray confirms proper placement. Pacemaker interrogation confirms proper function. There is no further inpatient cardiac workup indicated at this time. The patient has been scheduled to follow up in the outpatient cardiology clinic on 07/30/24 at 1:30pm and then on 08/07/24 at 1:45pm. Thank you for allowing us to care for this patient. Please call with any questions or concerns. This medical document was created using an electronic medical record system with voice recognition software and computerized dictation system. Although this document has been carefully reviewed, there might still be some phonetic and typographical errors. Occasional wrong-word or ``sound-alike substitutions may have occurred due to the inherent limitations of voice recognition software. These areas are purely typographical due to imperfections of the software programs and do not reflect any compromise in the patient's medical care. Please read the chart carefully and recognize, using context, where these substitutions have occurred. Plan discussed with: Patient Date of Service: Jul 27, 2024 Billing Provider: JUAN LUIS RAY MD Common Visit Codes: [id number] INP/OBS CARE(HIGH) DONALDO MORENO STUDENT SUCCESS ADVISOR Jul 27, 2024 15:12
[2024-07-27] MEDS: SODIUM CHL 0.9% 1000 ML BAG XX ONE (21:23)
[2024-07-27] MEDS: EPOETIN ALFA-EPBX 10,000 UNIT/1ML VIAL SC SCH (21:24)
[2024-07-28 01:00] VITALS: BP 138/96; PULSE 65; RESP 18; TEMP 98.5; O2SAT 95
[2024-07-28 08:00] VITALS: PULSE 77; PULSE 78; RESP 18; O2SAT 93
[2024-07-28 09:00] VITALS: BP 81/35; PULSE 78; RESP 18; TEMP 97.4; O2SAT 99
--- NOTE | 2024-07-28 10:25 | DVHPN2 ---
Subjective The patient is seen and examined at bedside. Campaign Specialist's was will just remove her pressure bandage from her cardiac catheterization. The patient said she is supposed to have hemodialysis today. Reviewed: Care Plan, H&P, Labs, Medications, Previous Orders, Radiology Objective Vitals Vital Signs Date Time Temp Pulse Resp B/P (MAP) Pulse Ox O2 Delivery O2 Flow Rate FiO2 07/28/24 09:00 97.4 78 18 81/35 (50) 99 97.4 07/27/24 20:00 Room Air* 2 N/A Nasal Cannula* Intake/Output Intake and Output 07/28/24 07:00 Intake Total 1680 ml Balance 1680 ml Intake Oral 1570 ml IV Total 110 ml # Voids 9 General Appearance: Alert, Oriented X3, Cooperative, No acute distress HEENT: Atraumatic, PERRLA, EOMI, Mucous membr. moist/pink Neck: Supple Lungs: Clear to auscultation, Normal air movement Cardiovascular: Regular rate, Normal S1, Normal S2, No murmurs, Gallops, Rubs Abdomen: Normal bowel sounds, Soft, No hepatospenomegaly Neuro: Cranial nerves 3-12 NL Psych/Mental Status: Mental status NL Medications Current Medications Medications Dose Ordered Sig/Ezequiel Route Start Time Stop Time Status Last Admin Dose Admin Ergocalciferol 50,000 unit QWEEKLY PO 07/25/24 14:30 07/26/24 11:44 50,000 UNIT EZETIMIBE 10 mg DAILY PO 07/26/24 10:00 07/27/24 12:13 10 MG Gabapentin 100 mg BID PO 07/25/24 22:00 07/27/24 22:31 100 MG Hydralazine HCl 75 mg TID PO 07/25/24 22:00 07/28/24 06:31 75 MG Levothyroxine Sodium 25 mcg QAM PO 07/26/24 07:00 07/28/24 06:32 25 MCG Loratadine 10 mg DAILY PO 07/26/24 10:00 07/27/24 12:15 10 MG Nicotine 1 patch DAILY TD 07/26/24 10:00 Pantoprazole Sodium 40 mg DAILY PO 07/26/24 10:00 07/27/24 12:13 40 MG Ticagrelor 90 mg BID PO 07/25/24 22:00 07/27/24 22:32 90 MG Atorvastatin Calcium 80 mg HS PO 07/25/24 22:00 07/27/24 22:31 80 MG Bumetanide 2 mg BIDD PO 07/25/24 18:00 07/28/24 06:32 2 MG Patient Own Medication 50 mg DAILY PO 07/26/24 10:00 07/26/24 10:00 50 MG Metolazone 20 mg DAILY PO 07/26/24 10:00 07/27/24 12:14 20 MG Ranolazine 500 mg BID PO 07/25/24 22:00 07/27/24 22:31 500 MG Sodium Bicarbonate 1,300 mg BID PO 07/25/24 22:00 07/27/24 22:32 1,300 MG Diagnostic Test (Pha) 1 strip ACHS 07/25/24 17:00 07/27/24 22:00 1 STRIP Insulin Human Regular ACHS SC 07/25/24 17:00 07/27/24 22:27 2 UNITS Dextrose 50 ml UD PRN IV 07/25/24 14:30 07/26/24 06:46 50 ML Enoxaparin Sodium 100 mg DAILY SC 07/26/24 10:00 07/27/24 12:16 100 MG Ondansetron HCl 4 mg Q4HP PRN IV 07/25/24 15:00 Docusate Sodium 100 mg BIDPRN PRN PO 07/25/24 15:00 Nitroglycerin 0.4 mg Q5MINP PRN SL 07/25/24 15:00 Iron Sucrose 110 ml @ 110 mls/hr DAILY@1200 IV 07/27/24 12:00 07/31/24 12:59 07/27/24 12:17 110 MLS/HR Acetaminophen/ Hydrocodone Bitart 1 tab Q6HPRN PRN PO 07/26/24 18:15 07/27/24 12:32 1 TAB Aspirin 81 mg DAILY PO 07/27/24 10:00 07/27/24 12:14 81 MG Epoetin Leo-epbx 10,000 unit MWF@2100 SC 07/27/24 21:00 07/27/24 21:24 10,000 UNIT Laboratory Results Laboratory Tests 07/27/24 13:25 Chemistry Test 07/27/24 13:25 07/28/24 05:10 Calcium Level 8.8 mg/dL (8.7-10.4) Phosphorus Level 4.1 mg/dL (2.4-5.1) Urinalysis Test 07/25/24 13:56 Urine Color Light-yellow (Yellow) Urine Clarity Clear (Clear) Urine pH 7.5 (5.0-9.0) Urine Specific [place] 1.009 (1.001-1.035) Urine Protein 3+ (Negative) H Urine Ketones Negative (Negative) Urine Blood Negative /uL (Negative) Urine Nitrite Negative (Negative) Urine Bilirubin Negative (Negative) Urine Urobilinogen Normal mg/dL (Negative) Urine Leukocyte Esterase 1+ /uL (Negative) Urine RBC 2 /hpf (0 - 4) Urine WBC 87 /hpf (0 - 5) Urine Squamous Epithelial Cells Few /hpf (<5) Urine Bacteria Few /hpf (None Seen) H Urine Glucose Trace mg/dL (Normal) Assessment/Plan Assessment/Plan Symptom bradycardia status post MICRA pacemaker. ESRD on HD Anemia of chronic disease, status post iron infusions Plan: Continuing current management. We will consult Dr Randhawa service for hemodialysis. The patient had dialysis Tuesday. Her last h emodialysis was on Tuesday. LÓPEZ DE MD Jul 28, 2024 10:25
[2024-07-28 13:00] VITALS: BP 156/85; PULSE 72; RESP 17; TEMP 97.4; O2SAT 96
--- NOTE | 2024-07-28 13:26 | DVHPN2 ---
Progress Note - Dictate Date Seen: Jul 28, 2024 Medical Necessity Reason Pt with a Central, PICC or Fol: No Subjective tolerated HD yesterday vital signs Vital Sign Date Time Temp Pulse Resp B/P (MAP) Pulse Ox O2 Delivery O2 Flow Rate FiO2 07/28/24 10:45 148/66 07/28/24 09:00 97.4 78 18 99 97.4 07/28/24 08:00 Room Air* 0 N/A Nasal Cannula* Total Intake and Output 07/27/24 07/27/24 07/28/24 15:00 23:00 07:00 Intake Total 110 ml 1320 ml 250 ml Balance 110 ml 1320 ml 250 ml medications Current Medications Medications Dose Ordered Sig/Ezequiel Route Start Time Stop Time Status Last Admin Dose Admin Ergocalciferol 50,000 unit QWEEKLY PO 07/25/24 14:30 07/26/24 11:44 EZETIMIBE 10 mg DAILY PO 07/26/24 10:00 07/28/24 10:40 Gabapentin 100 mg BID PO 07/25/24 22:00 07/28/24 10:38 Hydralazine HCl 75 mg TID PO 07/25/24 22:00 07/28/24 06:31 Levothyroxine Sodium 25 mcg QAM PO 07/26/24 07:00 07/28/24 06:32 Loratadine 10 mg DAILY PO 07/26/24 10:00 07/28/24 10:40 Nicotine 1 patch DAILY TD 07/26/24 10:00 Pantoprazole Sodium 40 mg DAILY PO 07/26/24 10:00 07/28/24 10:38 Ticagrelor 90 mg BID PO 07/25/24 22:00 07/28/24 10:39 Atorvastatin Calcium 80 mg HS PO 07/25/24 22:00 07/27/24 22:31 Bumetanide 2 mg BIDD PO 07/25/24 18:00 07/28/24 06:32 Patient Own Medication 50 mg DAILY PO 07/26/24 10:00 07/26/24 10:00 Metolazone 20 mg DAILY PO 07/26/24 10:00 07/28/24 10:45 Ranolazine 500 mg BID PO 07/25/24 22:00 07/28/24 10:39 Sodium Bicarbonate 1,300 mg BID PO 07/25/24 22:00 07/28/24 10:39 Diagnostic Test (Pha) 1 strip ACHS 07/25/24 17:00 07/28/24 11:30 Insulin Human Regular ACHS SC 07/25/24 17:00 07/27/24 22:27 Dextrose 50 ml UD PRN IV 07/25/24 14:30 07/26/24 06:46 Enoxaparin Sodium 100 mg DAILY SC 07/26/24 10:00 07/28/24 10:39 Ondansetron HCl 4 mg Q4HP PRN IV 07/25/24 15:00 Docusate Sodium 100 mg BIDPRN PRN PO 07/25/24 15:00 Nitroglycerin 0.4 mg Q5MINP PRN SL 07/25/24 15:00 Iron Sucrose 110 ml @ 110 mls/hr DAILY@1200 IV 07/27/24 12:00 07/31/24 12:59 07/28/24 12:33 Acetaminophen/ Hydrocodone Bitart 1 tab Q6HPRN PRN PO 07/26/24 18:15 07/27/24 12:32 Aspirin 81 mg DAILY PO 07/27/24 10:00 07/28/24 10:39 Epoetin Leo-epbx 10,000 unit MWF@2100 [place] 07/27/24 21:00 07/27/24 21:24 objective white female NAD tunnel HD catheter s/p PPM no edema laboratory and microbiology Laboratory Tests 07/27/24 13:25 Test 07/27/24 13:25 Range/Units Serum Glucose 243 H 74-106 mg/dL Assessment/Plan End-stage renal disease on hemodialysis Bradycardia secondary to heart block status post pacemaker Hypertension Anemia due to chronic kidney disease s/p HD yesterday resume outpatient schedule rest of care per primary Plan discussed with: Patient SHRAVAN VALDEZ MD Jul 28, 2024 13:26
[2024-07-28 17:06] VITALS: BP 106/61; PULSE 75; RESP 16; TEMP 97.7; O2SAT 96
--- NOTE | 2024-07-30 03:40 | DVHDS2 ---
Discharge Summary Date of Admission Jul 25, 2024 at 14:17 Date of Discharge: Jul 28, 2024 Admitting Diagnosis Symptom bradycardia ESRD on HD Anemia of chronic disease Labs/Diagnostic Data: Laboratory Results Test 07/28/24 12:34 07/28/24 05:10 07/27/24 13:25 07/26/24 05:00 POC Glucose 157 mg/dl (70-106) Phosphorus Level 4.1 mg/dL (2.4-5.1) White Blood Count 8.7 10^3/uL (4.4-10.8) Red Blood Count 2.75 10^6/uL (4.0-5.20) Hemoglobin 8.3 g/dL (12.2-16.2) Hematocrit 25.0 % (36.0-46.0) Mean Corpuscular Volume 91.0 fL (80.0-100.0) Mean Corpuscular Hemoglobin 30.2 pg (28.0-32.0) Mean Corpuscular Hemoglobin Concent 33.1 g/dL (32.0-36.0) Red Cell Distribution Width 14.1 % (11.8-14.3) Platelet Count 196 10^3/uL (140-450) Mean Platelet Volume 8.9 fL (6.9-10.8) Neutrophils (%) (Auto) 74.5 % (37.0-80.0) Lymphocytes (%) (Auto) 16.5 % (10.0-50.0) Monocytes (%) (Auto) 7.2 % (0.0-12.0) Eosinophils (%) (Auto) 1.2 % (0.0-7.0) Basophils (%) (Auto) 0.6 % (0.0-2.0) Neutrophils # (Auto) 6.5 10 ^3/uL (1.6-8.6) Lymphocytes # (Auto) 1.4 10 ^3/uL (0.4-5.4) Monocytes # (Auto) 0.6 10 ^3/uL (0-1.3) Eosinophils # (Auto) 0.1 10 ^3/uL (0-0.8) Basophils # (Auto) 0.1 10 ^3/uL (0-0.2) Nucleated Red Blood Cells 0.0 % Sodium Level 141 mmol/L (136-145) Potassium Level 3.8 mmol/L (3.5-5.1) Chloride Level 103 mmol/L (98-107) Carbon Dioxide Level 30 mmol/L (20-31) Anion Gap 8 (5-15) Blood Urea Nitrogen 38 mg/dL (9-23) Creatinine 4.05 mg/dL (0.550-1.02) Glomerular Filtration Rate Calc 11 mL/min (>90) BUN/Creatinine Ratio 9.4 (10.0-20.0) Serum Glucose 243 mg/dL (74-106) Calcium Level 8.8 mg/dL (8.7-10.4) Iron Level 198 ug/dL (50-170) Total Iron Binding Capacity 222 ug/dL (250-425) Percent Iron Saturation 89.2 % (15-50) Ferritin 855.7 ng/mL (10-291) Total Bilirubin 0.4 mg/dL (0.2-1.0) Aspartate Amino Transferase (AST) 13 U/L (13-40) Alanine Aminotransferase (ALT) 15 U/L (7-40) Alkaline Phosphatase 65 U/L (46-116) Total Protein 5.3 g/dL (5.7-8.2) Albumin 3.4 g/dL (3.2-4.8) Test 07/25/24 18:30 07/25/24 13:56 07/25/24 13:19 07/25/24 10:02 Prothrombin Time 11.9 sec (9.3-11.8) Prothrombin Time INR 1.13 (0.9-1.15) Activated Partial Thromboplast Time 35.0 SEC (24.5-34.5) Urine Color Light-yellow (Yellow) Urine Clarity Clear (Clear) Urine pH 7.5 (5.0-9.0) Urine Specific [place] 1.009 (1.001-1.035) Urine Protein 3+ (Negative) Urine Ketones Negative (Negative) Urine Blood Negative /uL (Negative) Urine Nitrite Negative (Negative) Urine Bilirubin Negative (Negative) Urine Urobilinogen Normal mg/dL (Negative) Urine Leukocyte Esterase 1+ /uL (Negative) Urine RBC 2 /hpf (0 - 4) Urine WBC 87 /hpf (0 - 5) Urine Squamous Epithelial Cells Few /hpf (<5) Urine Bacteria Few /hpf (None Seen) Urine Glucose Trace mg/dL (Normal) Troponin I High Sensitivity 24 ng/L (</=34) D-Dimer, Quantitative 1.17 mg/L FEU (0.0-0.49) Magnesium Level 1.6 mg/dL (1.6-2.6) B-Type Natriuretic Peptide 366.02 pg/mL (0-100) Thyroid Stimulating Hormone (TSH) 2.86 uIU/mL (0.55-4.78) Other Laboratory Tests 07/27/24 13:25 Brief Hx & Hospital Course: This is a 73 years old female with past medical history of coronary artery disease status post CABG, congestive heart failure, COPD, end-stage renal disease on hemodialysis Tuesday, Tuesday, Tuesday, diabetes, GERD, hyperlipidemia, hypertension, history MT, history of nephrectomy and hysterectomy, came to emergency department because of bradycardia. The patient took Coreg for long time. Patient apparently went to her hemodialysis center of Dr. Randhawa for her routine weekly dialysis. Apparently the patient has a heart rate of 37 during dialysis. She also complained of some lightheadedness. The patient was referred to emergency department for further evaluation. The patient was seen by butt presser, Dr Ravi. He put a micra pacemaker. After procedure the patient doing well. Patient also received hemodialysis during this hospitalization. Today the patient is stable. Piling Cutter's cleared her for discharge. I am going to discharge the patient home. Advised the patient to follow up with primary care physician 1-2 weeks. Activity as tolerated. Do not lift move any object more than 10 lb for two weeks. Diet per home diet. Recommend renal diet. Physical exam: HEENT: Normocephalic atraumatic pupils equal react to light and accommodation. Extraocular muscles intact, conjunctiva pink, oropharynx moist, no thrush, no exudate. Lymphatic: No lymphadenopathy Cardiovascular exam: S1, S2 was heard. No murmurs, rubs, gallops Lung: Clear on auscultation bilaterally, no wheeze, rale, rhonchi. GI: Abdominal soft, nondistended, nontenderness, positive bowel sounds. Extremity: No crepitus, cyanosis, edema. Pedal pulses present bilateral. Full range of motion. Skin: Normal turgor, no rash. Psych: Alert, oriented x3. Neurology: No focal deficits, cranial nerve II to XII grossly intact. Condition at Discharge: Stable Final Diagnosis/Problems List Symptom bradycardia status post MICRA pacemaker. ESRD on HD Anemia of chronic disease, status post iron infusions Discharge Disposition: Home Discharge Instruct/Medications Diet: Cardiac 2g Na,low cholest Activity: No Restrictions, As Tolerated Follow Up/Referral: butt presser per schedule PCP 1-2 weeks Medications: see med list Discharge Statement: "Patient was advised to return to the ER or call 911 if any headaches, dizziness, shortness of breath, chest pain, abdominal pain, bleeding, fevers, or worsening of medical condition. Patient was counseled about treatment plan, medications, possible side effects, patientverbalized understanding. All questions were answered to the best of my ability. This discharge took greater then 30 minutes in planning, reviewing documentation, counseling the patient, and discussing with other team members." ASSESSMENT ASSESSMENT Assessment Bradycardia Date of Service: Jul 28, 2024 Billing Provider: LÓPEZ DE MD Common Visit Codes: 18378-AGC/OBS DISCH DAY >30min LÓPEZ DE MD Jul 30, 2024 03:40
[2024-07-30] MEDS ORDERED: LEVO25TA2 PO (03:55)
[2024-07-30 09:30] LABS: Hepatitis B Surface Antigen Negative (Negative)
[2024-07-30 09:54] LABS: Hepatitis A Ab IgM Negative; Hepatitis B Core IgM Negative (Negative); Hepatitis C Antibody Negative (Negative)
== END 2024-07-28 17:55 | disposition home health service (06) | DRG 228 ==
LOC: ER 09:22 → EDUNIT# 09:22 → EDBD 09:22 → TELE 14:17 → TELE-WESTW 07-26 18:39
PROVIDERS: ADMIT Nurse Practitioner Family; ATTEND Internal Medicine
PROC: 02HK3NZ Insertion of Intracardiac Pacemaker into Right Ventricle, Percutaneous Approach (ICD-10-PCS; principal; 2024-07-26)
PROC: B54BZZA Ultrasonography of Right Lower Extremity Veins, Guidance (ICD-10-PCS; 2024-07-26)
PROC: B214YZZ Fluoroscopy of Right Heart using Other Contrast (ICD-10-PCS; 2024-07-26)
PROC: 5A1D70Z Performance of Urinary Filtration, Intermittent, Less than 6 Hours Per Day (ICD-10-PCS; 2024-07-27)
DX: I44.1 Atrioventricular block, second degree (principal); Z00.6 Encounter for examination for normal comparison and control in clinical research program; N18.6 End stage renal disease; I13.2 Hypertensive heart and chronic kidney disease with heart failure and with stage 5 chronic kidney disease, or end stage renal disease; T44.7X5A Adverse effect of beta-adrenoreceptor antagonists, initial encounter; D63.1 Anemia in chronic kidney disease; E03.9 Hypothyroidism, unspecified; E11.22 Type 2 diabetes mellitus with diabetic chronic kidney disease; I25.10 Atherosclerotic heart disease of native coronary artery without angina pectoris; E78.5 Hyperlipidemia, unspecified; E66.01 Morbid (severe) obesity due to excess calories; J44.9 Chronic obstructive pulmonary disease, unspecified; I08.2 Rheumatic disorders of both aortic and tricuspid valves; F17.210 Nicotine dependence, cigarettes, uncomplicated; I50.9 Heart failure, unspecified; E87.6 Hypokalemia; D50.9 Iron deficiency anemia, unspecified; K21.9 Gastro-esophageal reflux disease without esophagitis; E11.65 Type 2 diabetes mellitus with hyperglycemia; Z95.1 Presence of aortocoronary bypass graft; Z88.5 Allergy status to narcotic agent; Z79.1 Long term (current) use of non-steroidal anti-inflammatories (NSAID); Z79.899 Other long term (current) drug therapy; Z90.5 Acquired absence of kidney; Z99.2 Dependence on renal dialysis; Y92.89 Other specified places as the place of occurrence of the external cause; I25.2 Old myocardial infarction; Z80.0 Family history of malignant neoplasm of digestive organs; Z80.3 Family history of malignant neoplasm of breast; Z87.442 Personal history of urinary calculi; Z90.710 Acquired absence of both cervix and uterus; Z68.36 Body mass index [BMI] 36.0-36.9, adult; Z79.4 Long term (current) use of insulin
CPT/HCPCS: 33274; 36415; 71045; 71046; 78582; 80048; 80053; 80074; 81001; 82728; 82962; 83540; 83550; 83735; 83880; 84100; 84443; 84484; 85025; 85379; 85610; 85730; 87081; 90935; 97163; 99152; 99291; G0378; J1642; J1756; J1815; J2250

== ENCOUNTER 2024-08-10 14:10 | Emergency (ER) | payer OTHER, MEDICAID ==
[~2024-08-10] VITALS: Ht 167.6 cm; Wt 96.0 kg
[~2024-08-10 14:10] MED LIST changes: -ERGO1CAP23 PO; +LEVO25TA2 PO; +[UNRECOGNIZED DRUG - CODE] PO
[2024-08-10 14:58] VITALS: BP 130/67; PULSE 79; RESP 18; TEMP 98.1; O2SAT 98
--- NOTE | 2024-08-10 15:12 | ED.PDOC ---
General HPI Comments A 73 YEAR OLD FEMALE PRESENTS TO THE ED WITH COMPLAINT OF UTI SYMPTOMS AND COUGH. PATIENT STATES SHE HAS BEEN EXPERIENCING A COUGH, CONGESTION, PAINFUL URINATION, URINARY URGENCY, AND SUPRAPUBIC PRESSURE FOR THE PAST 1 WEEK. PATIENT WAS ADMITTED TO THIS ED 1 WEEK AGO FOR SYMPTOMATIC BRADYCARDIA, BUT STATES SHE WAS NEVER TREATED FOR HER COUGH OR UTI SYMPTOMS. PATIENT DENIES HEMATURIA, FLANK PAIN, FEVER, SHORTNESS OF BREATH, CHEST PAIN, ABDOMINAL PAIN, NAUSEA, VOMITING, HEADACHE, OR OTHER COMPLAINTS. NO OTHER SYMPTOMS OR MODIFYING FACTORS AT THIS TIME. PATIENT IS ALERT, ORIENTED X 4, AND HAS STEADY GAIT. Chief Complaint: Urinary Time Seen by MD: 14:35 Primary Care Provider: FELICIA Reviewed notes: Nurses Notes, Medications, Allergies Allergies: Coded Allergies: Codeine (Verified Allergy, Unknown, 09/05/15) Morphine (Verified Allergy, Unknown, 09/05/15) Nitrofurantoin (Verified Allergy, Unknown, 09/05/15) Home Meds Active Scripts Levothyroxine Sodium (Synthroid) 25 Mcg Tab, 1 TAB PO DAILY, #30 TAB 5 Refills Prov:LÓPEZ DE MD 07/30/24 Ranolazine (Aspruzyo Sprinkle) 500 Mg Gra, 500 MG PO BID for 14 Days, #28 GM Prov:BRIAN BAKER MD 06/30/24 Bumetanide (Bumetanide) 2 Mg Tab, 1 TAB PO BID, #60 TAB 5 Refills Prov:REGINA CHRISTIAN MD 03/07/24 Ferrous Sulfate (Iron (Ferrous Sulfate)) 50 Mg Tab, 50 MG PO DAILY for 30 Days, #30 TAB Prov:BLANCA MARTINEZ 02/13/24 Nicotine (Nicoderm 21MG/24HR) 1 Patch Ph, 1 PATCH TD DAILY for 30 Days, #1 PATCH Prov:BLANCA MARTINEZ 02/13/24 Acetaminophen (Acetaminophen) 325 Mg Tab, 650 MG PO Q6HP PRN for 30 Days, #240 TAB Prov:BLANCA MARTINEZ 02/13/24 Reported Medications Minoxidil (Loniten) 10 Mg Tb, 1 TAB PO DAILY for 90 Days, #90 07/26/24 Nitroglycerin (Nitrostat) 0.4 Mg Sub, MG SL UD for 25 Days, #25 07/26/24 Carvedilol (Carvedilol) 12.5 Mg Tab, 1 TAB PO BID for 30 Days, #60 07/26/24 Pantoprazole Sodium Sesquihydr (Pantoprazole Sodium Dr) 40 Mg Tab, 1 TAB PO DAILY 07/16/24 Loratadine (CLARITIN TABLET) 10 Mg Tb, 1 TAB PO DAILY 07/16/24 Metolazone (Metolazone) 10 Mg Tab, 2 TAB PO DAILY 07/16/24 Fluticasone-Salmeterol (Wixela Inhub 100-50 Mcg/Dose) 1 Aer Aer, 1 PUFF INH Q12HR 03/05/24 Atorvastatin Calcium (ATORVASTATIN CALCIUM) 80 Mg Tab, 1 TAB PO DAILY, #30 TAB 5 Refills 02/10/24 Glipizide (Glipizide Xl) 10 Mg Tab, 1 TAB PO BID for 78 Days, #156 02/10/24 Diclofenac Sodium (Topical) (Voltaren Arthritis Pain) 1 % Gel, 1 % EX PRN PRN for PAIN SCALE 1 THRU 6, GEL 02/10/24 Insulin Glargine (Lantus Solostar) 100 Unit/Ml Inj, 8 UNIT SC HS, INJ 02/10/24 Sodium Zirconium Cyclosilicate (Lokelma) 5 Gm Darrel, 5 GM PO UD Take 5 grams 3 times weekly. 12/27/23 Albuterol Sulfate (Albuterol Sulfate Hfa) 108 Mcg/Act Aer, 2 PUFF INH Q6HR PRN for WHEEZING 12/27/23 Levothyroxine Sodium (Levothyroxine Sodium) 25 Mcg Tab, 1 TAB PO QAM 12/25/23 Sodium Bicarbonate (Sodium Bicarbonate) 650 Mg Tab, 2 TAB PO TID for 90 Days, #360 12/25/23 Isosorbide Mononitrate (Isosorbide Mononitrate ER) 60 Mg Tab, 1.5 TAB PO DAILY for 60 Days, #90 12/25/23 Hydralazine HCl (Hydralazine HCl) 25 Mg Tab, 1 TAB PO TID for 90 Days, #270 12/25/23 Ergocalciferol (Drisdol) 50,000 Unit Cap, 1 CAP PO QWEEKLY 07/21/23 Aspirin (Aspirin) 81 Mg Chw, 81 MG PO, TAB.CHEW 08/11/21 Ticagrelor Base (BRILINTA) 90 Mg Tab, 90 MG PO BID, TAB 08/11/21 Gabapentin (Gabapentin) 100 Mg Cap, 1 CAP PO BID 08/11/21 Ezetimibe (Zetia) 10 Mg Tab, 10 MG PO DAILY, TAB 08/11/21 Information Source: Patient Mode of Arrival: Ambulatory Severity: Moderate Inability to void: None Timing: Days Duration: Since onset, Days Prehospital treatment: None Onset: Spontaneous Symptoms: Dysuria, Frequency, Urgency History of: UTI Location: None Modifying factors: None associated signs and symptoms: Dysuria, Frequency, Urgency Past Medical History PAST MEDICAL HISTORY: CHF, CKF, COPD, DM, ESRD, GERD, High Lipids, HTN, Kidney Stones, NV, Thyroid, UTI'S Surgical History: Appendectomy, CABG, Hysterectomy, PTCA WEB MANAGER History: No Pertinent WEB MANAGER History Family History Family History: Reviewed,noncontributory to illness, No family hx of Cancer, No family hx of Heart елена Social History Smoker: Cigarettes, Less Than 1 Pack/Day Alcohol: Denies ETOH Use Drugs: Denies Drug Use Lives In: Home Constitutional: denies: chills, diaphoresis, fatigue, fever, malaise, sweats, weakness, others EENTM: reports: nose congestion; denies: blurred vision, double vision, ear bleeding, ear discharge, ear drainage, ear pain, ear ringing, eye pain, eye redness, hearing loss, mouth pain, mouth swelling, nasal discharge, nose bleeding, nose pain, photophobia, tearing, throat pain, throat swelling, voice changes, others Respiratory: reports: cough; denies: hemoptysis, orthopnea, SOB at rest, shortness of breath, SOB with excertion, stridor, wheezing, others Cardiovascular: denies: chest pain, dizzy spells, diaphoresis, Dyspnea on exertion, edema, irregular heart beat, left arm pain, lightheadedness, palpitations, PND, syncope, others Gastrointestinal: denies: abdomen distended, abdominal pain, blood streaked bowels, constipated, diarrhea, dysphagia, difficulty swallowing, hematemesis, m tia, nausea, poor appetite, poor fluid intake, rectal bleeding, rectal pain, vomiting, others Genitourinary: reports: burning, dysuria, frequency, pain (SUPRAPUBIC PRESSURE), urgency; denies: abnormal vagina bleeding, dyspareunia, flank pain, hematuria, incontinence, , vagina discharge, others Neurological: denies: dizziness, fainting, headache, left sided numbness, left sided weakness, numbness, paresthesia, pre-existing deficit, right sided numbness, right sided weakness, seizure, speech problems, tingling, tremors, weakness, others Musculoskeletal: denies: back pain, gout, joint pain, joint swelling, muscle pain, muscle stiffness, neck pain, others Integumetry: denies: bruises, change in color, change in hair/nails, dryness, laceration, lesions, lumps, rash, wounds, others Allergic/Immunocompromised: denies: Difficulty Healing, Frequent Infections, Hives, Itching, others Hematologic/Lymphatic: denies: anemia, blood clots, easy bleeding, easy bruising, swollen glands, others Endocrine: denies: excessive hunger, excessive sweating, excessive thirst, excessive urination, flushing, intolerance to cold, intolerance to heat, unexplained weight gain, unexplained weight loss, others Psychiatric: denies: anxiety, bipolar disorder, depression, hopeless, panic disorder, schizophrenia, sleepless, suicidal, others All Other Systems: Reviewed and Negative Physical Exam General Appearance: No Apparent Distress, Normal HEENT: Normal ENT Inspection, PERRL/EOMI, Pharynx Normal, TMs Normal Neck: Full Range of Motion, Non-Tender, Normal, Normal Inspection Respiratory: Chest Non-Tender, Expiration, No Accessory Muscle Use, No Respiratory Distress, Rhonchi Cardiovascular: No Edema, No JVD, No Murmur, No Gallop, Normal Peripheral P ulses, Regular Rate/Rhythm Breast Exam: Deferred Gastrointestinal: No Organomegaly, Non Tender, No Pulsatile Mass, Normal Bowel Sounds, Soft Genitalia: Deferred Pelvic: Deferred Rectal: Deferred Extremities: No calf tenderness, Normal capillary refill, Normal inspection, Normal range of motion, Non-tender, No pedal edema Musculoskeletal : Apperance: Normal Neurologic: Alert, senior pensions administrator II-XII nml as Tested, No Motor Deficits, Normal Affect, Normal Mood, No Sensory Deficits Cerebellar Function: Normal Reflexes: Normal Skin: Dry, Normal Color, Warm Peripheral Pulses: 2+ carotid (R), 2+ carotid (L) Lymphatic: No Adenopathy Was a procedure done? Was a procedure done?: No Differential Diagnosis Kidney stone (Female): N/A Kidney stone (Male): N/A Penile/Scrotal: N/A Urinary Problem (Male): N/A Urinary Problem (Female): Pyelonephritis, Urolithiasis, UTI, Vaginitis Other Differential Diagnosis ACUTE BRONCHITIS, PNEUMONIA X-Ray, Labs, Meds, VS Vital Signs Date Time Temp Pulse Resp B/P (MAP) Pulse Ox O2 Delivery O2 Flow Rate FiO2 08/10/24 14:58 79 18 98 Room Air 08/10/24 14:58 98.1 79 18 130/67 (88) 98 98.1 08/10/24 14:23 98.1 79 18 130/67 (88) 98 Lab Test 08/10/24 14:19 Range/Units Urine Color Yellow Yellow Urine Clarity Turbid H Clear Urine pH 7.0 5.0-9.0 Urine Specific [place] 1.021 1.001-1.035 Urine Protein 3+ H Negative Urine Ketones Negative Negative Urine Blood Trace H Negative /uL Urine Nitrite Negative Negative Urine Bilirubin Negative Negative Urine Urobilinogen Normal Negative mg/dL Urine Leukocyte Esterase Negative Negative /uL Urine RBC <1 0 - 4 /hpf Urine WBC 7 0 - 5 /hpf Urine Squamous Epithelial Cells Mod <5 /hpf Urine Bacteria Few H None Seen /hpf Urine Mucus Few None Seen Urine Glucose 2+ H Normal mg/dL Current Medications Medications (Trade) Dose Ordered Sig/Ezequiel Route Start Time Stop Time Status Last Admin Acetaminophen/ Hydrocodone Bitart (Norton 5/325MG Tab) 1 tab ONCE ONCE PO 08/10/24 15:15 08/10/24 15:16 DC 08/10/24 15:19 X-Ray, Labs, Meds, VS Comment EXTERNAL MEDICAL RECORDS REVIEWED: [NONE] INDEPENDENT HISTORIANS: [NONE] SOCIAL DETERMINANTS OF HEALTH: [NONE] LABS ORDERED: UA REVIEWED AND INTERPRETED RESULTS: N IMAGING ORDERED: CHEST TREATMENTS ORDERED: NORCO 5/325 PO PROCEDURES PERFORMED: NONE CRITICAL CARE TIME: NONE I HAVE DISCUSSED THE PATIENT WITH THE ATTENDING PHYSICIAN DR. KWONG AND HE AGREES WITH THE PATIENT'S PLAN OF CARE AND DISPOSITION. BASED ON HISTORY OF PRESENT ILLNESS, AND PHYSICAL EXAM, PATIENT WILL BE DISCHARGED HOME. DISCUSSED PLAN FOR DISCHARGE HOME WITH RX []. MEDICATION WARNINGS GIVEN. SHARED DECISION MAKING: PATIENT INSTRUCTED TO FOLLOW UP WITH PRIMARY CARE PROVIDER IN 1-2 DAYS FOR RE-EVALUATION OF SYMPTOMS. PATIENT VERBALIZES U NDERSTANDING TO RETURN TO ED FOR NEW OR WORSENING SYMPTOMS OR IF FOLLOW UP WITH PCP CANNOT BE OBTAINED. PATIENT FEELS COMFORTABLE GOING HOME AT THIS TIME. ALL QUESTIONS ADDRESSED AT TIME OF DISCHARGE. Time of 1ST Reevaluation: 16:23 Reevaluation 1ST: Improved Patient Education/Counseling: Diagnosis, Treatment, Need For Follow Up Family Education/Counseling: Diagnosis, Treatment, Need For Follow Up Medical Screening: No EMC Exist At This Time Departure 1 Departure Time of Disposition: 16:30 Impression: Primary Impression: Acute bronchitis Qualified Codes: J20.9 - Acute bronchitis, unspecified Additional Impressions: Symptomatic urinary tract infection Hx of renal calculi Disposition: HOME / SELF CARE / HOMELESS Condition: Stable Additional Instructions: FOLLOW-UP WITH PCP IN 1 TO 2 DAYS. TAKE MEDICATIONS PRESCRIBED. RETURN TO ED FOR ANY NEW OR WORSENING SYMPTOMS. e-Prescriptions Promethazine-Dm (Promethazine Dm 6.25-15 mg/5Ml) 1 Debra Debra 5 ML PO TID, #160 ML Prov: FABI SERVIN 08/10/24 Cephalexin Monohydrate (Cephalexin) 500 Mg Cap 1 CAP PO QID, #28 CAP Prov: FABI SERVIN 08/10/24 Discharged With: Self, Relative Critical Care Note Critical Care Time?: No Stability Stability form required: No I personally scribed for FABI SERVIN ([email or web address]) on 08/10/24 at 15:12. Electronically submitted by Mane Awad ([email or web address]). I personally scribed for FABI SERVIN ([email or web address]) on 08/10/24 at 16:03. Electronically submitted by Mane Awad ([email or web address]). I personally scribed for FABI SERVIN ([email or web address]) on 08/10/24 at 16:10. Electronically submitted by Mane Awad ([email or web address]). FABI SERVIN Aug 10, 2024 15:12
[2024-08-10] MEDS: HYDROcodone-ACET 5/325MG TAB PO ONE (15:19)
[2024-08-10 15:35] LABS: Urine Bacteria FEW /hpf (None Seen); Urine Blood TRACE /uL (Negative); Urine Clarity Turbid (Clear); Urine Color Yellow (Yellow); Urine Mucus FEW (None Seen); Urine Protein, UAD 3+ (Negative); Urine Specific Gravity 1.021 (1.001-1.035); Urine Urobilinogen Normal (Negative); Urine WBC 7 /hpf (0 - 5)
[2024-08-10] MEDS ORDERED: PROM1SOL4 PO (16:29)
[2024-08-10] MEDS ORDERED: CEPH500C PO (16:29)
--- NOTE | 2024-08-10 16:57 | DVH ---
EXAM: XY CHEST TWO VIEWS ROUTINE CLINICAL HISTORY: COUGH COMPARISON: XY CHEST TWO VIEWS ROUTINE on DOS: 07/25/24, XY CHEST TWO VIEWS ROUTINE on DOS: 03/02/24, XY CHEST TWO VIEWS ROUTINE on DOS: 07/21/23 TECHNIQUE: Frontal and lateral view of the chest was obtained FINDINGS: Lines and Tubes: Right internal jugular central venous catheter tip projects over the superior vena c mis. Lungs: No focal consolidation. Pleura: No effusion. No pneumothorax. Cardiomediastinal contours: Unremarkable Bones: No acute osseous abnormality. IMPRESSION: No acute cardiopulmonary disease.
== END 2024-08-10 16:43 | disposition home or self-care (01) ==
LOC: ER 14:10
DX: J02.9 Acute pharyngitis, unspecified (principal); N39.0 Urinary tract infection, site not specified; I13.2 Hypertensive heart and chronic kidney disease with heart failure and with stage 5 chronic kidney disease, or end stage renal disease; E11.22 Type 2 diabetes mellitus with diabetic chronic kidney disease; I50.9 Heart failure, unspecified; N18.6 End stage renal disease; J20.9 Acute bronchitis, unspecified; F17.210 Nicotine dependence, cigarettes, uncomplicated; K21.9 Gastro-esophageal reflux disease without esophagitis; Z79.82 Long term (current) use of aspirin; Z79.84 Long term (current) use of oral hypoglycemic drugs; Z79.899 Other long term (current) drug therapy; Z87.442 Personal history of urinary calculi; Z95.1 Presence of aortocoronary bypass graft; Z90.710 Acquired absence of both cervix and uterus; Z90.49 Acquired absence of other specified parts of digestive tract; Z98.890 Other specified postprocedural states; Z88.1 Allergy status to other antibiotic agents; Z88.5 Allergy status to narcotic agent; Z88.8 Allergy status to other drugs, medicaments and biological substances
CPT/HCPCS: 71046; 81001

== ENCOUNTER → 2024-08-28 | Outpatient (CLI) | payer OTHER, MEDICAID ==
[~2024-08-28] VITALS: Ht 167.6 cm; Wt 96.2 kg
[~2024-08-28] MED LIST changes: +CEPH500C PO; +PROM1SOL4 PO; +REGADENOSON 0.4 MG/5 ML SYRG IV ONE
[2024-08-28] MEDS: REGADENOSON 0.4 MG/5 ML SYRG IV ONE (11:07)
--- NOTE | 2024-08-28 12:44 | DVHSR ---
APPROVED REPORT Exam: Nuclear Stress Test BMI: 0 Stress Test Details HR Max Heart Rate (APMHR): 148 bpm Target HR (85% APMHR): 126 bpm BP ECG Stress ECG Conclusion Review of the myocardial perfusion images during stress demonstrated a large area of mild intensity r educed radiotracer uptake throughout the anterior and anterolateral garcia. This appears to be signif icantly reversible based on review of the resting images. There is also a large defect in the inferi or and inferolateral garcia that is mostly fixed except at the distal part. Left ventricular volumes are within normal limits. Left ventricular systolic function is estimated at 40%. There is no signi ficant transient ischemic dilatation. No gated images are available to assess for wall motion abnorm alities. Impressions: 1. Abnormal myocardial perfusion scan with a reversible defect in the anterior and anterolateral wall s and mostly fixed defect in the inferior and inferolateral garcia. 2. Mildly decreased left ventricular systolic function with an estimated ejection fraction 40% NM EXAM: Myocardial Perfusion REST/STRESS Imaging Protocol: Rest Tc-99m/Stress Tc-99m 1 day Resting Data Rest SPECT myocardial perfusion imaging was performed in supine position 60 minutes following the int ravenous injection of 13.4 mCi of Tc-99m Sestamibi. Time of rest injection: 0950 Time of rest imagin Administration Route: IV Administration Site: Right Arm Pharmacologic Stress Pharmacologic stress test was performed by injecting Regadenoson 0.4 mg IV push followed by the intra venous injection of 32 mCi of Tc-99m Sestamibi. Time of stress injection: 1105 Time of stress imagin Administration Route: IV Administration Site: Right Arm Gated Stress SPECT was performed 60 minutes after stress injection. The images were gated to evaluate regional wall motion and calculate left ventricular ejection fracti on. Stress only was performed in the Supine position. Nuclear Conclusion ECG Findings: equivocal Clinical Findings: negative for ischemia Nuclear Findings: positive for ischemia Exercise Capacity: not assessed Left Ventricular Function: abnormal Risk Study: moderate Review of the myocardial perfusion images during stress demonstrated a large area of mild intensity r educed radiotracer uptake throughout the anterior and anterolateral garcia. This appears to be signif icantly reversible based on review of the resting images. There is also a large defect in the inferi or and inferolateral garcia that is mostly fixed except at the distal part. Left ventricular volumes are within normal limits. Left ventricular systolic function is estimated at 40%. There is no signi ficant transient ischemic dilatation. No gated images are available to assess for wall motion abnorm alities. Impressions: 1. Abnormal myocardial perfusion scan with a reversible defect in the anterior and anterolateral wall s and mostly fixed defect in the inferior and inferolateral garcia. 2. Mildly decreased left ventricular systolic function with an estimated ejection fraction 40%
== END | disposition home or self-care (01) ==
LOC: XYW 09:19
PROVIDERS: ATTEND Internal Medicine
DX: I50.1 Left ventricular failure, unspecified (principal); I25.9 Chronic ischemic heart disease, unspecified; R07.9 Chest pain, unspecified
CPT/HCPCS: 78452; 93017; A9500; J2785

== ENCOUNTER → 2024-10-09 | Outpatient (CLI) | payer OTHER, MEDICAID ==
[~2024-10-09] MED LIST changes: -REGADENOSON 0.4 MG/5 ML SYRG IV ONE
[2024-10-09 09:07] LABS: Urine Bacteria None Seen /hpf (None Seen)
[2024-10-09 09:15] LABS: Basophils # (auto) 0.1 10 ^3/uL (0-0.2); Basophils % (auto) 0.7 % (0.0-2.0); Eosinophils # (auto) 0.1 10 ^3/uL (0-0.8); Eosinophils % (auto) 1.6 % (0.0-7.0); Hematocrit 34.7 % (36.0-46.0); Hemoglobin 11.6 g/dL (12.2-16.2); Lymphocytes # (auto) 1.6 10 ^3/uL (0.4-5.4); Lymphocytes % (auto) 19.5 % (10.0-50.0); Mean Corpuscular Hemoglobin 30.5 pg (28.0-32.0); Mean Corpuscular Hgb Conc. 33.5 g/dL (32.0-36.0); Monocytes # (auto) 0.4 10 ^3/uL (0-1.3); Neutrophils # (auto) 5.9 10 ^3/uL (1.6-8.6); Neutrophils % (auto) 73.2 % (37.0-80.0); Platelet Count (auto) 225 10^3/uL (140-450); Red Blood Cells 3.82 10^6/uL (4.0-5.20); Red Cell Distribution Width 16.1 % (11.8-14.3); White Blood Cell 8.1 10^3/uL (4.4-10.8)
[2024-10-09 09:20] LABS: Urine Blood TRACE /uL (Negative); Urine Clarity Turbid (Clear); Urine Color Yellow (Yellow); Urine Hyaline Cast FEW /lpf (0 - 2); Urine Protein, UAD 3+ (Negative); Urine Specific Gravity 1.019 (1.001-1.035); Urine Squamous Epithelial Cell MOD /hpf (<5); Urine Urobilinogen Normal (Negative); Urine WBC 6 /HPF (0-5); Urine pH 7.5 (5.0-9.0)
[2024-10-09 09:53] LABS: Creatinine, Urine 90.85 mg/dL (30.0-125.0)
[2024-10-09 09:57] LABS: Alanine Aminotransferase 23 U/L (7-40); Alkaline Phosphatase 116 U/L (46-116); Anion Gap 11 (5-15); BUN/Creatinine Ratio 7.4 (10.0-20.0); Blood Urea Nitrogen 22 mg/dL (9-23); Calcium 9.7 mg/dL (8.7-10.4); Carbon Dioxide 29 mmol/L (20-31); Chloride 101 mmol/L (98-107); LDL Cholesterol 46 mg/dL (< 100); Sodium 141 mmol/L (136-145)
[2024-10-09 09:58] LABS: Albumin 4.3 g/dL (3.2-4.8); Aspartate Aminotransferase 15 U/L (13-40); Bilirubin, Total 0.5 mg/dL (0.2-1.0); Cholesterol 147 mg/dL (< 200); HDL Cholesterol 41 mg/dL (40-59); Total Protein 6.7 g/dL (5.7-8.2)
[2024-10-09 09:59] LABS: Glucose 229 mg/dL (74-106); Potassium 3.4 mmol/L (3.5-5.1); Triglycerides 362 mg/dL (< 150)
[2024-10-09 10:07] LABS: Micro Albumin > 3800.0 mg/L (<30.0)
== END | disposition home or self-care (01) ==
LOC: LAB 08:40
PROVIDERS: ATTEND Internal Medicine
DX: Z00.01 Encounter for general adult medical examination with abnormal findings (principal); I13.2 Hypertensive heart and chronic kidney disease with heart failure and with stage 5 chronic kidney disease, or end stage renal disease; N18.6 End stage renal disease; I70.0 Atherosclerosis of aorta; E78.5 Hyperlipidemia, unspecified
CPT/HCPCS: 36415; 80053; 80061; 81001; 82043; 82570; 83036; 84439; 84443; 85025

== ENCOUNTER → 2024-10-16 | Outpatient (CLI) | payer OTHER, MEDICAID | END | disposition home or self-care (01) | LOC: LAB 12:28 | PROVIDERS: ATTEND Internal Medicine | DX: R30.0 Dysuria (principal); R82.90 Unspecified abnormal findings in urine | CPT/HCPCS: 87086 ==

== ENCOUNTER 2024-10-20 08:49 | Inpatient (IN) | payer OTHER, MEDICAID ==
[~2024-10-20] VITALS: Ht 167.6 cm; Wt 94.5 kg
[~2024-10-20 08:49] MED LIST changes: +BENZ200C64 PO; +CARV6.2551 PO; +CIPR500T4 PO; +ERGO1CAP23 PO
--- NOTE | 2024-10-20 09:24 | ED.PDOC ---
SOB-HPI HPI Comments HPI: Poor Historian. HPI: 73-year-old female presents with a chief complaint of SOB x "a few weeks" worsening over the past few days. Patient is currently sating at 95% on room air in triage, and was placed on 2L via NC. Patient mentions that she has been feeling SOB "for a while now" and states that it is made worse when lying down and even at rest. Patient is on dialysis and last completed a session on 10/19/2024. Patient is currently on Cipro for a diagnosed urinary tract infection. Blood sugar in triage was 330. 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 EARS: Denies acute: tinnitus, hearing loss, ear discharge, ear pain, THROAT: Denies acute: sore throat, swelling, difficulty swallowing , pain with swallowing, change in voice. NECK: Denies acute: neck pain, neck swelling, stiff neck. HEART: Denies acute : chest pain, palpitations, LUNGS: Denies acute: wheezing, cough, hemoptysis ABDOMEN: Denies acute: abdominal pain, Nausea, Vomiting, diarrhea, melena , hematemesis, hematochezia SKIN: Denies acute: rash, redness, lesions, itchiness. EXTREMITIES: Denies acute: calf pain, numbness, tingling, weakness, denies pain in extremity. Denies acute: Low back pain. Neuro: Denies acute: focal neurological deficit, motor or sensory focal neurological deficit, tremors, seizure like activity, confusion, dizziness, change in mental status, loss of bowel or bladder function, cauda equina like symptoms. : Denies acute: dysuria, hematuria, flank pain, increase in urinary frequency. PSYCH: Denies acute: hallucination, suicidal ideation, homicidal ideation. FEMALE: Denies acute: abnormal vaginal bleeding, foul odor, unusual discharge. PHYSICAL EXAM: General: no acute distress, awake and alert. Head: normocephalic, atraumatic. Neck: supple, trachea is midline, no swelling. Throat: Normal phonation. Eyes:, no erythema, no purulent discharge, no proptosis, no icterus. Heart: regular rate, regular rhythm, no significant murmur appreciated. Lungs: no apparent respiratory distress, Able to speak in full sentences. No wheezing, no rhonchi, no crackles. No stridors Clear to auscultation bilaterally. Abdomen: non tender to palpation, non distended, soft, no guarding, no rebound, + bowel sounds. Obese Neuro: Awake, Alert, oriented to name, self, situation, follows commands GCS=15. Speech is normal. Skin: no petechia, no purpura, no cyanosis, non-pale, not jaundice. Lower extremities: --2/4 bilateral - Pitting edema no deformity, no focal swelling, no calf TTP. Makes eye contact. moves all four extremities. Face: no apparent facial droop. Ambulating in the ED independently. ED COURSE: Chief Complaint: Shortness of Breath Time Seen by MD: 09:11 Primary Care Provider: FELICIA Garcia notes: Medications, Allergies Information Source: Patient Mode of Arrival: Ambulatory Past Medical History PAST MEDICAL HISTORY: CHF, CKF, COPD, DM, ESRD, GERD, High Lipids, HTN, Kidney Stones, SD, Thyroid, UTI'S Surgical History: Appendectomy, CABG, Hysterectomy, PTCA SOURCE INSPECTOR History: No Pertinent SOURCE INSPECTOR History Family History Family History: Reviewed,noncontributory to illness, No family hx of Cancer, No family hx of Heart елена Social History Smoker: Cigarettes, Less Than 1 Pack/Day Alcohol: Denies ETOH Use Drugs: Denies Drug Use Lives In: Home EKG EKG : Pulse Rate (adult): 91 [place]: Normal Cardiac Rhythm: ST Block: None Hypertrophy: LAE, LVH ST: Normal Was a procedure done? Was a procedure done?: No Differential Dx Differential Diagnosis: Other (DDx include ACS, unstable angina, anxiety, PE, pneumothroax, neoplasm, cardiac ischemia, COPD, asthma, CHF, pleural effusion, tobacco abuse, pneumonia, hypoxia, hypercapnia, anemia., infection/sepsis., pulmonary edema. Asthma, Cardiac tamponade, infection.) X-Ray, Labs, Meds, VS Vital Signs Date Time Temp Pulse Resp B/P (MAP) Pulse Ox O2 Delivery O2 Flow Rate FiO2 10/20/24 13:00 97.7 82 15 158/57 (90) 94 97.7 10/20/24 12:00 81 20 149/68 (95) 93 10/20/24 11:00 78 12 144/58 (86) 96 10/20/24 10:40 67 13 159/41 (80) 97 10/20/24 10:10 92 31 176/89 (118) 95 10/20/24 09:37 166/92 10/20/24 09:35 97.7 87 15 166/92 (116) 98 97.7 10/20/24 09:32 82 20 186/60 (102) 99 10/20/24 09:32 82 20 99 Room Air* 0 21 10/20/24 09:24 91 10/20/24 09:05 98.2 80 20 150/63 (92) 95 10/20/24 09:05 20 95 Room Air 10/20/24 09:04 91 Lab Test 10/20/24 12:56 10/20/24 11:19 10/20/24 11:01 10/20/24 10:33 Range/Units Troponin I High Sensitivity 57 *H 50 *H </=34 ng/L Thyroid Stimulating Hormone (TSH) 2.82 0.55-4.78 uIU/mL POC Glucose 337 H 70-106 mg/dl Blood Gas Specimen Type Arterial Blood Gas Sample Site Right radial Blood Gas Patient Temperature 37.0 Arterial Blood Date Drawn [id number] Arterial Blood pH 7.466 H 7.350-7.450 Arterial Blood Partial Pressure CO2 40.1 32.0-45.0 mmHg Arterial Blood Partial Pressure O2 108.3 H 83.0-108.0 mmHg Arterial Blood HCO3 28.3 H 21.0-28.0 mmol/L Arterial Blood Oxygen Saturation 97.9 94.0-98.0 % Arterial Blood Base Excess 4.3 H -2.0-3.0 mmol/L Arterial Blood Oxyhemoglobin 95.8 94.0-98.0 % Arterial Blood Carboxyhemoglobin 1.6 H 0.5-1.5 % Arterial Blood Methemoglobin 0.5 0.0-1.5 % Jaret Test Yes Blood Gas Total Hemoglobin 12.10 12.0-16.0 g/dL Blood Gas Modality Room air FiO2 % 21.0 Test 10/20/24 10:02 10/20/24 09:36 10/20/24 09:01 Range/Units Urine Color Light-yellow Yellow Urine Clarity Hazy H Clear Urine pH 7.5 5.0-9.0 Urine Specific [place] 1.015 1.001-1.035 Urine Protein 3+ H Negative Urine Ketones Negative Negative Urine Blood Trace H Negative /uL Urine Nitrite Negative Negative Urine Bilirubin Negative Negative Urine Urobilinogen Normal Negative mg/dL Urine Leukocyte Esterase Negative Negative /uL Urine RBC 2 0 - 4 /hpf Urine Microscopic WBC 3 0-5 /HPF Urine Squamous Epithelial Cells Mod <5 /hpf Urine Bacteria Few H None Seen /hpf Urine Glucose 4+ H Normal mg/dL White Blood Count 7.2 4.4-10.8 10^3/uL Red Blood Count 3.84 L 4.0-5.20 10^6/uL Hemoglobin 12.0 L 12.2-16.2 g/dL Hematocrit 35.2 L 36.0-46.0 % Mean Corpuscular Volume 91.8 80.0-100.0 fL Mean Corpuscular Hemoglobin 31.2 28.0-32.0 pg Mean Corpuscular Hemoglobin Concent 34.0 32.0-36.0 g/dL Red Cell Distribution Width 16.1 H 11.8-14.3 % Platelet Count 241 140-450 10^3/uL Mean Platelet Volume 8.6 6.9-10.8 fL Neutrophils (%) (Auto) 77.3 37.0-80.0 % Lymphocytes (%) (Auto) 16.2 10.0-50.0 % Monocytes (%) (Auto) 4.8 0.0-12.0 % Eosinophils (%) (Auto) 0.8 0.0-7.0 % Basophils (%) (Auto) 0.9 0.0-2.0 % Neutrophils # (Auto) 5.6 1.6-8.6 10 ^3/uL Lymphocytes # (Auto) 1.2 0.4-5.4 10 ^3/uL Monocytes # (Auto) 0.3 0-1.3 10 ^3/uL Eosinophils # (Auto) 0.1 0-0.8 10 ^3/uL Basophils # (Auto) 0.1 0-0.2 10 ^3/uL Nucleated Red Blood Cells 0.1 % Sodium Level 141 136-145 mmol/L Potassium Level 3.3 L 3.5-5.1 mmol/L Chloride Level 104 98-107 mmol/L Carbon Dioxide Level 27 20-31 mmol/L Anion Gap 10 5-15 Blood Urea Nitrogen 25 H 9-23 mg/dL Creatinine 3.51 H 0.550-1.02 mg/dL Glomerular Filtration Rate Calc 13 >90 mL/min BUN/Creatinine Ratio 7.1 L 10.0-20.0 Serum Glucose 368 H 74-106 mg/dL Lactic Acid Level 1.6 0.4-2.0 mmol/L Calcium Level 9.5 8.7-10.4 mg/dL Total Bilirubin 0.4 0.2-1.0 mg/dL Aspartate Amino Transferase (AST) 16 13-40 U/L Alanine Aminotransferase (ALT) 23 7-40 U/L Alkaline Phosphatase 120 H 46-116 U/L Troponin I High Sensitivity 49 *H </=34 ng/L B-Type Natriuretic Peptide 283.86 0-100 pg/mL Total Protein 6.3 5.7-8.2 g/dL Albumin 4.2 3.2-4.8 g/dL POC Glucose 330 H 70-106 mg/dl Current Medications Medications (Trade) Dose Ordered Sig/Ezequiel Route Start Time Stop Time Status Last Admin Furosemide (Lasix Injection) 40 mg ONCE ONCE IV 10/20/24 09:30 10/20/24 09:31 DC 10/20/24 09:[address] [address] Ph: [phone] DIAGNOSTIC IMAGING Diagnostic Imaging Report : [id number] Signed PATIENT: VINCENT PASTOR ACCT: [id number] UNIT: [id number] : 1950 LOC: ER ROOM / BED: / AGE / SEX: 73 / F ADM STATUS: REG ER SERVICE 2 ORDERING PHYSICIAN: BETTY BROOKS DO PROCEDURE(s): CXRP - CHEST PORTABLE REASON: SOB ORDER NUMBER(s): [id number], ACCESSION NUMBER(s): [id number] CHEST RADIOGRAPH Indication: SOB Technique: Single frontal view of the chest was obtained COMPARISON: XY CHEST XRAY 1 VIEW on DOS: 07/27/24, XY CHEST PORTABLE on DOS: 07/26/24, XY CHEST PORTABLE on DOS: 07/16/24, XY CHEST XRAY 1 VIEW on DOS: 06/29/24, XY CHEST PORTABLE on DOS: 03/15/24 FINDINGS: Lines and Tubes: Tunneled right central venous catheter in satisfactory position. Median sternotomy. Lungs: Clear Pleura: No effusion. No pneumothorax. Cardiomediastinal contours: Unremarkable Bones: Unremarkable IMPRESSION: No acute disease. ATED BY: LONNY CASTELLANO MD DICTATED DATE/TIME: 10/20/24 1004 SIGNED BY: LONNY CASTELLANO MD SIGNED DATE/TIME: 10/20/24 1004 Images Reviewed?: Images reviewed and evaluated by me Time of 1ST Reevaluation: 09:11 Reevaluation 1ST: Unchanged Patient Education/Counseling: Diagnosis, Treatment Family Education/Counseling: Diagnosis, Treatment Comments Patient presented with the above HPI.---respiratory---workup was initiated. patient was found with the above mentioned diagnosis. the following medications were ordered: please refer to order lists of meds and tests obtained by myself Dr. Brooks. Patient ED course and VS have been stabilized. Patient has been reassessed in the ED and remained in a stable condition. Pertinent incidental findings were discussed with the patient and/or family. Patient/family voices understanding and is agreeable with plan. Patient has been observed in the ED adequate length of time to insure improvement/stability. Escalation of care considered: Consideration of escalation to observation or admission Patient was ADMITTED to the medicine team for further evaluation and treatment of their presentation. All the reports of any imaging studies that were ordered by myself were reviewed by myself. Departure 1 Departure Time of Disposition: 12:03 Impression: Primary Impression: Elevated troponin Additional Impressions: Shortness of breath at rest Constipation Disposition: ADMITTED INPATIENT [facility]mit to: [facility] Condition: Guarded Discharged With: Self Critical Care Note Critical Care Time?: Yes (45 min-critical care time only) Heart Score Heart Score: Heart Score Response (Comments) Value History Moderate Suspicious [address]-Deviation 2 Age >65 2 Risk Factors >3 or Hx ASHD 2 Troponin 1-2 x's Normal limit 1 Total 8 I personally scribed for BETTY BROOKS DO ([email or web address]) on 10/20/24 at 09:24. Electronically submitted by Eladio Acuna ([email or web address]). I personally scribed for BETTY BROOKS DO ([email or web address]) on 10/20/24 at 11:30. Electronically submitted by Eladio Acuna ([email or web address]). BETTY BROOKS DO Oct 20, 2024 09:24
[2024-10-20 09:32] VITALS: PULSE 82; RESP 20; O2SAT 99
[2024-10-20] MEDS: FUROSEMIDE 40 MG/4 ML VIAL IV ONE (09:37)
[2024-10-20 09:57] LABS: Basophils # (auto) 0.1 10 ^3/uL (0-0.2); Basophils % (auto) 0.9 % (0.0-2.0); Eosinophils # (auto) 0.1 10 ^3/uL (0-0.8); Eosinophils % (auto) 0.8 % (0.0-7.0); Hematocrit 35.2 % (36.0-46.0); Lymphocytes # (auto) 1.2 10 ^3/uL (0.4-5.4); Lymphocytes % (auto) 16.2 % (10.0-50.0); Mean Corpuscular Hemoglobin 31.2 pg (28.0-32.0); Mean Corpuscular Volume 91.8 fL (80.0-100.0); Monocytes # (auto) 0.3 10 ^3/uL (0-1.3); Monocytes % (auto) 4.8 % (0.0-12.0); Neutrophils # (auto) 5.6 10 ^3/uL (1.6-8.6); Neutrophils % (auto) 77.3 % (37.0-80.0); Nucleated Red Blood Cells % 0.1 %; Platelet Count (auto) 241 10^3/uL (140-450); Red Blood Cells 3.84 10^6/uL (4.0-5.20); Red Cell Distribution Width 16.1 % (11.8-14.3); White Blood Cell 7.2 10^3/uL (4.4-10.8)
--- NOTE | 2024-10-20 10:09 | DVH ---
CHEST RADIOGRAPH Indication: SOB Technique: Single frontal view of the chest was obtained COMPARISON: XY CHEST XRAY 1 VIEW on DOS: 07/27/24, XY CHEST PORTABLE on DOS: 07/26/24, XY CHEST ILDEFONSO BLE on DOS: 07/16/24, XY CHEST XRAY 1 VIEW on DOS: 06/29/24, XY CHEST PORTABLE on DOS: 03/15/24 FINDINGS: Lines and Tubes: Tunneled right central venous catheter in satisfactory position. Median sternotomy. Lungs: Clear Pleura: No effusion. No pneumothorax. Cardiomediastinal contours: Unremarkable Bones: Unremarkable IMPRESSION: No acute disease.
[2024-10-20 10:13] LABS: Urine Bacteria FEW /hpf (None Seen); Urine Blood TRACE /uL (Negative); Urine Color Light-Yellow (Yellow); Urine Protein, UAD 3+ (Negative); Urine Specific Gravity 1.015 (1.001-1.035); Urine Squamous Epithelial Cell MOD /hpf (<5); Urine Urobilinogen Normal (Negative); Urine WBC 3 /HPF (0-5); Urine pH 7.5 (5.0-9.0)
[2024-10-20 10:16] LABS: Alanine Aminotransferase 23 U/L (7-40); Albumin 4.2 g/dL (3.2-4.8); Anion Gap 10 (5-15); Aspartate Aminotransferase 16 U/L (13-40); BUN/Creatinine Ratio 7.1 (10.0-20.0); Bilirubin, Total 0.4 mg/dL (0.2-1.0); Calcium 9.5 mg/dL (8.7-10.4); Carbon Dioxide 27 mmol/L (20-31); Chloride 104 mmol/L (98-107); Sodium 141 mmol/L (136-145); Total Protein 6.3 g/dL (5.7-8.2)
[2024-10-20 10:19] LABS: Urine Clarity Hazy (Clear)
[2024-10-20 10:20] LABS: Alkaline Phosphatase 120 U/L (46-116); Blood Urea Nitrogen 25 mg/dL (9-23); Glucose 368 mg/dL (74-106); Potassium 3.3 mmol/L (3.5-5.1)
[2024-10-20 11:11] LABS: Base Excess 4.3 mmol/L (-2.0-3.0)
[2024-10-20] MEDS ORDERED: NITROGLYCERIN 0.4 MG SL TAB SL PRN (14:30)
--- NOTE | 2024-10-20 14:30 | DVH ---
EXAM: CT Abdomen and Pelvis Without Intravenous Contrast CLINICAL INDICATION: ABDOMINAL PAIN TECHNIQUE: Axial computed tomography images of the abdomen and pelvis without intravenous contrast. This CT exam was performed using one or more of the following dose reduction techniques: automated exposure control, adjustment of the mA and/or kV according to patient size, and/or use of iterative r econstruction technique. CONTRAST: RADIATION DOSE: CTDIvol = 20.76 mGy, DLP = 1028.58 mGy-cm COMPARISON: CT CT AB PEL WO CON-NO ORAL OR IV on DOS: 03/02/24, CT CT AB PEL WO CON-NO ORAL OR IV on DOS: 01/31/24 FINDINGS: LUNG BASES: Unremarkable. No mass. No consolidation. ABDOMEN: LIVER: Mild hepatomegaly. GALLBLADDER AND BILE DUCTS: Unremarkable. No calcified stones. No ductal dilation. PANCREAS: Unremarkable. No ductal dilation. SPLEEN: Unremarkable. No splenomegaly. ADRENALS: Unremarkable. No mass. KIDNEYS AND URETERS: Bilateral renal pelvic calculi, largest measuring up to 3 mm without obstructi on. Left renal cysts. STOMACH AND BOWEL: Fecal retention in the colon consistent with constipation. Colonic diverticulos is without acute diverticulitis. No obstruction. PELVIS: APPENDIX: No findings to suggest acute appendicitis. BLADDER: Unremarkable. No stones. REPRODUCTIVE: Unremarkable as visualized. ABDOMEN and PELVIS: INTRAPERITONEAL SPACE: Unremarkable. No free air. No significant fluid collection. BONES/JOINTS: No acute fracture. No dislocation. SOFT TISSUES: Unremarkable. VASCULATURE: Scattered calcified atherosclerotic disease of aorta. No abdominal aortic aneurysm. LYMPH NODES: Unremarkable. No enlarged lymph nodes. OTHER FINDINGS: . . IMPRESSION: 1. Bilateral renal pelvic calculi, largest measuring up to 3 mm without obstruction. 2. Fecal retention in the colon consistent with constipation. 3. Colonic diverticulosis without acute diverticulitis.
[2024-10-20 15:42] VITALS: PULSE 75; RESP 18; O2SAT 96
--- NOTE | 2024-10-20 16:02 | DVHHP2 ---
History of Present Illness Reason for Visit: Shortness of breaths History of Present Illness 73-year-old lady brought to the emergency room because of shortness of breath going on and off for few weeks worse in the last few days with PND like symptoms. She was treated recently for UTI. She has no nausea or vomit or diarrhea. No fever no chills. Some chest pressure with shortness of breath especially after laying down. No nocturia. She does have diabetes and apparently her sugar has been running on the higher side lately Past Medical History Diabetes Hypertension Dyslipidemia Coronary artery disease End-stage renal disease on hemodialysis GERD CT Hypothyroidism Obesity Past Surgical History CABG Coronary stents placement x7 Hysterectomy Appendectomy Partial nephrectomy on the right Family History Not significant at this stage Past Social History She still smokes around two cigarettes a day. No alcohol Review of Systems Review of Systems No fever chills nausea vomiting diarrhea. Right abdominal pain started last night. No bleeding. No open skin wounds. No double vision. No focal weakness. The above-mentioned shortness of breath. Allergies: Coded Allergies: Codeine (Verified Allergy, Unknown, 08/28/24) Morphine (Verified Allergy, Unknown, 08/28/24) Nitrofurantoin (Verified Allergy, Unknown, 08/28/24) Medications Current Medications Medications Dose Ordered Sig/Ezequiel Route Start Time Stop Time Status Last Admin Dose Admin Nitroglycerin 0.4 mg Q5MINP PRN SL 10/20/24 14:30 Exam Vital Signs Vital Signs Date Time Temp Pulse Resp B/P (MAP) Pulse Ox O2 Delivery O2 Flow Rate FiO2 10/20/24 13:00 97.7 82 15 158/57 (90) 94 97.7 10/20/24 09:32 Room Air* 0 21 Exam Awake alert oriented no acute distress Pupils equally round and reactive to light and accommodation/small size Neck supple Lungs few crackles smith basilar area Heart is regular rate and rhythm Abdomen benign soft some tenderness in the right abdominal area Bilateral lower extremity edema 1+ on the right. Left lower extremity larger than the the right for more than 50 years due to some injury/infection involving the lymph nodes as well Neuro exam is nonfocal with generalized weakness Labs/Xrays Labs Test 10/20/24 12:56 10/20/24 11:19 10/20/24 11:01 10/20/24 10:02 Range/Units Troponin I High Sensitivity 57 *H </=34 ng/L POC Glucose 337 H 70-106 mg/dl Blood Gas Specimen Type Arterial Blood Gas Sample Site Right radial Blood Gas Patient Temperature 37.0 Arterial Blood Date Drawn [id number] Arterial Blood pH 7.466 H 7.350-7.450 Arterial Blood Partial Pressure CO2 40.1 32.0-45.0 mmHg Arterial Blood Partial Pressure O2 108.3 H 83.0-108.0 mmHg Arterial Blood HCO3 28.3 H 21.0-28.0 mmol/L Arterial Blood Oxygen Saturation 97.9 94.0-98.0 % Arterial Blood Base Excess 4.3 H -2.0-3.0 mmol/L Arterial Blood Oxyhemoglobin 95.8 94.0-98.0 % Arterial Blood Carboxyhemoglobin 1.6 H 0.5-1.5 % Arterial Blood Methemoglobin 0.5 0.0-1.5 % Jaret Test Yes Blood Gas Total Hemoglobin 12.10 12.0-16.0 g/dL Blood Gas Modality Room air FiO2 % 21.0 Urine Color Light-yellow Yellow Urine Clarity Hazy H Clear Urine pH 7.5 5.0-9.0 Urine Specific [place] 1.015 1.001-1.035 Urine Protein 3+ H Negative Urine Ketones Negative Negative Urine Blood Trace H Negative /uL Urine Nitrite Negative Negative Urine Bilirubin Negative Negative Urine Urobilinogen Normal Negative mg/dL Urine Leukocyte Esterase Negative Negative /uL Urine RBC 2 0 - 4 /hpf Urine Microscopic WBC 3 0-5 /HPF Urine Squamous Epithelial Cells Mod <5 /hpf Urine Bacteria Few H None Seen /hpf Urine Glucose 4+ H Normal mg/dL Test 10/20/24 09:36 Range/Units White Blood Count 7.2 4.4-10.8 10^3/uL Red Blood Count 3.84 L 4.0-5.20 10^6/uL Hemoglobin 12.0 L 12.2-16.2 g/dL Hematocrit 35.2 L 36.0-46.0 % Mean Corpuscular Volume 91.8 80.0-100.0 fL Mean Corpuscular Hemoglobin 31.2 28.0-32.0 pg Mean Corpuscular Hemoglobin Concent 34.0 32.0-36.0 g/dL Red Cell Distribution Width 16.1 H 11.8-14.3 % Platelet Count 241 140-450 10^3/uL Mean Platelet Volume 8.6 6.9-10.8 fL Neutrophils (%) (Auto) 77.3 37.0-80.0 % Lymphocytes (%) (Auto) 16.2 10.0-50.0 % Monocytes (%) (Auto) 4.8 0.0-12.0 % Eosinophils (%) (Auto) 0.8 0.0-7.0 % Basophils (%) (Auto) 0.9 0.0-2.0 % Neutrophils # (Auto) 5.6 1.6-8.6 10 ^3/uL Lymphocytes # (Auto) 1.2 0.4-5.4 10 ^3/uL Monocytes # (Auto) 0.3 0-1.3 10 ^3/uL Eosinophils # (Auto) 0.1 0-0.8 10 ^3/uL Basophils # (Auto) 0.1 0-0.2 10 ^3/uL Nucleated Red Blood Cells 0.1 % Sodium Level 141 136-145 mmol/L Potassium Level 3.3 L 3.5-5.1 mmol/L Chloride Level 104 98-107 mmol/L Carbon Dioxide Level 27 20-31 mmol/L Anion Gap 10 5-15 Blood Urea Nitrogen 25 H 9-23 mg/dL Creatinine 3.51 H 0.550-1.02 mg/dL Glomerular Filtration Rate Calc 13 >90 mL/min BUN/Creatinine Ratio 7.1 L 10.0-20.0 Serum Glucose 368 H 74-106 mg/dL Lactic Acid Level 1.6 0.4-2.0 mmol/L Calcium Level 9.5 8.7-10.4 mg/dL Total Bilirubin 0.4 0.2-1.0 mg/dL Aspartate Amino Transferase (AST) 16 13-40 U/L Alanine Aminotransferase (ALT) 23 7-40 U/L Alkaline Phosphatase 120 H 46-116 U/L B-Type Natriuretic Peptide 283.86 0-100 pg/mL Total Protein 6.3 5.7-8.2 g/dL Albumin 4.2 3.2-4.8 g/dL Assessment/Plan Assessment/Plan Non-STEMI Shortness of breath likely secondary to above Right abdominal pain Bilateral nephrolithiasis could be causing the pain Fecal retention could also because of the pain Diverticulosis Diabetes Hypertension Coronary artery disease End-stage renal disease on hemodialysis GERD History of CT Hypothyroidism Plan: Admit to the telemetry floor. Troponin EKG. Cardiology consultation. Nephrology for dialysis. Urology for the for lithiasis. Further plan per orders Plan discussed with: Patient My Orders Orders - CHARLIE BABCOCK MD Procedure Category Date Status Time Admit ADMIT 10/20/24 Transmitted 14:22 Nitroglycerin PHA 10/20/24 In Process Sublingual (Ntrostat 14:30 Stat Ekg For Chest CHRIS 10/20/24 In Process Pain 14:22 Notify Md Of Changes [facility] 10/20/24 In Process From Base 14:22 Winding Rack Operator For [facility] 10/20/24 In Process 24 Hours 14:22 Emergency Dysrhythmia [facility] 10/20/24 In Process Protocol 14:22 Rhythm Strips Once [facility] 10/20/24 In Process Every Shift 14:22 Oxygen By Nasal RT 10/20/24 Transmitted Cannula 14:22 Date of Service: Oct 20, 2024 Billing Provider: CHARLIE BABCOCK MD Common Visit Codes: [id number] INP/OBS CARE (HIGH) CHARLIE BABCOCK MD Oct 20, 2024 16:02
[2024-10-20] MEDS ORDERED: DEXTROSE (50%) 50ML SYRG IV PRN (16:15)
[2024-10-20] MEDS: InsuLIN REG 1unit/0.01ml Soln (100units/ml) SC SCH (17:49)
[2024-10-20] MEDS: hydrALAZINE HCL 20 MG/ML VL IV PRN (19:06)
[2024-10-20 20:00] VITALS: PULSE 101; PULSE 86; RESP 17; O2SAT 96
[2024-10-20] MEDS ORDERED: traMADol HCL 50 MG TAB PO PRN (20:45)
[2024-10-20 21:00] VITALS: BP 156/90; PULSE 86; RESP 17; TEMP 98; O2SAT 96
[2024-10-20] MEDS: ATORVASTATIN 20 MG TAB PO SCH (21:06)
[2024-10-20] MEDS: ISOSORBIDE DINITRATE 10 MG TAB PO SCH (21:06)
[2024-10-20] MEDS: CARVEDILOL 12.5 MG TAB PO SCH (21:07)
[2024-10-20] MEDS: SODIUM CHLOR 0.9% PF (SALINE LOCK) 10ML VIAL/SYR IV SCH (21:08)
[2024-10-20] MEDS: ONDANSETRON HCL 4 MG/2 ML VIAL IV PRN (21:14)
[2024-10-20] MEDS: traMADol HCL 50 MG TAB PO PRN (21:28)
[2024-10-20] MEDS: INSULIN LANTUS (GLARGINE) 1 /0.01ml (100units/ml) SC SCH (21:49)
[2024-10-21] VITALS (9 sets, daily range): BP systolic 119–156; BP diastolic 51–78; PULSE 59–76; RESP 14–20; TEMP 97.4–98.6; O2SAT 94–97
--- NOTE | 2024-10-21 04:36 | ECG ---
[facility] Test Date: 2024-10-20 Test Time: 09:04:54 Pat Name: VINCENT PASTOR Department: ER Room: [facility]8T A Gender: F Fur Designer: ER : 1950 Requested By: BETTY BROOKS Order Number: [id number] Reading MD: Vijay Ruelas Measurements Intervals [place] Rate: 91 P: 32 AR: 159 QRS: 26 QRSD: 92 T: 215 QT: 395 QTc: 487 Interpretive Statements Sinus tachycardia Multiple premature complexes, vent & supraven Left atrial enlargement LVH with secondary repolarization abnormality Borderline prolonged QT interval Electronically Signed On 10-24-2024 16:42:24 PDT by Vijay Ruelsa Please click the below link to view image of tracing.
--- NOTE | 2024-10-21 05:53 | DVH ---
CHEST RADIOGRAPH Indication: CHF Technique: Single frontal view of the chest was obtained Comparison: XY CHEST PORTABLE on DOS: 10/20/24, XY CHEST XRAY 1 VIEW on DOS: 07/27/24, XY CHEST PORTABL E on DOS: 07/26/24 IMPRESSION: Heart appears stable in size. Right dialysis catheter tip in the region of the cavoatrial junction. No focal airspace opacity, sizeable effusion, or pneumothorax.
[2024-10-21 07:07] LABS: Albumin 3.3 g/dL (3.2-4.8); Alkaline Phosphatase 94 U/L (46-116); Anion Gap 10 (5-15); Aspartate Aminotransferase 36 U/L (13-40); Carbon Dioxide 23 mmol/L (20-31); Cholesterol 139 mg/dL (< 200); HDL Cholesterol 47 mg/dL (40-59); LDL Cholesterol 47 mg/dL (< 100); Sodium 143 mmol/L (136-145)
[2024-10-21 07:08] LABS: BUN/Creatinine Ratio 4.8 (10.0-20.0); Bilirubin, Total 0.3 mg/dL (0.2-1.0)
[2024-10-21 07:11] LABS: Alanine Aminotransferase 20 U/L (7-40); Blood Urea Nitrogen 19 mg/dL (9-23); Chloride 110 mmol/L (98-107); Glucose 152 mg/dL (74-106); Potassium 3.8 mmol/L (3.5-5.1); Total Protein 5.6 g/dL (5.7-8.2); Triglycerides 264 mg/dL (< 150)
[2024-10-21 08:49] LABS: Basophils # (auto) 0.1 10 ^3/uL (0-0.2); Eosinophils # (auto) 0.2 10 ^3/uL (0-0.8); Eosinophils % (auto) 2.3 % (0.0-7.0); Hematocrit 34.4 % (36.0-46.0); Hemoglobin 11.3 g/dL (12.2-16.2); Lymphocytes # (auto) 2.6 10 ^3/uL (0.4-5.4); Lymphocytes % (auto) 34.5 % (10.0-50.0); Mean Corpuscular Hemoglobin 30.3 pg (28.0-32.0); Mean Corpuscular Volume 91.7 fL (80.0-100.0); Monocytes # (auto) 0.5 10 ^3/uL (0-1.3); Monocytes % (auto) 6.4 % (0.0-12.0); Neutrophils # (auto) 4.2 10 ^3/uL (1.6-8.6); Neutrophils % (auto) 55.8 % (37.0-80.0); Nucleated Red Blood Cells % 0.1 %; Platelet Count (auto) 229 10^3/uL (140-450); Red Blood Cells 3.75 10^6/uL (4.0-5.20); White Blood Cell 7.6 10^3/uL (4.4-10.8)
--- NOTE | 2024-10-21 09:36 | DVHINCON2 ---
DONALDO MORENO [facility] 10/21/24 0936: Date Seen: Oct 21, 2024 Referring Physician MD Kar Reason for Consultation NSTEMI History of Present Illness This is a 73-year-old female patient who presents to the emergency room with chief complaint of worsening shortness of breath for three weeks. She denies any chest pain. She comes to the emergency room for further evaluation. Initial twelve lead electrocardiogram reveals sinus rhythm with ST segment changes to inferolateral leads with multiple PACs and PVCs. Initial troponin level of 49ng/L with flat trend thereafter. Significant past medical history includes severe coronary artery disease status post multiple PTCAs x7 GARY (on Brilinta and ASA) and triple bypass CABG (2013), myocardial infarction, congestive heart failure, hypertension, hyperlipidemia, presence of Micra leadless permanent pacemaker ([employer]), ESRD on hemodialysis, type 2 diabetes mellitus, thyroid disease, tobacco use, and obesity. The patient states that she follows group captain Dr. Ruelas in the outpatient setting. The patient recently underwent a Cardiolite stress test on 08/28/24 in which nuclear findings were positive for ischemia including a reversible defect in the anterior and anterolateral garcia and mostly fixed defect in the inferior and inferolateral garcia. The patient reports that has already scheduled her for a coronary angiogram on 10/31/24 as an outpatient. Past Medical History Past medical history reviewed. No other significant than mentioned above. Past Surgical History Triple-vessel CABG in 2013 Right partial nephrectomy Hysterectomy Family History: Acute respiratory distress syndrome G8 FATHER, Cardiomegaly 19 CHILD FH: esophageal cancer G8 BROTHER FH: respiratory disease G8 FATHER, FHx: breast cancer G8 MOTHER, FHx: kidney failure G8 MOTHER, Ischemic heart disease 19 CHILD Kidney stone Family History Family history reviewed. Social History Patient has a 40 pack-year history, currently smokes approximately three cigarettes per day Patient denies any alcohol use Patient denies any drug use Allergies: Coded Allergies: Codeine (Verified Allergy, Unknown, 08/28/24) Morphine (Verified Allergy, Unknown, 08/28/24) Nitrofurantoin (Verified Allergy, Unknown, 08/28/24) Home Meds Active Scripts Promethazine-Dm (Promethazine Dm 6.25-15 mg/5Ml) 1 Debra Debra, 5 ML PO TID, #160 ML Prov:FABI SERVIN 08/10/24 Levothyroxine Sodium (Synthroid) 25 Mcg Tab, 1 TAB PO DAILY, #30 TAB 5 Refills Prov:LÓPEZ DE MD 07/30/24 Ranolazine (Aspruzyo Sprinkle) 500 Mg Gra, 500 MG PO BID for 14 Days, #28 GM Prov:BRIAN BAKER MD 06/30/24 Bumetanide (Bumetanide) 2 Mg Tab, 1 TAB PO BID, #60 TAB 5 Refills Prov:REGINA CHRISTIAN MD 03/07/24 Ferrous Sulfate (Iron (Ferrous Sulfate)) 50 Mg Tab, 50 MG PO DAILY for 30 Days, #30 TAB Prov:BLANCA MARTINEZ RESIDENT 02/13/24 Acetaminophen (Acetaminophen) 325 Mg Tab, 650 MG PO Q6HP PRN for 30 Days, #240 TAB Prov:BLANCA MARTINEZ RESIDENT 02/13/24 Reported Medications Nitroglycerin (Nitrostat) 0.4 Mg Sub, MG SL UD for 25 Days, #25 07/26/24 Loratadine (CLARITIN TABLET) 10 Mg Tb, 1 TAB PO DAILY 07/16/24 Fluticasone-Salmeterol (Wixela Inhub 100-50 Mcg/Dose) 1 Aer Aer, 1 PUFF INH Q12HR 03/05/24 Atorvastatin Calcium (ATORVASTATIN CALCIUM) 80 Mg Tab, 1 TAB PO DAILY, #30 TAB 5 Refills 02/10/24 Diclofenac Sodium (Topical) (Voltaren Arthritis Pain) 1 % Gel, 1 % EX PRN PRN for PAIN SCALE 1 THRU 6, GEL 02/10/24 Insulin Glargine (Lantus Solostar) 100 Unit/Ml Inj, 8 UNIT SC HS, INJ 02/10/24 Albuterol Sulfate (Albuterol Sulfate Hfa) 108 Mcg/Act Aer, 2 PUFF INH Q6HR PRN for WHEEZING 12/27/23 Levothyroxine Sodium (Levothyroxine Sodium) 25 Mcg Tab, 1 TAB PO QAM 12/25/23 Sodium Bicarbonate (Sodium Bicarbonate) 650 Mg Tab, 2 TAB PO TID for 90 Days, #360 12/25/23 Isosorbide Mononitrate (Isosorbide Mononitrate ER) 60 Mg Tab, 1.5 TAB PO DAILY for 60 Days, #90 12/25/23 Hydralazine HCl (Hydralazine HCl) 25 Mg Tab, 1 TAB PO TID for 90 Days, #270 12/25/23 Ergocalciferol (Drisdol) 50,000 Unit Cap, 1 CAP PO QWEEKLY 07/21/23 Aspirin (Aspirin) 81 Mg Chw, 81 MG PO, TAB.CHEW 08/11/21 Ticagrelor Base (BRILINTA) 90 Mg Tab, 90 MG PO BID, TAB 08/11/21 Gabapentin (Gabapentin) 100 Mg Cap, 1 CAP PO BID 08/11/21 Ezetimibe (Zetia) 10 Mg Tab, 10 MG PO DAILY, TAB 08/11/21 Discontinued Reported Medications Carvedilol (Carvedilol) 12.5 Mg Tab, 1 TAB PO BID for 30 Days, #60 07/26/24 Metolazone (Metolazone) 10 Mg Tab, 2 TAB PO DAILY 07/16/24 Glipizide (Glipizide Xl) 10 Mg Tab, 1 TAB PO BID for 78 Days, #156 02/10/24 Sodium Zirconium Cyclosilicate (Lokelma) 5 Gm Darrel, 5 GM PO UD Take 5 grams 3 times weekly. 12/27/23 Home Meds Home medications reviewed. Current Medications Current Medications Medications (Trade) Dose Ordered Sig/Ezequiel Route PRN Reason Start Time Stop Time Status Last Admin Nitroglycerin (Ntrostat Sublingual) 0.4 mg Q5MINP PRN SL FOR CHEST PAIN 10/20/24 14:30 Enoxaparin Sodium (Lovenox) 30 mg DAILY SC 10/21/24 10:00 Enalapril Maleate (Vasotec Tablet) 2.5 mg DAILY PO 10/21/24 10:00 Furosemide (Lasix Injection) 40 mg DAILY IV 10/21/24 10:00 Sodium Chloride (Saline Lock Ns) 10 ml Q8HR IV 10/20/24 22:00 10/21/24 05:58 Aspirin 81 mg DAILY PO 10/21/24 10:00 Carvedilol (Coreg Tablet) 12.5 mg BID PO 10/20/24 22:00 10/20/24 21:07 Lactulose 30 ml DAILY PRN PO FOR CONSTIPATION 10/20/24 16:15 Isosorbide Dinitrate (Isordil Tablet) 5 mg TID PO 10/20/24 22:00 10/21/24 05:13 Atorvastatin Calcium (Lipitor) 80 mg HS PO 10/20/24 22:00 10/20/24 21:06 Insulin Human Regular (InsuLIN R) Q6HR SC 10/20/24 18:00 10/21/24 05:58 Dextrose 50 ml UD PRN IV Blood Sugar LESS THAN 60 10/20/24 16:15 Acetaminophen (Tylenol Tablet Or Capsule) 500 mg Q6HP PRN PO Temp >101 or Mild Pain 10/20/24 16:15 Ondansetron HCl (Zofran) 4 mg Q4HP PRN IV NAUSEA / VOMITING 10/20/24 16:15 10/20/24 21:14 Zolpidem Tartrate (Ambien) 5 mg QHSP PRN PO FOR INSOMNIA 10/20/24 16:15 Insulin Glargine (Lantus) 15 units HS SC 10/20/24 22:00 10/20/24 21:49 Hydralazine HCl (Apresoline Injection) 10 mg Q6HP PRN IV SBP>150 10/20/24 19:00 10/20/24 19:06 Tramadol HCl (Ultram) 50 mg [id number] PRN PO SEVERE PAIN (7-10 PAIN SCALE) 10/20/24 20:45 Cancel Tramadol HCl (Ultram) 50 mg Q6HP PRN PO SEVERE PAIN (7-10 PAIN SCALE) 10/20/24 21:00 10/20/24 21:28 Review of Systems Constitutional: No symptom reported Ears, Nose, & Throat: No symptom reported Eyes: No symptom reported Neurological: No symptoms reported Pulmonary/Respiratory: Shortness of breath Cardiovascular: No symptom reported Gastrointestinal: No symptom reported Genitourinary: No symptom reported Musculoskeletal: No symptom reported Skin: No symptom reported Psychiatric: No symptom reported Endocrine: No symptom reported Hematologic/Lymphatic: No symptom reported Vital Signs Vital Signs Date Time Temp Pulse Resp B/P (MAP) Pulse Ox O2 Delivery O2 Flow Rate FiO2 10/21/24 08:44 97.4 74 20 130/52 (78) 97 97.4 10/20/24 20:00 Room Air* 0 21 Physical Exam General Appearance: Cooperative. Morbidly obese Pulmonary/Respiratory: Clear, bilateral breaths sounds. Cardiovascular/Chest: Regular rate and rhythm. Systolic murmur Peripheral Pulses: 2+ Radial (R). 2+ Radial (L). 2+ Pedal (R). 2+ Pedal (L) Abdominal Exam: Normal bowel sounds. Ankle Exam: Negative ankle edema Lower extremities: Nonpitting edema to bilateral lower extremities (left leg bigger than right) Neuro/Mental Status: A/OX4, coherent. Thoughts/Psych: Normal thought pattern. Appropriate mood and affect. Good judgment and insight. Appearance: No acute distress. Skin Exam: Normal inspection. Normal color. Warm and dry. Labs/Diagnostic Data Labs Test 10/21/24 08:40 10/21/24 05:10 10/21/24 05:09 10/20/24 12:56 Range/Units White Blood Count 7.6 4.4-10.8 10^3/uL Red Blood Count 3.75 L 4.0-5.20 10^6/uL Hemoglobin 11.3 L 12.2-16.2 g/dL Hematocrit 34.4 L 36.0-46.0 % Mean Corpuscular Volume 91.7 80.0-100.0 fL Mean Corpuscular Hemoglobin 30.3 28.0-32.0 pg Mean Corpuscular Hemoglobin Concent 33.0 32.0-36.0 g/dL Red Cell Distribution Width 16.0 H 11.8-14.3 % Platelet Count 229 140-450 10^3/uL Mean Platelet Volume 8.4 6.9-10.8 fL Neutrophils (%) (Auto) 55.8 37.0-80.0 % Lymphocytes (%) (Auto) 34.5 10.0-50.0 % Monocytes (%) (Auto) 6.4 0.0-12.0 % Eosinophils (%) (Auto) 2.3 0.0-7.0 % Basophils (%) (Auto) 1.0 0.0-2.0 % Neutrophils # (Auto) 4.2 1.6-8.6 10 ^3/uL Lymphocytes # (Auto) 2.6 0.4-5.4 10 ^3/uL Monocytes # (Auto) 0.5 0-1.3 10 ^3/uL Eosinophils # (Auto) 0.2 0-0.8 10 ^3/uL Basophils # (Auto) 0.1 0-0.2 10 ^3/uL Nucleated Red Blood Cells 0.1 % B-Type Natriuretic Peptide 484.52 0-100 pg/mL Sodium Level 143 136-145 mmol/L Potassium Level 3.8 3.5-5.1 mmol/L Chloride Level 110 H 98-107 mmol/L Carbon Dioxide Level 23 20-31 mmol/L Anion Gap 10 5-15 Blood Urea Nitrogen 19 9-23 mg/dL Creatinine 3.99 H 0.550-1.02 mg/dL Glomerular Filtration Rate Calc 11 >90 mL/min BUN/Creatinine Ratio 4.8 L 10.0-20.0 Serum Glucose 152 H 74-106 mg/dL Calcium Level 9.0 8.7-10.4 mg/dL Total Bilirubin 0.3 0.2-1.0 mg/dL Aspartate Amino Transferase (AST) 36 13-40 U/L Alanine Aminotransferase (ALT) 20 7-40 U/L Alkaline Phosphatase 94 46-116 U/L Total Protein 5.6 L 5.7-8.2 g/dL Albumin 3.3 3.2-4.8 g/dL Triglycerides Level 264 H < 150 mg/dL Cholesterol Level 139 < 200 mg/dL LDL Cholesterol 47 < 100 mg/dL HDL Cholesterol 47 40-59 mg/dL POC Glucose 164 H 70-106 mg/dl Troponin I High Sensitivity 57 *H </=34 ng/L Thyroid Stimulating Hormone (TSH) 2.82 0.55-4.78 uIU/mL Test 10/20/24 11:01 10/20/24 10:02 10/20/24 09:36 Range/Units Blood Gas Specimen Type Arterial Blood Gas Sample Site Right radial Blood Gas Patient Temperature 37.0 Arterial Blood Date Drawn [id number] Arterial Blood pH 7.466 H 7.350-7.450 Arterial Blood Partial Pressure CO2 40.1 32.0-45.0 mmHg Arterial Blood Partial Pressure O2 108.3 H 83.0-108.0 mmHg Arterial Blood HCO3 28.3 H 21.0-28.0 mmol/L Arterial Blood Oxygen Saturation 97.9 94.0-98.0 % Arterial Blood Base Excess 4.3 H -2.0-3.0 mmol/L Arterial Blood Oxyhemoglobin 95.8 94.0-98.0 % Arterial Blood Carboxyhemoglobin 1.6 H 0.5-1.5 % Arterial Blood Methemoglobin 0.5 0.0-1.5 % Jaret Test Yes Blood Gas Total Hemoglobin 12.10 12.0-16.0 g/dL Blood Gas Modality Room air FiO2 % 21.0 Urine Color Light-yellow Yellow Urine Clarity Hazy H Clear Urine pH 7.5 5.0-9.0 Urine Specific [place] 1.015 1.001-1.035 Urine Protein 3+ H Negative Urine Ketones Negative Negative Urine Blood Trace H Negative /uL Urine Nitrite Negative Negative Urine Bilirubin Negative Negative Urine Urobilinogen Normal Negative mg/dL Urine Leukocyte Esterase Negative Negative /uL Urine RBC 2 0 - 4 /hpf Urine Microscopic WBC 3 0-5 /HPF Urine Squamous Epithelial Cells Mod <5 /hpf Urine Bacteria Few H None Seen /hpf Urine Glucose 4+ H Normal mg/dL Lactic Acid Level 1.6 0.4-2.0 mmol/L Assessment NSTEMI, rule out progressive coronary artery disease Severe coronary artery disease status post multiple PTCAs x7 GARY and triple vessel bypass CABG (on Brilinta and Aspirin) Hypertensive urgency Acute on chronic HFpEF, NYHA class III History of myocardial infarction Presence of Micra leadless permanent pacemaker ([employer]) Moderate aortic valve stenosis Tricuspid valve regurgitation, moderate degree Dyslipidemia End-stage renal disease on hemodialysis Type 2 diabetes mellitus Thyroid disease Tobacco use Morbid obesity Plan/Recommendation We will continue with the following plan/recommendations (Dr. Arauz): Previous transthoracic echocardiogram from 06/30/2024 reveals EF 55% with moderate aortic stenosis with a aortic valve area of 1.27 cm2, a mean gradient 21 mmHg and a peak gradient of 37 mmHg. Patient chart reviewed with MD including troponin level, twelve lead electrocardiogram, and previous echocardiogram. It was found that the patient recently underwent a Cardiolite stress test on 08/28/24 in which nuclear findings were positive for ischemia including a reversible defect in the anterior and anterolateral garcia and mostly fixed defect in the inferior and inferolateral garcia. The patient reports that has already scheduled her for a coronary angiogram on 10/31/24 as an outpatient. We will reach out to the patient's primary group captain, , and inquire if MD will take the patient to manufacturing laborer during this admission or if he would like to proceed with outpatient angiogram. In the meantime, continue with medical management. Continue dual antiplatelet therapy, aggressive blood pressure control, beta-juan manuel, and lipid-lowering agent. Continue with close cardiac surveillance and monitor for any ECG changes. Thank you for allowing us to care for this patient. Please call with any questions or concerns. Critical care time spent: 44 minutes This medical document was created using an electronic medical record system with voice recognition software and computerized dictation system. Although this document has been carefully reviewed, there might still be some phonetic and typographical errors. Occasional wrong-word or ``sound-alike substitutions may have occurred due to the inherent limitations of voice recognition software. These areas are purely typographical due to imperfections of the software programs and do not reflect any compromise in the patient's medical care. Brittani nguyen read the chart carefully and recognize, using context, where these substitutions have occurred. Plan discussed with: Patient NYHA Physical activity limitations: Class3(Marked) ordinary (activity causes symtoms) Date of Service: Oct 21, 2024 Billing Provider: DONALDO MORENO Cardiology Common Codes: 22789-CAFAIRU INP/OBS CARE (High) Cardiology Consultation Codes: 83873-[id number] CONSULT <45MIN KEVIN ARAUZ MD 10/22/24 0832: Family History: Acute respiratory distress syndrome G8 FATHER, Cardiomegaly 19 CHILD FH: esophageal cancer G8 BROTHER FH: respiratory disease G8 FATHER, FHx: breast cancer G8 MOTHER, FHx: kidney failure G8 MOTHER, Ischemic heart disease 19 CHILD Kidney stone Allergies: Coded Allergies: Codeine (Verified Allergy, Unknown, 08/28/24) Morphine (Verified Allergy, Unknown, 08/28/24) Nitrofurantoin (Verified Allergy, Unknown, 08/28/24) Home Meds Active Scripts Promethazine-Dm (Promethazine Dm 6.25-15 mg/5Ml) 1 Debra Debra, 5 ML PO TID, #160 ML Prov:FABI SERVIN 08/10/24 Levothyroxine Sodium (Synthroid) 25 Mcg Tab, 1 TAB PO DAILY, #30 TAB 5 Refills Prov:LÓPEZ DE MD 07/30/24 Ranolazine (Aspruzyo Sprinkle) 500 Mg Gra, 500 MG PO BID for 14 Days, #28 GM Prov:BRIAN BAKER MD 06/30/24 Bumetanide (Bumetanide) 2 Mg Tab, 1 TAB PO BID, #60 TAB 5 Refills Prov:REGINA CHRISTIAN MD 03/07/24 Ferrous Sulfate (Iron (Ferrous Sulfate)) 50 Mg Tab, 50 MG PO DAILY for 30 Days, #30 TAB Prov:BLANCA MARTINEZ RESIDENT 02/13/24 Acetaminophen (Acetaminophen) 325 Mg Tab, 650 MG PO Q6HP PRN for 30 Days, #240 TAB Prov:BLANCA MARTINEZ RESIDENT 02/13/24 Reported Medications Nitroglycerin (Nitrostat) 0.4 Mg Sub, MG SL UD for 25 Days, #25 07/26/24 Loratadine (CLARITIN TABLET) 10 Mg Tb, 1 TAB PO DAILY 07/16/24 Fluticasone-Salmeterol (Wixela Inhub 100-50 Mcg/Dose) 1 Aer Aer, 1 PUFF INH Q 12HR 03/05/24 Atorvastatin Calcium (ATORVASTATIN CALCIUM) 80 Mg Tab, 1 TAB PO DAILY, #30 TAB 5 Refills 02/10/24 Diclofenac Sodium (Topical) (Voltaren Arthritis Pain) 1 % Gel, 1 % EX PRN PRN for PAIN SCALE 1 THRU 6, GEL 02/10/24 Insulin Glargine (Lantus Solostar) 100 Unit/Ml Inj, 8 UNIT SC HS, INJ 02/10/24 Albuterol Sulfate (Albuterol Sulfate Hfa) 108 Mcg/Act Aer, 2 PUFF INH Q6HR PRN for WHEEZING 12/27/23 Levothyroxine Sodium (Levothyroxine Sodium) 25 Mcg Tab, 1 TAB PO QAM 12/25/23 Sodium Bicarbonate (Sodium Bicarbonate) 650 Mg Tab, 2 TAB PO TID for 90 Days, #360 12/25/23 Isosorbide Mononitrate (Isosorbide Mononitrate ER) 60 Mg Tab, 1.5 TAB PO DAILY for 60 Days, #90 12/25/23 Hydralazine HCl (Hydralazine HCl) 25 Mg Tab, 1 TAB PO TID for 90 Days, #270 12/25/23 Ergocalciferol (Drisdol) 50,000 Unit Cap, 1 CAP PO QWEEKLY 07/21/23 Aspirin (Aspirin) 81 Mg Chw, 81 MG PO, TAB.CHEW 08/11/21 Ticagrelor Base (BRILINTA) 90 Mg Tab, 90 MG PO BID, TAB 08/11/21 Gabapentin (Gabapentin) 100 Mg Cap, 1 CAP PO BID 08/11/21 Ezetimibe (Zetia) 10 Mg Tab, 10 MG PO DAILY, TAB 08/11/21 Discontinued Reported Medications Carvedilol (Carvedilol) 12.5 Mg Tab, 1 TAB PO BID for 30 Days, #60 07/26/24 Metolazone (Metolazone) 10 Mg Tab, 2 TAB PO DAILY 07/16/24 Glipizide (Glipizide Xl) 10 Mg Tab, 1 TAB PO BID for 78 Days, #156 02/10/24 Sodium Zirconium Cyclosilicate (Lokelma) 5 Gm Darrel, 5 GM PO UD Take 5 grams 3 times weekly. 12/27/23 Plan/Recommendation pt seen with MANAGER ORGANIZATIONAL and agree with management plan formulated together pt seen with Manager Of Photography [facility] RULED OUT had cath done 2022 patent grafts will get outpt cath with primary cards, will delineate time for procedure Plan discussed with: Patient DONALDO MORENO SHAE Oct 21, 2024 09:36 KEVIN ARAUZ MD Oct 22, 2024 08:32
[2024-10-21] MEDS: ENALAPRIL MALEATE 2.5 MG TAB PO SCH (09:58)
[2024-10-21] MEDS: ENOXAPARIN SOD 30 MG/0.3 ML SYRINGE SC SCH (10:00)
[2024-10-21] MEDS: ASPirin 81 mg TAB PO SCH (10:00)
[2024-10-21] MEDS: FUROSEMIDE 40 MG/4 ML VIAL IV SCH (10:01)
--- NOTE | 2024-10-21 14:53 | DVHINCON2 ---
Date of service: Oct 21, 2024 Reason for Consultation esrd History of Present Illness 73 years old female with past medical history of ESRD on dialysis, congestive heart failure, hypertension, coronary artery disease status post multiple stents and triple bypass, my, dyslipidemia, status post pacemaker, status post partial nephrectomy, hysterectomy diabetes, obesity, presented with chief complaints of shortness breath right quadrant abdominal pain and inability to sleep and feeling choked and having hot sweats for the past few weeks family member is also bedside Her last dialysis was on Tuesday she did not miss any dialysis treatment Past Medical History As per HPI Past Surgical History As per HPI Allergies: Coded Allergies: Codeine (Verified Allergy, Unknown, 08/28/24) Morphine (Verified Allergy, Unknown, 08/28/24) Nitrofurantoin (Verified Allergy, Unknown, 08/28/24) Home Meds Active Scripts Promethazine-Dm (Promethazine Dm 6.25-15 mg/5Ml) 1 Debra Debra, 5 ML PO TID, #160 ML Prov:FABI SERVIN 08/10/24 Levothyroxine Sodium (Synthroid) 25 Mcg Tab, 1 TAB PO DAILY, #30 TAB 5 Refills Prov:LÓPEZ DE MD 07/30/24 Ranolazine (Aspruzyo Sprinkle) 500 Mg Gra, 500 MG PO BID for 14 Days, #28 GM Prov:BRIAN BAKER MD 06/30/24 Bumetanide (Bumetanide) 2 Mg Tab, 1 TAB PO BID, #60 TAB 5 Refills Prov:REGINA CHRISTIAN MD 03/07/24 Ferrous Sulfate (Iron (Ferrous Sulfate)) 50 Mg Tab, 50 MG PO DAILY for 30 Days, #30 TAB Prov:BLANCA MARTINEZ 02/13/24 Acetaminophen (Acetaminophen) 325 Mg Tab, 650 MG PO Q6HP PRN for 30 Days, #240 TAB Prov:BLANCA MARTINEZ 02/13/24 Reported Medications Nitroglycerin (Nitrostat) 0.4 Mg Sub, MG SL UD for 25 Days, #25 07/26/24 Loratadine (CLARITIN TABLET) 10 Mg Tb, 1 TAB PO DAILY 07/16/24 Fluticasone-Salmeterol (Wixela Inhub 100-50 Mcg/Dose) 1 Aer Aer, 1 PUFF INH Q12H R 03/05/24 Atorvastatin Calcium (ATORVASTATIN CALCIUM) 80 Mg Tab, 1 TAB PO DAILY, #30 TAB 5 Refills 02/10/24 Diclofenac Sodium (Topical) (Voltaren Arthritis Pain) 1 % Gel, 1 % EX PRN PRN for PAIN SCALE 1 THRU 6, GEL 02/10/24 Insulin Glargine (Lantus Solostar) 100 Unit/Ml Inj, 8 UNIT SC HS, INJ 02/10/24 Albuterol Sulfate (Albuterol Sulfate Hfa) 108 Mcg/Act Aer, 2 PUFF INH Q6HR PRN for WHEEZING 12/27/23 Levothyroxine Sodium (Levothyroxine Sodium) 25 Mcg Tab, 1 TAB PO QAM 12/25/23 Sodium Bicarbonate (Sodium Bicarbonate) 650 Mg Tab, 2 TAB PO TID for 90 Days, #360 12/25/23 Isosorbide Mononitrate (Isosorbide Mononitrate ER) 60 Mg Tab, 1.5 TAB PO DAILY for 60 Days, #90 12/25/23 Hydralazine HCl (Hydralazine HCl) 25 Mg Tab, 1 TAB PO TID for 90 Days, #270 12/25/23 Ergocalciferol (Drisdol) 50,000 Unit Cap, 1 CAP PO QWEEKLY 07/21/23 Aspirin (Aspirin) 81 Mg Chw, 81 MG PO, TAB.CHEW 08/11/21 Ticagrelor Base (BRILINTA) 90 Mg Tab, 90 MG PO BID, TAB 08/11/21 Gabapentin (Gabapentin) 100 Mg Cap, 1 CAP PO BID 08/11/21 Ezetimibe (Zetia) 10 Mg Tab, 10 MG PO DAILY, TAB 08/11/21 Discontinued Reported Medications Carvedilol (Carvedilol) 12.5 Mg Tab, 1 TAB PO BID for 30 Days, #60 07/26/24 Metolazone (Metolazone) 10 Mg Tab, 2 TAB PO DAILY 07/16/24 Glipizide (Glipizide Xl) 10 Mg Tab, 1 TAB PO BID for 78 Days, #156 02/10/24 Sodium Zirconium Cyclosilicate (Lokelma) 5 Gm Darrel, 5 GM PO UD Take 5 grams 3 times weekly. 12/27/23 Current Medications Current Medications Medications (Trade) Dose Ordered Sig/Ezequiel Route PRN Reason Start Time Stop Time Status Last Admin Enoxaparin Sodium (Lovenox) 30 mg DAILY SC 10/21/24 10:00 10/21/24 10:00 Enalapril Maleate (Vasotec Tablet) 2.5 mg DAILY PO 10/21/24 10:00 10/21/24 11:42 DC 10/21/24 09:58 Furosemide (Lasix Injection) 40 mg DAILY IV 10/21/24 10:00 10/21/24 10:01 Sodium Chloride (Saline Lock Ns) 10 ml Q8HR IV 10/20/24 22:00 10/21/24 14:01 Aspirin 81 mg DAILY PO 10/21/24 10:00 10/21/24 10:00 Carvedilol (Coreg Tablet) 12.5 mg BID PO 10/20/24 22:00 10/21/24 09:57 Lactulose 30 ml DAILY PRN PO FOR CONSTIPATION 10/20/24 16:15 Isosorbide Dinitrate (Isordil Tablet) 5 mg TID PO 10/20/24 22:00 10/21/24 11:42 DC 10/21/24 05:13 Atorvastatin Calcium (Lipitor) 80 mg HS PO 10/20/24 22:00 10/20/24 21:06 Insulin Human Regular (InsuLIN R) Q6HR SC 10/20/24 18:00 10/21/24 12:09 Dextrose 50 ml UD PRN IV Blood Sugar LESS THAN 60 10/20/24 16:15 Acetaminophen (Tylenol Tablet Or Capsule) 500 mg Q6HP PRN PO Temp >101 or Mild Pain 10/20/24 16:15 Ondansetron HCl (Zofran) 4 mg Q4HP PRN IV NAUSEA / VOMITING 10/20/24 16:15 10/20/24 21:14 Zolpidem Tartrate (Ambien) 5 mg QHSP PRN PO FOR INSOMNIA 10/20/24 16:15 Insulin Glargine (Lantus) 15 units HS SC 10/20/24 22:00 10/20/24 21:49 Hydralazine HCl (Apresoline Injection) 10 mg Q6HP PRN IV SBP>150 10/20/24 19:00 10/21/24 11:49 DC 10/20/24 19:06 Tramadol HCl (Ultram) 50 mg [id number] PRN PO SEVERE PAIN (7-10 PAIN SCALE) 10/20/24 20:45 Cancel Tramadol HCl (Ultram) 50 mg Q6HP PRN PO SEVERE PAIN (7-10 PAIN SCALE) 10/20/24 21:00 10/21/24 09:58 EZETIMIBE (Zetia) 10 mg DAILY PO 10/22/24 10:00 Atorvastatin Calcium (Lipitor) 80 mg HS PO 10/21/24 22:00 10/21/24 11:50 DC Ticagrelor (Brilinta) 90 mg BID PO 10/21/24 22:00 Isosorbide Mononitrate (Imdur Er Tablet) 60 mg DAILY PO 10/22/24 10:00 Hydralazine HCl (Apresoline Tablet) 25 mg Q12HR PO 10/21/24 22:00 Family History: Acute respiratory distress syndrome G8 FATHER, Cardiomegaly 19 CHILD FH: esophageal cancer G8 BROTHER FH: respiratory disease G8 FATHER, FHx: breast cancer G8 MOTHER, FHx: kidney failure G8 MOTHER, Ischemic heart disease 19 CHILD Kidney stone Social History Denies any Review of Systems As per HPI H&P Exam Vital Signs/I&O Vital Sign Date Time Temp Pulse Resp B/P (MAP) Pulse Ox O2 Delivery O2 Flow Rate FiO2 10/21/24 12:54 98.6 65 20 127/60 (82) 96 98.6 10/21/24 08:00 Room Air* 0 21 Intake and Output 10/20/24 10/21/24 19:00 07:00 Intake Total 325 ml Output Total 0 ml Balance 325 ml Intake Oral 325 ml Output Urine Total 0 ml Stool Total 0 ml # Voids 1 Physical Exam General-not in any distress HEENT-normocephalic, no icterus, no pallor, neck supple Respiratory-fair air entry bilateral, no rhonchi, no wheeze [id number] heard, no murmurs appreciated Abdominal-soft, nontender, nondistended Musculoskeletal-positive pedal edema, no calf tenderness Genitourinary-deferred Neuro-awake alert oriented x3, Psychiatric-not agitated, cooperative, Labs/Diagnostic Data Labs/Diagnostic Data Laboratory Tests Test 10/21/24 12:00 10/21/24 08:40 10/21/24 05:10 10/21/24 05:09 Range/Units POC Glucose 265 H 164 H 70-106 mg/dl White Blood Count 7.6 4.4-10.8 10^3/uL Red Blood Count 3.75 L 4.0-5.20 10^6/uL Hemoglobin 11.3 L 12.2-16.2 g/dL Hematocrit 34.4 L 36.0-46.0 % Mean Corpuscular Volume 91.7 80.0-100.0 fL Mean Corpuscular Hemoglobin 30.3 28.0-32.0 pg Mean Corpuscular Hemoglobin Concent 33.0 32.0-36.0 g/dL Red Cell Distribution Width 16.0 H 11.8-14.3 % Platelet Count 229 140-450 10^3/uL Mean Platelet Volume 8.4 6.9-10.8 fL Neutrophils (%) (Auto) 55.8 37.0-80.0 % Lymphocytes (%) (Auto) 34.5 10.0-50.0 % Monocytes (%) (Auto) 6.4 0.0-12.0 % Eosinophils (%) (Auto) 2.3 0.0-7.0 % Basophils (%) (Auto) 1.0 0.0-2.0 % Neutrophils # (Auto) 4.2 1.6-8.6 10 ^3/uL Lymphocytes # (Auto) 2.6 0.4-5.4 10 ^3/uL Monocytes # (Auto) 0.5 0-1.3 10 ^3/uL Eosinophils # (Auto) 0.2 0-0.8 10 ^3/uL Basophils # (Auto) 0.1 0-0.2 10 ^3/uL Nucleated Red Blood Cells 0.1 % B-Type Natriuretic Peptide 484.52 0-100 pg/mL Sodium Level 143 136-145 mmol/L Potassium Level 3.8 3.5-5.1 mmol/L Chloride Level 110 H 98-107 mmol/L Carbon Dioxide Level 23 20-31 mmol/L Anion Gap 10 5-15 Blood Urea Nitrogen 19 9-23 mg/dL Creatinine 3.99 H 0.550-1.02 mg/dL Glomerular Filtration Rate Calc 11 >90 mL/min BUN/Creatinine Ratio 4.8 L 10.0-20.0 Serum Glucose 152 H 74-106 mg/dL Calcium Level 9.0 8.7-10.4 mg/dL Total Bilirubin 0.3 0.2-1.0 mg/dL Aspartate Amino Transferase (AST) 36 13-40 U/L Alanine Aminotransferase (ALT) 20 7-40 U/L Alkaline Phosphatase 94 46-116 U/L Total Protein 5.6 L 5.7-8.2 g/dL Albumin 3.3 3.2-4.8 g/dL Triglycerides Level 264 H < 150 mg/dL Cholesterol Level 139 < 200 mg/dL LDL Cholesterol 47 < 100 mg/dL HDL Cholesterol 47 40-59 mg/dL Test 10/20/24 23:29 10/20/24 21:37 10/20/24 16:02 10/20/24 12:56 Range/Units POC Glucose 216 H 219 H 250 H 70-106 mg/dl Troponin I High Sensitivity 57 *H </=34 ng/L Thyroid Stimulating Hormone (TSH) 2.82 0.55-4.78 uIU/mL Test 10/20/24 11:19 10/20/24 11:01 10/20/24 10:33 10/20/24 10:02 Range/Units POC Glucose 337 H 70-106 mg/dl Blood Gas Specimen Type Arterial Blood Gas Sample Site Right radial Blood Gas Patient Temperature 37.0 Arterial Blood Date Drawn [id number] Arterial Blood pH 7.466 H 7.350-7.450 Arterial Blood Partial Pressure CO2 40.1 32.0-45.0 mmHg Arterial Blood Partial Pressure O2 108.3 H 83.0-108.0 mmHg Arterial Blood HCO3 28.3 H 21.0-28.0 mmol/L Arterial Blood Oxygen Saturation 97.9 94.0-98.0 % Arterial Blood Base Excess 4.3 H -2.0-3.0 mmol/L Arterial Blood Oxyhemoglobin 95.8 94.0-98.0 % Arterial Blood Carboxyhemoglobin 1.6 H 0.5-1.5 % Arterial Blood Methemoglobin 0.5 0.0-1.5 % Jaret Test Yes Blood Gas Total Hemoglobin 12.10 12.0-16.0 g/dL Blood Gas Modality Room air FiO2 % 21.0 Troponin I High Sensitivity 50 *H </=34 ng/L Urine Color Light-yellow Yellow Urine Clarity Hazy H Clear Urine pH 7.5 5.0-9.0 Urine Specific [place] 1.015 1.001-1.035 Urine Protein 3+ H Negative Urine Ketones Negative Negative Urine Blood Trace H Negative /uL Urine Nitrite Negative Negative Urine Bilirubin Negative Negative Urine Urobilinogen Normal Negative mg/dL Urine Leukocyte Esterase Negative Negative /uL Urine RBC 2 0 - 4 /hpf Urine Microscopic WBC 3 0-5 /HPF Urine Squamous Epithelial Cells Mod <5 /hpf Urine Bacteria Few H None Seen /hpf Urine Glucose 4+ H Normal mg/dL Test 10/20/24 09:36 10/20/24 09:01 Range/Units White Blood Count 7.2 4.4-10.8 10^3/uL Red Blood Count 3.84 L 4.0-5.20 10^6/uL Hemoglobin 12.0 L 12.2-16.2 g/dL Hematocrit 35.2 L 36.0-46.0 % Mean Corpuscular Volume 91.8 80.0-100.0 fL Mean Corpuscular Hemoglobin 31.2 28.0-32.0 pg Mean Corpuscular Hemoglobin Concent 34.0 32.0-36.0 g/dL Red Cell Distribution Width 16.1 H 11.8-14.3 % Platelet Count 241 140-450 10^3/uL Mean Platelet Volume 8.6 6.9-10.8 fL Neutrophils (%) (Auto) 77.3 37.0-80.0 % Lymphocytes (%) (Auto) 16.2 10.0-50.0 % Monocytes (%) (Auto) 4.8 0.0-12.0 % Eosinophils (%) (Auto) 0.8 0.0-7.0 % Basophils (%) (Auto) 0.9 0.0-2.0 % Neutrophils # (Auto) 5.6 1.6-8.6 10 ^3/uL Lymphocytes # (Auto) 1.2 0.4-5.4 10 ^3/uL Monocytes # (Auto) 0.3 0-1.3 10 ^3/uL Eosinophils # (Auto) 0.1 0-0.8 10 ^3/uL Basophils # (Auto) 0.1 0-0.2 10 ^3/uL Nucleated Red Blood Cells 0.1 % Sodium Level 141 136-145 mmol/L Potassium Level 3.3 L 3.5-5.1 mmol/L Chloride Level 104 98-107 mmol/L Carbon Dioxide Level 27 20-31 mmol/L Anion Gap 10 5-15 Blood Urea Nitrogen 25 H 9-23 mg/dL Creatinine 3.51 H 0.550-1.02 mg/dL Glomerular Filtration Rate Calc 13 >90 mL/min BUN/Creatinine Ratio 7.1 L 10.0-20.0 Serum Glucose 368 H 74-106 mg/dL Lactic Acid Level 1.6 0.4-2.0 mmol/L Calcium Level 9.5 8.7-10.4 mg/dL Total Bilirubin 0.4 0.2-1.0 mg/dL Aspartate Amino Transferase (AST) 16 13-40 U/L Alanine Aminotransferase (ALT) 23 7-40 U/L Alkaline Phosphatase 120 H 46-116 U/L Troponin I High Sensitivity 49 *H </=34 ng/L B-Type Natriuretic Peptide 283.86 0-100 pg/mL Total Protein 6.3 5.7-8.2 g/dL Albumin 4.2 3.2-4.8 g/dL POC Glucose 330 H 70-106 mg/dl Assessment ESRD on dialysis via CVC Bilateral nephrolithiasis nonobstructing Hypertension Moderate aortic stenosis Severe coronary artery disease NSTEMI Recommendations We will arrange hemodialysis on Tuesday she has MWF schedule Plan for cardiac catheterization noted she had abnormal outpatient stress test blood cx We will follow closely Resume home medications Plan discussed with: Patient JOVANNY HERNANDES MD Oct 21, 2024 14:53
--- NOTE | 2024-10-21 15:03 | DVHPN2 ---
Subjective Feels somewhat better. Still some abdominal pain in the right side Reviewed: Care Plan, H&P, Labs, Medications, Previous Orders, Radiology, Other (Cardiology consult) Changes from previous H/P or p: No Changes Objective Vitals Vital Signs Date Time Temp Pulse Resp B/P (MAP) Pulse Ox O2 Delivery O2 Flow Rate FiO2 10/21/24 12:54 98.6 65 20 127/60 (82) 96 98.6 10/21/24 08:00 Room Air* 0 21 Intake/Output Intake and Output 10/21/24 07:00 Intake Total 325 ml Output Total 0 ml Balance 325 ml Intake Oral 325 ml Output Urine Total 0 ml Stool Total 0 ml # Voids 1 General Appearance: Alert, Oriented X3, Cooperative, No acute distress HEENT: Atraumatic Lungs: Other (Few crackles bilateral lungs) Cardiovascular: Regular rate, Other (Mild 2/6 systolic murmur aortic valve area) Abdomen: Soft Extremities: Other (Some bilateral lower extremity edema. Left lower extremity larger than the the right for more than 50 years due to some injury/infection involving the lymph nodes as well) Medications Current Medications Medications Dose Ordered Sig/Ezequiel Route Start Time Stop Time Status Last Admin Dose Admin Nitroglycerin 0.4 mg Q5MINP PRN SL 10/20/24 14:30 Enoxaparin Sodium 30 mg DAILY SC 10/21/24 10:00 10/21/24 10:00 30 MG Furosemide 40 mg DAILY IV 10/21/24 10:00 10/21/24 10:01 40 MG Sodium Chloride 10 ml Q8HR IV 10/20/24 22:00 10/21/24 14:01 10 ML Aspirin 81 mg DAILY PO 10/21/24 10:00 10/21/24 10:00 81 MG Carvedilol 12.5 mg BID PO 10/20/24 22:00 10/21/24 09:57 12.5 MG Lactulose 30 ml DAILY PRN PO 10/20/24 16:15 Atorvastatin Calcium 80 mg HS PO 10/20/24 22:00 10/20/24 21:06 80 MG Insulin Human Regular Q6HR SC 10/20/24 18:00 10/21/24 12:09 6 UNITS Dextrose 50 ml UD PRN IV 10/20/24 16:15 Acetaminophen 500 mg Q6HP PRN PO 10/20/24 16:15 Ondansetron HCl 4 mg Q4HP PRN IV 10/20/24 16:15 10/20/24 21:14 4 MG Zolpidem Tartrate 5 mg QHSP PRN PO 10/20/24 16:15 Insulin Glargine 15 units HS SC 10/20/24 22:00 10/20/24 21:49 15 UNITS Tramadol HCl 50 mg [id number] PRN PO 10/20/24 20:45 Cancel Tramadol HCl 50 mg Q6HP PRN PO 10/20/24 21:00 10/21/24 09:58 50 MG EZETIMIBE 10 mg DAILY PO 10/22/24 10:00 Ticagrelor 90 mg BID PO 10/21/24 22:00 Isosorbide Mononitrate 60 mg DAILY PO 10/22/24 10:00 Hydralazine HCl 25 mg Q12HR PO 10/21/24 22:00 Laboratory Results Laboratory Tests 10/21/24 05:10 10/21/24 08:40 Chemistry Test 10/21/24 05:10 Albumin 3.3 g/dL (3.2-4.8) Calcium Level 9.0 mg/dL (8.7-10.4) Total Protein 5.6 g/dL (5.7-8.2) L Lipid panel Test 10/21/24 05:10 Cholesterol Level 139 mg/dL (< 200) HDL Cholesterol 47 mg/dL (40-59) Triglycerides Level 264 mg/dL (< 150) H Cardiac Markers Test 10/21/24 08:40 B-Type Natriuretic Peptide 484.52 pg/mL (0-100) LFT Test 10/21/24 05:10 Alanine Aminotransferase (ALT) 20 U/L (7-40) Alkaline Phosphatase 94 U/L (46-116) Aspartate Amino Transferase (AST) 36 U/L (13-40) Total Bilirubin 0.3 mg/dL (0.2-1.0) Urinalysis Test 10/20/24 10:02 Urine Color Light-yellow (Yellow) Urine Clarity Hazy (Clear) H Urine pH 7.5 (5.0-9.0) Urine Specific [place] 1.015 (1.001-1.035) Urine Protein 3+ (Negative) H Urine Ketones Negative (Negative) Urine Blood Trace /uL (Negative) H Urine Nitrite Negative (Negative) Urine Bilirubin Negative (Negative) Urine Urobilinogen Normal mg/dL (Negative) Urine Leukocyte Esterase Negative /uL (Negative) Urine RBC 2 /hpf (0 - 4) Urine Microscopic WBC 3 /HPF (0-5) Urine Squamous Epithelial Cells Mod /hpf (<5) Urine Bacteria Few /hpf (None Seen) H Urine Glucose 4+ mg/dL (Normal) H Assessment/Plan Assessment/Plan Non-STEMI Shortness of breath likely secondary to above Right abdominal pain Bilateral nephrolithiasis could be causing the pain Fecal retention could also because of the pain Diverticulosis Diabetes Hypertension Coronary artery disease with history of stents x7 and triple CABG End-stage renal disease on hemodialysis GERD History of CO Moderate aortic stenosis Hypothyroidism History of Micra leadless permanent pacemaker Obesity Anemia/monitor Plan: Continue current plan of care. H&H. Proton pump inhibitors. Repeat labs. As per Cardiology. Plan discussed with: Patient My Orders Orders - CHARLIE BABCOCK MD Procedure Category Date Status Time Education - Smoking CHRIS 10/20/24 In Process Cessation 16:07 Furosemide Injection PHA 10/21/24 In Process (Lasix Injection) 10:00 Condition: Fair CHRIS 10/20/24 In Process 16:03 Bedside Commode CHRIS 10/20/24 In Process 16:03 Consistent DIET 10/20/24 Transmitted Carb(Ccho)Diabetes Dinner Sodium Chloride Lock PHA 10/20/24 In Process (Saline Lock Ns) 22:00 Aspirin Tablet PHA 10/21/24 In Process 10:00 Chest Portable XY 10/21/24 Resulted 05:00 Lactulose Oral PHA 10/20/24 In Process 16:15 *[facility] CONS 10/20/24 Transmitted -[place] 16:03 Atorvastatin (Lipitor) PHA 10/20/24 In Process 22:00 Insulin R (Human) PHA 10/20/24 In Process (Insulin R) 18:00 Dextrose 50% Syringe PHA 10/20/24 In Process 16:15 Document Home Meds ED NURSING 10/20/24 Transmitted Get List Of Home ORDERS 10/20/24 Transmitted Medications 16:03 Updated And Reviewed CHRIS 10/20/24 In Process Preferred 16:03 Acetaminophen Tab Or PHA 10/20/24 In Process Cap (Tylenol Tablet 16:15 Ondansetron Hcl PHA 10/20/24 In Process (Zofran) 16:15 Zolpidem Tartrate PHA 10/20/24 In Process (Ambien) 16:15 Insulin Lantus PHA 10/20/24 In Process (Glargine) (Lantus) 22:00 Carvedilol Tablet PHA 10/20/24 In Process (Coreg Tablet) 22:00 Enoxaparin Sodium PHA 10/21/24 In Process (Lovenox) 10:00 * Cardiology Consult CONS 10/20/24 Transmitted 18:39 * Urology Consult CONS 10/20/24 Transmitted 18:39 Date of Service: Oct 21, 2024 Billing Provider: CHARLIE BABCOCK MD Common Visit Codes: [id number] INP/OBS CARE(HIGH) CHARLIE BABCOCK MD Oct 21, 2024 15:03
[2024-10-21] MEDS: ZOLPIDEM TARTRATE 5 MG TAB PO PRN (21:54)
[2024-10-21] MEDS ORDERED: ATORVASTATIN 20 MG TAB PO SCH (22:00)
[2024-10-21] MEDS: hydrALAZINE HCL 25 MG TAB PO SCH (22:00)
[2024-10-21] MEDS: TICAGRELOR 90 MG TAB PO SCH (22:02)
[2024-10-22] VITALS (8 sets, daily range): BP systolic 114–154; BP diastolic 39–94; PULSE 60–70; RESP 15–20; TEMP 97.2–98.3; O2SAT 92–99
[2024-10-22 07:40] LABS: Calcium 8.9 mg/dL (8.7-10.4); Chloride 106 mmol/L (98-107); Potassium 3.8 mmol/L (3.5-5.1); Sodium 140 mmol/L (136-145)
[2024-10-22 07:41] LABS: Anion Gap 11 (5-15); Carbon Dioxide 23 mmol/L (20-31)
[2024-10-22 07:46] LABS: BUN/Creatinine Ratio 6.4 (10.0-20.0)
[2024-10-22 07:47] LABS: Blood Urea Nitrogen 31 mg/dL (9-23); Glucose 117 mg/dL (74-106)
--- NOTE | 2024-10-22 09:29 | DVHPN2 ---
Consult Progress Note Date Seen: Oct 22, 2024 Subjective Review of Systems: CVS:Normal, RESPIRATORY:Abnormal, NEURO:Normal Other Systems: Denies chest pain. C/o PND. HD at bedside Objective vital signs Vital Sign Date Time Temp Pulse Resp B/P (MAP) Pulse Ox O2 Delivery O2 Flow Rate FiO2 10/22/24 08:00 60 20 97 Nasal Cannula* 1 24 10/22/24 05:00 98.0 142/59 (86) 98.0 Total Intake and Output 10/21/24 10/21/24 10/22/24 15:00 23:00 07:00 Intake Total 750 ml 800 ml Balance 750 ml 800 ml medications Current Medications Medications Dose Ordered Sig/Ezequiel Route Start Time Stop Time Status Last Admin Dose Admin Nitroglycerin 0.4 mg Q5MINP PRN SL 10/20/24 14:30 Enoxaparin Sodium 30 mg DAILY SC 10/21/24 10:00 10/21/24 10:00 30 MG Furosemide 40 mg DAILY IV 10/21/24 10:00 10/21/24 10:01 40 MG Sodium Chloride 10 ml Q8HR IV 10/20/24 22:00 10/22/24 06:25 10 ML Aspirin 81 mg DAILY PO 10/21/24 10:00 10/21/24 10:00 81 MG Carvedilol 12.5 mg BID PO 10/20/24 22:00 10/21/24 21:53 12.5 MG Lactulose 30 ml DAILY PRN PO 10/20/24 16:15 Atorvastatin Calcium 80 mg HS PO 10/20/24 22:00 10/21/24 21:54 80 MG Insulin Human Regular Q6HR SC 10/20/24 18:00 10/21/24 23:18 3 UNITS Dextrose 50 ml UD PRN IV 10/20/24 16:15 Acetaminophen 500 mg Q6HP PRN PO 10/20/24 16:15 Ondansetron HCl 4 mg Q4HP PRN IV 10/20/24 16:15 10/20/24 21:14 4 MG Zolpidem Tartrate 5 mg QHSP PRN PO 10/20/24 16:15 10/21/24 21:54 5 MG Insulin Glargine 15 units HS SC 10/20/24 22:00 10/21/24 23:17 15 UNITS Tramadol HCl 50 mg [id number] PRN PO 10/20/24 20:45 Cancel Tramadol HCl 50 mg Q6HP PRN PO 10/20/24 21:00 10/21/24 23:20 50 MG EZETIMIBE 10 mg DAILY PO 10/22/24 10:00 Ticagrelor 90 mg BID PO 10/21/24 22:00 10/21/24 22:02 90 MG Isosorbide Mononitrate 60 mg DAILY PO 10/22/24 10:00 Hydralazine HCl 25 mg Q12HR PO 10/21/24 22:00 10/21/24 22:00 25 MG Examination: LUNGS:Normal, CVS:Normal, NEURO:Normal laboratory and microbiology Laboratory Tests 10/22/24 06:27 Test 10/22/24 06:27 Range/Units Serum Glucose 117 H 74-106 mg/dL Problem List/Assessment/Plan Problem List/Assessment/Plan NSTEMI with abnormal myocardial perfusion scan on 08/28/2024 Severe coronary artery disease status post multiple PTCAs x7 GARY and triple vessel bypass CABG (on Brilinta and Aspirin) Hypertensive urgency Acute on chronic HFpEF, NYHA class III History of myocardial infarction Presence of Micra leadless permanent pacemaker ([employer]) Moderate aortic valve stenosis Tricuspid valve regurgitation, moderate degree Dyslipidemia End-stage renal disease on hemodialysis Type 2 diabetes mellitus Thyroid disease Tobacco use Morbid obesity Plan/Recommendation (Dr. Ruelas) Previous transthoracic echocardiogram from 06/30/2024 reveals EF 55% with moderate aortic stenosis with a aortic valve area of 1.27 cm2, a mean gradient 21 mmHg and a peak gradient of 37 mmHg. Cardiolite stress test on 08/28/24 is p ositive for ischemia including a reversible defect in the anterior and anterolateral garcia and mostly fixed defect in the inferior and inferolateral garcia. Scheduled for a coronary angiogram on 10/31/24 as an outpatient. She will continue with invasive cardiac work-up on 10/24/24. Continue dual antiplatelet therapy, aggressive blood pressure control, beta-juan manuel, and lipid-lowering agent. Continue with close cardiac surveillance and monitor for any ECG changes. Thank you for allowing us to care for this patient. Please call with any questions or concerns. This medical document was created using an electronic medical record system with voice recognition software and computerized dictation system. Although this document has been carefully reviewed, there might still be some phonetic and typographical errors. Occasional wrong-word or ``sound-alike substitutions may have occurred due to the inherent limitations of voice recognition software. These areas are purely typographical due to imperfections of the software programs and do not reflect any compromise in the patient's medical care. Please read the chart carefully and recognize, using context, where these substitutions have occurred. Plan discussed with: Patient, Other Date of Service: Oct 22, 2024 Billing Provider: JANEL CRANDALL Cardiology Common Codes: [id number] HOSP CARE(High JANEL CRANDALL Oct 22, 2024 09:29
[2024-10-22] MEDS: EZETIMIBE 10 MG TAB PO SCH (10:00)
[2024-10-22] MEDS: ISOSORBIDE MONONITRATE ER 60 MG TAB PO SCH (10:00)
[2024-10-22] MEDS: SODIUM CHL 0.9% 1000 ML BAG XX ONE (10:16)
[2024-10-22 10:54] LABS: Basophils # (auto) 0.1 10 ^3/uL (0-0.2); Eosinophils # (auto) 0.2 10 ^3/uL (0-0.8); Eosinophils % (auto) 1.4 % (0.0-7.0); Hematocrit 41.1 % (36.0-46.0); Hemoglobin 13.5 g/dL (12.2-16.2); Lymphocytes # (auto) 2.6 10 ^3/uL (0.4-5.4); Lymphocytes % (auto) 23.3 % (10.0-50.0); Mean Corpuscular Hgb Conc. 32.8 g/dL (32.0-36.0); Mean Corpuscular Volume 91.4 fL (80.0-100.0); Monocytes # (auto) 0.6 10 ^3/uL (0-1.3); Monocytes % (auto) 5.2 % (0.0-12.0); Neutrophils # (auto) 7.8 10 ^3/uL (1.6-8.6); Neutrophils % (auto) 69.1 % (37.0-80.0); Nucleated Red Blood Cells % 0.2 %; Platelet Count (auto) 292 10^3/uL (140-450); Red Cell Distribution Width 16.3 % (11.8-14.3); White Blood Cell 11.3 10^3/uL (4.4-10.8)
--- NOTE | 2024-10-22 12:11 | DVHINCON2 ---
Date of service: Oct 22, 2024 Referring Physician Hospitalist Reason for Consultation bilateral kidney stones History of Present Illness History Source: Patient, RN Notes, MD Notes Exam Limitations: No limitations HPI 73-year-old lady brought to the emergency room because of shortness of breath going on and off for few weeks worse in the last few days with PND like s ymptoms. She was treated recently for UTI. She has long history of recurrent UTIs and kidney stones. She has had "25 ESWLs". Last ESWL 5 yrs ago. Couldnt tolerate Urocit K. Stones have been both calcium oxalate and uric acid over the years. As a teenager she had a partial nephrectomy for renal stone/abscess. No malignancy (at [facility]) She has no nausea or vomit or diarrhea. No fever no chills. Some chest pressure with shortness of breath especially after laying down. No nocturia. No hematuria but mentioned pink tinged discharge chronically. She does have diabetes and apparently her sugar has been running on the higher side lately Past Medical History Diabetes Hypertension Dyslipidemia Coronary artery disease End-stage renal disease on hemodialysis GERD DE Hypothyroidism Obesity Past Surgical History CABG Coronary stents placement x7 Hysterectomy Appendectomy Partial nephrectomy on the right Family History Not significant at this stage Past Social History She still smokes around two cigarettes a day. No alcohol Home Meds Active Scripts Ferrous Sulfate (Iron (Ferrous Sulfate)) 50 Mg Tab, 50 MG PO DAILY for 30 Days, #30 TAB Prov:BLANCA MARTINEZ RESIDENT 02/13/24 Acetaminophen (Acetaminophen) 325 Mg Tab, 650 MG PO Q6HP PRN for 30 Days, #240 TAB Prov:BLANCA MARTINEZ RESIDENT 02/13/24 Reported Medications Benzonatate (Benzonatate) 200 Mg Cap, 1 CAP PO TID PRN for COUGH for 30 Days, #90 10/22/24 Ciprofloxacin Hcl (Ciprofloxacin Hcl) 500 Mg Tab, 1 TAB PO Q12HR for 5 Days, #10 10/22/24 Ergocalciferol (VITAMIN D 30437 UNIT) 50,000 Unit Cp, 1 CAP PO QWEEKLY for 84 Days, #12 10/22/24 Carvedilol (Carvedilol) 6.25 Mg Tab, 1 TAB PO BID for 90 Days, #180 10/22/24 Gabapentin (Gabapentin) 100 Mg Cap, 2 CAP PO HS for 60 Days, #180 3//25 Bumetanide (Bumetanide) 2 Mg Tab, 1 TAB PO DAILY for 90 Days, #90 10/22/24 Loratadine (CLARITIN TABLET) 10 Mg Tb, 1 TAB PO DAILY 07/16/24 Fluticasone-Salmeterol (Wixela Inhub 100-50 Mcg/Dose) 1 Aer Aer, 1 PUFF INH Q12HR 03/05/24 Atorvastatin Calcium (ATORVASTATIN CALCIUM) 80 Mg Tab, 1 TAB PO DAILY for 90 Days, #90 02/10/24 Diclofenac Sodium (Topical) (Voltaren Arthritis Pain) 1 % Gel, 1 % EX PRN PRN for PAIN SCALE 1 THRU 6, GEL 02/10/24 Insulin Glargine (Lantus Solostar) 100 Unit/Ml Inj, 8 UNIT SC HS, INJ 02/10/24 Albuterol Sulfate (Albuterol Sulfate Hfa) 108 Mcg/Act Aer, 2 PUFF INH Q6HR PRN for WHEEZING 12/27/23 Levothyroxine Sodium (Levothyroxine Sodium) 25 Mcg Tab, 1 TAB PO QAM for 90 Days, #90 12/25/23 Sodium Bicarbonate (Sodium Bicarbonate) 650 Mg Tab, 2 TAB PO BID for 90 Days, #360 12/25/23 Isosorbide Mononitrate (Isosorbide Mononitrate ER) 60 Mg Tab, 1.5 TAB PO DAILY for 90 Days, #135 12/25/23 Hydralazine HCl (Hydralazine HCl) 25 Mg Tab, 1 TAB PO TID for 90 Days, #270 12/25/23 Aspirin (Aspirin) 81 Mg Chw, 81 MG PO, TAB.CHEW 08/11/21 Ticagrelor Base (BRILINTA) 90 Mg Tab, 90 MG PO BID, TAB 08/11/21 Gabapentin (Gabapentin) 100 Mg Cap, 1 CAP PO QAM for 60 Days, #180 08/11/21 Ezetimibe (Zetia) 10 Mg Tab, 1 TAB PO DAILY for 90 Days, #90 08/11/21 Discontinued Reported Medications Carvedilol (Carvedilol) 12.5 Mg Tab, 1 TAB PO BID for 30 Days, #60 07/26/24 Metolazone (Metolazone) 10 Mg Tab, 2 TAB PO DAILY 07/16/24 Glipizide (Glipizide Xl) 10 Mg Tab, 1 TAB PO BID for 78 Days, #156 02/10/24 Sodium Zirconium Cyclosilicate (Lokelma) 5 Gm Darrel, 5 GM PO UD Take 5 grams 3 times weekly. 12/27/23 Past Medical History Patient Family History: Acute respiratory distress syndrome G8 FATHER, Cardiomegaly 19 CHILD FH: esophageal cancer G8 BROTHER FH: respiratory disease G8 FATHER, FHx: breast cancer G8 MOTHER, FHx: kidney failure G8 MOTHER, Ischemic heart disease 19 CHILD Kidney stone Smoker: Positive Review of Systems Constitutional: No symptom reported Ears, Nose, & Throat: No symptom reported Eyes: No symptom reported Pulmonary/Respiratory: No symptom reported Cardiovascular: No symptom reported Gastrointestinal: No symptom reported Genitourinary: No symptom reported Musculoskeletal: No symptom reported Skin: No symptom reported Psychiatric: No symptom reported Endocrine: No symptom reported Hemotologic/Lymphatic: No symptom reported H&P Exam Vital Signs Vital Signs Date Time Temp Pulse Resp B/P (MAP) Pulse Ox O2 Delivery O2 Flow Rate FiO2 10/22/24 09:00 97.5 66 18 141/94 (110) 95 97.5 10/22/24 08:00 Nasal Cannula* 1 24 General Appeara: Well developed, Well nourished, Normal Appearance, Obese Neuro/Mental St: Alert, Oriented Appearance: Appropriate appearance, Appropriate insight Eye contact/ Speech: Cooperative, Good eye contact, Normal speech Skin Exam: Normal inspection, Normal color, Warm/dry Labs/Xrays [place] [id number] Ph: [phone] DIAGNOSTIC IMAGING Diagnostic Imaging Report : [id number] Signed PATIENT: VINCENT PASTOR ACCT: [id number] UNIT: [id number] : 1950 LOC: ER ROOM / BED: / AGE / SEX: 73 / F ADM STATUS: REG ER SERVICE 1331 ORDERING PHYSICIAN: BETTY BROOKS DO PROCEDURE(s): ABPL - CT AB PEL WO CON-NO ORAL OR IV REASON: ABDOMINAL PAIN ORDER NUMBER(s): [id number], ACCESSION NUMBER(s): [id number] EXAM: CT Abdomen and Pelvis Without Intravenous Contrast CLINICAL INDICATION: ABDOMINAL PAIN TECHNIQUE: Axial computed tomography images of the abdomen and pelvis without intravenous contrast. This CT exam was performed using one or more of the following dose reduction techniques: automated exposure control, adjustment of the mA and/or kV according to patient size, and/or use of iterative reconstruction technique. CONTRAST: RADIATION DOSE: CTDIvol = 20.76 mGy, DLP = 1028.58 mGy-cm COMPARISON: CT CT AB PEL WO CON-NO ORAL OR IV on DOS: 03/02/24, CT CT AB PEL WO CON-NO ORAL OR IV on DOS: 01/31/24 FINDINGS: LUNG BASES: Unremarkable. No mass. No consolidation. ABDOMEN: LIVER: Mild hepatomegaly. GALLBLADDER AND BILE DUCTS: Unremarkable. No calcified stones. No ductal dilation. PANCREAS: Unremarkable. No ductal dilation. SPLEEN: Unremarkable. No splenomegaly. ADRENALS: Unremarkable. No mass. KIDNEYS AND URETERS: Bilateral renal pelvic calculi, largest measuring up to 3 mm without obstruction. Left renal cysts. STOMACH AND BOWEL: Fecal retention in the colon consistent with constipation. Colonic diverticulosis without acute diverticulitis. No obstruction. PELVIS: APPENDIX: No findings to suggest acute appendicitis. BLADDER: Unremarkable. No stones. REPRODUCTIVE: Unremarkable as visualized. ABDOMEN and PELVIS: INTRAPERITONEAL SPACE: Unremarkable. No free air. No significant fluid collection. BONES/JOINTS: No acute fracture. No dislocation. SOFT TISSUES: Unremarkable. VASCULATURE: Scattered calcified atherosclerotic disease of aorta. No abdominal aortic aneurysm. LYMPH NODES: Unremarkable. No enlarged lymph nodes. OTHER FINDINGS: . . IMPRESSION: 1. Bilateral renal pelvic calculi, largest measuring up to 3 mm without obstruction. 2. Fecal retention in the colon consistent with constipation. 3. Colonic diverticulosis without acute diverticulitis. ATED BY: MARIUM NUNEZ MD DICTATED DATE/TIME: 10/20/241427 SIGNED BY: MAIRUM NUNEZ MD SIGNED DATE/TIME: 10/20/241427 CC: Labs Test 10/22/24 10:40 10/22/24 06:27 10/21/24 23:10 10/21/24 08:40 Range/Units White Blood Count 11.3 #H 4.4-10.8 10^3/uL Red Blood Count 4.50 4.0-5.20 10^6/uL Hemoglobin 13.5 # 12.2-16.2 g/dL Hematocrit 41.1 # 36.0-46.0 % Mean Corpuscular Volume 91.4 80.0-100.0 fL Mean Corpuscular Hemoglobin 30.0 28.0-32.0 pg Mean Corpuscular Hemoglobin Concent 32.8 32.0-36.0 g/dL Red Cell Distribution Width 16.3 H 11.8-14.3 % Platelet Count 292 140-450 10^3/uL Mean Platelet Volume 8.5 6.9-10.8 fL Neutrophils (%) (Auto) 69.1 37.0-80.0 % Lymphocytes (%) (Auto) 23.3 10.0-50.0 % Monocytes (%) (Auto) 5.2 0.0-12.0 % Eosinophils (%) (Auto) 1.4 0.0-7.0 % Basophils (%) (Auto) 1.0 0.0-2.0 % Neutrophils # (Auto) 7.8 1.6-8.6 10 ^3/uL Lymphocytes # (Auto) 2.6 0.4-5.4 10 ^3/uL Monocytes # (Auto) 0.6 0-1.3 10 ^3/uL Eosinophils # (Auto) 0.2 0-0.8 10 ^3/uL Basophils # (Auto) 0.1 0-0.2 10 ^3/uL Nucleated Red Blood Cells 0.2 % Hepatitis B Surface Antigen Negative Negative Sodium Level 140 136-145 mmol/L Potassium Level 3.8 3.5-5.1 mmol/L Chloride Level 106 98-107 mmol/L Carbon Dioxide Level 23 20-31 mmol/L Anion Gap 11 5-15 Blood Urea Nitrogen 31 #H 9-23 mg/dL Creatinine 4.86 H 0.550-1.02 mg/dL Glomerular Filtration Rate Calc 9 >90 mL/min BUN/Creatinine Ratio 6.4 L 10.0-20.0 Serum Glucose 117 H 74-106 mg/dL Calcium Level 8.9 8.7-10.4 mg/dL POC Glucose 167 H 70-106 mg/dl B-Type Natriuretic Peptide 484.52 0-100 pg/mL Test 10/21/24 05:10 10/20/24 12:56 10/20/24 11:01 10/20/24 10:02 Range/Units Total Bilirubin 0.3 0.2-1.0 mg/dL Aspartate Amino Transferase (AST) 36 13-40 U/L Alanine Aminotransferase (ALT) 20 7-40 U/L Alkaline Phosphatase 94 46-116 U/L Total Protein 5.6 L 5.7-8.2 g/dL Albumin 3.3 3.2-4.8 g/dL Triglycerides Level 264 H < 150 mg/dL Cholesterol Level 139 < 200 mg/dL LDL Cholesterol 47 < 100 mg/dL HDL Cholesterol 47 40-59 mg/dL Troponin I High Sensitivity 57 *H </=34 ng/L Thyroid Stimulating Hormone (TSH) 2.82 0.55-4.78 uIU/mL Blood Gas Specimen Type Arterial Blood Gas Sample Site Right radial Blood Gas Patient Temperature 37.0 Arterial Blood Date Drawn [id number] Arterial Blood pH 7.466 H 7.350-7.450 Arterial Blood Partial Pressure CO2 40.1 32.0-45.0 mmHg Arterial Blood Partial Pressure O2 108.3 H 83.0-108.0 mmHg Arterial Blood HCO3 28.3 H 21.0-28.0 mmol/L Arterial Blood Oxygen Saturation 97.9 94.0-98.0 % Arterial Blood Base Excess 4.3 H -2.0-3.0 mmol/L Arterial Blood Oxyhemoglobin 95.8 94.0-98.0 % Arterial Blood Carboxyhemoglobin 1.6 H 0.5-1.5 % Arterial Blood Methemoglobin 0.5 0.0-1.5 % Jaret Test Yes Blood Gas Total Hemoglobin 12.10 12.0-16.0 g/dL Blood Gas Modality Room air FiO2 % 21.0 Urine Color Light-yellow Yellow Urine Clarity Hazy H Clear Urine pH 7.5 5.0-9.0 Urine Specific [place] 1.015 1.001-1.035 Urine Protein 3+ H Negative Urine Ketones Negative Negative Urine Blood Trace H Negative /uL Urine Nitrite Negative Negative Urine Bilirubin Negative Negative Urine Urobilinogen Normal Negative mg/dL Urine Leukocyte Esterase Negative Negative /uL Urine RBC 2 0 - 4 /hpf Urine Microscopic WBC 3 0-5 /HPF Urine Squamous Epithelial Cells Mod <5 /hpf Urine Bacteria Few H None Seen /hpf Urine Glucose 4+ H Normal mg/dL Test 3/8/25 09:36 Range/Units Lactic Acid Level 1.6 0.4-2.0 mmol/L Assessment/Plan Problem List: (1) Kidney stones (2) Urinary tract infection, site not specified (3) History of appendectomy (4) History of hysterectomy (5) History of PTCA (6) History of partial nephrectomy Plan no acute urologic intervention indicated at this time treat UTI follow up as outpt for cystoscopy. Plan discussed with: Patient, Other MILTON RODRIGEZ NP Oct 22, 2024 12:11
--- NOTE | 2024-10-22 13:23 | CONS ---
Home Medication Review Med [facility] on Admission: Scheduled Atorvastatin Calcium (Atorvastatin Calcium), 1 TAB PO DAILY, (Reported) Bumetanide (Bumetanide), 1 TAB PO DAILY, (Reported) Carvedilol (Carvedilol), 1 TAB PO BID, (Reported) Ciprofloxacin Hcl (Ciprofloxacin Hcl), 1 TAB PO Q12HR, (Reported) Ergocalciferol (Vitamin D 59866 Unit), 1 CAP PO QWEEKLY, (Reported) Ezetimibe (Zetia), 1 TAB PO DAILY, (Reported) Ferrous Sulfate (Iron (Ferrous Sulfate)), 50 MG PO DAILY Fluticasone-Salmeterol (Wixela Inhub 100-50 Mcg/Dose), 1 PUFF INH Q12HR, (Reported) Gabapentin (Gabapentin), 1 CAP PO QAM, (Reported) Gabapentin (Gabapentin), 2 CAP PO HS, (Reported) Hydralazine HCl (Hydralazine HCl), 1 TAB PO TID, (Reported) Insulin Glargine (Lantus Solostar), 8 UNIT SC HS, (Reported) Isosorbide Mononitrate (Isosorbide Mononitrate ER), 1.5 TAB PO DAILY, (Reported) Levothyroxine Sodium (Levothyroxine Sodium), 1 TAB PO QAM, (Reported) Loratadine (Claritin Tablet), 1 TAB PO DAILY, (Reported) Sodium Bicarbonate (Sodium Bicarbonate), 2 TAB PO BID, (Reported) Ticagrelor Base (Brilinta), 90 MG PO BID, (Reported) Scheduled PRN Acetaminophen (Acetaminophen), 650 MG PO Q6HP PRN Albuterol Sulfate (Albuterol Sulfate Hfa), 2 PUFF INH Q6HR PRN for WHEEZING, (Reported) Benzonatate (Benzonatate), 1 CAP PO TID PRN for COUGH, (Reported) Diclofenac Sodium (Topical) (Voltaren Arthritis Pain), 1 % EX PRN PRN for PAIN SCALE 1 THRU 6, (Reported) Miscellaneous Medications Aspirin (Aspirin), 81 MG PO, (Reported) Discontinued Medications Carvedilol (Carvedilol), 1 TAB PO BID, (Reported) Glipizide (Glipizide Xl), 1 TAB PO BID, (Reported) Metolazone (Metolazone), 2 TAB PO DAILY, (Reported) Sodium Zirconium Cyclosilicate (Lokelma), 5 GM PO UD, (Reported) Med Rec on Discharge: Electronic Scripts Active Scripts Ferrous Sulfate (Iron (Ferrous Sulfate)) 50 Mg Tab, 50 MG PO DAILY for 30 Days, #30 TAB Prov:BLANCA MARTINEZ RESIDENT 02/13/24 Acetaminophen (Acetaminophen) 325 Mg Tab, 650 MG PO Q6HP PRN for 30 Days, #240 TAB Prov:BLANCA MARTINEZ RESIDENT 02/13/24 Reported Medications Benzonatate (Benzonatate) 200 Mg Cap, 1 CAP PO TID PRN for COUGH for 30 Days, #90 10/22/24 Ciprofloxacin Hcl (Ciprofloxacin Hcl) 500 Mg Tab, 1 TAB PO Q12HR for 5 Days, #10 10/22/24 Ergocalciferol (VITAMIN D 55816 UNIT) 50,000 Unit Cp, 1 CAP PO QWEEKLY for 84 Days, #12 10/22/24 Carvedilol (Carvedilol) 6.25 Mg Tab, 1 TAB PO BID for 90 Days, #180 10/22/24 Gabapentin (Gabapentin) 100 Mg Cap, 2 CAP PO HS for 60 Days, #180 10/22/24 Bumetanide (Bumetanide) 2 Mg Tab, 1 TAB PO DAILY for 90 Days, #90 10/22/24 Loratadine (CLARITIN TABLET) 10 Mg Tb, 1 TAB PO DAILY 07/16/24 Fluticasone-Salmeterol (Wixela Inhub 100-50 Mcg/Dose) 1 Aer Aer, 1 PUFF INH Q12HR 03/05/24 Atorvastatin Calcium (ATORVASTATIN CALCIUM) 80 Mg Tab, 1 TAB PO DAILY for 90 Days, #90 02/10/24 Diclofenac Sodium (Topical) (Voltaren Arthritis Pain) 1 % Gel, 1 % EX PRN PRN for PAIN SCALE 1 THRU 6, GEL 02/10/24 Insulin Glargine (Lantus Solostar) 100 Unit/Ml Inj, 8 UNIT SC HS, INJ 02/10/24 Albuterol Sulfate (Albuterol Sulfate Hfa) 108 Mcg/Act Aer, 2 PUFF INH Q6HR PRN for WHEEZING 12/27/23 Levothyroxine Sodium (Levothyroxine Sodium) 25 Mcg Tab, 1 TAB PO QAM for 90 Days, #90 12/25/23 Sodium Bicarbonate (Sodium Bicarbonate) 650 Mg Tab, 2 TAB PO BID for 90 Days, #360 12/25/23 Isosorbide Mononitrate (Isosorbide Mononitrate ER) 60 Mg Tab, 1.5 TAB PO DAILY for 90 Days, #135 12/25/23 Hydralazine HCl (Hydralazine HCl) 25 Mg Tab, 1 TAB PO TID for 90 Days, #270 12/25/23 Aspirin (Aspirin) 81 Mg Chw, 81 MG PO, TAB.CHEW 08/11/21 Ticagrelor Base (BRILINTA) 90 Mg Tab, 90 MG PO BID, TAB 08/11/21 Gabapentin (Gabapentin) 100 Mg Cap, 1 CAP PO QAM for 60 Days, #180 08/11/21 Ezetimibe (Zetia) 10 Mg Tab, 1 TAB PO DAILY for 90 Days, #90 08/11/21 Discontinued Reported Medications Carvedilol (Carvedilol) 12.5 Mg Tab, 1 TAB PO BID for 30 Days, #60 07/26/24 Metolazone (Metolazone) 10 Mg Tab, 2 TAB PO DAILY 07/16/24 Glipizide (Glipizide Xl) 10 Mg Tab, 1 TAB PO BID for 78 Days, #156 02/10/24 Sodium Zirconium Cyclosilicate (Lokelma) 5 Gm Darrel, 5 GM PO UD Take 5 grams 3 times weekly. 12/27/23 Notes Notes: Edited: Bumetanide 2 mg tab. Take 1 tablet by mouth daily. Gabapentin 100 mg cap. Take 1 capsule by mouth every morning and 2 capsules by mouth at bedtime. Sodium bicarbonate 650 mg tab. Take 2 tablets by mouth twice daily. Added: Carvedilol 6.25 mg tab. Take 1 tablet by mouth twice daily. Discharge Data Labs: Laboratory Results Test 10/22/24 10:40 10/22/24 06:27 10/21/24 23:10 10/21/24 08:40 White Blood Count 11.3 10^3/uL (4.4-10.8) Red Blood Count 4.50 10^6/uL (4.0-5.20) Hemoglobin 13.5 g/dL (12.2-16.2) Hematocrit 41.1 % (36.0-46.0) Mean Corpuscular Volume 91.4 fL (80.0-100.0) Mean Corpuscular Hemoglobin 30.0 pg (28.0-32.0) Mean Corpuscular Hemoglobin Concent 32.8 g/dL (32.0-36.0) Red Cell Distribution Width 16.3 % (11.8-14.3) Platelet Count 292 10^3/uL (140-450) Mean Platelet Volume 8.5 fL (6.9-10.8) Neutrophils (%) (Auto) 69.1 % (37.0-80.0) Lymphocytes (%) (Auto) 23.3 % (10.0-50.0) Monocytes (%) (Auto) 5.2 % (0.0-12.0) Eosinophils (%) (Auto) 1.4 % (0.0-7.0) Basophils (%) (Auto) 1.0 % (0.0-2.0) Neutrophils # (Auto) 7.8 10 ^3/uL (1.6-8.6) Lymphocytes # (Auto) 2.6 10 ^3/uL (0.4-5.4) Monocytes # (Auto) 0.6 10 ^3/uL (0-1.3) Eosinophils # (Auto) 0.2 10 ^3/uL (0-0.8) Basophils # (Auto) 0.1 10 ^3/uL (0-0.2) Nucleated Red Blood Cells 0.2 % Hepatitis B Surface Antigen Negative (Negative) Sodium Level 140 mmol/L (136-145) Potassium Level 3.8 mmol/L (3.5-5.1) Chloride Level 106 mmol/L (98-107) Carbon Dioxide Level 23 mmol/L (20-31) Anion Gap 11 (5-15) Blood Urea Nitrogen 31 mg/dL (9-23) Creatinine 4.86 mg/dL (0.550-1.02) Glomerular Filtration Rate Calc 9 mL/min (>90) BUN/Creatinine Ratio 6.4 (10.0-20.0) Serum Glucose 117 mg/dL (74-106) Calcium Level 8.9 mg/dL (8.7-10.4) POC Glucose 167 mg/dl (70-106) B-Type Natriuretic Peptide 484.52 pg/mL (0-100) Test 3/9/25 05:10 10/20/24 12:56 10/20/24 11:01 10/20/24 10:02 Total Bilirubin 0.3 mg/dL (0.2-1.0) Aspartate Amino Transferase (AST) 36 U/L (13-40) Alanine Aminotransferase (ALT) 20 U/L (7-40) Alkaline Phosphatase 94 U/L (46-116) Total Protein 5.6 g/dL (5.7-8.2) Albumin 3.3 g/dL (3.2-4.8) Triglycerides Level 264 mg/dL (< 150) Cholesterol Level 139 mg/dL (< 200) LDL Cholesterol 47 mg/dL (< 100) HDL Cholesterol 47 mg/dL (40-59) Troponin I High Sensitivity 57 ng/L (</=34) Thyroid Stimulating Hormone (TSH) 2.82 uIU/mL (0.55-4.78) Blood Gas Specimen Type Arterial Blood Gas Sample Site Right radial Blood Gas Patient Temperature 37.0 Arterial Blood Date Drawn [id number] Arterial Blood pH 7.466 (7.350-7.450) Arterial Blood Partial Pressure CO2 40.1 mmHg (32.0-45.0) Arterial Blood Partial Pressure O2 108.3 mmHg (83.0-108.0) Arterial Blood HCO3 28.3 mmol/L (21.0-28.0) Arterial Blood Oxygen Saturation 97.9 % (94.0-98.0) Arterial Blood Base Excess 4.3 mmol/L (-2.0-3.0) Arterial Blood Oxyhemoglobin 95.8 % (94.0-98.0) Arterial Blood Carboxyhemoglobin 1.6 % (0.5-1.5) Arterial Blood Methemoglobin 0.5 % (0.0-1.5) Jaret Test Yes Blood Gas Total Hemoglobin 12.10 g/dL (12.0-16.0) Blood Gas Modality Room air FiO2 % 21.0 Urine Color Light-yellow (Yellow) Urine Clarity Hazy (Clear) Urine pH 7.5 (5.0-9.0) Urine Specific [place] 1.015 (1.001-1.035) Urine Protein 3+ (Negative) Urine Ketones Negative (Negative) Urine Blood Trace /uL (Negative) Urine Nitrite Negative (Negative) Urine Bilirubin Negative (Negative) Urine Urobilinogen Normal mg/dL (Negative) Urine Leukocyte Esterase Negative /uL (Negative) Urine RBC 2 /hpf (0 - 4) Urine Microscopic WBC 3 /HPF (0-5) Urine Squamous Epithelial Cells Mod /hpf (<5) Urine Bacteria Few /hpf (None Seen) Urine Glucose 4+ mg/dL (Normal) Test 10/20/24 09:36 Lactic Acid Level 1.6 mmol/L (0.4-2.0) Other Laboratory Tests 10/22/24 10:40 10/22/24 06:27 KATHERINE JOSHI [facility] Oct 22, 2024 13:23
--- NOTE | 2024-10-22 13:51 | DVHPNRES ---
Progress Note Date Seen: Oct 22, 2024 Resident Creating Document: KATEY BALL RESIDENT Medical Necessity Reason Pt with a Central, PICC or Fol: Yes Subjective Patient reports: Feels better Other Systems: Patient seen and examined by myself with the medicine resident today on rounds Patient examined hemodialysis, blood pressure stable Objective vital signs Vital Sign Date Time Temp Pulse Resp B/P (MAP) Pulse Ox O2 Delivery O2 Flow Rate FiO2 10/22/24 09:00 97.5 66 18 141/94 (110) 95 97.5 10/22/24 08:00 Nasal Cannula* 1 24 Total Intake and Output 10/21/24 10/21/24 10/22/24 15:00 23:00 07:00 Intake Total 750 ml 800 ml Balance 750 ml 800 ml medications Current Medications Medications Dose Ordered Sig/Ezequiel Route Start Time Stop Time Status Last Admin Dose Admin Nitroglycerin 0.4 mg Q5MINP PRN SL 10/20/24 14:30 Enoxaparin Sodium 30 mg DAILY SC 10/21/24 10:00 10/21/24 10:00 30 MG Furosemide 40 mg DAILY IV 10/21/24 10:00 10/21/24 10:01 40 MG Sodium Chloride 10 ml Q8HR IV 10/20/24 22:00 10/22/24 06:25 10 ML Aspirin 81 mg DAILY PO 10/21/24 10:00 10/21/24 10:00 81 MG Carvedilol 12.5 mg BID PO 10/20/24 22:00 10/21/24 21:53 12.5 MG Lactulose 30 ml DAILY PRN PO 10/20/24 16:15 Atorvastatin Calcium 80 mg HS PO 10/20/24 22:00 10/21/24 21:54 80 MG Insulin Human Regular Q6HR SC 10/20/24 18:00 10/22/24 12:28 3 UNITS Dextrose 50 ml UD PRN IV 10/20/24 16:15 Acetaminophen 500 mg Q6HP PRN PO 10/20/24 16:15 Ondansetron HCl 4 mg Q4HP PRN IV 10/20/24 16:15 10/20/24 21:14 4 MG Zolpidem Tartrate 5 mg QHSP PRN PO 10/20/24 16:15 10/21/24 21:54 5 MG Insulin Glargine 15 units HS SC 10/20/24 22:00 10/21/24 23:17 15 UNITS Tramadol HCl 50 mg [id number] PRN PO 10/20/24 20:45 Cancel Tramadol HCl 50 mg Q6HP PRN PO 10/20/24 21:00 10/22/24 11:10 50 MG EZETIMIBE 10 mg DAILY PO 10/22/24 10:00 Ticagrelor 90 mg BID PO 10/21/24 22:00 10/21/24 22:02 90 MG Isosorbide Mononitrate 60 mg DAILY PO 10/22/24 10:00 Hydralazine HCl 25 mg Q12HR PO 10/21/24 22:00 10/21/24 22:00 25 MG Examination GENERAL:Normal, HEENT:Normal, NECK:Normal, LUNGS:Normal, CVS:Normal, ABDOMEN:Normal, MSK:Abnormal, SKIN:Normal, NEURO:Normal, :Normal laboratory and microbiology Laboratory Tests 10/22/24 10:40 10/22/24 06:27 Test 10/22/24 06:27 Range/Units Serum Glucose 117 H 74-106 mg/dL Labs and/or images reviewed: Labs reviewed by me, Image(s) reviewed by me Problem List/Assessment/Plan Problem List/Assessment/Plan Nephrology Consult/ Progress Note: Assessment: #ESRD on dialysis via CVC #Bilateral nephrolithiasis nonobstructing #Hypertension #Moderate aortic stenosis #Severe coronary artery disease #NSTEMI Findings: #GFR: 9 #Creatinine: 3.51>3.99>4.86 #I&O: 800-0=+800 aneuric #Urinalysis 10/20 dirty Plan: #Initiation of HD post cardiac catheterization #S/p HD Epogen #Following Dr. [facility]: MWF new initiation of dialysis. #Strict I&O and check Daily weight, Avoid Nephrotoxics, Avoid hyper/hypo tension and Fluid Restriction. #Rest of the clinical management as per Primary Team. Thank you for the opportunity to follow up on your patient. In case of any question feel free to reach out to the Nephrology team. Discussed with Nephrology attending Dr. Oconnell. Plan discussed with: Patient, Other (primary team. ) KATEY BALL Oct 22, 2024 13:51 JEWELS OCONNELL MD Oct 22, 2024 16:00
--- NOTE | 2024-10-22 14:08 | DVH ---
EXAM: US BILAT LOWER DVT Clinical History: left leg edema and pain Comparison: US LT LOWER DVT on DOS: 07/16/24, US BILAT LOWER DVT on DOS: 06/08/24, US BILAT LOWER DVT on DOS: 03/03/24 Technique: Duplex Doppler evaluation of the deep venous systems of both lower extremities from the common femora l veins to the popliteal veins including color Doppler and spectral/pulsed waveform analysis was perf ormed. Findings: No visible intraluminal venous thrombus. No evidence of incompressibility or abnormal color or spectr al Doppler flow visualized in the deep bilateral lower extremity veins. Proximal greater saphenous ve ins are grossly unremarkable. Impression: 1. No sonographic evidence of deep venous thrombosis throughout the bilateral lower extremities from the popliteal veins to the common femoral veins.
--- NOTE | 2024-10-22 17:56 | DVHPNRES ---
Progress Note Date Seen: Oct 22, 2024 Resident Creating Document: MARY PORTILLO RESIDENT Medical Necessity Reason Pt with a Central, PICC or Fol: No Subjective Review of Systems Patient was seen and examined at bedside. She continued to complain of a feeling of chest pressure, she denied any significant shortness of breath, dizziness, lightheadedness, abdominal pain, nausea, vomiting, lightheadedness. She is currently tolerating diet. She is scheduled to have a left heart catheterization on Tuesday. Objective vital signs Vital Sign Date Time Temp Pulse Resp B/P (MAP) Pulse Ox O2 Delivery O2 Flow Rate FiO2 10/22/24 13:00 97.2 64 18 134/39 (70) 95 97.2 10/22/24 08:00 Nasal Cannula* 1 24 Total Intake and Output 10/21/24 10/21/24 10/22/24 15:00 23:00 07:00 Intake Total 750 ml 800 ml Balance 750 ml 800 ml medications Current Medications Medications Dose Ordered Sig/Ezequiel Route Start Time Stop Time Status Last Admin Dose Admin Nitroglycerin 0.4 mg Q5MINP PRN SL 10/20/24 14:30 Enoxaparin Sodium 30 mg DAILY SC 10/21/24 10:00 10/21/24 10:00 30 MG Furosemide 40 mg DAILY IV 10/21/24 10:00 10/21/24 10:01 40 MG Sodium Chloride 10 ml Q8HR IV 10/20/24 22:00 10/22/24 06:25 10 ML Aspirin 81 mg DAILY PO 10/21/24 10:00 10/21/24 10:00 81 MG Carvedilol 12.5 mg BID PO 10/20/24 22:00 10/21/24 21:53 12.5 MG Lactulose 30 ml DAILY PRN PO 10/20/24 16:15 Atorvastatin Calcium 80 mg HS PO 10/20/24 22:00 10/21/24 21:54 80 MG Insulin Human Regular Q6HR SC 10/20/24 18:00 10/22/24 12:28 3 UNITS Dextrose 50 ml UD PRN IV 10/20/24 16:15 Acetaminophen 500 mg Q6HP PRN PO 10/20/24 16:15 Ondansetron HCl 4 mg Q4HP PRN IV 10/20/24 16:15 10/20/24 21:14 4 MG Zolpidem Tartrate 5 mg QHSP PRN PO 10/20/24 16:15 10/21/24 21:54 5 MG Insulin Glargine 15 units HS SC 10/20/24 22:00 10/21/24 23:17 15 UNITS Tramadol HCl 50 mg [id number] PRN PO 10/20/24 20:45 Cancel Tramadol HCl 50 mg Q6HP PRN PO 10/20/24 21:00 10/22/24 11:10 50 MG EZETIMIBE 10 mg DAILY PO 10/22/24 10:00 Ticagrelor 90 mg BID PO 10/21/24 22:00 10/21/24 22:02 90 MG Isosorbide Mononitrate 60 mg DAILY PO 10/22/24 10:00 Hydralazine HCl 25 mg Q12HR PO 10/21/24 22:00 10/21/24 22:00 25 MG Examination General: Awake, alert, comfortable appearing, in no acute distress. HEENT: Head is normocephalic and atraumatic. Pupils are equal, round, and reactive to light. Extraocular muscles are intact. No nasal discharge. No facial trauma. Intraoral exam shows moist mucous membranes with no tonsillar enlargement or exudate. Neck: Supple with no cervical lymphadenopathy No meningismus. No goiter. Heart: Regular rate without murmur, rub, or gallop. Lungs: Scattered bilateral crackles Abdomen: No external sign of injury. Bowel sounds are present. Abdomen is soft, nontender. No rebound, no guarding, no rigidity. There are no palpable masses. There is no flank pain on exam. Extremities: Left leg edema Skin: No rash. Neurologic: Cranial nerves II-XII intact without motor, sensory, or cerebellar deficit, no asterixis. Right chest hemodialysis catheter laboratory and microbiology Laboratory Tests 10/22/24 10:40 10/22/24 06:27 Test 10/22/24 06:27 Range/Units Serum Glucose 117 H 74-106 mg/dL Labs and/or images reviewed: Labs reviewed by me, Image(s) reviewed by me Problem List/Assessment/Plan Problem List/Assessment/Plan NSTEMI r/o type 1 Severe coronary artery disease status post multiple PTCAs x7 GARY and triple vessel bypass CABG (on Brilinta and Aspirin) Hypertensive urgency Acute on chronic HFpEF, NYHA class III Acute hypoxic respiratory failure s/p pacemaker Moderate aortic valve stenosis Dyslipidemia End-stage renal disease on hemodialysis Type 2 diabetes mellitus Hypothyroidism Tobacco use Morbid obesity Bilateral nephrolithiasis Plan: Patient is scheduled to undergo a left heart catheterization on Tuesday Urology follow up in the outpatient for cystoscopy Hemodialysis on Tuesday Lower extremity Doppler rule out a DVT Cardiology is following Nephrology is following for hemodialysis Telemetry Goals of care discussed with the patient for 20 minutes; full code Case was discussed with Dr. Arreola Plan discussed with: Patient, Other My Orders My Orders Orders - MARY PORTILLO RESIDENT Procedure Category Date Status Time Renal DIET 10/22/24 Transmitted Standard(2gna,3gk,Lopho) Lunch Cardiac DIET 10/22/24 Transmitted Diet-2gna,Lofat,Lochol Lunch Bilat Lower Dvt US 10/22/24 Resulted 13:21 Addendum Addendum Addendum I was physically present for the vargas portions of the service provided to patient by THE RESIDENT. I have reviewed the documentation, discussed the case with resident and agree with the resident's documentation except as noted. Also the patient's clinical case was discussed with the patient's nurse. This medical document was created using an electronic medical record system with computerized dictation system. Although this document has been carefully reviewed, there might still be some phonetic and typographical errors. These areas are purely typographical due to imperfections of the software programs, and do not reflect any compromise in the patient's medical care. Late signature. Date of Service: Oct 22, 2024 Billing Provider: JESSICA ARREOLA MD Common Visit Codes: [id number] INP/OBS CARE(HIGH) Secondary Visit Codes: [id number] CARE PLAN 30 MINUTES (20 minutes) MARY PORTILLO RESIDENT Oct 22, 2024 17:56 JESSICA ARREOLA MD Oct 23, 2024 07:57
[2024-10-22] MEDS: ACETAMINOPHEN 500 MG TAB or CAP PO PRN (20:00)
[2024-10-22] MEDS ORDERED: MORPHINE SULFATE INJ 2 MG/ml SYRG IV PRN (21:45)
[2024-10-22] MEDS: HYDROmorphone HCL 2 MG/ML VL/or syr IV ONE (23:45)
[2024-10-23] VITALS (9 sets, daily range): BP systolic 114–147; BP diastolic 38–52; PULSE 57–81; RESP 17–20; TEMP 97.6–98; O2SAT 94–100
[2024-10-23 07:43] LABS: Anion Gap 12 (5-15); Carbon Dioxide 26 mmol/L (20-31); Chloride 100 mmol/L (98-107); Sodium 138 mmol/L (136-145)
[2024-10-23 07:44] LABS: Calcium 8.9 mg/dL (8.7-10.4)
[2024-10-23 07:49] LABS: BUN/Creatinine Ratio 6.1 (10.0-20.0); Glucose 78 mg/dL (74-106)
[2024-10-23 07:52] LABS: Blood Urea Nitrogen 27 mg/dL (9-23); Potassium 3.3 mmol/L (3.5-5.1)
[2024-10-23 07:56] LABS: Phosphorus 6.9 mg/dL (2.4-5.1)
[2024-10-23] MEDS: POTASSIUM CHL 20 Meq TABLET PO ONE (10:38)
--- NOTE | 2024-10-23 11:38 | DVHPNRES ---
Progress Note Date Seen: Oct 23, 2024 Resident Creating Document: MARY PORTILLO RESIDENT Medical Necessity Reason Pt with a Central, PICC or Fol: No Subjective Review of Systems Patient was seen and examined at bedside. She complain of mild shortness of breath, right upper quadrant pain, sharp, she denied any significant shortness of breath, dizziness, lightheadedness, nausea, vomiting, lightheadedness. She is currently tolerating diet. She is scheduled to have a left heart catheterization tomorrow Tuesday. Objective vital signs Vital Sign Date Time Temp Pulse Resp B/P (MAP) Pulse Ox O2 Delivery O2 Flow Rate FiO2 10/23/24 10:43 121/38 10/23/24 09:00 97.9 59 20 97 97.9 10/23/24 08:08 Nasal Cannula* 1 24 Total Intake and Output 10/22/24 10/22/24 10/23/24 15:00 23:00 07:00 Intake Total 230 ml 350 ml 425 ml Balance 230 ml 350 ml 425 ml medications Current Medications Medications Dose Ordered Sig/Ezeqiuel Route Start Time Stop Time Status Last Admin Dose Admin Nitroglycerin 0.4 mg Q5MINP PRN SL 10/20/24 14:30 Enoxaparin Sodium 30 mg DAILY SC 10/21/24 10:00 10/23/24 11:05 30 MG Furosemide 40 mg DAILY IV 10/21/24 10:00 10/23/24 10:42 40 MG Sodium Chloride 10 ml Q8HR IV 10/20/24 22:00 10/22/24 21:14 10 ML Aspirin 81 mg DAILY PO 10/21/24 10:00 10/23/24 10:35 81 MG Carvedilol 12.5 mg BID PO 10/20/24 22:00 10/22/24 21:15 12.5 MG Lactulose 30 ml DAILY PRN PO 10/20/24 16:15 Atorvastatin Calcium 80 mg HS PO 10/20/24 22:00 10/22/24 21:15 80 MG Insulin Human Regular Q6HR SC 10/20/24 18:00 10/22/24 12:28 3 UNITS Dextrose 50 ml UD PRN IV 10/20/24 16:15 Acetaminophen 500 mg Q6HP PRN PO 10/20/24 16:15 10/22/24 20:00 500 MG Ondansetron HCl 4 mg Q4HP PRN IV 10/20/24 16:15 10/20/24 21:14 4 MG Zolpidem Tartrate 5 mg QHSP PRN PO 10/20/24 16:15 10/22/24 23:58 5 MG Insulin Glargine 15 units HS SC 10/20/24 22:00 10/22/24 21:16 15 UNITS Tramadol HCl 50 mg [id number] PRN PO 10/20/24 20:45 Cancel Tramadol HCl 50 mg Q6HP PRN PO 10/20/24 21:00 10/22/24 18:06 50 MG EZETIMIBE 10 mg DAILY PO 10/22/24 10:00 10/23/24 11:05 10 MG Ticagrelor 90 mg BID PO 10/21/24 22:00 10/23/24 10:35 90 MG Isosorbide Mononitrate 60 mg DAILY PO 10/22/24 10:00 10/23/24 10:33 60 MG Hydralazine HCl 25 mg Q12HR PO 10/21/24 22:00 10/23/24 10:43 25 MG Morphine Sulfate 1 mg Q3HP PRN IV 10/22/24 21:45 Hold Examination General: Awake, alert, comfortable appearing, in no acute distress. HEENT: Head is normocephalic and atraumatic. Pupils are equal, round, and reactive to light. Extraocular muscles are intact. No nasal discharge. No facial trauma. Intraoral exam shows moist mucous membranes with no tonsillar enlargement or exudate. Neck: Supple with no cervical lymphadenopathy No meningismus. No goiter. Heart: Regular rate without murmur, rub, or gallop. Lungs: Scattered bilateral crackles Abdomen: No external sign of injury. Bowel sounds are present. Abdomen is soft, [id number] tenderness to palpation on right upper quadrant, andrew negative Extremities: Left leg edema Skin: No rash. Neurologic: Cranial nerves II-XII intact without motor, sensory, or cerebellar deficit, no asterixis. Right chest hemodialysis catheter laboratory and microbiology Laboratory Tests 10/23/24 05:43 10/22/24 10:40 Test 10/23/24 05:43 Range/Units Serum Glucose 78 74-106 mg/dL Labs and/or images reviewed: Labs reviewed by me, Image(s) reviewed by me Problem List/Assessment/Plan Problem List/Assessment/Plan NSTEMI r/o type 1 Severe coronary artery disease status post multiple PTCAs x7 GARY and triple vessel bypass CABG (on Brilinta and Aspirin) Hypertensive urgency Acute on chronic HFpEF, NYHA class III Acute hypoxic respiratory failure s/p pacemaker Moderate aortic valve stenosis Dyslipidemia End-stage renal disease on hemodialysis Type 2 diabetes mellitus Hypothyroidism Tobacco use Morbid obesity Bilateral nephrolithiasis Plan: Patient is scheduled to undergo a left heart catheterization tomorrow Tuesday Urology follow up in the outpatient for cystoscopy Hemodialysis on Tuesday Lower extremity Doppler ruled out DVT Ordered KUB and stool tests Case was discussed with Dr. Gonzalez Plan discussed with: Patient, Other (RN) My Orders My Orders Orders - MARY PORTILLO RESIDENT Procedure Category Date Status Time Bilat Lower Dvt US 10/22/24 Resulted 13:21 Kub Abdomen Single XY 10/23/24 Taken View 11:00 Stool Bacterial DONOVAN 10/23/24 Logged Culture 11:00 Stool Wbc LAB 10/23/24 Logged 11:00 Dietary Evaluation Review Comments: Continue current plan of care Expected Outcomes/Goals: Pt will meet >75% estimated needs Fu 3-5 days Date of Service: Oct 23, 2024 Billing Provider: BRIAN GONZALEZ MD Common Visit Codes: [id number] INP/OBS CARE(HIGH) MARY PORTILLO RESIDENT Oct 23, 2024 11:38 BRIAN GONZALEZ MD Oct 24, 2024 17:38
--- NOTE | 2024-10-23 12:22 | DVHPN2 ---
Consult Progress Note Date Seen: Oct 23, 2024 Subjective Review of Systems: CVS:Normal, RESPIRATORY:Normal, NEURO:Normal Objective vital signs Vital Sign Date Time Temp Pulse Resp B/P (MAP) Pulse Ox O2 Delivery O2 Flow Rate FiO2 10/23/24 10:43 121/38 10/23/24 09:00 97.9 59 20 97 97.9 10/23/24 08:08 Nasal Cannula* 1 24 Total Intake and Output 10/22/24 10/22/24 10/23/24 15:00 23:00 07:00 Intake Total 230 ml 350 ml 425 ml Balance 230 ml 350 ml 425 ml medications Current Medications Medications Dose Ordered Sig/Ezequiel Route Start Time Stop Time Status Last Admin Dose Admin Nitroglycerin 0.4 mg Q5MINP PRN SL 10/20/24 14:30 Enoxaparin Sodium 30 mg DAILY SC 10/21/24 10:00 10/23/24 11:05 30 MG Furosemide 40 mg DAILY IV 10/21/24 10:00 10/23/24 10:42 40 MG Sodium Chloride 10 ml Q8HR IV 10/20/24 22:00 10/22/24 21:14 10 ML Aspirin 81 mg DAILY PO 10/21/24 10:00 10/23/24 10:35 81 MG Carvedilol 12.5 mg BID PO 10/20/24 22:00 10/22/24 21:15 12.5 MG Lactulose 30 ml DAILY PRN PO 10/20/24 16:15 Atorvastatin Calcium 80 mg HS PO 10/20/24 22:00 10/22/24 21:15 80 MG Insulin Human Regular Q6HR SC 10/20/24 18:00 10/22/24 12:28 3 UNITS Dextrose 50 ml UD PRN IV 10/20/24 16:15 Acetaminophen 500 mg Q6HP PRN PO 10/20/24 16:15 10/22/24 20:00 500 MG Ondansetron HCl 4 mg Q4HP PRN IV 10/20/24 16:15 10/20/24 21:14 4 MG Zolpidem Tartrate 5 mg QHSP PRN PO 10/20/24 16:15 10/22/24 23:58 5 MG Insulin Glargine 15 units HS SC 10/20/24 22:00 10/22/24 21:16 15 UNITS Tramadol HCl 50 mg [id number] PRN PO 10/20/24 20:45 Cancel Tramadol HCl 50 mg Q6HP PRN PO 10/20/24 21:00 10/22/24 18:06 50 MG EZETIMIBE 10 mg DAILY PO 10/22/24 10:00 10/23/24 11:05 10 MG Ticagrelor 90 mg BID PO 10/21/24 22:00 10/23/24 10:35 90 MG Isosorbide Mononitrate 60 mg DAILY PO 10/22/24 10:00 10/23/24 10:33 60 MG Hydralazine HCl 25 mg Q12HR PO 10/21/24 22:00 10/23/24 10:43 25 MG Morphine Sulfate 1 mg Q3HP PRN IV 10/22/24 21:45 Hold Examination: LUNGS:Normal, CVS:Normal, NEURO:Normal laboratory and microbiology Laboratory Tests 10/23/24 05:43 10/22/24 10:40 Test 10/23/24 05:43 Range/Units Serum Glucose 78 74-106 mg/dL Problem List/Assessment/Plan Problem List/Assessment/Plan NSTEMI with abnormal myocardial perfusion scan on 08/28/2024 Severe coronary artery disease status post multiple PTCAs x7 GARY and triple vessel bypass CABG (on Brilinta and Aspirin) Hypertensive urgency Acute on chronic HFpEF, NYHA class III History of myocardial infarction Presence of Micra leadless permanent pacemaker ([employer]) Moderate aortic valve stenosis Tricuspid valve regurgitation, moderate degree Dyslipidemia End-stage renal disease on hemodialysis Type 2 diabetes mellitus Thyroid disease Tobacco use Morbid obesity Plan/Recommendation (Dr. Ruelas) Previous transthoracic echocardiogram from 06/30/2024 reveals EF 55% with moderate aortic stenosis with a aortic valve area of 1.27 cm2, a mean gradient 21 mmHg and a peak gradient of 37 mmHg. Cardiolite stress test on 08/28/24 is p ositive for ischemia including a reversible defect in the anterior and anterolateral garcia and mostly fixed defect in the inferior and inferolateral garcia. Scheduled for a coronary angiogram on 10/31/24 as an outpatient. She will continue with invasive cardiac work-up on 10/24/24. Continue dual antiplatelet therapy, aggressive blood pressure control, beta-juan manuel, and lipid-lowering agent. Continue with close cardiac surveillance and monitor for any ECG changes. Thank you for allowing us to care for this patient. Please call with any questions or concerns. This medical document was created using an electronic medical record system with voice recognition software and computerized dictation system. Although this document has been carefully reviewed, there might still be some phonetic and typographical errors. Occasional wrong-word or ``sound-alike substitutions may have occurred due to the inherent limitations of voice recognition software. These areas are purely typographical due to imperfections of the software programs and do not reflect any compromise in the patient's medical care. Please read the chart carefully and recognize, using context, where these substitutions have occurred. Plan discussed with: Patient, Other Dietary Evaluation Review Comments: Continue current plan of care Expected Outcomes/Goals: Pt will meet >75% estimated needs Fu 3-5 days Date of Service: Oct 23, 2024 Billing Provider: JANEL CRANDALL Cardiology Common Codes: [id number] HOSP CARE(High JANEL CRANDALL Oct 23, 2024 12:21
--- NOTE | 2024-10-23 12:50 | DVH ---
Date: 10/23/2024 11:11 AM Examination: XY KUB ABDOMEN SINGLE VIEW History: abdominal pain, kidney stones, constipation Comparison: XY KUB ABDOMEN SINGLE VIEW on DOS: 12/28/23 TECHNIQUE: Frontal views of the abdomen was obtained. FINDINGS: Bowel gas pattern is unremarkable. The lung bases are unremarkable. Bilateral renal pelvic calculi, largest measuring up to 3 mm IMPRESSION: Nonobstructive bowel gas pattern. Bilateral renal pelvic calculi, largest measuring up to 3 mm
--- NOTE | 2024-10-23 13:10 | DVHPNRES ---
Progress Note Date Seen: Oct 23, 2024 Resident Creating Document: KATEY BALL RESIDENT Medical Necessity Reason Pt with a Central, PICC or Fol: No Subjective Other Systems: Patient seen and examined by myself today on rounds with the medicine resident, I agree with his assessment and plan documented in this note Objective vital signs Vital Sign Date Time Temp Pulse Resp B/P (MAP) Pulse Ox O2 Delivery O2 Flow Rate FiO2 10/23/24 10:43 121/38 10/23/24 10:00 59 10/23/24 09:00 97.9 20 97 97.9 10/23/24 08:08 Nasal Cannula* 1 24 Total Intake and Output 10/22/24 10/22/24 10/23/24 15:00 23:00 07:00 Intake Total 230 ml 350 ml 425 ml Balance 230 ml 350 ml 425 ml medications Current Medications Medications Dose Ordered Sig/Ezequiel Route Start Time Stop Time Status Last Admin Dose Admin Nitroglycerin 0.4 mg Q5MINP PRN SL 10/20/24 14:30 Enoxaparin Sodium 30 mg DAILY SC 10/21/24 10:00 10/23/24 11:05 30 MG Furosemide 40 mg DAILY IV 10/21/24 10:00 10/23/24 10:42 40 MG Sodium Chloride 10 ml Q8HR IV 10/20/24 22:00 10/22/24 21:14 10 ML Aspirin 81 mg DAILY PO 10/21/24 10:00 10/23/24 10:35 81 MG Carvedilol 12.5 mg BID PO 10/20/24 22:00 10/22/24 21:15 12.5 MG Lactulose 30 ml DAILY PRN PO 10/20/24 16:15 Atorvastatin Calcium 80 mg HS PO 10/20/24 22:00 10/22/24 21:15 80 MG Insulin Human Regular Q6HR SC 10/20/24 18:00 10/23/24 12:23 3 UNITS Dextrose 50 ml UD PRN IV 10/20/24 16:15 Acetaminophen 500 mg Q6HP PRN PO 10/20/24 16:15 10/22/24 20:00 500 MG Ondansetron HCl 4 mg Q4HP PRN IV 10/20/24 16:15 10/20/24 21:14 4 MG Zolpidem Tartrate 5 mg QHSP PRN PO 10/20/24 16:15 10/22/24 23:58 5 MG Insulin Glargine 15 units HS SC 10/20/24 22:00 10/22/24 21:16 15 UNITS Tramadol HCl 50 mg [id number] PRN PO 10/20/24 20:45 Cancel Tramadol HCl 50 mg Q6HP PRN PO 10/20/24 21:00 10/23/24 12:09 50 MG EZETIMIBE 10 mg DAILY PO 10/22/24 10:00 10/23/24 11:05 10 MG Ticagrelor 90 mg BID PO 10/21/24 22:00 10/23/24 10:35 90 MG Isosorbide Mononitrate 60 mg DAILY PO 10/22/24 10:00 10/23/24 10:33 60 MG Hydralazine HCl 25 mg Q12HR PO 10/21/24 22:00 10/23/24 10:43 25 MG Morphine Sulfate 1 mg Q3HP PRN IV 10/22/24 21:45 Hold Examination GENERAL:Normal, HEENT:Normal, NECK:Normal, LUNGS:Normal, CVS:Normal, ABDOMEN: RUQ pain, Normal, MSK:Abnormal, SKIN:Normal, NEURO:Normal, :Normal, on foleys. laboratory and microbiology Laboratory Tests 10/23/24 05:43 10/22/24 10:40 Test 10/23/24 05:43 Range/Units Serum Glucose 78 74-106 mg/dL Labs and/or images reviewed: Labs reviewed by me, Image(s) reviewed by me Problem List/Assessment/Plan Problem List/Assessment/Plan Ms. Burris, a 73-year-old female with a complex medical history, including end- stage renal disease (ESRD) on dialysis, congestive heart failure, hypertension, coronary artery disease with multiple stents and a triple bypass, dyslipidemia, a pacemaker, partial nephrectomy, hysterectomy, diabetes, and obesity, presented with shortness of breath, right upper quadrant abdominal pain, inability to sleep, feeling choked, and experiencing hot sweats for the past few weeks. she has not missed any treatments on foleys. Nephrology Consult/ Progress Note: Assessment: #ESRD on dialysis via CVC #Bilateral nephrolithiasis nonobstructing #Hypertension #Moderate aortic stenosis #Severe coronary artery disease #NSTEMI pending cardiac cath tomorrow. #RUQ pain Findings: #GFR: 9 #Creatinine: 3.51>3.99>4.86>4.44 #BUN: 31> 27 #I&O: 800-0=+800 aneuric #Urinalysis 10/20 dirty #3.3 hypokalemia #Phos 6.9 (H) #PTH 533.2 , normal Ca+ 9s Plan: #Initiation of HD post cardiac catheterization tomorrow #S/p HD Epogen #RUQ US #Start sevelamer po 800mg TID #Following Dr. [facility]: MWF new initiation of dialysis. #Strict I&O and check Daily weight, Avoid Nephrotoxics, Avoid hyper/hypo tension and Fluid Restriction. #Rest of the clinical management as per Primary Team. Thank you for the opportunity to follow up on your patient. In case of any question feel free to reach out to the Nephrology team. Discussed with Nephrology attending Dr. Neumann. Plan discussed with: Patient, Other (primary team, RN) Dietary Evaluation Review Comments: Continue current plan of care Expected Outcomes/Goals: Pt will meet >75% estimated needs Fu 3-5 days Laboratory Results Laboratory Tests 10/22/24 10:40 10/23/24 05:43 Chemistry Test 10/23/24 05:43 Calcium Level 9.0 mg/dL (8.7-10.4) Phosphorus Level 6.9 mg/dL (2.4-5.1) H Urinalysis Test 10/20/24 10:02 Urine Color Light-yellow (Yellow) Urine Clarity Hazy (Clear) H Urine pH 7.5 (5.0-9.0) Urine Specific [place] 1.015 (1.001-1.035) Urine Protein 3+ (Negative) H Urine Ketones Negative (Negative) Urine Blood Trace /uL (Negative) H Urine Nitrite Negative (Negative) Urine Bilirubin Negative (Negative) Urine Urobilinogen Normal mg/dL (Negative) Urine Leukocyte Esterase Negative /uL (Negative) Urine RBC 2 /hpf (0 - 4) Urine Microscopic WBC 3 /HPF (0-5) Urine Squamous Epithelial Cells Mod /hpf (<5) Urine Bacteria Few /hpf (None Seen) H Urine Glucose 4+ mg/dL (Normal) H KATEY BALL RESIDENT Oct 23, 2024 13:10 JEWELS NEUMANN MD Oct 23, 2024 16:28
[2024-10-23 14:32] LABS: Basophils # (auto) 0 10 ^3/uL (0-0.2); Basophils % (auto) 0.4 % (0.0-2.0); Eosinophils # (auto) 0.2 10 ^3/uL (0-0.8); Eosinophils % (auto) 2.1 % (0.0-7.0); Hematocrit 35.2 % (36.0-46.0); Hemoglobin 11.5 g/dL (12.2-16.2); Lymphocytes % (auto) 36.8 % (10.0-50.0); Mean Corpuscular Hemoglobin 30.1 pg (28.0-32.0); Mean Corpuscular Hgb Conc. 32.6 g/dL (32.0-36.0); Mean Corpuscular Volume 92.4 fL (80.0-100.0); Monocytes # (auto) 0.6 10 ^3/uL (0-1.3); Monocytes % (auto) 7.9 % (0.0-12.0); Neutrophils # (auto) 4.2 10 ^3/uL (1.6-8.6); Neutrophils % (auto) 52.8 % (37.0-80.0); Nucleated Red Blood Cells % 0.2 %; Platelet Count (auto) 229 10^3/uL (140-450); Red Blood Cells 3.82 10^6/uL (4.0-5.20); Red Cell Distribution Width 15.8 % (11.8-14.3)
--- NOTE | 2024-10-23 16:42 | DVH ---
EXAM: US LIVER CLINICAL HISTORY: RUQ pain and tenderness. TECHNIQUE: Grayscale and limited color flow doppler ultrasound of the right upper quadrant is perfor med. COMPARISON: US GALLBLADDER on DOS: 01/31/24 Findings: Liver measures 15.6 cm in length with normal echotexture and contour. No evidence of focal hepatic le sions or intra- or extrahepatic ductal dilatation. Common bile duct measures 0.8 cm in diameter. Norm al hepatopedal flow noted within the portal vein. No perihepatic free fluid is noted. Gallbladder appears within normal limits with gallbladder wall thickness measuring 0.3 cm. There are shadowing calculi. No evidence of biliary sludge or pericholecystic fluid. Negative sonographic Maryann y's sign. Pancreas only partially visualized due to overlying bowel gas but is otherwise unremarkable. Right kidney measures 8.7 cm with normal contours, echotexture and cortical thickness. No evidence of hydronephrosis, calculi, cystic or solid renal lesions. Partially visualized inferior vena cava unremarkable. Impression: 1. No evidence of acute right upper quadrant abnormalities. 2. The common bile duct measures within the upper limits of normal for size. 3. Cholelithiasis without evidence of acute cholecystitis. 4. Mildly atrophic right kidney.
[2024-10-23] MEDS: SEVELAMER 800 MG TAB PO SCH (18:21)
[2024-10-23] MEDS: CARVEDILOL 3.125 MG TAB PO SCH (21:30)
[2024-10-24] VITALS (14 sets, daily range): BP systolic 87–136; BP diastolic 39–71; PULSE 58–95; RESP 15–20; TEMP 97.5–98; O2SAT 92–99
[2024-10-24] MEDS: HEPARIN IN NS 1000Units/500mL 1,500 ML ONE (06:35)
[2024-10-24] MEDS: IODIXANOL 320MG/ML 100ML BTL IV ONE ×3 (06:35→11:42)
[2024-10-24 07:31] LABS: Basophils # (auto) 0.1 10 ^3/uL (0-0.2); Basophils % (auto) 0.9 % (0.0-2.0); Eosinophils # (auto) 0.2 10 ^3/uL (0-0.8); Eosinophils % (auto) 2.7 % (0.0-7.0); Hematocrit 34.8 % (36.0-46.0); Hemoglobin 11.6 g/dL (12.2-16.2); Lymphocytes # (auto) 2.2 10 ^3/uL (0.4-5.4); Lymphocytes % (auto) 32.7 % (10.0-50.0); Mean Corpuscular Hemoglobin 30.6 pg (28.0-32.0); Mean Corpuscular Hgb Conc. 33.5 g/dL (32.0-36.0); Mean Corpuscular Volume 91.5 fL (80.0-100.0); Monocytes # (auto) 0.6 10 ^3/uL (0-1.3); Monocytes % (auto) 8.4 % (0.0-12.0); Neutrophils # (auto) 3.7 10 ^3/uL (1.6-8.6); Neutrophils % (auto) 55.3 % (37.0-80.0); Platelet Count (auto) 206 10^3/uL (140-450); Red Cell Distribution Width 16.2 % (11.8-14.3); White Blood Cell 6.6 10^3/uL (4.4-10.8)
[2024-10-24 07:43] LABS: Chloride 103 mmol/L (98-107); Potassium 3.5 mmol/L (3.5-5.1); Sodium 138 mmol/L (136-145)
[2024-10-24 07:44] LABS: Anion Gap 11 (5-15); Carbon Dioxide 24 mmol/L (20-31)
[2024-10-24 07:50] LABS: BUN/Creatinine Ratio 7.3 (10.0-20.0); Glucose 101 mg/dL (74-106); INR 1.05 (0.9-1.15); Partial Thromboplastin Time 25.4 SEC (24.5-34.5); Prothrombin Time 11.1 sec (9.3-11.8)
[2024-10-24 07:53] LABS: Blood Urea Nitrogen 37 mg/dL (9-23)
[2024-10-24] MEDS: SODIUM CHL 0.9% 50 ML ONE (09:44)
[2024-10-24] MEDS: ANGIOMAX 250 MG VIAL IV ONE (09:44)
[2024-10-24] MEDS: LIDOCAINE 2%HCL (LOCAL ANESTH.) INJ 20ML MDV ONE (09:44)
--- NOTE | 2024-10-24 10:39 | DVHPNRES ---
Progress Note Date Seen: Oct 24, 2024 Resident Creating Document: KATEY BALL RESIDENT Medical Necessity Reason Pt with a Central, PICC or Fol: No Subjective Other Systems: Patient seen and examined by myself today in follow-up with the medicine resident Patient examined hemodialysis, blood pressure stable Objective vital signs Vital Sign Date Time Temp Pulse Resp B/P (MAP) Pulse Ox O2 Delivery O2 Flow Rate FiO2 10/24/24 08:36 148/70 10/24/24 08:35 60 10/24/24 08:30 97.5 18 96 97.5 10/23/24 20:00 Nasal Cannula* 1 24 Total Intake and Output 10/23/24 10/23/24 10/24/24 15:00 23:00 07:00 Intake Total 230 ml 300 ml 350 ml Output Total 600 ml Balance 230 ml 300 ml -250 ml medications Current Medications Medications Dose Ordered Sig/Ezequiel Route Start Time Stop Time Status Last Admin Dose Admin Nitroglycerin 0.4 mg Q5MINP PRN SL 10/20/24 14:30 Enoxaparin Sodium 30 mg DAILY SC 10/21/24 10:00 10/23/24 11:05 30 MG Furosemide 40 mg DAILY IV 10/21/24 10:00 10/23/24 10:42 40 MG Sodium Chloride 10 ml Q8HR IV 10/20/24 22:00 10/24/24 05:18 10 ML Aspirin 81 mg DAILY PO 10/21/24 10:00 10/24/24 08:35 81 MG Lactulose 30 ml DAILY PRN PO 10/20/24 16:15 Atorvastatin Calcium 80 mg HS PO 10/20/24 22:00 10/23/24 21:30 80 MG Insulin Human Regular Q6HR SC 10/20/24 18:00 10/23/24 23:10 2 UNITS Dextrose 50 ml UD PRN IV 10/20/24 16:15 Acetaminophen 500 mg Q6HP PRN PO 10/20/24 16:15 10/22/24 20:00 500 MG Ondansetron HCl 4 mg Q4HP PRN IV 10/20/24 16:15 10/20/24 21:14 4 MG Zolpidem Tartrate 5 mg QHSP PRN PO 10/20/24 16:15 10/22/24 23:58 5 MG Insulin Glargine 15 units HS SC 10/20/24 22:00 10/23/24 23:09 15 UNITS Tramadol HCl 50 mg [id number] PRN PO 10/20/24 20:45 Cancel Tramadol HCl 50 mg Q6HP PRN PO 10/20/24 21:00 10/23/24 23:40 50 MG EZETIMIBE 10 mg DAILY PO 10/22/24 10:00 10/23/24 11:05 10 MG Ticagrelor 90 mg BID PO 10/21/24 22:00 10/24/24 08:35 90 MG Isosorbide Mononitrate 60 mg DAILY PO 10/22/24 10:00 10/24/24 08:36 60 MG Hydralazine HCl 25 mg Q12HR PO 10/21/24 22:00 10/24/24 08:34 25 MG Morphine Sulfate 1 mg Q3HP PRN IV 10/22/24 21:45 Hold Carvedilol 6.25 mg Q12HR PO 10/23/24 22:00 10/24/24 08:35 6.25 MG Sevelamer HCl 800 mg TIDWM PO 10/23/24 18:00 10/23/24 18:21 800 MG Examination GENERAL:Normal, HEENT:Normal, NECK:Normal, LUNGS:Normal, CVS:Normal, ABDOMEN: RUQ pain, Normal, MSK:Abnormal, SKIN:Normal, NEURO:Normal, :Normal, on foleys. laboratory and microbiology Laboratory Tests 10/24/24 06:58 Test 10/24/24 06:58 Range/Units Serum Glucose 101 74-106 mg/dL Labs and/or images reviewed: Labs reviewed by me, Image(s) reviewed by me Problem List/Assessment/Plan Problem List/Assessment/Plan Ms. Burris, a 73-year-old female with a complex medical history, including end- stage renal disease (ESRD) on dialysis, congestive heart failure, hypertension, coronary artery disease with multiple stents and a triple bypass, dyslipidemia, a pacemaker, partial nephrectomy, hysterectomy, diabetes, and obesity, presented with shortness of breath, right upper quadrant abdominal pain, inability to sleep, feeling choked, and experiencing hot sweats for the past few weeks. she has not missed any treatments , on foleys. Nephrology Consult/ Progress Note: Assessment: #ESRD on dialysis via CVC #Bilateral nephrolithiasis nonobstructing #Hypertension #Moderate aortic stenosis #Severe coronary artery disease #NSTEMI pending cardiac cath tomorrow. #RUQ pain Findings: #GFR: 9>9 #Creatinine: 3.51>3.99>4.86>4.44>5.04 #BUN: 31> 27 > 37 #I&O: [id number] #Urinalysis /8 dirty #3.3 hypokalemia> resolved > 3.5 #Phos 6.9 (H) #PTH 533.2 , normal Ca+ 9s #RUQ US: Cholelithiasis without evidence of acute cholecystitis. Right kidney is atrophic. Plan: #Initiation of HD post cardiac catheterization today #S/p HD Epogen #Continue sevelamer po 800mg TID #Following Dr. [facility]: MWF new initiation of dialysis. #Strict I&O and check Daily weight, Avoid Nephrotoxics, Avoid hyper/hypo tension and Fluid Restriction. #Check daily bmp, phosphate and electrolytes. #Rest of the clinical management as per Primary Team. Thank you for the opportunity to follow up on your patient. In case of any question feel free to reach out to the Nephrology team. Discussed with Nephrology attending Dr. Neumann. Plan discussed with: Patient, Other (primary team, RN) My Orders My Orders Orders - KATEY BALL Procedure Category Date Status Time Sevelamer (Renagel) PHA 10/23/24 In Process 18:00 LIVER US 10/23/24 Resulted 15:09 Dietary Evaluation Review Comments: Continue current plan of care Expected Outcomes/Goals: Pt will meet >75% estimated needs Fu 3-5 days KATEY BALL Oct 24, 2024 10:39 JEWELS NEUMANN MD Oct 24, 2024 12:49
[2024-10-24] MEDS: fentaNYL CITRATE 100 MCG/2 ML VL ONE (10:41)
[2024-10-24] MEDS: MIDAZOLAM HCL 2MG/2ML 2ml VIAL (1mg/ml) ONE (10:41)
--- NOTE | 2024-10-24 13:13 | DVHOP2 ---
Operative Report - 2 Report Details Date: 10/24/24 Preop Diagnosis: CLINICAL PROFILE: 73-year-old lady with a history of coronary bypass grafting. History of three- vessel bypass. Has had recurrent episodes of chest pain. Abnormal stress test with anterior ischemia. Postop Diagnosis: Successful PTCA and stenting of the anterior descending coronary artery. Patent saphenous grafts and GABY. Normal left ventricular ejection fraction. Mild aortic sclerosis with a 15 mm gradient across the aortic valve. Surgeon: Jen Ruelas MD Anesthesiologist: Conscious sedation Anesthesia: Mac, Local (Versed and fentanyl were ordered by la. I monitored and patient throughout procedure in its entirety.) Consent: The patient was informed of the risks and benefits of the procedure. These include but are not limited to complications of anesthesia, postoperative infection, incomplete relief of symptoms, recurrence of symptoms, damage to blood vessels, nerves and tendons, deep venous thrombosis, pulmonary embolism and possible need for repeat surgery in the future. Complications: No complications Estimated Blood Loss: 5 cc Findings: Lad stenosis. Indications for Surgery: Chest pain. Abnormal stress test Name of Procedure Performed Left heart catheterization bilateral cine coronary angiography. Left ventriculography. Visualization of saphenous venous grafts and left internal mammary artery. PTCA and stenting to left anterior descending coronary artery. Procedure Details Procedure Details: Prior local anesthesia with 2% lidocaine to the left groin and full informed consent obtained patient was prepped and draped in the usual fashion followed by placement of a six [place] sheath in the femoral artery. Fluoroscopic guidance and ultrasound guidance was used to place catheter. Common femoral was accessed and a six [place] sheath placed followed by placement of six [place] Saadia catheters to cannulate both right and left coronary ostia left ventriculography and saphenous venous grafts as well as left internal mammary. A GABY guide was used for angioplasty. Hemodynamics aortic blood pressure was 110/70. End-diastolic pressure was eight. There was a 10-15 mm gradient across the aortic valve on pullback. Coronary anatomy: The RCA is on% occluded proximally. Left main is large and normal. Left anterior descending has an ostial 80-90% s tenosis followed by diffuse disease of the proximal LAD subsequent to which there is competitive flow from the left internal mammary artery. The diagonal has moderate to significant disease. The circumflex is 100% occluded proximally. The 1st marginal is visualized and competitive flow is noted from the saphenous graft. The saphenous graft to the marginals sequentially placed to the PDA is patent. Mild plaquing in the distal limb with about a 20-30% stenosis. The limb prior to the anastomosis of the marginal has been stented. There is excellent antegrade flow without thrombus formation and/or dissection. Internal mammary artery to the LAD is patent without lesions. Distal to the anastomosis in the mid distal segment of the LAD there is a 80% stenosis of the left anterior descending. Angioplasty was performed for which an GABY catheter was placed into the ostial segment of the GABY a Specter wire was then placed across the area of stenosis distally into the LAD. A 2.5 mm x 15 mm Medtronic balloon was then placed and dilated to approximately 10 atmospheres. There was notable improvement flow. A residual lesion was noted for which 2.5 x 16 mm Medtronic stent was placed and deployed at approximately 13 atmospheres. There was excellent antegrade flow without thrombus formation and/or dissection. Impression: Successful PTCA and stenting of left anterior descending coronary artery. Patent left internal mammary artery to the LAD. Patent saphenous graft to the marginal and PDA. Occluded RCA. Severe CAD involving the proximal LAD and circumflex. Mild gradient across the aortic valve with elevated end- diastolic pressures. Normal left ventricular ejection fraction. Recommendations: Continue dual antiplatelet therapy. Risk factor modification to continue. Condition Good Disposition Still a Patient Date of Service: Oct 24, 2024 Billing Provider: JEN RUELAS Sr., MD Cardiology Common Codes: 33375-[id number] INP/OBS CARE (High) Cardiology Procedure Codes: 59157-CPX NONCORN ART BYPASS GTF, 62782 -PTCA W/STENT PLACEMENT, 37759-BSPF ADD COR ART/BRNCH/GRFT JEN RUELAS Sr., MD Oct 24, 2024 13:13
--- NOTE | 2024-10-24 14:19 | DVHPNRES ---
Progress Note Date Seen: Oct 24, 2024 Resident Creating Document: MARY PORTILLO RESIDENT Medical Necessity Reason Pt with a Central, PICC or Fol: No Subjective Review of Systems Patient was seen and examined at bedside. She complain of right upper quadrant pain, sharp, she denied any significant shortness of breath, dizziness, lightheadedness, nausea, vomiting, lightheadedness. She is currently tolerating diet. She is scheduled to have a left heart catheterization today. Objective vital signs Vital Sign Date Time Temp Pulse Resp B/P (MAP) Pulse Ox O2 Delivery O2 Flow Rate FiO2 10/24/24 08:36 148/70 10/24/24 08:35 60 10/24/24 08:30 97.5 18 96 97.5 10/24/24 08:00 Room Air* 0 21 Total Intake and Output 10/23/24 10/23/24 10/24/24 15:00 23:00 07:00 Intake Total 230 ml 300 ml 350 ml Output Total 600 ml Balance 230 ml 300 ml -250 ml medications Current Medications Medications Dose Ordered Sig/Ezequiel Route Start Time Stop Time Status Last Admin Dose Admin Nitroglycerin 0.4 mg Q5MINP PRN SL 10/20/24 14:30 Enoxaparin Sodium 30 mg DAILY SC 10/21/24 10:00 10/23/24 11:05 30 MG Furosemide 40 mg DAILY IV 10/21/24 10:00 10/23/24 10:42 40 MG Sodium Chloride 10 ml Q8HR IV 10/20/24 22:00 10/24/24 05:18 10 ML Aspirin 81 mg DAILY PO 10/21/24 10:00 10/24/24 08:35 81 MG Lactulose 30 ml DAILY PRN PO 10/20/24 16:15 Atorvastatin Calcium 80 mg HS PO 10/20/24 22:00 10/23/24 21:30 80 MG Insulin Human Regular Q6HR SC 10/20/24 18:00 10/23/24 23:10 2 UNITS Dextrose 50 ml UD PRN IV 10/20/24 16:15 Acetaminophen 500 mg Q6HP PRN PO 10/20/24 16:15 10/24/24 13:58 500 MG Ondansetron HCl 4 mg Q4HP PRN IV 10/20/24 16:15 10/24/24 11:37 4 MG Zolpidem Tartrate 5 mg QHSP PRN PO 10/20/24 16:15 10/22/24 23:58 5 MG Insulin Glargine 15 units HS SC 10/20/24 22:00 10/23/24 23:09 15 UNITS Tramadol HCl 50 mg [id number] PRN PO 10/20/24 20:45 Cancel Tramadol HCl 50 mg Q6HP PRN PO 10/20/24 21:00 10/23/24 23:40 50 MG EZETIMIBE 10 mg DAILY PO 10/22/24 10:00 10/23/24 11:05 10 MG Ticagrelor 90 mg BID PO 10/21/24 22:00 10/24/24 08:35 90 MG Isosorbide Mononitrate 60 mg DAILY PO 10/22/24 10:00 10/24/24 08:36 60 MG Hydralazine HCl 25 mg Q12HR PO 10/21/24 22:00 10/24/24 08:34 25 MG Morphine Sulfate 1 mg Q3HP PRN IV 10/22/24 21:45 Hold Carvedilol 6.25 mg Q12HR PO 10/23/24 22:00 10/24/24 08:35 6.25 MG Sevelamer HCl 800 mg TIDWM PO 10/23/24 18:00 10/23/24 18:21 800 MG Examination General: Awake, alert, comfortable appearing, in no acute distress. HEENT: Head is normocephalic and atraumatic. Pupils are equal, round, and reactive to light. Extraocular muscles are intact. No nasal discharge. No facial trauma. Intraoral exam shows moist mucous membranes with no tonsillar enlargement or exudate. Neck: Supple with no cervical lymphadenopathy No meningismus. No goiter. Heart: Regular rate without murmur, rub, or gallop. Lungs: Scattered bilateral crackles Abdomen: No external sign of injury. Bowel sounds are present. Abdomen is soft, [id number] tenderness to palpation on right upper quadrant, andrew negative Extremities: Left leg edema Skin: No rash. Neurologic: Cranial nerves II-XII intact without motor, sensory, or cerebellar deficit, no asterixis. Right chest hemodialysis catheter laboratory and microbiology Laboratory Tests 10/24/24 06:58 Test 10/24/24 06:58 Range/Units Serum Glucose 101 74-106 mg/dL Labs and/or images reviewed: Labs reviewed by me, Image(s) reviewed by me Problem List/Assessment/Plan Problem List/Assessment/Plan NSTEMI r/o type 1 Severe coronary artery disease status post multiple PTCAs x7 GARY and triple vessel bypass CABG (on Brilinta and Aspirin) Hypertensive urgency Acute on chronic HFpEF, NYHA class III Acute hypoxic respiratory failure s/p pacemaker Moderate aortic valve stenosis Dyslipidemia End-stage renal disease on hemodialysis Type 2 diabetes mellitus Hypothyroidism Tobacco use Morbid obesity Bilateral nephrolithiasis Plan: Patient is scheduled to undergo a left heart catheterization today Urology follow up in the outpatient for cystoscopy Hemodialysis on Tuesday Continue DAPT Goals of care were discussed for 30 minutes. Full code Case was discussed with Dr. Gonzalez Plan discussed with: Patient, Other (RN) My Orders My Orders Orders - MARY PORTILLO RESIDENT Procedure Category Date Status Time Carvedilol Tablet PHA 10/23/24 In Process (Coreg Tablet) 22:00 Dietary Evaluation Review Comments: Continue current plan of care Expected Outcomes/Goals: Pt will meet >75% estimated needs Fu 3-5 days Date of Service: Oct 24, 2024 Billing Provider: BRIAN GONZALEZ MD Common Visit Codes: [id number] INP/OBS CARE(HIGH) MARY PORTILLO RESIDENT Oct 24, 2024 14:19 BRIAN GONZALEZ MD Oct 24, 2024 17:52
[2024-10-24] MEDS: SODIUM CHL 0.9% 1000 ML BAG XX ONE (18:27)
[2024-10-24] MEDS: LACTULOSE 20Gm/30ML SOLN PO PRN (21:52)
[2024-10-24] MEDS: HYDROMORPHONE HCL 1 MG/ML INJ IV ONE (23:45)
[2024-10-25] VITALS (7 sets, daily range): BP systolic 103–154; BP diastolic 49–71; PULSE 65–79; RESP 17–20; TEMP 97.5–98.4; O2SAT 95–100
[2024-10-25 07:20] LABS: Chloride 102 mmol/L (98-107); Potassium 3.5 mmol/L (3.5-5.1); Sodium 139 mmol/L (136-145)
[2024-10-25 07:21] LABS: Anion Gap 10 (5-15); Calcium 9.3 mg/dL (8.7-10.4); Carbon Dioxide 27 mmol/L (20-31)
[2024-10-25 07:26] LABS: BUN/Creatinine Ratio 6.4 (10.0-20.0); Blood Urea Nitrogen 21 mg/dL (9-23)
[2024-10-25 07:27] LABS: Glucose 109 mg/dL (74-106)
--- NOTE | 2024-10-25 09:17 | CONS ---
Pharmacy Clinical Information: From Heart Failure Fallout Report on CQM Application, ChandanavanessaHeena alexander is a 73 year old female with PMH of DM, HTN, CAD, GERD, ESRD, DE, hypothyroidism, and dyslipidemia. LFTs and lipid panel are WNL. Patient is currently on two lipid lowering agents: atorvastatin 80 mg qd and ezetimibe 10 mg qd. Additional lipid lowering agents are not appropriate at this time. MARAH IVEY PHARMACIST Oct 25, 2024 09:17
[2024-10-25] MEDS ORDERED: MECL-90 PO (11:34)
[2024-10-25] MEDS ORDERED: SEVE800T7 PO (11:34)
[2024-10-25] MEDS ORDERED: ASPI81CH49 PO (11:34)
[2024-10-25] MEDS ORDERED: TICA90TA PO (11:34)
--- NOTE | 2024-10-25 12:06 | DVHPNRES ---
Progress Note Date Seen: Oct 25, 2024 Resident Creating Document: KATEY BALL RESIDENT Medical Necessity Reason Pt with a Central, PICC or Fol: No Subjective Other Systems: Patient seen and examined by myself today with the medicine resident in follow-up I agree with his assessment and plan as documented in his note Objective vital signs Vital Sign Date Time Temp Pulse Resp B/P (MAP) Pulse Ox O2 Delivery O2 Flow Rate FiO2 10/25/24 11:57 98.4 66 20 95 10/25/24 10:32 146/49 10/25/24 08:00 Room Air* 0 21 Total Intake and Output 10/24/24 10/24/24 10/25/24 15:00 23:00 07:00 Intake Total 150 ml 250 ml Balance 150 ml 250 ml medications Current Medications Medications Dose Ordered Sig/Ezequiel Route Start Time Stop Time Status Last Admin Dose Admin Nitroglycerin 0.4 mg Q5MINP PRN SL 10/20/24 14:30 Furosemide 40 mg DAILY IV 10/21/24 10:00 10/25/24 10:32 40 MG Sodium Chloride 10 ml Q8HR IV 10/20/24 22:00 10/25/24 05:06 10 ML Aspirin 81 mg DAILY PO 10/21/24 10:00 10/25/24 10:31 81 MG Lactulose 30 ml DAILY PRN PO 10/20/24 16:15 10/24/24 21:52 30 ML Atorvastatin Calcium 80 mg HS PO 10/20/24 22:00 10/24/24 21:52 80 MG Insulin Human Regular Q6HR SC 10/20/24 18:00 10/24/24 23:12 2 UNITS Dextrose 50 ml UD PRN IV 10/20/24 16:15 Acetaminophen 500 mg Q6HP PRN PO 10/20/24 16:15 10/24/24 13:58 500 MG Ondansetron HCl 4 mg Q4HP PRN IV 10/20/24 16:15 10/25/24 08:55 4 MG Zolpidem Tartrate 5 mg QHSP PRN PO 10/20/24 16:15 10/22/24 23:58 5 MG Insulin Glargine 15 units HS SC 10/20/24 22:00 10/24/24 23:13 15 UNITS Tramadol HCl 50 mg [id number] PRN PO 10/20/24 20:45 Cancel Tramadol HCl 50 mg Q6HP PRN PO 10/20/24 21:00 10/25/24 10:29 50 MG EZETIMIBE 10 mg DAILY PO 10/22/24 10:00 10/25/24 10:26 10 MG Ticagrelor 90 mg BID PO 10/21/24 22:00 10/25/24 10:32 90 MG Isosorbide Mononitrate 60 mg DAILY PO 10/22/24 10:00 10/25/24 10:31 60 MG Hydralazine HCl 25 mg Q12HR PO 10/21/24 22:00 10/25/24 10:25 25 MG Morphine Sulfate 1 mg Q3HP PRN IV 10/22/24 21:45 Hold Carvedilol 6.25 mg Q12HR PO 10/23/24 22:00 10/25/24 10:30 6.25 MG Sevelamer HCl 800 mg TIDWM PO 10/23/24 18:00 10/25/24 08:07 800 MG Examination GENERAL:Normal, HEENT:Normal, NECK:Normal, LUNGS:Normal, CVS:Normal, ABDOMEN: RUQ pain, Normal, MSK:Abnormal, SKIN:Normal, NEURO:Normal, :Normal, on foleys. laboratory and microbiology Laboratory Tests 10/25/24 06:37 10/24/24 06:58 Test 10/25/24 06:37 Range/Units Serum Glucose 109 H 74-106 mg/dL Labs and/or images reviewed: Labs reviewed by me, Image(s) reviewed by me Problem List/Assessment/Plan Problem List/Assessment/Plan Ms. Burris, a 73-year-old female with a complex medical history, including end- stage renal disease (ESRD) on dialysis, congestive heart failure, hypertension, coronary artery disease with multiple stents and a triple bypass, dyslipidemia, a pacemaker, partial nephrectomy, hysterectomy, diabetes, and obesity, presented with shortness of breath, right upper quadrant abdominal pain, inability to sleep, feeling choked, and experiencing hot sweats for the past few weeks. she has not missed any treatments , on foleys. S/p catheter, DAPT by Dr. Ruelas. Nephrology Consult/ Progress Note: Assessment: #ESRD on dialysis via CVC #Bilateral nephrolithiasis nonobstructing #Hypertension #Moderate aortic stenosis #Severe coronary artery disease #NSTEMI pending cardiac cath 10/24 now on DAPT #RUQ pain Findings: #S/p HD yesterday 2L UF, tolerated well. S/p HD Epogen #GFR: 9>9>14 #Creatinine: 3.51>3.99>4.86>4.44>5.04>3.29 #BUN: 31> 27 > 37>21 #I&O: continue monitoring #Urinalysis 10/20 dirty #3.3 hypokalemia> resolved > 3.5 #Phos 6.9 (H) #PTH 533.2 , normal Ca+ 9s #RUQ US: Cholelithiasis without evidence of acute cholecystitis. Right kidney is atrophic. Plan: #Continue sevelamer po 800mg TID, check phosphate. #Following Dr. [facility]: MWF new initiation of dialysis, to arrange for chairtime. #Strict I&O and check Daily weight, Avoid Nephrotoxics, Avoid hyper/hypo tension and Fluid Restriction. #Check daily bmp, phosphate and electrolytes. #Follow with Dr. Neumann within 2 weeks of discharge as close nephrology follow up. #Rest of the clinical management as per Primary Team. Clear to be discharged home on arrangement of HD chairtime outpatient gee. Thank you for the opportunity to follow up on your patient. In case of any question feel free to reach out to the Nephrology team. Discussed with Nephrology attending Dr. Neumann. Plan discussed with: Patient, Other (RN) Dietary Evaluation Review Comments: Continue current plan of care Expected Outcomes/Goals: Pt will meet >75% estimated needs Fu 3-5 days KATEY BALL Oct 25, 2024 12:06 JEWELS NEUMANN MD Oct 25, 2024 13:02
[2024-10-25] MEDS ORDERED: TRAM50TA2 PO (12:24)
[2024-10-25] MEDS ORDERED: DICY10CA PO (12:26)
--- NOTE | 2024-10-25 12:29 | DVHPN2 ---
Consult Progress Note Subjective Other Systems: Remains in normal sinus rhythm with depressed ST on desk monitor Objective vital signs Vital Sign Date Time Temp Pulse Resp B/P (MAP) Pulse Ox O2 Delivery O2 Flow Rate FiO2 10/25/24 11:57 98.4 66 20 95 10/25/24 10:32 146/49 10/25/24 08:00 Room Air* 0 21 Total Intake and Output 10/24/24 10/24/24 10/25/24 15:00 23:00 07:00 Intake Total 150 ml 250 ml Balance 150 ml 250 ml medications Current Medications Medications Dose Ordered Sig/Ezequiel Route Start Time Stop Time Status Last Admin Dose Admin Nitroglycerin 0.4 mg Q5MINP PRN SL 10/20/24 14:30 Furosemide 40 mg DAILY IV 10/21/24 10:00 10/25/24 10:32 40 MG Sodium Chloride 10 ml Q8HR IV 10/20/24 22:00 10/25/24 05:06 10 ML Aspirin 81 mg DAILY PO 10/21/24 10:00 10/25/24 10:31 81 MG Lactulose 30 ml DAILY PRN PO 10/20/24 16:15 10/24/24 21:52 30 ML Atorvastatin Calcium 80 mg HS PO 10/20/24 22:00 10/24/24 21:52 80 MG Insulin Human Regular Q6HR SC 10/20/24 18:00 10/24/24 23:12 2 UNITS Dextrose 50 ml UD PRN IV 10/20/24 16:15 Acetaminophen 500 mg Q6HP PRN PO 10/20/24 16:15 10/24/24 13:58 500 MG Ondansetron HCl 4 mg Q4HP PRN IV 10/20/24 16:15 10/25/24 08:55 4 MG Zolpidem Tartrate 5 mg QHSP PRN PO 10/20/24 16:15 10/22/24 23:58 5 MG Insulin Glargine 15 units HS SC 10/20/24 22:00 10/24/24 23:13 15 UNITS Tramadol HCl 50 mg [id number] PRN PO 10/20/24 20:45 Cancel Tramadol HCl 50 mg Q6HP PRN PO 10/20/24 21:00 10/25/24 10:29 50 MG EZETIMIBE 10 mg DAILY PO 10/22/24 10:00 10/25/24 10:26 10 MG Ticagrelor 90 mg BID PO 10/21/24 22:00 10/25/24 10:32 90 MG Isosorbide Mononitrate 60 mg DAILY PO 10/22/24 10:00 10/25/24 10:31 60 MG Hydralazine HCl 25 mg Q12HR PO 10/21/24 22:00 10/25/24 10:25 25 MG Morphine Sulfate 1 mg Q3HP PRN IV 10/22/24 21:45 Hold Carvedilol 6.25 mg Q12HR PO 10/23/24 22:00 10/25/24 10:30 6.25 MG Sevelamer HCl 800 mg TIDWM PO 10/23/24 18:00 10/25/24 08:07 800 MG Examination: GENERAL:Normal, LUNGS:Normal, CVS:Normal, NEURO:Normal laboratory and microbiology Laboratory Tests 10/25/24 06:37 10/24/24 06:58 Test 10/25/24 06:37 Range/Units Serum Glucose 109 H 74-106 mg/dL Problem List/Assessment/Plan Problem List/Assessment/Plan NSTEMI s/p PTCA and stenting to LAD Severe coronary artery disease status post multiple PTCAs x7 GARY and triple vessel bypass CABG (on Brilinta and Aspirin) Hypertensive urgency, resolved Acute on chronic HFpEF, NYHA class III History of myocardial infarction Presence of Micra leadless permanent pacemaker ([employer]) Moderate aortic valve stenosis Tricuspid valve regurgitation, moderate degree Dyslipidemia End-stage renal disease on hemodialysis Type 2 diabetes mellitus Thyroid disease Tobacco use Morbid obesity Plan/Recommendation (Dr. Ruelas) Previous transthoracic echocardiogram from 06/30/2024 reveals EF 55% with moderate aortic stenosis with a aortic valve area of 1.27 cm2, a mean gradient 21 mmHg and a peak gradient of 37 mmHg. The patient underwent a coronary angiogram with left heart catheterization on 10/24/2024 in which she underwent a successful PTCA and stenting of the left anterior descending coronary artery. Continue with dual antiplatelet therapy, aggressive blood pressure control, beta-juan manuel, lipid-lowering agent. There is no further inpatient cardiac workup indicated at this time. The patient has been scheduled to follow up with her primary subject scientific research in the cardiac clinic on 11/23/2024 at 1:30 p.m. Thank you for allowing us to care for this patient. Please call with any questions or concerns. This medical document was created using an electronic medical record system with voice recognition software and computerized dictation system. Although this document has been carefully reviewed, there might still be some phonetic and typographical errors. Occasional wrong-word or ``sound-alike substitutions may have occurred due to the inherent limitations of voice recognition software. These areas are purely typographical due to imperfections of the software programs and do not reflect any compromise in the patient's medical care. Please read the chart carefully and recognize, using context, where these substitutions have occurred. Plan discussed with: Patient Dietary Evaluation Review Comments: Continue current plan of care Expected Outcomes/Goals: Pt will meet >75% estimated needs Fu 3-5 days Date of Service: Oct 25, 2024 Billing Provider: DONALDO MORENO Common Visit Codes: [id number] INP/OBS CARE(HIGH) DONALDO MORENO Oct 25, 2024 12:29
--- NOTE | 2024-10-30 14:22 | DVHDSRES ---
Discharge Summary Date of Admission Resident Creating Document: MARY PORTILLO RESIDENT Oct 20, 2024 at 14:22 Date of Discharge: Oct 25, 2024 Admitting Diagnosis SOB Labs/Diagnostic Data: Laboratory Results Test 10/25/24 06:37 10/25/24 05:03 10/24/24 06:58 10/23/24 05:43 Sodium Level 139 mmol/L (136-145) Potassium Level 3.5 mmol/L (3.5-5.1) Chloride Level 102 mmol/L (98-107) Carbon Dioxide Level 27 mmol/L (20-31) Anion Gap 10 (5-15) Blood Urea Nitrogen 21 mg/dL (9-23) Creatinine 3.29 mg/dL (0.550-1.02) Glomerular Filtration Rate Calc 14 mL/min (>90) BUN/Creatinine Ratio 6.4 (10.0-20.0) Serum Glucose 109 mg/dL (74-106) Calcium Level 9.3 mg/dL (8.7-10.4) POC Glucose 117 mg/dl (70-106) White Blood Count 6.6 10^3/uL (4.4-10.8) Red Blood Count 3.80 10^6/uL (4.0-5.20) Hemoglobin 11.6 g/dL (12.2-16.2) Hematocrit 34.8 % (36.0-46.0) Mean Corpuscular Volume 91.5 fL (80.0-100.0) Mean Corpuscular Hemoglobin 30.6 pg (28.0-32.0) Mean Corpuscular Hemoglobin Concent 33.5 g/dL (32.0-36.0) Red Cell Distribution Width 16.2 % (11.8-14.3) Platelet Count 206 10^3/uL (140-450) Mean Platelet Volume 8.8 fL (6.9-10.8) Neutrophils (%) (Auto) 55.3 % (37.0-80.0) Lymphocytes (%) (Auto) 32.7 % (10.0-50.0) Monocytes (%) (Auto) 8.4 % (0.0-12.0) Eosinophils (%) (Auto) 2.7 % (0.0-7.0) Basophils (%) (Auto) 0.9 % (0.0-2.0) Neutrophils # (Auto) 3.7 10 ^3/uL (1.6-8.6) Lymphocytes # (Auto) 2.2 10 ^3/uL (0.4-5.4) Monocytes # (Auto) 0.6 10 ^3/uL (0-1.3) Eosinophils # (Auto) 0.2 10 ^3/uL (0-0.8) Basophils # (Auto) 0.1 10 ^3/uL (0-0.2) Nucleated Red Blood Cells 0.0 % Prothrombin Time 11.1 sec (9.3-11.8) Prothrombin Time INR 1.05 (0.9-1.15) Activated Partial Thromboplast Time 25.4 SEC (24.5-34.5) Phosphorus Level 6.9 mg/dL (2.4-5.1) Parathyroid Hormone (Intact) 533.2 pg/mL (18.4-80.1) Test 10/22/24 10:40 10/21/24 08:40 10/21/24 05:10 10/20/24 12:56 Hepatitis B Surface Antigen Negative (Negative) B-Type Natriuretic Peptide 484.52 pg/mL (0-100) Total Bilirubin 0.3 mg/dL (0.2-1.0) Aspartate Amino Transferase (AST) 36 U/L (13-40) Alanine Aminotransferase (ALT) 20 U/L (7-40) Alkaline Phosphatase 94 U/L (46-116) Total Protein 5.6 g/dL (5.7-8.2) Albumin 3.3 g/dL (3.2-4.8) Triglycerides Level 264 mg/dL (< 150) Cholesterol Level 139 mg/dL (< 200) LDL Cholesterol 47 mg/dL (< 100) HDL Cholesterol 47 mg/dL (40-59) Troponin I High Sensitivity 57 ng/L (</=34) Thyroid Stimulating Hormone (TSH) 2.82 uIU/mL (0.55-4.78) Test 10/20/24 11:01 10/20/24 10:02 10/20/24 09:36 Blood Gas Specimen Type Arterial Blood Gas Sample Site Right radial Blood Gas Patient Temperature 37.0 Arterial Blood Date Drawn [id number] Arterial Blood pH 7.466 (7.350-7.450) Arterial Blood Partial Pressure CO2 40.1 mmHg (32.0-45.0) Arterial Blood Partial Pressure O2 108.3 mmHg (83.0-108.0) Arterial Blood HCO3 28.3 mmol/L (21.0-28.0) Arterial Blood Oxygen Saturation 97.9 % (94.0-98.0) Arterial Blood Base Excess 4.3 mmol/L (-2.0-3.0) Arterial Blood Oxyhemoglobin 95.8 % (94.0-98.0) Arterial Blood Carboxyhemoglobin 1.6 % (0.5-1.5) Arterial Blood Methemoglobin 0.5 % (0.0-1.5) Jaret Test Yes Blood Gas Total Hemoglobin 12.10 g/dL (12.0-16.0) Blood Gas Modality Room air FiO2 % 21.0 Urine Color Light-yellow (Yellow) Urine Clarity Hazy (Clear) Urine pH 7.5 (5.0-9.0) Urine Specific [place] 1.015 (1.001-1.035) Urine Protein 3+ (Negative) Urine Ketones Negative (Negative) Urine Blood Trace /uL (Negative) Urine Nitrite Negative (Negative) Urine Bilirubin Negative (Negative) Urine Urobilinogen Normal mg/dL (Negative) Urine Leukocyte Esterase Negative /uL (Negative) Urine RBC 2 /hpf (0 - 4) Urine Microscopic WBC 3 /HPF (0-5) Urine Squamous Epithelial Cells Mod /hpf (<5) Urine Bacteria Few /hpf (None Seen) Urine Glucose 4+ mg/dL (Normal) Lactic Acid Level 1.6 mmol/L (0.4-2.0) Other Laboratory Tests 10/25/24 06:37 10/24/24 06:58 Brief Hx & Hospital Course: 73-year-old lady brought to the emergency room because of shortness of breath going on and off for few weeks worse in the last few days with PND like symptoms. Past Medical History: Diabetes, Hypertension, Dyslipidemia, Coronary artery disease, End-stage renal disease on hemodialysis, GERD, SD , Hypothyroidism, Obesity Past Surgical History: CABG , Coronary stents placement x7 , Hysterectomy, Appendectomy , Partial nephrectomy on the right Family History: Not significant at this stage Past Social History: She still smokes around two cigarettes a day. No alcohol She was treated recently for UTI. She has no nausea or vomit or diarrhea. No fever no chills. Some chest pressure with shortness of breath especially after laying down. No nocturia. She does have diabetes and apparently her sugar has been running on the higher side lately. Previous transthoracic echocardiogram from 06/30/2024 reveals EF 55% with moderate aortic stenosis with a aortic valve area of 1.27 cm2, a mean gradient 21 mmHg and a peak gradient of 37 mmHg. The patient recently underwent a Cardiolite stress test on 08/28/24 in which nuclear findings were positive for ischemia including a reversible defect in the anterior and anterolateral garcia and mostly fixed defect in the inferior and inferolateral garcia. Patient was seen by scratch polisher. She was scheduled to undergo a left heart catheterization, she had PTCA and stenting to left anterior descending coronary artery. She will continue with dual antiplatelet therapy, aggressive blood pressure control, beta-juan manuel, lipid-lowering agent. The patient has been scheduled to follow up with her primary scratch polisher in the cardiac clinic on 11/23/2024 at 1:30 p.m. Physical examination as below: General: Awake, alert, comfortable appearing, in no acute distress. HEENT: Head is normocephalic and atraumatic. Pupils are equal, round, and reactive to light. Extraocular muscles are intact. No nasal discharge. No facial trauma. Intraoral exam shows moist mucous membranes with no tonsillar enlargement or exudate. Neck: Supple with no cervical lymphadenopathy No meningismus. No goiter. Heart: Regular rate without murmur, rub, or gallop. Lungs: Scattered bilateral crackles Abdomen: No external sign of injury. Bowel sounds are present. Abdomen is soft, [id number] tenderness to palpation on right upper quadrant, andrew negative Extremities: Left leg edema Skin: No rash. Neurologic: Cranial nerves II-XII intact without motor, sensory, or cerebellar deficit, no asterixis. Right chest hemodialysis catheter Patient was discharged home and she will continue home medications. She also continued DAPT, continue beta-blockers, lipid-lowering agent, blood pressure medications. Patient has been scheduled to follow up with Dr. Piper's, also on the discharge clinic, patient verbalized understanding and agree with DC plan, we spent over 30 minute explained the plan. Case was discussed with Dr. Gonzalez Consults/Reason for consult Cardiology was consulted for left heart catheterization Operations or Procedures EKG Name: VINCENT PASTOR Acct: [id number] [facility] [address] [id number] ELECTROCARDIOGRAM REPORT PATIENT: VINCENT PASTOR ACCT: [id number] : 1950 [facility] AGE / SEX: 73 / F ADM STATUS: ADM IN SERVICE UNIT: [id number] ORDERING PHYSICIAN: BETTY BROOKS DO PROCEDURE(s): EKG - ELECTROCARDIGRAM ORDER NUMBER(s): [id number], ACCESSION NUMBER(s): [id number] [facility] Test Date: 2024-10-20 Test Time: 09:04:54 Pat Name: VINCENT PASTOR Department: ER Room: 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 DICTATED BY:JEN PIPER Sr., MD DICTATED DATE/TIME:10/20/24 0904 ELECTRONICALLY SIGNED BY:JEN PIPER Sr., MD 10/24/24 1642 ELECTRONICALLY CO-SIGNED BY: Patient: VINCENT PASTOR Acct: [id number] : 1950 [facility] Age/Sex: 73/F Room: [facility] / Bed: A Attending Phy: MARY PORTILLO RESIDENT Operative Report - 2 Report Details Date: 10/24/24 Preop Diagnosis: CLINICAL PROFILE: 73-year-old lady with a history of coronary bypass grafting. History of three- vessel bypass. Has had recurrent episodes of chest pain. Abnormal stress test with anterior ischemia. Postop Diagnosis: Successful PTCA and stenting of the anterior descending coronary artery. Patent saphenous grafts and GABY. Normal left ventricular ejection fraction. Mild aortic sclerosis with a 15 mm gradient across the aortic valve. Surgeon: Jen Piper MD Anesthesiologist: Conscious sedation Anesthesia: Mac, Local (Versed and fentanyl were ordered by me. I monitored and patient throughout procedure in its entirety.) Consent: The patient was informed of the risks and benefits of the procedure. These include but are not limited to complications of anesthesia, postoperative infection, incomplete relief of symptoms, recurrence of symptoms, damage to blood vessels, nerves and tendons, deep venous thrombosis, pulmonary embolism and possible need for repeat surgery in the future. Complications: No complications Estimated Blood Loss: 5 cc Findings: Lad stenosis. Indications for Surgery: Chest pain. Abnormal stress test Name of Procedure Performed Left heart catheterization bilateral cine coronary angiography. Left ventriculography. Visualization of saphenous venous grafts and left internal mammary artery. PTCA and stenting to left anterior descending coronary artery. Procedure Details Procedure Details: Prior local anesthesia with 2% lidocaine to the left groin and full informed consent obtained patient was prepped and draped in the usual fashion followed by placement of a six [place] sheath in the femoral artery. Fluoroscopic guidance and ultrasound guidance was used to place catheter. Common femoral was accessed and a six [place] sheath placed followed by placement of six [place] catheters to cannulate both right and left coronary ostia left ventriculography and saphenous venous grafts as well as left internal mammary. A GABY guide was used for angioplasty. Hemodynamics aortic blood pressure was 110/70. End-diastolic pressure was eight. There was a 10-15 mm gradient across the aortic valve on pullback. Coronary anatomy: The RCA is on% occluded proximally. Left main is large and normal. Left anterior descending has an ostial 80-90% stenosis followed by diffuse disease of the proximal LAD subsequent to which there is competitive flow from the left internal mammary artery. The diagonal has moderate to significant disease. The circumflex is 100% occluded proximally. The 1st marginal is visualized and competitive flow is noted from the saphenous graft. The saphenous graft to the marginals sequentially placed to the PDA is patent. Mild plaquing in the distal limb with about a 20-30% stenosis. The limb prior to the anastomosis of the marginal has been stented. There is excellent antegrade flow without thrombus formation and/or dissection. Internal mammary artery to the LAD is patent without lesions. Distal to the anastomosis in the mid distal segment of the LAD there is a 80% stenosis of the left anterior descending. Angioplasty was performed for which an GABY catheter was placed into the ostial segment of the GABY a Specter wire was then placed across the area of stenosis distally into the LAD. A 2.5 mm x 15 mm Medtronic balloon was then placed and dilated to approximately 10 atmospheres. There was notable improvement flow. A residual lesion was noted for which 2.5 x 16 mm Medtronic stent was placed and deployed at approximately 13 atmospheres. There was excellent antegrade flow without thrombus formation and/or dissection. Impression: Successful PTCA and stenting of left anterior descending coronary artery. Patent left internal mammary artery to the LAD. Patent saphenous graft to the marginal and PDA. Occluded RCA. Severe CAD involving the proximal LAD and circumflex. Mild gradient across the aortic valve with elevated end- diastolic pressures. Normal left ventricular ejection fraction. Recommendations: Continue dual antiplatelet therapy. Risk factor modification to continue. Condition Good Disposition 2 Still a Patient Date of Service: Oct 24, 2024 Billing Provider: JEN PIPER Sr., MD Cardiology Common Codes: 10430-MRQCFGB INP/OBS CARE (High) Cardiology Procedure Codes: 19601-WTN NONCORN ART BYPASS GTF, 36941 -PTCA W/STENT PLACEMENT, 98956-QPYM ADD COR ART/BRNCH/GRFT JEN PIPER Sr., MD Oct 24, 2024 13:13 DICTATED BY:JEN PIPER Sr., MD DICTATED DATE/TIME:10/24/24 1313 ELECTRONICALLY SIGNED BY:JEN PIPER Sr., MD 10/24/24 1313 ELECTRONICALLY CO-SIGNED BY: Condition at Discharge: Good Final Diagnosis/Problems List NSTEMI r/o type 1 Severe coronary artery disease status post multiple PTCAs x9 GARY and triple vessel bypass CABG (on Brilinta and Aspirin) Hypertensive urgency Acute on chronic HFpEF, NYHA class III Acute hypoxic respiratory failure s/p pacemaker Moderate aortic valve stenosis Dyslipidemia End-stage renal disease on hemodialysis Type 2 diabetes mellitus Hypothyroidism Tobacco use Morbid obesity Bilateral nephrolithiasis Discharge Disposition: Home Discharge Instruct/Medications Diet: Cardiac 2g Na,low cholest Activity: Light activity Follow Up/Referral: FU WITH PCP IN 1 WEEK Medications: continue dapt and home meds as prescribed Discharge Statement: "Patient was advised to return to the ER or call 911 if any headaches, dizziness, shortness of breath, chest pain, abdominal pain, bleeding, fevers, or worsening of medical condition. Patient was counseled about treatment plan, medications, possible side effects, patientverbalized understanding. All questions were answered to the best of my ability. This discharge took greater then 30 minutes in planning, reviewing documentation, counseling the patient, and discussing with other team members." ASSESSMENT ASSESSMENT Assessment NSTEMI type 1 s/p PCI 2 stents Date of Service: Oct 25, 2024 Billing Provider: BRIAN GONZALEZ MD Common Visit Codes: 39813-SHJ/OBS DISCH DAY >30min MARY PORTILLO RESIDENT Oct 30, 2024 14:22 BRIAN GONZALEZ MD Oct 30, 2024 17:45
== END 2024-10-25 13:36 | disposition home or self-care (01) | DRG 321 ==
LOC: ER 08:49 → OVERFLOW 14:22 → TELE-WESTW 17:54
PROVIDERS: ADMIT Internal Medicine; ATTEND Internal Medicine
PROC: 5A1D70Z Performance of Urinary Filtration, Intermittent, Less than 6 Hours Per Day (ICD-10-PCS; 2024-10-22)
PROC: 027034Z Dilation of Coronary Artery, One Artery with Drug-eluting Intraluminal Device, Percutaneous Approach (ICD-10-PCS; principal; 2024-10-24)
PROC: 4A023N7 Measurement of Cardiac Sampling and Pressure, Left Heart, Percutaneous Approach (ICD-10-PCS; 2024-10-24)
PROC: B213YZZ Fluoroscopy of Multiple Coronary Artery Bypass Grafts using Other Contrast (ICD-10-PCS; 2024-10-24)
PROC: B211YZZ Fluoroscopy of Multiple Coronary Arteries using Other Contrast (ICD-10-PCS; 2024-10-24)
PROC: B215YZZ Fluoroscopy of Left Heart using Other Contrast (ICD-10-PCS; 2024-10-24)
PROC: 5A1D70Z Performance of Urinary Filtration, Intermittent, Less than 6 Hours Per Day (ICD-10-PCS; 2024-10-24)
DX: I21.4 Non-ST elevation (NSTEMI) myocardial infarction (principal); I50.33 Acute on chronic diastolic (congestive) heart failure; N18.6 End stage renal disease; I13.2 Hypertensive heart and chronic kidney disease with heart failure and with stage 5 chronic kidney disease, or end stage renal disease; N39.0 Urinary tract infection, site not specified; D64.9 Anemia, unspecified; E11.22 Type 2 diabetes mellitus with diabetic chronic kidney disease; E66.01 Morbid (severe) obesity due to excess calories; E78.5 Hyperlipidemia, unspecified; I07.1 Rheumatic tricuspid insufficiency; K21.9 Gastro-esophageal reflux disease without esophagitis; K57.30 Diverticulosis of large intestine without perforation or abscess without bleeding; N20.0 Calculus of kidney; I25.10 Atherosclerotic heart disease of native coronary artery without angina pectoris; E03.9 Hypothyroidism, unspecified; I35.0 Nonrheumatic aortic (valve) stenosis; I16.0 Hypertensive urgency; F17.210 Nicotine dependence, cigarettes, uncomplicated; J44.9 Chronic obstructive pulmonary disease, unspecified; K59.00 Constipation, unspecified; I49.3 Ventricular premature depolarization; I70.0 Atherosclerosis of aorta; Z68.34 Body mass index [BMI] 34.0-34.9, adult; Z99.2 Dependence on renal dialysis; Z95.5 Presence of coronary angioplasty implant and graft; Z95.1 Presence of aortocoronary bypass graft; Z95.0 Presence of cardiac pacemaker; Z90.711 Acquired absence of uterus with remaining cervical stump; Z90.5 Acquired absence of kidney; Z90.49 Acquired absence of other specified parts of digestive tract; Z79.4 Long term (current) use of insulin; Z79.02 Long term (current) use of antithrombotics/antiplatelets; Z88.5 Allergy status to narcotic agent; Z88.3 Allergy status to other anti-infective agents; Z79.899 Other long term (current) drug therapy; Z80.3 Family history of malignant neoplasm of breast; Z80.0 Family history of malignant neoplasm of digestive organs; Z79.891 Long term (current) use of opiate analgesic; Z79.82 Long term (current) use of aspirin; Z79.84 Long term (current) use of oral hypoglycemic drugs
CPT/HCPCS: 36415; 36600; 71045; 74018; 74176; 76705; 80048; 80053; 80061; 81001; 82310; 82805; 82962; 83605; 83880; 83970; 84100; 84443; 84484; 85025; 85610; 85730; 87340; 90935; 92941; 93005; 93459; 93970; 97116; 97163; 97530; 99152; 99291; C1874; G0378; J1642; J1815; J2250; J2405; Q9967

== ENCOUNTER 2024-10-31 12:52 | Emergency (ER) | payer OTHER, MEDICAID ==
[~2024-10-31] VITALS: Ht 167.6 cm; Wt 92.7 kg
[~2024-10-31 12:52] MED LIST changes: -CARV12.544 PO; -CEPH500C PO; -CIPR500T4 PO; +DICY10CA PO; -GLIP1TAB8 PO; -LEVO25TA2 PO; +MECL-90 PO; -METO10TA7 PO; -NIC21P TD; -NITR0.4S29 SL; -PANT40TA57 PO; -PROM1SOL4 PO; -RANO500G PO; +SEVE800T7 PO; -SODI5PAK PO; -[UNRECOGNIZED DRUG - CODE] PO; -[UNRECOGNIZED DRUG - CODE] PO
--- NOTE | 2024-10-31 13:21 | ECG ---
[facility] Test Date: 2024-10-31 Test Time: 13:01:45 Pat Name: VINCENT PASTOR Department: ED Room: Gender: F Director Of Donor Relations: JASPER : 1950 Requested By: JACKELYN RÍOS Order Number: [id number] Reading MD: Vijay Ruelas Measurements Intervals [place] Rate: 109 P: 188 [place]: 106 QRS: 60 QRSD: 89 T: -55 QT: 343 QTc: 463 Interpretive Statements Sinus or ectopic atrial tachycardia Left atrial enlargement LVH with secondary repolarization abnormality Electronically Signed On 10-31-2024 22:44:35 PDT by Vijay Ruelas Please click the below link to view image of tracing.
--- NOTE | 2024-10-31 13:22 | ED.PDOC ---
History of Present Illness HPI Comments 73-year-old male came in because she has been having left arm pain along with unable to stand up without feeling like she is going to fall. She also feels that she can not ambulate without falling down. The symptoms started this morning. She does have a history of hypertension. Blood pressure was 190/70 prior to coming to the ER. She did have stent placement last week at this hospital. Denies any other symptoms. Chief Complaint: Left Sided Weakness Time Seen by MD: 13:08 Primary Care Provider: FELICIA Reviewed Notes: Nurses Notes, Medications, Allergies Allergies: Coded Allergies: Codeine (Verified Allergy, Unknown, 08/28/24) Morphine (Verified Allergy, Unknown, 08/28/24) Nitrofurantoin (Verified Allergy, Unknown, 08/28/24) Home Meds Active Scripts Dicyclomine Hcl (BENTYL CAPSULE) 10 Mg Cp, 1 CAP PO Q6HPRN for 7 Days, #30 CAP 3 Refills Prov:MARY PORTILLO RESIDENT 10/25/24 Meclizine Hcl (Meclizine Hcl) 25 Mg Tab, 25 MG PO BID PRN for 10 Days, #20 TAB Prov:MARY PORTILLO RESIDENT 10/25/24 Sevelamer Hydrochloride (Renagel) 800 Mg Tab, 800 MG PO TIDWM for 30 Days, #90 TAB 2 Refills Prov:MARY PORTILLO [facility] 10/25/24 Aspirin (Aspirin) 81 Mg Chw, 81 MG PO DAILY for 30 Days, #30 TAB.CHEW 2 Refills Prov:MARY PORTILLO [facility] 10/25/24 Ticagrelor Base (BRILINTA) 90 Mg Tab, 90 MG PO BID for 30 Days, #60 TAB 2 Refills Prov:MARY PORTILLO [facility] 10/25/24 Ferrous Sulfate (Iron (Ferrous Sulfate)) 50 Mg Tab, 50 MG PO DAILY for 30 Days, #30 TAB Prov:BLANCA MARTINEZ RESIDENT 02/13/24 Acetaminophen (Acetaminophen) 325 Mg Tab, 650 MG PO Q6HP PRN for 30 Days, #240 TAB Prov:BLANCA MARTINEZ RESIDENT 02/13/24 Reported Medications Benzonatate (Benzonatate) 200 Mg Cap, 1 CAP PO TID PRN for COUGH for 30 Days, #90 10/22/24 Ergocalciferol (VITAMIN D 94360 UNIT) 50,000 Unit Cp, 1 CAP PO QWEEKLY for 84 Days, #12 10/22/24 Carvedilol (Carvedilol) 6.25 Mg Tab, 1 TAB PO BID for 90 Days, #180 10/22/24 Gabapentin (Gabapentin) 100 Mg Cap, 2 CAP PO HS for 60 Days, #180 10/22/24 Bumetanide (Bumetanide) 2 Mg Tab, 1 TAB PO DAILY for 90 Days, #90 10/22/24 Loratadine (CLARITIN TABLET) 10 Mg Tb, 1 TAB PO DAILY 07/16/24 Fluticasone-Salmeterol (Wixela Inhub 100-50 Mcg/Dose) 1 Aer Aer, 1 PUFF INH Q12HR 03/05/24 Atorvastatin Calcium (ATORVASTATIN CALCIUM) 80 Mg Tab, 1 TAB PO DAILY for 90 Days, #90 02/10/24 Diclofenac Sodium (Topical) (Voltaren Arthritis Pain) 1 % Gel, 1 % EX PRN PRN for PAIN SCALE 1 THRU 6, GEL 02/10/24 Insulin Glargine (Lantus Solostar) 100 Unit/Ml Inj, 8 UNIT SC HS, INJ 02/10/24 Albuterol Sulfate (Albuterol Sulfate Hfa) 108 Mcg/Act Aer, 2 PUFF INH Q6HR PRN for WHEEZING 12/27/23 Levothyroxine Sodium (Levothyroxine Sodium) 25 Mcg Tab, 1 TAB PO QAM for 90 Days , #90 12/25/23 Sodium Bicarbonate (Sodium Bicarbonate) 650 Mg Tab, 2 TAB PO BID for 90 Days, #360 12/25/23 Isosorbide Mononitrate (Isosorbide Mononitrate ER) 60 Mg Tab, 1.5 TAB PO DAILY for 90 Days, #135 12/25/23 Hydralazine HCl (Hydralazine HCl) 25 Mg Tab, 1 TAB PO TID for 90 Days, #270 12/25/23 Gabapentin (Gabapentin) 100 Mg Cap, 1 CAP PO QAM for 60 Days, #180 08/11/21 Ezetimibe (Zetia) 10 Mg Tab, 1 TAB PO DAILY for 90 Days, #90 08/11/21 Discontinued Reported Medications Ciprofloxacin Hcl (Ciprofloxacin Hcl) 500 Mg Tab, 1 TAB PO Q12HR for 5 Days, #10 10/22/24 Information Source: Patient Mode of Arrival: Wheelchair Severity: Moderate Timing: Hours Duration: Since onset Past Medical History PAST MEDICAL HISTORY: CHF, CKF, COPD, DM, ESRD, GERD, High Lipids, HTN, Kidney Stones, MA, Thyroid, UTI'S Surgical History: Appendectomy, CABG, Hysterectomy, PTCA [employer] History: No Pertinent [employer] History Family History Family History: Reviewed,noncontributory to illness, No family hx of Cancer, No family hx of Heart елена Social History Smoker: Cigarettes, Less Than 1 Pack/Day Alcohol: Denies ETOH Use Drugs: Denies Drug Use Lives In: Home Constitutional: denies: chills, diaphoresis, fatigue, fever, malaise, sweats, weakness, others EENTM: denies: blurred vision, double vision, ear bleeding, ear discharge, ear drainage, ear pain, ear ringing, eye pain, eye redness, hearing loss, mouth pain, mouth swelling, nasal discharge, nose bleeding, nose congestion, nose pain, photophobia, tearing, throat pain, throat swelling, voice changes, others Respiratory: denies: cough, hemoptysis, orthopnea, SOB at rest, shortness of breath, SOB with excertion, stridor, wheezing, others Cardiovascular: denies: chest pain, dizzy spells, diaphoresis, Dyspnea on exertion, edema, irregular heart beat, left arm pain, lightheadedness, palpitations, PND, syncope, others Gastrointestinal: denies: abdomen distended, abdominal pain, blood streaked bowels, constipated, diarrhea, dysphagia, difficulty swallowing, hematemesis, melena, nausea, poor appetite, poor fluid intake, rectal bleeding, rectal pain, vomiting, others Genitourinary: denies: abnormal vagina bleeding, burning, dyspareunia, dysuria, flank pain, frequency, hematuria, incontinence, pain, , vagina discharge, urgency, others Neurological: reports: dizziness; denies: fainting, headache, left sided numbness, left sided weakness, numbness, paresthesia, pre-existing deficit, right sided numbness, right sided weakness, seizure, speech problems, tingling, tremors, weakness, others Musculoskeletal: reports: muscle pain (Left arm); denies: back pain, gout, joint pain, joint swelling, muscle stiffness, neck pain, others Integumetry: denies: bruises, change in color, change in hair/nails, dryness, laceration, lesions, lumps, rash, wounds, others Allergic/Immunocompromised: denies: Difficulty Healing, Frequent Infections, Hives, Itching, others Hematologic/Lymphatic: denies: anemia, blood clots, easy bleeding, easy bruising, swollen glands, others Endocrine: denies: excessive hunger, excessive sweating, excessive thirst, excessive urination, flushing, intolerance to cold, intolerance to heat, unexplained weight gain, unexplained weight loss, others Psychiatric: denies: anxiety, bipolar disorder, depression, hopeless, panic disorder, schizophrenia, sleepless, suicidal, others Physical Exam General Appearance: Moderate Distress HEENT: Normal ENT Inspection, Pharynx Normal, TMs Normal Neck: Full Range of Motion, Non-Tender, Normal, Normal Inspection Respiratory: Chest Non-Tender, Lungs Clear, No Accessory Muscle Use, No Respiratory Distress, Normal Breath Sounds Cardiovascular: No Edema, No JVD, No Murmur, No Gallop, Normal Peripheral Pulses, Regular Rate/Rhythm Breast Exam: Deferred Gastrointestinal: No Organomegaly, Non Tender, No Pulsatile Mass, Normal Bowel Sounds, Soft Genitalia: Deferred Pelvic: Deferred Rectal: Deferred Extremities: No calf tenderness, Normal capillary refill, Normal range of motion, Non-tender, No pedal edema Musculoskeletal : Apperance: Normal 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 Was a procedure done?: No Differential Dx Considerations may include: TIA Electrolyte imbalance X-Ray, Labs, Meds, VS Vital Signs Date Time Temp Pulse Resp B/P (MAP) Pulse Ox O2 Delivery O2 Flow Rate FiO2 10/31/24 15:47 98.1 104 22 112/70 (84) 96 98.1 10/31/24 13:17 97.5 105 18 117/57 (77) 98 97.5 10/31/24 13:04 109 Lab Test 10/31/24 14:58 10/31/24 14:09 10/31/24 13:48 Range/Units Troponin I High Sensitivity 39 *H 41 *H </=34 ng/L POC Glucose 288 H 70-106 mg/dl White Blood Count 9.2 4.4-10.8 10^3/uL Red Blood Count 3.77 L 4.0-5.20 10^6/uL Hemoglobin 11.7 L 12.2-16.2 g/dL Hematocrit 34.6 L 36.0-46.0 % Mean Corpuscular Volume 91.8 80.0-100.0 fL Mean Corpuscular Hemoglobin 31.1 28.0-32.0 pg Mean Corpuscular Hemoglobin Concent 33.9 32.0-36.0 g/dL Red Cell Distribution Width 15.5 H 11.8-14.3 % Platelet Count 267 140-450 10^3/uL Mean Platelet Volume 9.3 6.9-10.8 fL Neutrophils (%) (Auto) 74.7 37.0-80.0 % Lymphocytes (%) (Auto) 18.6 10.0-50.0 % Monocytes (%) (Auto) 4.7 0.0-12.0 % Eosinophils (%) (Auto) 1.0 0.0-7.0 % Basophils (%) (Auto) 1.0 0.0-2.0 % Neutrophils # (Auto) 6.9 1.6-8.6 10 ^3/uL Lymphocytes # (Auto) 1.7 0.4-5.4 10 ^3/uL Monocytes # (Auto) 0.4 0-1.3 10 ^3/uL Eosinophils # (Auto) 0.1 0-0.8 10 ^3/uL Basophils # (Auto) 0.1 0-0.2 10 ^3/uL Nucleated Red Blood Cells 0.1 % Sodium Level 143 136-145 mmol/L Potassium Level 3.9 3.5-5.1 mmol/L Chloride Level 105 98-107 mmol/L Carbon Dioxide Level 28 20-31 mmol/L Anion Gap 10 5-15 Blood Urea Nitrogen 42 H 9-23 mg/dL Creatinine 4.59 #H 0.550-1.02 mg/dL Glomerular Filtration Rate Calc 10 >90 mL/min BUN/Creatinine Ratio 9.2 L 10.0-20.0 Serum Glucose 296 H 74-106 mg/dL Calcium Level 9.5 8.7-10.4 mg/dL Patient alert pain Complaining of dizziness. Vitals stable. Answering questions. Recently had coronary stent placement. EKG reviewed does show chronic changes. Possible TIA. Carotid duplex. Spoke with her primary care physician Dr. Clark, Dr. Clark wanted an MRI to check for any stroke. MRI does not show any acute process. Reviewed her history. Continue cardiac monitoring. Cardiac marker slightly elevated because of post catheterization. Spoke with Cardiology about the troponin. Cardiology has cleared the patient. Explained to the patient. Was told to follow up with her primary care physician. Was told to come back if there is any problem. Will be followed by night physician prior to discharge. Time of 1ST Reevaluation: 13:20 Reevaluation 1ST: Unchanged Time of 2ND Reevaluation: 17:27 Reevaluation 2ND: Improved Patient Education/Counseling: Diagnosis, Treatment, Prognosis Family Education/Counseling: No Family Present Departure 1 Departure Time of Disposition: 13:21 Impression: Primary Impression: Hypertensive urgency Additional Impression: TIA (transient ischemic attack) Disposition: 30 STILL A PATIENT Condition: Good Critical Care Note Critical Care Time?: No Stability Stability form required: No Heart Score Heart Score: Heart Score Response (Comments) Value History Slightly Suspicious 0 EKG Normal 0 Age >65 2 Risk Factors >3 or Hx ASHD 2 Troponin Normal limit 0 Total 4 JACKELYN RÍOS MD Oct 31, 2024 13:22
[2024-10-31 14:03] LABS: Basophils # (auto) 0.1 10 ^3/uL (0-0.2); Eosinophils # (auto) 0.1 10 ^3/uL (0-0.8); Hematocrit 34.6 % (36.0-46.0); Hemoglobin 11.7 g/dL (12.2-16.2); Lymphocytes # (auto) 1.7 10 ^3/uL (0.4-5.4); Lymphocytes % (auto) 18.6 % (10.0-50.0); Mean Corpuscular Hemoglobin 31.1 pg (28.0-32.0); Mean Corpuscular Hgb Conc. 33.9 g/dL (32.0-36.0); Mean Corpuscular Volume 91.8 fL (80.0-100.0); Monocytes # (auto) 0.4 10 ^3/uL (0-1.3); Monocytes % (auto) 4.7 % (0.0-12.0); Neutrophils # (auto) 6.9 10 ^3/uL (1.6-8.6); Neutrophils % (auto) 74.7 % (37.0-80.0); Nucleated Red Blood Cells % 0.1 %; Platelet Count (auto) 267 10^3/uL (140-450); Red Blood Cells 3.77 10^6/uL (4.0-5.20); Red Cell Distribution Width 15.5 % (11.8-14.3); White Blood Cell 9.2 10^3/uL (4.4-10.8)
--- NOTE | 2024-10-31 14:06 | DVH ---
CHEST RADIOGRAPH Indication: sob Technique: Single frontal view of the chest was obtained Comparison: XY CHEST PORTABLE on DOS: 10/21/24, XY CHEST PORTABLE on DOS: 10/20/24, XY CHEST XRAY 1 VIEW on DOS: 07/27/24 FINDINGS: Lines and Tubes: Right IJ approach hemodialysis catheter terminating within the proximal right atrium . Lungs: No focal consolidation. Pleura: No effusion. No pneumothorax. Cardiomediastinal contours: Unremarkable. Cardiac loop recorder is noted. Bones: No acute osseous abnormality. Midline sternotomy wires are noted. Partially visualized tubular structure overlying the left hemiabdomen. IMPRESSION: No acute cardiopulmonary disease.Right IJ Approach hemodialysis catheter in satisfactory position.
[2024-10-31 14:13] LABS: Chloride 105 mmol/L (98-107); Potassium 3.9 mmol/L (3.5-5.1); Sodium 143 mmol/L (136-145)
[2024-10-31 14:14] LABS: Anion Gap 10 (5-15); Calcium 9.5 mg/dL (8.7-10.4); Carbon Dioxide 28 mmol/L (20-31)
--- NOTE | 2024-10-31 14:15 | DVH ---
EXAM: CT HEAD WITHOUT CONTRAST INDICATION: tia TECHNIQUE: CT of the head without intravenous contrast. Coronal and sagittal reformatted images are s ubmitted. Radiation Dose : 1. Head: CT Dose: CTDI volume is 54.53 mGy. Dose-length product is 1074.7 mGy*cm The dose indicators for CT are the volume Computed Tomography (CT) Dose Index (CTDIvol) and the Dose Length Product (DLP), and are measured in units of mGy and mGy-cm, respectively. These indicators are not patient dose, but values generated from the CT scanner acquisition factors. The report includes radiation exposure data for exposures received during this examination. All CT scans at this medical facility are performed using dose modulation techniques as appropriate to a performed exam including the following: Automated exposure control was utilized; adjustment of the MA and/or KV according to patient size; and use of iterative reconstruction technique. COMPARISON: CT HEAD WITHOUT CONTRAST on DOS: 02/08/24 FINDINGS: There is no evidence of acute intracranial hemorrhage, extra-axial collection, mass effect, midline s hift, herniation or hydrocephalus. There are periventricular and subcortical hypodensities, nonspecific, but likely reflecting sequelae of chronic microvascular ischemic changes. The ventricles, sulci and cisterns are age appropriate. The ham-white differentiation is intact. The visualized paranasal sinuses and mastoid air cells are clear. No depressed calvarial fracture. The surrounding soft tissues are unremarkable. IMPRESSION: 1. No evidence of acute intracranial abnormality. HS:Y
[2024-10-31 14:19] LABS: BUN/Creatinine Ratio 9.2 (10.0-20.0)
[2024-10-31 14:23] LABS: Blood Urea Nitrogen 42 mg/dL (9-23); Glucose 296 mg/dL (74-106)
--- NOTE | 2024-10-31 16:49 | DVH ---
PROCEDURE: MRI BRAIN HEAD WO CONTRAST INDICATION: LEFT SIDED WEAKNESS EXAM DATE: 10/31/2024 04:07 PM COMPARISON: MRI BRAIN HEAD WO CONTRAST on DOS: 07/22/23 TECHNIQUE: MRI of the brain without intravenous contrast. FINDINGS: Diffusion weighted images of the brain demonstrate no evidence of acute infarction. There is no evidence of acute intracranial hemorrhage, extra-axial collection, mass effect, midline s hift, herniation or hydrocephalus. The ventricles, sulci and cisterns appear age appropriate. [id number] changes of chronic microvascular ischemic disease. Small old infarct in the right fr ontal dang radiata. There are no signal abnormalities on the susceptibility weighted sequences. The major vascular flow voids are present. The visualized paranasal sinuses and mastoid air cells are clear. The surrounding soft tissues and o sseous structures are unremarkable. IMPRESSION: 1. No evidence of acute infarction, intracranial hemorrhage, mass effect or hydrocephalus. Mild-to-mo derate changes of chronic microvascular ischemic disease. 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 HS:Y
[2024-10-31 18:12] VITALS: BP 140/99; PULSE 109; RESP 20; TEMP 97.6; O2SAT 97
== END 2024-10-31 22:16 | disposition home or self-care (01) ==
LOC: ER 12:52
DX: I16.0 Hypertensive urgency (principal); G45.9 Transient cerebral ischemic attack, unspecified; I25.2 Old myocardial infarction; I13.2 Hypertensive heart and chronic kidney disease with heart failure and with stage 5 chronic kidney disease, or end stage renal disease; I50.9 Heart failure, unspecified; E11.22 Type 2 diabetes mellitus with diabetic chronic kidney disease; N18.6 End stage renal disease; J44.9 Chronic obstructive pulmonary disease, unspecified; F17.210 Nicotine dependence, cigarettes, uncomplicated; Z90.710 Acquired absence of both cervix and uterus; Z90.49 Acquired absence of other specified parts of digestive tract; Z95.1 Presence of aortocoronary bypass graft; Z79.899 Other long term (current) drug therapy; Z79.02 Long term (current) use of antithrombotics/antiplatelets; Z79.51 Long term (current) use of inhaled steroids; Z79.82 Long term (current) use of aspirin; Z88.1 Allergy status to other antibiotic agents; Z88.5 Allergy status to narcotic agent
CPT/HCPCS: 36415; 70450; 70551; 71045; 80048; 82947; 82962; 84484; 85025; 93005

== ENCOUNTER 2025-05-01 07:57 | Outpatient (CLI) | payer OTHER, MEDICAID ==
[~2025-05-01 07:57] MED LIST changes: +CEPH250C PO
[2025-05-01 08:35] LABS: Urine Budding Yeast OCCASIONAL /hpf (None Seen); Urine Protein, UAD 3+ (Negative)
[2025-05-01 08:40] LABS: Hematocrit 38.1 % (36.0-46.0); Hemoglobin 12.8 g/dL (12.2-16.2); Mean Corpuscular Hemoglobin 31.3 pg (28.0-32.0); Mean Corpuscular Volume 92.9 fL (80.0-100.0); Nucleated Red Blood Cells % 0.0 %
[2025-05-01 08:43] LABS: Alanine Aminotransferase 34 U/L (7-40); Albumin 3.9 g/dL (3.2-4.8); Alkaline Phosphatase 88 U/L (46-116); Anion Gap 15 (5-15); BUN/Creatinine Ratio 16.6 (10.0-20.0); Bilirubin, Total 0.6 mg/dL (0.2-1.0); Calcium 9.0 mg/dL (8.7-10.4); Carbon Dioxide 24 mmol/L (20-31); Total Protein 6.3 g/dL (5.7-8.2)
[2025-05-01 08:44] LABS: Blood Urea Nitrogen 63 mg/dL (9-23); Chloride 107 mmol/L (98-107); Glucose 106 mg/dL (74-106); Potassium 3.5 mmol/L (3.5-5.1); Sodium 146 mmol/L (136-145)
[2025-05-01 08:47] LABS: Free T4 (Free Thyroxine) 1.39 ng/dL (0.89-1.76)
[2025-05-01 09:25] LABS: Triglycerides 185 mg/dL (< 150)
[2025-05-01 09:26] LABS: HDL Cholesterol 55 mg/dL (40-59)
[2025-05-01 09:32] LABS: Cholesterol 206 mg/dL (< 200); Microalb/Creat Ratio, Urine 3288.0
== END 2025-05-01 17:00 | disposition home or self-care (01) ==
LOC: LAB 07:57
PROVIDERS: ATTEND Family Medicine
DX: I13.2 Hypertensive heart and chronic kidney disease with heart failure and with stage 5 chronic kidney disease, or end stage renal disease (principal); E11.22 Type 2 diabetes mellitus with diabetic chronic kidney disease; I50.42 Chronic combined systolic (congestive) and diastolic (congestive) heart failure; N18.6 End stage renal disease; E11.40 Type 2 diabetes mellitus with diabetic neuropathy, unspecified; J44.9 Chronic obstructive pulmonary disease, unspecified; Z00.01 Encounter for general adult medical examination with abnormal findings; Z11.3 Encounter for screening for infections with a predominantly sexual mode of transmission; Z73.89 Other problems related to life management difficulty; Z99.2 Dependence on renal dialysis
CPT/HCPCS: 36415; 80053; 80061; 81001; 82043; 82570; 83036; 83880; 84439; 84443; 84480; 84484; 85025

== ENCOUNTER 2025-05-03 09:52 | Inpatient (IN) | payer OTHER, MEDICAID ==
[~2025-05-03] VITALS: Ht 167.6 cm; Wt 90.9 kg
--- NOTE | 2025-05-03 10:54 | ED.PDOC ---
HPI Comments This is a 74 year old female presenting to the ED with chief complaint of chest pain. Patient reports that she has been experiencing left sided chest pain with associated abdominal pain, chills, cough, and headache for the past 3 days. Patient relays that she saw her PCP on Tuesday, noting that her BP was elevated and has been since then. Patient states she was seen on 04/15/25 in [place] for gallstone problems, but her gallbladder was not removed. Patient notes being on dialysis M/W/F. Patient denies any SOB, dizziness, N/V, fever, or chills. Chief Complaint: Chest Pain Time Seen by MD: 10:52 Primary Care Provider: unknown Reviewed Notes: Nurses Notes, Medications, Allergies Allergies: Coded Allergies: Codeine (Verified Allergy, Unknown, 08/28/24) Morphine (Verified Allergy, Unknown, 08/28/24) Nitrofurantoin (Verified Allergy, Unknown, 08/28/24) Home Meds Active Scripts Cephalexin (KEFLEX CAPSULE) 250 Mg Cp, 250 MG PO BID for 4 Days, #8 CAP Prov:JULIETA CLIFFORD RESIDENT 11/28/24 Dicyclomine Hcl (BENTYL CAPSULE) 10 Mg Cp, 1 CAP PO Q6HPRN for 7 Days, #30 CAP 3 Refills Prov:MARY PORTILLO RESIDENT 10/25/24 Meclizine Hcl (Meclizine Hcl) 25 Mg Tab, 25 MG PO BID PRN for 10 Days, #20 TAB Prov:MARY PORTILLO RESIDENT 10/25/24 Sevelamer Hydrochloride (Renagel) 800 Mg Tab, 800 MG PO TIDWM for 30 Days, #90 TAB 2 Refills Prov:MARY PORTILLO RESIDENT 10/25/24 Aspirin (Aspirin) 81 Mg Chw, 81 MG PO DAILY for 30 Days, #30 TAB.CHEW 2 Refills Prov:MARY PORTILLO RESIDENT 10/25/24 Ticagrelor Base (BRILINTA) 90 Mg Tab, 90 MG PO BID for 30 Days, #60 TAB 2 Refills Prov:MARY PORTILLO RESIDENT 10/25/24 Ferrous Sulfate (Iron (Ferrous Sulfate)) 50 Mg Tab, 50 MG PO DAILY for 30 Days, #30 TAB Prov:BLANCA MARTINEZ RESIDENT 02/13/24 Acetaminophen (Acetaminophen) 325 Mg Tab, 650 MG PO Q6HP PRN for 30 Days, #240 TAB Prov:BLANCA MARTINEZ RESIDENT 02/13/24 Reported Medications Benzonatate (Benzonatate) 200 Mg Cap, 1 CAP PO TID PRN for COUGH for 30 Days, #90 10/22/24 Ergocalciferol (VITAMIN D 85456 UNIT) 50,000 Unit Cp, 1 CAP PO QWEEKLY for 84 Days, #12 10/22/24 Carvedilol (Carvedilol) 6.25 Mg Tab, 1 TAB PO BID for 90 Days, #180 10/22/24 Gabapentin (Gabapentin) 100 Mg Cap, 2 CAP PO HS for 60 Days, #180 10/22/24 Bumetanide (Bumetanide) 2 Mg Tab, 1 TAB PO DAILY for 90 Days, #90 10/22/24 Loratadine (CLARITIN TABLET) 10 Mg Tb, 1 TAB PO DAILY 07/16/24 Fluticasone-Salmeterol (Wixela Inhub 100-50 Mcg/Dose) 1 Aer Aer, 1 PUFF INH Q12HR 03/05/24 Atorvastatin Calcium (ATORVASTATIN CALCIUM) 80 Mg Tab, 1 TAB PO DAILY for 90 Days, #90 02/10/24 Diclofenac Sodium (Topical) (Voltaren Arthritis Pain) 1 % Gel, 1 % EX PRN PRN for PAIN SCALE 1 THRU 6, GEL 02/10/24 Insulin Glargine (Lantus Solostar) 100 Unit/Ml Inj, 8 UNIT SC HS, INJ 02/10/24 Albuterol Sulfate (Albuterol Sulfate Hfa) 108 Mcg/Act Aer, 2 PUFF INH Q6HR PRN for WHEEZING 12/27/23 Levothyroxine Sodium (Levothyroxine Sodium) 25 Mcg Tab, 1 TAB PO QAM for 90 Days, #90 12/25/23 Sodium Bicarbonate (Sodium Bicarbonate) 650 Mg Tab, 2 TAB PO BID for 90 Days, #360 12/25/23 Isosorbide Mononitrate (Isosorbide Mononitrate ER) 60 Mg Tab, 1.5 TAB PO DAILY for 90 Days, #135 12/25/23 Hydralazine HCl (Hydralazine HCl) 25 Mg Tab, 1 TAB PO TID for 90 Days, #270 12/25/23 Gabapentin (Gabapentin) 100 Mg Cap, 1 CAP PO QAM for 60 Days, #180 08/11/21 Ezetimibe (Zetia) 10 Mg Tab, 1 TAB PO DAILY for 90 Days, #90 08/11/21 Information Source: Patient Mode of Arrival: Ambulatory Severity: Moderate Timing: Days Duration: Since onset Prehospital treatment: None Location: Chest (L) Radiation: Abdomen Quality: Sharp Onset: At Rest Cardiac Risk Factors: Smoker, Hyperlipidemia, HTN, Diabetes History of: Similar pain in past, RI Associated Signs and Symptoms: Abdominal Pain Past Medical History PAST MEDICAL HISTORY: CAD, CHF, CKF, COPD, DM, ESRD, GERD, High Lipids, HTN, Kidney Stones, RI, Thyroid, UTI'S Surgical History: Appendectomy, CABG, Hysterectomy, PTCA, Tubal Ligation Surgical History (Other): Rt partial nephrectomy, nephrostomy, cataract surgery, left knee surgery PIT HOIST OPERATOR History: Denies all PIT HOIST OPERATOR Hx, No Pertinent PIT HOIST OPERATOR History Family History Family History: Reviewed,noncontributory to illness, No family hx of Cancer, No family hx of Heart елена Social History Smoker: Cigarettes, Less Than 1 Pack/Day Alcohol: Denies ETOH Use Drugs: Denies Drug Use Lives In: Home Constitutional: reports: chills; denies: diaphoresis, fatigue, fever, malaise, sweats, weakness, others EENTM: denies: blurred vision, double vision, ear bleeding, ear discharge, ear drainage, ear pain, ear ringing, eye pain, eye redness, hearing loss, mouth pain, mouth swelling, nasal discharge, nose bleeding, nose congestion, nose pain, photophobia, tearing, throat pain, throat swelling, voice changes, others Respiratory: reports: cough; denies: hemoptysis, orthopnea, SOB at rest, shortness of breath, SOB with excertion, stridor, wheezing, others Cardiovascular: reports: chest pain; denies: dizzy spells, diaphoresis, Dyspnea on exertion, edema, irregular heart beat, left arm pain, lightheadedness, palpitations, PND, syncope, others Gastrointestinal: reports: abdominal pain; denies: abdomen distended, blood streaked bowels, constipated, diarrhea, dysphagia, difficulty swallowing, hematemesis, melena, nausea, poor appetite, poor fluid intake, rectal bleeding, rectal pain, vomiting, others Genitourinary: denies: abnormal vagina bleeding, burning, dyspareunia, dysuria, flank pain, frequency, hematuria, incontinence, pain, , vagina discharge, urgency, others Neurological: reports: headache; denies: dizziness, fainting, left sided numbness, left sided weakness, numbness, paresthesia, pre-existing deficit, right sided numbness, right sided weakness, seizure, speech problems, tingling, tremors, weakness, others Musculoskeletal: denies: back pain, gout, joint pain, joint swelling, muscle pain, muscle stiffness, neck pain, others Integumetry: denies: bruises, change in color, change in hair/nails, dryness, laceration, lesions, lumps, rash, wounds, others Allergic/Immunocompromised: denies: Difficulty Healing, Frequent Infections, Hives, Itching, others Hematologic/Lymphatic: denies: anemia, blood clots, easy bleeding, easy bruising, swollen glands, others Endocrine: denies: excessive hunger, excessive sweating, excessive thirst, excessive urination, flushing, intolerance to cold, intolerance to heat, unexplained weight gain, unexplained weight loss, others Psychiatric: denies: anxiety, bipolar disorder, depression, hopeless, panic disorder, schizophrenia, sleepless, suicidal, others All Other Systems: Reviewed and Negative Physical Exam General Appearance: Moderate Distress HEENT: Normal ENT Inspection, Pharynx Normal, TMs Normal Neck: Full Range of Motion, Non-Tender, Normal, Normal Inspection Respiratory: Chest Non-Tender, Lungs Clear, No Accessory Muscle Use, No Res piratory Distress, Normal Breath Sounds Cardiovascular: No Edema, No JVD, No Murmur, No Gallop, Normal Peripheral Pulses, Regular Rate/Rhythm Breast Exam: Deferred Gastrointestinal: Epigastric, No Organomegaly, No Pulsatile Mass, Normal Bowel Sounds, Soft, Tenderness Genitalia: Deferred Pelvic: Deferred Rectal: Deferred Extremities: No calf tenderness, Normal capillary refill, Normal inspection, Normal range of motion, Non-tender, No pedal edema Musculoskeletal : Apperance: Normal Neurologic: Alert, managing consultant clinical professor II-XII nml as Tested, No Motor Deficits, Normal Affect, Normal Mood, No Sensory Deficits Cerebellar Function: Normal Reflexes: Normal Skin: Dry, Normal Color, Warm Lymphatic: No Adenopathy EKG EKG : Pulse Rate (adult): 85 Thatcher: Normal Cardiac Rhythm: NSR Block: None Hypertrophy: None ST: Normal Was a procedure done? Was a procedure done?: No CP Differential Dx Differential Diagnosis: A-fib, RI, Pulmonary Embolus Differential Diagnosis: CHF Differential Diagnosis: Pericarditis X-Ray, Labs, Meds, VS Vital Signs Date Time Temp Pulse Resp B/P (MAP) Pulse Ox O2 Delivery O2 Flow Rate FiO2 05/03/25 12:56 84 05/03/25 10:54 85 05/03/25 10:50 85 05/03/25 10:12 81 05/03/25 09:59 97.6 96 18 187/86 96 97.6 Lab Test 05/03/25 11:40 05/03/25 10:18 Range/Units Troponin I High Sensitivity 56 *H 52 *H </=34 ng/L White Blood Count 8.7 4.4-10.8 10^3/uL Red Blood Count 3.91 L 4.0-5.20 10^6/uL Hemoglobin 12.2 12.2-16.2 g/dL Hematocrit 36.3 36.0-46.0 % Mean Corpuscular Volume 92.7 80.0-100.0 fL Mean Corpuscular Hemoglobin 31.2 28.0-32.0 pg Mean Corpuscular Hemoglobin Concent 33.6 32.0-36.0 g/dL Red Cell Distribution Width 15.6 H 11.8-14.3 % Platelet Count 227 140-450 10^3/uL Mean Platelet Volume 9.0 6.9-10.8 fL Neutrophils (%) (Auto) 77.6 37.0-80.0 % Lymphocytes (%) (Auto) 16.6 10.0-50.0 % Monocytes (%) (Auto) 4.6 0.0-12.0 % Eosinophils (%) (Auto) 0.8 0.0-7.0 % Basophils (%) (Auto) 0.4 0.0-2.0 % Neutrophils # (Auto) 6.8 1.6-8.6 10 ^3/uL Lymphocytes # (Auto) 1.4 0.4-5.4 10 ^3/uL Monocytes # (Auto) 0.4 0-1.3 10 ^3/uL Eosinophils # (Auto) 0.1 0-0.8 10 ^3/uL Basophils # (Auto) 0 0-0.2 10 ^3/uL Nucleated Red Blood Cells 0.1 % Sodium Level 143 136-145 mmol/L Potassium Level 3.5 3.5-5.1 mmol/L Chloride Level 106 98-107 mmol/L Carbon Dioxide Level 23 20-31 mmol/L Anion Gap 14 5-15 Blood Urea Nitrogen 49 H 9-23 mg/dL Creatinine 3.70 H 0.550-1.02 mg/dL Glomerular Filtration Rate Calc 12 >90 mL/min BUN/Creatinine Ratio 13.2 10.0-20.0 Serum Glucose 114 H 74-106 mg/dL Calcium Level 9.0 8.7-10.4 mg/dL B-Type Natriuretic Peptide 236.98 0-100 pg/mL Chest XR indicates: No evidence of acute disease. Ultrasound of the gallbladder shows:IMPRESSION: Cholelithiasis. Hepatic steatosis. Bilateral medical renal disease. The chest x-ray is negative The BNP is 236.98 The CBC is within normal limits The chemistry panel shows a BUN of 49 and a creatinine of 3.7 The troponin level is elevated at x2 at 52 and 56 The patient is being admitted at this time Images Reviewed?: Images reviewed and evaluated by me Time of 1ST Reevaluation: 11:50 Reevaluation 1ST: Unchanged Patient Education/Counseling: Diagnosis, Treatment, Prognosis Family Education/Counseling: No Family Present SEPSIS Sepsis Screen Date sepsis recognized/suspect: May 03, 2025 Time Sepsis recognized/suspect: 1002 Recent Procedure: Yes On Antibiotic Therapy: No Respiratory Rate >20: No Heart Rate >90: Yes Temp<36 C (96.8 F) or >38.3 C: No SBP <90 or MAP <65 mmHG: No New Acute Mental Status Change: No Is the patient on CPAP, BIPAP,: No Physician Orders Electrocardigram (05/03/25 10:05) Electrocardigram (05/03/25 11:05) Electrocardigram (05/03/25 13:05) Troponin-I Hs (05/03/25 13:05) Pulse Oximetry (05/03/25 10:43) Pre Algebra Teacher (05/03/25 10:43) Blood Pressure (05/03/25 10:43) Chest Two Views Routine (05/03/25 10:43) Covid19 Antigen Joycelyn (05/03/25 ) Gallbladder (05/03/25 10:43) Vital Signs Date Time Temp Pulse Resp B/P (MAP) Pulse Ox O2 Delivery O2 Flow Rate FiO2 05/03/25 12:56 84 05/03/25 10:54 85 05/03/25 10:50 85 05/03/25 10:12 81 05/03/25 09:59 97.6 96 18 187/86 96 97.6 Laboratory Tests Test 05/03/25 10:18 White Blood Count 8.7 10^3/uL (4.4-10.8) Departure 1 Departure Time of Disposition: 13:06 Impression: Primary Impression: Intractable abdominal pain Additional Impressions: Cholelithiasis Qualified Codes: K80.20 - Calculus of gallbladder without cholecystitis without obstruction Elevated troponin Renal insufficiency Disposition: ADMITTED INPATIENT Admit to: Med Surg Condition: Fair Critical Care Note Critical Care Time?: No Stability Stability form required: Yes Unstable for transfer: ED Physician Assesment (Clinical assesment) Heart Score Heart Score: Heart Score Response (Comments) Value History Highly Suspicious 2 EKG Normal 0 Age >65 2 Risk Factors >3 or Hx ASHD 2 Troponin 1-2 x's Normal limit 1 Total 7 I personally scribed for MATT SANTANA MD ([email or web address]) on 05/03/25 at 10:54. Electronically submitted by Lew Blair ([email or web address]). I personally scribed for MATT SANTANA MD ([email or web address]) on 05/03/25 at 12:07. Electronically submitted by Lew Blair ([email or web address]). MATT SANTANA MD May 03, 2025 10:54
[2025-05-03 11:01] LABS: Hematocrit 36.3 % (36.0-46.0); Hemoglobin 12.2 g/dL (12.2-16.2); Mean Corpuscular Hemoglobin 31.2 pg (28.0-32.0); Mean Corpuscular Volume 92.7 fL (80.0-100.0); Nucleated Red Blood Cells % 0.1 %
[2025-05-03 11:06] LABS: Chloride 106 mmol/L (98-107); Potassium 3.5 mmol/L (3.5-5.1); Sodium 143 mmol/L (136-145)
[2025-05-03 11:07] LABS: Anion Gap 14 (5-15); Calcium 9.0 mg/dL (8.7-10.4); Carbon Dioxide 23 mmol/L (20-31)
[2025-05-03 11:12] LABS: BUN/Creatinine Ratio 13.2 (10.0-20.0)
[2025-05-03 11:13] LABS: Blood Urea Nitrogen 49 mg/dL (9-23); Glucose 114 mg/dL (74-106)
--- NOTE | 2025-05-03 11:16 | DVH ---
CHEST RADIOGRAPH Indication: CP Technique: Frontal and lateral view of the chest was obtained Comparison: XY CHEST PORTABLE on DOS: 10/31/24, XY CHEST PORTABLE on DOS: 10/21/24, XY CHEST PORTABLE on DOS: 10/20/24, XY CHEST TWO VIEWS ROUTINE on DOS: 10/16/24, XY CHEST TWO VIEWS ROUTINE on DOS: 08/10/24 FINDINGS: Lines and Tubes: Median sternotomy. Tunneled right central venous catheter in satisfactory position. Lungs: Clear Pleura: No effusion. No pneumothorax. Cardiomediastinal contours: Unremarkable Bones: Unremarkable IMPRESSION: No evidence of acute disease.
--- NOTE | 2025-05-03 11:27 | DVH ---
INDICATION: pain TECHNIQUE: Multiple real-time sonographic images were obtained of the right upper quadrant. COMPARISON: US GALLBLADDER on DOS: 11/27/24, US LIVER on DOS: 10/23/24, US GALLBLADDER on DOS: 01/31/24 FINDINGS: The liver demonstrates increased echotexture without focal mass lesions. The liver measure s 15.6 cm. There is no intrahepatic or extrahepatic ductal dilatation. The common duct measures 0.6 cm. Cholelithiasis. The gallbladder wall measures 0.2 cm and is within normal limits. Increased echogenicity of bilateral kidneys. Bilateral kidneys appear atrophic. Multiple subcentimeter nonobstructing renal stones are present. The pancreas is not well visualized due to overlying bowel gas. IMPRESSION: Cholelithiasis. Hepatic steatosis. Bilateral medical renal disease.
--- NOTE | 2025-05-03 15:02 | ECG ---
[facility] Test Date: 2025-05-03 Test Time: 10:49:06 Pat Name: VINCENT PASTOR Department: ED Room: [facility] Gender: F Typesetters Printer: PAULO : 1950 Requested By: KATIE BUSH Order Number: [id number] Reading MD: Vijay Ruelas Measurements Intervals [place] Rate: 85 P: 69 DE: 150 QRS: 42 QRSD: 91 T: 172 QT: 400 QTc: 476 Interpretive Statements Sinus rhythm Multiple premature complexes, vent & supraven Probable left atrial enlargement Abnormal T, consider ischemia, diffuse leads Electronically Signed On 05-06-2025 18:43:22 PDT by Vijay Ruelas Please click the below link to view image of tracing.
--- NOTE | 2025-05-03 16:06 | ECG ---
[facility] Test Date: 2025-05-03 Test Time: 12:52:48 Pat Name: VINCENT PASTOR Department: Room: 0273T Gender: F Ip Architect: PAULO : 1950 Requested By: KATIE BUSH Order Number: [id number] Reading MD: Vijay Ruelas Measurements Intervals [place] Rate: 84 P: 67 TN: 142 QRS: 23 QRSD: 87 T: 152 QT: 403 QTc: 477 Interpretive Statements Sinus rhythm with premature atrial contractions PVCs versus ventricular paced rhythm which is intermittent. Probable left atrial enlargement LVH with secondary repolarization abnormality Electronically Signed On 05-06-2025 18:47:08 PDT by Vijay Ruelas Please click the below link to view image of tracing.
[2025-05-03 17:34] VITALS: PULSE 84; RESP 20; O2SAT 96
[2025-05-03 18:01] LABS: COVID19 ANTIGEN SOFIA FIA NEGATIVE (NEGATIVE)
--- NOTE | 2025-05-03 18:55 | DVHHPRES ---
History of Present Illness Resident Creating Document: SOPHY BETTENCOURT RESIDENT History of Present Illness Heena Torres 74-year-old female with past medical history of hypertension, insulin-dependent diabetes mellitus, triple-vessel bypass with 9 stents placed, cardiac pacemaker in place, ESRD on MWF dialysis, presented to the ER with chest pain, which started at 4:00 a.m. on the day of admission, intensity 03/24, the patient woke up with sharp pain radiating to the back, not associated with nausea or diaphoresis. Last Tuesday on 04/30/2025 the patient visited to her PCP, where her blood troponin level was found to be elevated. The patient did an echocardiogram and stress test last month, however the patient is not aware of the test results. She recently completed 7 day course of doxycycline due to lung disease, which the patient could not specify. She also reports having an episode of blurring vision 1 week ago. She reports having cough for 3 weeks, pr oductive. She took benzonatate for the cough. The patient had a dialysis session this morning. She denies any shortness of breath, fever, abdominal pain, sick contacts or recent travel history. Past Medical History: Hypertension, diabetes, dyslipidemia, coronary artery disease with HI status post CABG with three grafts and multiple stents (seven total, last one in 2022), diastolic CHF (HFpEF, LVEF 55%), moderate aortic stenosis, sick sinus syndrome s/p leadless pacemaker placement, ESRD on HD sessions (TTS) probably secondary to multiple nephrolithiasis status post lithotripsy and partial nephrectomy, UTI'S, cholelithiasis non-operative candidate at this time. Surgical History: Appendectomy, CABG, Hysterectomy, PTCA - 7 stents, last one on 10/2024. Leadless pacemaker placement, HD catheter placement. Family History: Noncontributory Past Social History: The patient lives at home in [place] with roommate. Current smoker (smokes three cigarettes a day, over 30 pack-year history of smoking). Denies alcohol and other drug abuse. Allergies: Macrolide Home medication: Aspirin 81 mg p.o. daily, atorvastatin 80 mg p.o. daily, bumetanide 1 mg p.o. b.i.d., carvedilol 6.25 mg p.o. b.i.d., vitamin D3 400 units p.o. daily, vitamin B12 p.r.n., diclofenac gel p.r.n., acetaminophen 10 mg p.o. daily, fluticasone p.r.n., gabapentin 100 mg p.o. daily, glipizide 10 mg p.o. daily, hydralazine 25 mg p.o. b.i.d., isosorbide mononitrate 60 mg p.o. daily, levothyroxine 25 mcg p.o. daily, Lokelma 5 g p.o. Tuesday/Tuesday/ y, nitroglycerin p.r.n., pantoprazole 40 mg p.o. daily, ticagrelor 90 mg p.o. b.i.d.. Review of Systems Cardiovascular: Chest Pain Allergies: Coded Allergies: Codeine (Verified Allergy, Unknown, 08/28/24) Morphine (Verified Allergy, Unknown, 08/28/24) Nitrofurantoin (Verified Allergy, Unknown, 08/28/24) Exam Vital Signs Vital Signs Date Time Temp Pulse Resp B/P (MAP) Pulse Ox O2 Delivery O2 Flow Rate FiO2 05/03/25 17:34 84 20 96 Room Air* 0 21 05/03/25 14:52 97.8 147/54 (85) 97.8 Exam Pt is lying on bed General Appearance: Alert, Oriented X3, Cooperative, Mild distress HEENT: Atraumatic, Mucous membranes moist/pink Respiratory: Crackles over both lungs, Normal air movement, No added sounds Cardiovascular: Regular rate, Normal S1, Normal S2, holosystolic murmurs? Abdominal/ : Active bowel sounds, Soft, no distention, no tenderness Extremities: No edema, Normal pulses, No tenderness/swelling Skin: No Significant rash, except past surgical scars Neuro: Normal speech, sensorimotor deficits none Psych/Mental Status: Mental status NL, Mood NL Nurse was there as regional retail sales manager during examination Labs/Xrays Labs Test 05/03/25 17:17 05/03/25 12:57 05/03/25 10:18 Range/Units SARS-CoV-2 Antigen (Rapid) Negative NEGATIVE Troponin I High Sensitivity 55 *H </=34 ng/L White Blood Count 8.7 4.4-10.8 10^3/uL Red Blood Count 3.91 L 4.0-5.20 10^6/uL Hemoglobin 12.2 12.2-16.2 g/dL Hematocrit 36.3 36.0-46.0 % Mean Corpuscular Volume 92.7 80.0-100.0 fL Mean Corpuscular Hemoglobin 31.2 28.0-32.0 pg Mean Corpuscular Hemoglobin Concent 33.6 32.0-36.0 g/dL Red Cell Distribution Width 15.6 H 11.8-14.3 % Platelet Count 227 140-450 10^3/uL Mean Platelet Volume 9.0 6.9-10.8 fL Neutrophils (%) (Auto) 77.6 37.0-80.0 % Lymphocytes (%) (Auto) 16.6 10.0-50.0 % Monocytes (%) (Auto) 4.6 0.0-12.0 % Eosinophils (%) (Auto) 0.8 0.0-7.0 % Basophils (%) (Auto) 0.4 0.0-2.0 % Neutrophils # (Auto) 6.8 1.6-8.6 10 ^3/uL Lymphocytes # (Auto) 1.4 0.4-5.4 10 ^3/uL Monocytes # (Auto) 0.4 0-1.3 10 ^3/uL Eosinophils # (Auto) 0.1 0-0.8 10 ^3/uL Basophils # (Auto) 0 0-0.2 10 ^3/uL Nucleated Red Blood Cells 0.1 % Sodium Level 143 136-145 mmol/L Potassium Level 3.5 3.5-5.1 mmol/L Chloride Level 106 98-107 mmol/L Carbon Dioxide Level 23 20-31 mmol/L Anion Gap 14 5-15 Blood Urea Nitrogen 49 H 9-23 mg/dL Creatinine 3.70 H 0.550-1.02 mg/dL Glomerular Filtration Rate Calc 12 >90 mL/min BUN/Creatinine Ratio 13.2 10.0-20.0 Serum Glucose 114 H 74-106 mg/dL Calcium Level 9.0 8.7-10.4 mg/dL B-Type Natriuretic Peptide 236.98 0-100 pg/mL Lipase 64 H 12-53 U/L SEPSIS Sepsis Screen Date sepsis recognized/suspect: May 03, 2025 Time Sepsis recognized/suspect: 1002 Recent Procedure: Yes On Antibiotic Therapy: No Respiratory Rate >20: No Heart Rate >90: Yes Temp<36 C (96.8 F) or >38.3 C: No SBP <90 or MAP <65 mmHG: No New Acute Mental Status Change: No Is the patient on CPAP, BIPAP,: No Physician Orders Admit (05/03/25 16:43) Allergies (05/03/25 16:43) Oxygen Per Hour (05/03/25 16:43) Complete Blood Count (05/04/25 04:00) Comprehensive Metabolic Panel (05/04/25 04:00) Oxygen By Nasal Cannula (05/03/25 16:43) Notify Md Of Changes From Base (05/03/25 16:43) Jewel Cupping Machine Operator For 24 Hours (05/03/25 16:43) Npo (Nothing By Mouth) Diet (05/03/25 Dinner) Thyroid Stimulating Hormone (05/03/25 18:35) B-Type Natriuretic Peptide (05/03/25 18:35) Basic Metabolic Panel (05/04/25 04:00) Drug Screen (05/03/25 18:35) Folate (Folic Acid) (05/03/25 18:35) Lactic Acid W/ Reflex Order (05/03/25 18:35) Magnesium (05/03/25 18:35) PTPTT (05/03/25 18:35) Urinalysis (05/03/25 18:35) Vitamin B12 (05/03/25 18:35) Vitamin D, 25-Hydroxy (05/03/25 18:35) Vital Signs Date Time Temp Pulse Resp B/P (MAP) Pulse Ox O2 Delivery O2 Flow Rate FiO2 05/03/25 17:34 84 20 96 Room Air* 0 21 05/03/25 14:52 97.8 89 18 147/54 (85) 95 97.8 05/03/25 14:52 89 18 95 Room Air 05/03/25 12:56 84 Laboratory Tests Test 05/03/25 10:18 White Blood Count 8.7 10^3/uL (4.4-10.8) Medications Medications Dose Ordered Sig/Ezequiel Route Start Time Stop Time Status Last Admin Dose Admin Tramadol HCl 50 mg ONCE ONCE PO 05/03/25 16:45 05/03/25 16:55 DC 05/03/25 17:14 50 MG Assessment/Plan Assessment/Plan Hypertensive crisis Chest pain rule out ACS Coronary artery disease status post CABG with three grafts and PCI with 9 stents placed Acute on chronic diastolic congestive heart failure (HFpEF, LVEF 55%) Moderate aortic stenosis Sick sinus syndrome s/p leadless pacemaker placement EKG: No acute ischemic changes PVCs consistent with pacemaker placed Carvedilol Heparin Continue ticagrelor Aspirin Atorvastatin Symptomatic Cholelithiasis Conservative management given recent stent placement Smoking Counseling for cessation for more than 14 minutes ESRD on TTS dialysis History of Multiple nephrolithiasis-status post lithotripsy and partial nephrectomy Multiple UTIs Consult Nephrology Hypertension Diabetes Dyslipidemia GI prophylaxis: Pantoprazole DVT prophylaxis: Heparin Goals of care discussed with the patient for more than 27 minutes: Full code status Case discussed with Dr. Lopez , patient and RN Plan discussed with: Patient, Other (RN) My Orders Orders - SOPHY BETTENCOURT RESIDENT Procedure Category Date Status Time Admit ADMIT 05/03/25 Transmitted 16:43 Allergies CHRIS 05/03/25 In Process 16:43 Oxygen Per Hour RT 05/03/25 Transmitted 16:43 Complete Blood Count LAB 05/04/25 Verified 04:00 Comprehensive LAB 05/04/25 Verified Metabolic Panel 04:00 Oxygen By Nasal RT 05/03/25 Transmitted Cannula 16:43 Notify Md Of Changes CHRIS 05/03/25 In Process From Base 16:43 Jewel Cupping Machine Operator For CHRIS 05/03/25 In Process 24 Hours 16:43 Npo (Nothing By DIET 05/03/25 Transmitted Mouth) Diet Dinner Thyroid Stimulating LAB 05/03/25 In Process Hormone 18:35 B-Type Natriuretic LAB 05/03/25 Logged Peptide 18:35 Basic Metabolic Panel LAB 05/04/25 Verified 04:00 Drug Screen LAB 05/03/25 Logged 18:35 Folate (Folic Acid) LAB 05/03/25 In Process 18:35 Lactic Acid W/ Reflex LAB 05/03/25 Logged Order 18:35 Magnesium LAB 05/03/25 In Process 18:35 PTPTT LAB 05/03/25 Logged 18:35 Urinalysis LAB 05/03/25 Logged 18:35 Vitamin B12 LAB 05/03/25 In Process 18:35 Vitamin D, 25-Hydroxy LAB 05/03/25 In Process 18:35 SOPHY BETTENCOURT RESIDENT May 03, 2025 18:55 BLANCA MARTINEZ RESIDENT May 07, 2025 11:59
[2025-05-03] MEDS: InsuLIN REG 1unit/0.01ml Soln (100units/ml) SC ONE (19:15)
[2025-05-03] MEDS: ALBUTEROL SULF 2.5 MG/0.5ML(0.5%) NEB SOLN NEB ONE (19:15)
[2025-05-03] MEDS: IPRATROPIUM BROM 0.5 MG/2.5ML INH SOL NEB ONE (19:15)
[2025-05-03] MEDS: ATORVASTATIN 20 MG TAB PO ONE (19:15)
[2025-05-03] MEDS: DEXTROSE (50%) 50ML SYRG IV ONE (19:15)
[2025-05-03] MEDS: NITROGLYCERIN 0.4 MG SL TAB SL ONE (19:15)
[2025-05-03] MEDS: CARVEDILOL 3.125 MG TAB PO ONE (19:15)
[2025-05-03] MEDS: ACCU-CHEK COMFORT CURVE STRIP VI ONE (19:15)
[2025-05-03] MEDS: FLUTICASONE PROP NASAL SPR 0.05 % (50MCG) 16GM EACHNOSTRI ONE (19:15)
[2025-05-03 19:24] LABS: INR 1.01 (0.9-1.15); Partial Thromboplastin Time 22.1 SEC (24.5-34.5); Prothrombin Time 10.7 sec (9.3-11.8)
[2025-05-03 20:11] VITALS: BP 134/57; PULSE 69; RESP 18; TEMP 98.2; O2SAT 97
[2025-05-03] MEDS: HEPARIN SODIUM (PORCINE) 5000 UNITS/ML 1ML VIAL IV ONE (20:33)
[2025-05-03] MEDS ORDERED: DEXTROSE (50%) 50ML SYRG IV PRN (21:00)
[2025-05-03] MEDS ORDERED: MECLIZINE HCL 25 MG TAB PO PRN (21:00)
[2025-05-03] MEDS: ACCU-CHEK COMFORT CURVE STRIP VI SCH (22:29)
[2025-05-03 23:25] LABS: Alanine Aminotransferase 26.0 U/L (7-40); Albumin 3.8 g/dL (3.2-4.8); Alkaline Phosphatase 82.0 U/L (46-116); Total Protein 6.0 g/dL (5.7-8.2)
[2025-05-03 23:26] LABS: Bilirubin, Direct 0.1 mg/dL (<0.3); Bilirubin, Total 0.4 mg/dL (0.2-1.0)
[2025-05-03] MEDS: TOBRAMYCIN SULF 0.3% OPTH(EYE) SOLN 5ML EACHEYE SCH (23:34)
[2025-05-03] MEDS: INSULIN LANTUS (GLARGINE) 1 /0.01ml (100units/ml) SC SCH (23:35)
[2025-05-03] MEDS: InsuLIN REG 1unit/0.01ml Soln (100units/ml) SC SCH (23:36)
[2025-05-03] MEDS: GABAPENTIN 100 MG CAP PO SCH (23:41)
[2025-05-03] MEDS: TICAGRELOR 90 MG TAB PO SCH (23:41)
[2025-05-03 23:42] LABS: Urine Protein, UAD 3+ (Negative)
[2025-05-03] MEDS: SODIUM BICARBONATE 650 MG TAB PO SCH (23:42)
[2025-05-03 23:45] VITALS: BP 169/72; PULSE 59; RESP 16; TEMP 97.5; O2SAT 97
[2025-05-03 23:53] LABS: Amphetamine Screen, Urine Neg (NEGATIVE); Barbiturate Scree,Urine Neg (NEGATIVE); Benzodiazephine Screen, Urine Neg (NEGATIVE); Cannabinoid Screen, Urine Neg (NEGATIVE); Cocaine Screen, Urine Neg (NEGATIVE); Opiate Scree,Urine Neg (NEGATIVE); Phencyclidine Screen, Urine Neg (NEGATIVE)
[2025-05-04] VITALS (11 sets, daily range): BP systolic 118–139; BP diastolic 67–84; PULSE 62–97; RESP 14–22; TEMP 97.5–98.1; O2SAT 93–99
[2025-05-04] MEDS: LEVOTHYROXINE SODIUM 25 MCG TAB PO SCH (06:00)
[2025-05-04 06:05] LABS: Hematocrit 32.3 % (36.0-46.0); Hemoglobin 11.1 g/dL (12.2-16.2); Mean Corpuscular Hemoglobin 31.9 pg (28.0-32.0); Mean Corpuscular Volume 92.8 fL (80.0-100.0); Nucleated Red Blood Cells % 0.1 %
[2025-05-04 06:23] LABS: Alanine Aminotransferase 20 U/L (7-40); Albumin 3.5 g/dL (3.2-4.8); Alkaline Phosphatase 72 U/L (46-116); Anion Gap 15 (5-15); BUN/Creatinine Ratio 14.5 (10.0-20.0); Carbon Dioxide 23 mmol/L (20-31)
[2025-05-04 06:24] LABS: Bilirubin, Total 0.5 mg/dL (0.2-1.0)
[2025-05-04 06:27] LABS: Blood Urea Nitrogen 60 mg/dL (9-23); Calcium 8.7 mg/dL (8.7-10.4); Chloride 109 mmol/L (98-107); Glucose 73 mg/dL (74-106); Potassium 3.5 mmol/L (3.5-5.1); Sodium 147 mmol/L (136-145); Total Protein 5.7 g/dL (5.7-8.2)
[2025-05-04] MEDS: PANTOPRAZOLE 40 MG/10 ML VIAL INJ IV SCH (09:54)
[2025-05-04] MEDS: FERROUS SULFATE 300 MG/5 ML ORAL LIQ PO SCH (09:55)
[2025-05-04] MEDS: ISOSORBIDE MONONITRATE ER 60 MG TAB PO SCH (09:56)
[2025-05-04] MEDS: BUMETANIDE 1 MG TAB PO SCH (09:58)
[2025-05-04] MEDS: SEVELAMER 800 MG TAB PO SCH (09:59)
[2025-05-04] MEDS: EZETIMIBE 10 MG TAB PO SCH (09:59)
[2025-05-04] MEDS: HEPARIN SODIUM (PORCINE) 5000 UNITS/ML 1ML VIAL SC SCH (10:00)
[2025-05-04] MEDS ORDERED: CARVEDILOL 3.125 MG TAB PO SCH (10:00)
[2025-05-04] MEDS ORDERED: PANTOPRAZOLE 40 MG/10 ML VIAL INJ IV SCH (10:00)
[2025-05-04] MEDS: IPRATROPIUM BROM 0.5 MG/2.5ML INH SOL NEB PRN (13:02)
[2025-05-04] MEDS: ALBUTEROL SULF 2.5 MG/0.5ML(0.5%) NEB SOLN NEB PRN (13:02)
--- NOTE | 2025-05-04 17:38 | DVHPNRES ---
Progress Note Date Seen: May 04, 2025 Resident Creating Document: SOPHY BETTENCOURT Medical Necessity Reason Pt with a Central, PICC or Fol: No Subjective Review of Systems Heena Torres 74-year-old female with past medical history of hypertension, insulin-dependent diabetes mellitus, triple-vessel bypass with 9 stents placed, cardiac pacemaker in place, ESRD on MWF dialysis, presented to the ER with chest pain, which started at 4:00 a.m. on the day of admission, intensity 03/24, the patient woke up with sharp pain radiating to the back, not associated with nausea or diaphoresis. Last Tuesday on 04/30/2025 the patient visited to her PCP, where her blood troponin level was found to be elevated. The patient did an echocardiogram and stress test last month, however the patient is not aware of the test results. She recently completed 7 day course of doxycycline due to lung disease, which the patient could not specify. She also reports having an episode of blurring vision 1 week ago. She reports having cough for 3 weeks, productive. She took benzonatate for the cough. The patient had a dialysis session this morning. She denies any shortness of breath, fever, abdominal pain, sick contacts or recent travel history. Past medical history: Hypertension, diabetes mellitus, ESRD Past surgical history: CABG Home medications: Tobramycin eyedrops, carvedilol, cephalexin, nifedipine, isosorbide dinitrate Allergies: None Smoking: Actively smoking 3-4 cigarettes per day, 11 pack years since age 21. Alcohol: Never Drugs: Never PCP: Dr. Jerry Zheng Full code The patient was seen and examined at bedside.She denies any chest pain, shortness of breaths or any other complaints at this moment. Objective vital signs Vital Sign Date Time Temp Pulse Resp B/P (MAP) Pulse Ox O2 Delivery O2 Flow Rate FiO2 05/04/25 17:00 97.5 75 16 118/80 (93) 96 97.5 05/04/25 13:02 Room Air* 0 21 Total Intake and Output 05/03/25 05/03/25 05/04/25 15:00 23:00 07:00 Intake Total 480 ml Balance 480 ml medications Current Medications Medications Dose Ordered Sig/Ezequiel Route Start Time Stop Time Status Last Admin Dose Admin Aspirin 81 mg DAILY PO 05/04/25 10:00 05/04/25 09:56 81 MG Atorvastatin Calcium 80 mg HS PO 05/04/25 22:00 Ipratropium Strawberry 0.5 mg Q8HPRN PRN NEB 05/03/25 19:15 05/04/25 13:02 0.5 MG Albuterol 2.5 mg Q8HPRN PRN NEB 05/03/25 19:15 05/04/25 13:02 2.5 MG Tobramycin Sulfate 1 drop Q4HR EACHEYE 05/03/25 22:00 05/04/25 14:00 1 DROP Heparin Sodium (Porcine) 5,000 units Q12HR SC 05/04/25 10:00 EZETIMIBE 10 mg DAILY PO 05/04/25 10:00 05/04/25 09:59 10 MG Gabapentin 100 mg HS PO 05/03/25 22:00 05/03/25 23:41 100 MG Hydralazine HCl 25 mg TID PO 05/03/25 22:00 05/03/25 23:40 25 MG Isosorbide Mononitrate 90 mg DAILY PO 05/04/25 10:00 05/04/25 09:56 90 MG Levothyroxine Sodium 25 mcg QAM PO 05/04/25 07:00 05/04/25 06:00 25 MCG Ticagrelor 90 mg BID PO 05/03/25 22:00 05/04/25 09:59 90 MG Meclizine HCl 25 mg BID PRN PO 05/03/25 21:00 Sevelamer HCl 800 mg TIDWM PO 05/04/25 08:00 05/04/25 09:59 800 MG Bumetanide 2 mg DAILY PO 05/04/25 10:00 Ferrous Sulfate 300 mg DAILY PO 05/04/25 10:00 05/04/25 09:55 300 MG Insulin Glargine 8 units HS SC 05/03/25 22:00 Sodium Bicarbonate 1,300 mg BID PO 05/03/25 22:00 Diagnostic Test (Pha) 1 strip ACHS 05/03/25 22:00 05/04/25 11:52 1 STRIP Insulin Human Regular ACHS SC 05/03/25 22:00 Dextrose 50 ml UD PRN IV 05/03/25 21:00 Pantoprazole Sodium 40 mg DAILY IV 05/04/25 10:00 05/04/25 09:54 40 MG Nifedipine 60 mg DAILY PO 05/04/25 10:00 05/04/25 09:57 60 MG Tramadol HCl 50 mg Q4HP PRN PO 05/03/25 23:00 05/04/25 05:10 50 MG Examination Exam Pt is lying on bed General Appearance: Alert, Oriented X3, Cooperative, Mild distress HEENT: Atraumatic, Mucous membranes moist/pink Respiratory: Crackles over both lungs, Normal air movement, No added sounds Cardiovascular: Regular rate, Normal S1, Normal S2, holosystolic murmurs? Abdominal/ : Active bowel sounds, Soft, no distention, no tenderness Extremities: No edema, Normal pulses, No tenderness/swelling Skin: No Significant rash, except past surgical scars Neuro: Normal speech, sensorimotor deficits none Psych/Mental Status: Mental status NL, Mood NL Nurse was there as garage door hanger during examination laboratory and microbiology Laboratory Tests 05/04/25 05:08 Test 05/04/25 05:08 Range/Units Serum Glucose 73 L 74-106 mg/dL Microbiology Date/Time Source Procedure Growth Status 05/04/25 02:15 Nose MRSA Screen - Final Complete Labs and/or images reviewed: Labs reviewed by me, Image(s) reviewed by me Problem List/Assessment/Plan Problem List/Assessment/Plan Hypertensive crisis Chest pain rule out ACS CABG for triple-vessel disease with 9 stents placed Micra pacemaker placed EKG: No acute ischemic changes PVCs consistent with pacemaker placed Heparin Continue ticagrelor Aspirin Atorvastatin Symptomatic Cholelithiasis Conservative management given recent stent placement Hypertension Nifedipine Smoking Counseling for cessation for more than 14 minutes ESRD on MWF dialysis Consulted Nephrology to schedule dialysis GI prophylaxis: Pantoprazole DVT prophylaxis: Heparin Goals of care discussed with the patient for more than 27 minutes: Full code status Case discussed with Dr. Lopez, patient and RN Plan discussed with: Patient, Other (RN) My Orders My Orders Orders - SOPHY BETTENCOURT RESIDENT Procedure Category Date Status Time Oxygen ED NURSING 05/03/25 Transmitted Aspirin Tablet PHA 05/04/25 In Process 10:00 Ipratropium Medneb PHA 05/03/25 In Process (Atrovent Medneb) 19:15 Albuterol Medneb PHA 05/03/25 In Process (Ventolin Medneb) 19:15 Med Neb Initial RT 05/03/25 Logged Treatment 19:15 Atorvastatin (Lipitor) PHA 05/04/25 In Process 22:00 Tobramycin 0.3% Opth PHA 05/03/25 In Process Debra (Tobrex Opth So 22:00 Heparin Sodium PHA 05/04/25 In Process (Porcine) 10:00 Pantoprazole PHA 05/04/25 In Process (Protonix) 10:00 Sequential CHRIS 05/03/25 In Process Compression Device 22:48 Nifedipine Er PHA 05/04/25 In Process (Procardia Xl 10:00 Tramadol Hcl (Ultram) PHA 05/03/25 In Process 23:00 * Process Development Chemist CONS 05/04/25 Transmitted Consult 01:02 * Dietary Consult CONS 05/04/25 Transmitted 01:02 Renal DIET 05/04/25 Transmitted Standard(2gna,3gk,Lopho) Breakfast Dietary Evaluation Review Comments: 1) Add 60g CCHO cardiac restriction to renal diet 2) Initiate Nepro qd. Encourage optimal PO intake 3) Refer to outpatient RD/CD[facility] for weight management 4) Follow-up with cardiology and nephrology 5) Continue to monitor I&O, labs, and skin integrity Expected Outcomes/Goals: 1) appetite and labs to improve 2) GI symptoms to resolve 3) f/u in 3-5 days Date of Service: May 04, 2025 Billing Provider: LÓPEZ DE MD Common Visit Codes: [id number] INP/OBS CARE(HIGH) SOPHY BETTENCOURT RESIDENT May 04, 2025 17:38 LÓPEZ DE MD May 05, 2025 08:29
--- NOTE | 2025-05-04 21:20 | DVHINCON2 ---
Date of service: May 04, 2025 Reason for Consultation ESRD History of Present Illness 74 years old female with past medical history of hypertension, diabetes, ESRD, CABG presented with chief complaints of chest pain which was sharp nephrology consulted for dialysis arrangement Past Medical History As per HPI Past Surgical History As per HPI Allergies: Coded Allergies: Codeine (Verified Allergy, Unknown, 08/28/24) Morphine (Verified Allergy, Unknown, 08/28/24) Nitrofurantoin (Verified Allergy, Unknown, 08/28/24) Home Meds Active Scripts Cephalexin (KEFLEX CAPSULE) 250 Mg Cp, 250 MG PO BID for 4 Days, #8 CAP Prov:JULIETA CLIFFORD RESIDENT 11/28/24 Dicyclomine Hcl (BENTYL CAPSULE) 10 Mg Cp, 1 CAP PO Q6HPRN for 7 Days, #30 CAP 3 Refills Prov:MARY PORTILLO RESIDENT 10/25/24 Meclizine Hcl (Meclizine Hcl) 25 Mg Tab, 25 MG PO BID PRN for 10 Days, #20 TAB Prov:MARY PORTILLO RESIDENT 10/25/24 Sevelamer Hydrochloride (Renagel) 800 Mg Tab, 800 MG PO TIDWM for 30 Days, #90 TAB 2 Refills Prov:MARY PORTILLO RESIDENT 10/25/24 Aspirin (Aspirin) 81 Mg Chw, 81 MG PO DAILY for 30 Days, #30 TAB.CHEW 2 Refills Prov:MARY PORTILLO [facility] 10/25/24 Ticagrelor Base (BRILINTA) 90 Mg Tab, 90 MG PO BID for 30 Days, #60 TAB 2 Refills Prov:MARY PORTILLO RESIDENT 10/25/24 Ferrous Sulfate (Iron (Ferrous Sulfate)) 50 Mg Tab, 50 MG PO DAILY for 30 Days, #30 TAB Prov:BLANCA MARTINEZ RESIDENT 02/13/24 Acetaminophen (Acetaminophen) 325 Mg Tab, 650 MG PO Q6HP PRN for 30 Days, #240 TAB Prov:BLANCA MARTINEZ RESIDENT 02/13/24 Reported Medications Benzonatate (Benzonatate) 200 Mg Cap, 1 CAP PO TID PRN for COUGH for 30 Days, #90 10/22/24 Ergocalciferol (VITAMIN D 01527 UNIT) 50,000 Unit Cp, 1 CAP PO QWEEKLY for 84 Days, #12 10/22/24 Carvedilol (Carvedilol) 6.25 Mg Tab, 1 TAB PO BID for 90 Days, #180 10/22/24 Gabapentin (Gabapentin) 100 Mg Cap, 2 CAP PO HS for 60 Days, #180 10/22/24 Bumetanide (Bumetanide) 2 Mg Tab, 1 TAB PO DAILY for 90 Days, #90 10/22/24 Loratadine (CLARITIN TABLET) 10 Mg Tb, 1 TAB PO DAILY 07/16/24 Fluticasone-Salmeterol (Wixela Inhub 100-50 Mcg/Dose) 1 Aer Aer, 1 PUFF INH Q12HR 03/05/24 Atorvastatin Calcium (ATORVASTATIN CALCIUM) 80 Mg Tab, 1 TAB PO DAILY for 90 Days, #90 02/10/24 Diclofenac Sodium (Topical) (Voltaren Arthritis Pain) 1 % Gel, 1 % EX PRN PRN for PAIN SCALE 1 THRU 6, GEL 02/10/24 Insulin Glargine (Lantus Solostar) 100 Unit/Ml Inj, 8 UNIT SC HS, INJ 02/10/24 Albuterol Sulfate (Albuterol Sulfate Hfa) 108 Mcg/Act Aer, 2 PUFF INH Q6HR PRN for WHEEZING 12/27/23 Levothyroxine Sodium (Levothyroxine Sodium) 25 Mcg Tab, 1 TAB PO QAM for 90 Days, #90 12/25/23 Sodium Bicarbonate (Sodium Bicarbonate) 650 Mg Tab, 2 TAB PO BID for 90 Days, #360 12/25/23 Isosorbide Mononitrate (Isosorbide Mononitrate ER) 60 Mg Tab, 1.5 TAB PO DAILY for 90 Days, #135 12/25/23 Hydralazine HCl (Hydralazine HCl) 25 Mg Tab, 1 TAB PO TID for 90 Days, #270 12/25/23 Gabapentin (Gabapentin) 100 Mg Cap, 1 CAP PO QAM for 60 Days, #180 08/11/21 Ezetimibe (Zetia) 10 Mg Tab, 1 TAB PO DAILY for 90 Days, #90 08/11/21 Current Medications Current Medications Medications (Trade) Dose Ordered Sig/Ezequiel Route PRN Reason Start Time Stop Time Status Last Admin Atorvastatin Calcium (Lipitor) 80 mg HS PO 05/04/25 22:00 05/04/25 22:16 Family History: Acute respiratory distress syndrome G8 FATHER, Cardiomegaly 19 CHILD FH: esophageal cancer G8 BROTHER FH: respiratory disease G8 FATHER, FHx: breast cancer G8 MOTHER, FHx: kidney failure G8 MOTHER, Ischemic heart disease 19 CHILD Kidney stone Social History Extensive history of smoking Review of Systems As per HPI H&P Exam Vital Signs/I&O Vital Sign Date Time Temp Pulse Resp B/P (MAP) Pulse Ox O2 Delivery O2 Flow Rate FiO2 05/05/25 09:30 97.4 62 18 144/65 (91) 96 97.4 05/05/25 08:57 Room Air 05/05/25 08:57 0 21 Intake and Output 05/04/25 05/05/25 19:00 07:00 Intake Total 100 ml 400 ml Balance 100 ml 400 ml Intake Oral 100 ml 400 ml # Voids 2 2 Physical Exam General-not in any distress HEENT-normocephalic, no icterus, no pallor, neck supple Respiratory-fair air entry bilateral, no rhonchi, no wheeze [id number] heard, positive murmur Abdominal-soft, nontender, nondistended Musculoskeletal-no pedal edema, no calf tenderness Genitourinary-deferred Labs/Diagnostic Data Labs/Diagnostic Data Laboratory Tests Test 05/05/25 06:05 05/05/25 04:59 05/04/25 21:23 05/04/25 17:53 Range/Units POC Glucose 80 188 H 132 H 70-106 mg/dl White Blood Count 5.8 4.4-10.8 10^3/uL Red Blood Count 3.30 L 4.0-5.20 10^6/uL Hemoglobin 10.6 L 12.2-16.2 g/dL Hematocrit 30.8 L 36.0-46.0 % Mean Corpuscular Volume 93.2 80.0-100.0 fL Mean Corpuscular Hemoglobin 32.0 28.0-32.0 pg Mean Corpuscular Hemoglobin Concent 34.3 32.0-36.0 g/dL Red Cell Distribution Width 15.9 H 11.8-14.3 % Platelet Count 164 140-450 10^3/uL Mean Platelet Volume 8.7 6.9-10.8 fL Neutrophils (%) (Auto) 63.1 37.0-80.0 % Lymphocytes (%) (Auto) 26.2 10.0-50.0 % Monocytes (%) (Auto) 7.4 0.0-12.0 % Eosinophils (%) (Auto) 2.6 0.0-7.0 % Basophils (%) (Auto) 0.7 0.0-2.0 % Neutrophils # (Auto) 3.7 1.6-8.6 10 ^3/uL Lymphocytes # (Auto) 1.5 0.4-5.4 10 ^3/uL Monocytes # (Auto) 0.4 0-1.3 10 ^3/uL Eosinophils # (Auto) 0.1 0-0.8 10 ^3/uL Basophils # (Auto) 0 0-0.2 10 ^3/uL Nucleated Red Blood Cells 0.1 % Sodium Level 146 H 136-145 mmol/L Potassium Level 3.7 3.5-5.1 mmol/L Chloride Level 110 H 98-107 mmol/L Carbon Dioxide Level 23 20-31 mmol/L Anion Gap 13 5-15 Blood Urea Nitrogen 68 H 9-23 mg/dL Creatinine 4.44 H 0.550-1.02 mg/dL Glomerular Filtration Rate Calc 10 >90 mL/min BUN/Creatinine Ratio 15.3 10.0-20.0 Serum Glucose 81 74-106 mg/dL Calcium Level 8.4 L 8.7-10.4 mg/dL Test 05/04/25 11:52 05/04/25 06:22 05/04/25 05:08 05/03/25 23:00 Range/Units POC Glucose 152 H 85 70-106 mg/dl White Blood Count 6.4 # 4.4-10.8 10^3/uL Red Blood Count 3.48 L 4.0-5.20 10^6/uL Hemoglobin 11.1 L 12.2-16.2 g/dL Hematocrit 32.3 #L 36.0-46.0 % Mean Corpuscular Volume 92.8 80.0-100.0 fL Mean Corpuscular Hemoglobin 31.9 28.0-32.0 pg Mean Corpuscular Hemoglobin Concent 34.3 32.0-36.0 g/dL Red Cell Distribution Width 15.8 H 11.8-14.3 % Platelet Count 174 140-450 10^3/uL Mean Platelet Volume 8.9 6.9-10.8 fL Neutrophils (%) (Auto) 60.6 37.0-80.0 % Lymphocytes (%) (Auto) 28.6 10.0-50.0 % Monocytes (%) (Auto) 7.5 0.0-12.0 % Eosinophils (%) (Auto) 2.7 0.0-7.0 % Basophils (%) (Auto) 0.6 0.0-2.0 % Neutrophils # (Auto) 3.9 1.6-8.6 10 ^3/uL Lymphocytes # (Auto) 1.8 0.4-5.4 10 ^3/uL Monocytes # (Auto) 0.5 0-1.3 10 ^3/uL Eosinophils # (Auto) 0.2 0-0.8 10 ^3/uL Basophils # (Auto) 0 0-0.2 10 ^3/uL Nucleated Red Blood Cells 0.1 % Sodium Level 147 H 136-145 mmol/L Potassium Level 3.5 3.5-5.1 mmol/L Chloride Level 109 H 98-107 mmol/L Carbon Dioxide Level 23 20-31 mmol/L Anion Gap 15 5-15 Blood Urea Nitrogen 60 #H 9-23 mg/dL Creatinine 4.15 H 0.550-1.02 mg/dL Glomerular Filtration Rate Calc 11 >90 mL/min BUN/Creatinine Ratio 14.5 10.0-20.0 Serum Glucose 73 L 74-106 mg/dL Calcium Level 8.7 8.7-10.4 mg/dL Total Bilirubin 0.5 0.2-1.0 mg/dL Aspartate Amino Transferase (AST) 16 13-40 U/L Alanine Aminotransferase (ALT) 20 7-40 U/L Alkaline Phosphatase 72 46-116 U/L Total Protein 5.7 5.7-8.2 g/dL Albumin 3.5 3.2-4.8 g/dL Urine Color Yellow Yellow Urine Clarity Turbid H Clear Urine pH 6.5 5.0-9.0 Urine Specific [place] 1.018 1.001-1.035 Urine Protein 3+ H Negative Urine Ketones Negative Negative Urine Blood Negative Negative /uL Urine Nitrite Negative Negative Urine Bilirubin Negative Negative Urine Urobilinogen Normal Negative mg/dL Urine Leukocyte Esterase 1+ Negative /uL Urine RBC 3 0 - 4 /hpf Urine Microscopic WBC 20 H 0-5 /HPF Urine Squamous Epithelial Cells Few <5 /hpf Urine Bacteria Few H None Seen /hpf Urine Glucose Normal Normal mg/dL Urine Opiates Screen Neg NEGATIVE Urine Fentanyl Screen Neg NEGATIVE Urine Barbiturates Screen Neg NEGATIVE Urine Phencyclidine Screen Neg NEGATIVE Urine Amphetamines Screen Neg NEGATIVE Urine Benzodiazepines Screen Neg NEGATIVE Urine Cocaine Screen Neg NEGATIVE Urine Cannabinoids Screen Neg NEGATIVE Test 05/03/25 22:29 05/03/25 20:42 05/03/25 18:57 05/03/25 17:17 Range/Units POC Glucose 92 92 70-106 mg/dl Prothrombin Time 10.7 9.3-11.8 sec Prothrombin Time INR 1.01 0.9-1.15 Activated Partial Thromboplast Time 22.1 L 24.5-34.5 SEC Lactic Acid Level 0.8 0.4-2.0 mmol/L B-Type Natriuretic Peptide 219.97 0-100 pg/mL SARS-CoV-2 Antigen (Rapid) Negative NEGATIVE Test 05/03/25 12:57 05/03/25 11:40 05/03/25 10:18 05/03/25 10:15 Range/Units Troponin I High Sensitivity 55 *H 56 *H 52 *H </=34 ng/L White Blood Count 8.7 4.4-10.8 10^3/uL Red Blood Count 3.91 L 4.0-5.20 10^6/uL Hemoglobin 12.2 12.2-16.2 g/dL Hematocrit 36.3 36.0-46.0 % Mean Corpuscular Volume 92.7 80.0-100.0 fL Mean Corpuscular Hemoglobin 31.2 28.0-32.0 pg Mean Corpuscular Hemoglobin Concent 33.6 32.0-36.0 g/dL Red Cell Distribution Width 15.6 H 11.8-14.3 % Platelet Count 227 140-450 10^3/uL Mean Platelet Volume 9.0 6.9-10.8 fL Neutrophils (%) (Auto) 77.6 37.0-80.0 % Lymphocytes (%) (Auto) 16.6 10.0-50.0 % Monocytes (%) (Auto) 4.6 0.0-12.0 % Eosinophils (%) (Auto) 0.8 0.0-7.0 % Basophils (%) (Auto) 0.4 0.0-2.0 % Neutrophils # (Auto) 6.8 1.6-8.6 10 ^3/uL Lymphocytes # (Auto) 1.4 0.4-5.4 10 ^3/uL Monocytes # (Auto) 0.4 0-1.3 10 ^3/uL Eosinophils # (Auto) 0.1 0-0.8 10 ^3/uL Basophils # (Auto) 0 0-0.2 10 ^3/uL Nucleated Red Blood Cells 0.1 % Sodium Level 143 136-145 mmol/L Potassium Level 3.5 3.5-5.1 mmol/L Chloride Level 106 98-107 mmol/L Carbon Dioxide Level 23 20-31 mmol/L Anion Gap 14 5-15 Blood Urea Nitrogen 49 H 9-23 mg/dL Creatinine 3.70 H 0.550-1.02 mg/dL Glomerular Filtration Rate Calc 12 >90 mL/min BUN/Creatinine Ratio 13.2 10.0-20.0 Serum Glucose 114 H 74-106 mg/dL Calcium Level 9.0 8.7-10.4 mg/dL Magnesium Level 1.7 1.6-2.6 mg/dL B-Type Natriuretic Peptide 236.98 0-100 pg/mL Lipase 64 H 12-53 U/L Vitamin B12 Level 437 211-911 pg/mL Vitamin D 25-Hydroxy 50.0 30.0-100 ng/mL Folic Acid 39.21 >5.38 ng/mL Thyroid Stimulating Hormone (TSH) 2.63 0.55-4.78 uIU/mL Total Bilirubin 0.4 0.2-1.0 mg/dL Direct Bilirubin 0.1 <0.3 mg/dL Aspartate Amino Transferase (AST) 18 13-40 U/L Alanine Aminotransferase (ALT) 26 7-40 U/L Alkaline Phosphatase 82 46-116 U/L Total Protein 6.0 5.7-8.2 g/dL Albumin 3.8 3.2-4.8 g/dL Microbiology Date/Time Source Procedure Growth Status 05/04/25 02:15 Nose MRSA Screen - Final Complete Assessment ESRD on hemodialysis Hypertensive urgency Diabetes Obesity Hypernatremia Recommendations Dialysis will be arranged tomorrow Rest of the management per primary medical team We will follow closely Plan discussed with: Patient JOVANNY HERNANDES MD May 04, 2025 21:20
[2025-05-04] MEDS: ATORVASTATIN 20 MG TAB PO SCH (22:16)
[2025-05-05] VITALS (12 sets, daily range): BP systolic 131–155; BP diastolic 60–88; PULSE 62–75; RESP 16–18; TEMP 97.2–97.9; O2SAT 96–99
[2025-05-05 05:30] LABS: Hematocrit 30.8 % (36.0-46.0); Hemoglobin 10.6 g/dL (12.2-16.2); Mean Corpuscular Hemoglobin 32.0 pg (28.0-32.0); Mean Corpuscular Volume 93.2 fL (80.0-100.0); Nucleated Red Blood Cells % 0.1 %
[2025-05-05 05:39] LABS: Potassium 3.7 mmol/L (3.5-5.1)
[2025-05-05 05:40] LABS: Anion Gap 13 (5-15); Carbon Dioxide 23 mmol/L (20-31)
[2025-05-05 05:45] LABS: BUN/Creatinine Ratio 15.3 (10.0-20.0); Glucose 81 mg/dL (74-106)
[2025-05-05 05:51] LABS: Blood Urea Nitrogen 68 mg/dL (9-23); Calcium 8.4 mg/dL (8.7-10.4); Chloride 110 mmol/L (98-107); Sodium 146 mmol/L (136-145)
--- NOTE | 2025-05-05 15:36 | DVHPNRES ---
Progress Note Date Seen: May 05, 2025 Resident Creating Document: MABEL GREEN RESIDENT Medical Necessity Reason Pt with a Central, PICC or Fol: Yes The following are medically ne: Central Line Medical Necessity Reason Heena Torres 74-year-old female with past medical history of hypertension, insulin-dependent diabetes mellitus, triple-vessel bypass with 9 stents placed, cardiac pacemaker in place, ESRD on MWF dialysis, presented to the ER with chest pain, which started at 4:00 a.m. on the day of admission, intensity 03/24, the patient woke up with sharp pain radiating to the back, not associated with nausea or diaphoresis. Last Tuesday on 04/30/2025 the patient visited to her PCP, where her blood troponin level was found to be elevated. The patient did an echocardiogram and stress test last month, however the patient is not aware of the test results. She recently completed 7 day course of doxycycline due to lung disease, which the patient could not specify. She also reports having an episode of blurring vision 1 week ago. She reports having cough for 3 weeks, productive. She took benzonatate for the cough. The patient had a dialysis session this morning. She denies any shortness of breath, fever, abdominal pain, sick contacts or recent travel history. Past medical history: Hypertension, diabetes mellitus, ESRD Past surgical history: CABG Home medications: Tobramycin eyedrops, carvedilol, cephalexin, nifedipine, isosorbide dinitrate Allergies: None Smoking: Actively smoking 3-4 cigarettes per day, 11 pack years since age 21. Alcohol: Never Drugs: Never PCP: Dr. Jerry Zheng Full code Patient seen and evaluated in bedside today. Patient denies any chest pain SOB, nausea vomiting abdominal pain or any other acute distress. Hemodialysis scheduled tomorrow. Patient complained mild to moderate right upper quadrant abdominal pain. No acute event overnight. Called next of kin sister( Meagan), unable to reach. Objective vital signs Vital Sign Date Time Temp Pulse Resp B/P (MAP) Pulse Ox O2 Delivery O2 Flow Rate FiO2 05/05/25 10:00 98 Room Air 0.0 05/05/25 10:00 21 05/05/25 10:00 117/58 05/05/25 09:30 97.4 62 18 97.4 Total Intake and Output 05/04/25 05/04/2525 15:00 23:00 07:00 Intake Total 100 ml 400 ml Balance 100 ml 400 ml medications Current Medications Medications Dose Ordered Sig/Ezequiel Route Start Time Stop Time Status Last Admin Dose Admin Aspirin 81 mg DAILY PO 05/04/25 10:00 05/05/25 11:20 81 MG Atorvastatin Calcium 80 mg HS PO 05/04/25 22:00 05/04/25 22:16 80 MG Ipratropium [place] 0.5 mg Q8HPRN PRN NEB 05/03/25 19:15 05/05/25 08:57 0.5 MG Albuterol 2.5 mg Q8HPRN PRN NEB 05/03/25 19:15 05/05/25 08:57 2.5 MG Tobramycin Sulfate 1 drop Q4HR EACHEYE 05/03/25 22:00 05/05/25 10:00 1 DROP Heparin Sodium (Porcine) 5,000 units Q12HR SC 05/04/25 10:00 05/05/25 11:28 5,000 UNITS EZETIMIBE 10 mg DAILY PO 05/04/25 10:00 05/04/25 09:59 10 MG Gabapentin 100 mg HS PO 05/03/25 22:00 05/04/25 22:15 100 MG Hydralazine HCl 25 mg TID PO 05/03/25 22:00 05/05/25 05:29 25 MG Isosorbide Mononitrate 90 mg DAILY PO 05/04/25 10:00 05/04/25 09:56 90 MG Levothyroxine Sodium 25 mcg QAM PO 05/04/25 07:00 05/05/25 05:28 25 MCG Ticagrelor 90 mg BID PO 05/03/25 22:00 05/04/25 22:16 90 MG Meclizine HCl 25 mg BID PRN PO 05/03/25 21:00 Sevelamer HCl 800 mg TIDWM PO 05/04/25 08:00 05/04/25 09:59 800 MG Bumetanide 2 mg DAILY PO 05/04/25 10:00 Ferrous Sulfate 300 mg DAILY PO 05/04/25 10:00 05/05/25 11:21 300 MG Insulin Glargine 8 units HS SC 05/03/25 22:00 05/04/25 22:12 8 UNITS Sodium Bicarbonate 1,300 mg BID PO 05/03/25 22:00 Diagnostic Test (Pha) 1 strip ACHS 05/03/25 22:00 05/05/25 11:30 1 STRIP Insulin Human Regular ACHS SC 05/03/25 22:00 05/05/25 12:55 3 UNITS Dextrose 50 ml UD PRN IV 05/03/25 21:00 Pantoprazole Sodium 40 mg DAILY IV 05/04/25 10:00 05/04/25 09:54 40 MG Nifedipine 60 mg DAILY PO 05/04/25 10:00 05/04/25 09:57 60 MG Tramadol HCl 50 mg Q4HP PRN PO 05/03/25 23:00 05/05/25 06:19 50 MG Examination Pt is lying on bed General Appearance: Alert, Oriented X3, Cooperative, Mild distress HEENT: Atraumatic, Mucous membranes moist/pink Respiratory: Normal air movement, No added sounds Cardiovascular: Regular rate, Normal S1, Normal S2, HD catheter placed on right chest Abdominal/ : Active bowel sounds, Soft, no distention, no tenderness Extremities: No edema, Normal pulses, No tenderness/swelling Skin: No Significant rash, except past surgical scars Neuro: Normal speech, sensorimotor deficits none Psych/Mental Status: Mental status NL, Mood NL Nurse was there as farm management agent during examination laboratory and microbiology Laboratory Tests 05/05/25 04:59 Test 05/05/25 04:59 Range/Units Serum Glucose 81 74-106 mg/dL Microbiology Date/Time Source Procedure Growth Status 05/04/25 02:15 Nose MRSA Screen - Final Complete Problem List/Assessment/Plan Problem List/Assessment/Plan Hypertensive crisis Chest pain ruled out ACS CABG for triple-vessel disease with 9 stents placed Micra pacemaker placed EKG: No acute ischemic changes PVCs consistent with pacemaker placed Atorvastatin Ticagrelor Aspirin Ezetimibe Bumetanide Symptomatic Cholelithiasis Ultrasound liver and gallbladder shows cholelithiasis Conservative management given recent stent placement Essential Hypertension Nifedipine Hydralazine Blood pressure monitor Hypothyroidism Continue levothyroxine ESRD on MWF dialysis nephrology consult appreciated HD scheduled tomorrow Anemia of Chronic disease due to ESRD Hemoglobin 10.6, HCT 30.8 MCV 93.2, MCH 32.0 No sign/ symptoms of active bleeding Ferrous sulfate Mild HYPERNATREMIA likely dehydration sodium 146, encouraged oral fluid intake BMP HEPATIC STEATOSIS USG liver and gallbladder: Cholelithiasis. Hepatic steatosis. Lifestyle modification Neutrophil Type 2 [place] due to demand ischemia troponin 56 and repeat 55 Hypocalcemia Questionable history of COPD Smoking Counseling for cessation for more than 12 minutes Breathing treatment with albuterol and ipratropium GI prophylaxis: Pantoprazole DVT prophylaxis: Heparin Goals of care discussed with the patient for more than 19 minutes: Full code status Case discussed with Plan discussed with: Patient, Other (Nurse,sister) Dietary Evaluation Review Comments: 1) Add 60g CCHO cardiac restriction to renal diet 2) Initiate Nepro qd. Encourage optimal PO intake 3) Refer to outpatient RD/CDCES for weight management 4) Follow-up with cardiology and nephrology 5) Continue to monitor I&O, labs, and skin integrity Expected Outcomes/Goals: 1) appetite and labs to improve 2) GI symptoms to resolve 3) f/u in 3-5 days Date of Service: May 05, 2025 Billing Provider: LÓPEZ DE MD Common Visit Codes: [id number] INP/OBS CARE(HIGH) MABEL GREEN RESIDENT May 05, 2025 15:36 LÓPEZ DE MD May 05, 2025 23:17
--- NOTE | 2025-05-05 18:55 | DVHPN2 ---
Progress Note Date Seen: May 05, 2025 Medical Necessity Reason Pt with a Central, PICC or Fol: Yes The following are medically ne: Central Line Subjective Patient reports: Other Review of Systems: GI:Abnormal (Right upper quadrant pain radiating to back) Objective vital signs Vital Sign Date Time Temp Pulse Resp B/P (MAP) Pulse Ox O2 Delivery O2 Flow Rate FiO2 05/05/25 16:50 97.6 67 16 155/69 (97) 99 97.6 05/05/25 10:00 Room Air 0.0 05/05/25 10:00 21 Total Intake and Output 05/04/25 05/04/25 05/05/25 15:00 23:00 07:00 Intake Total 100 ml 400 ml Balance 100 ml 400 ml medications Current Medications Medications Dose Ordered Sig/Ezequiel Route Start Time Stop Time Status Last Admin Dose Admin Aspirin 81 mg DAILY PO 05/04/25 10:00 05/05/25 11:20 81 MG Atorvastatin Calcium 80 mg HS PO 05/04/25 22:00 05/04/25 22:16 80 MG Ipratropium [place] 0.5 mg Q8HPRN PRN NEB 05/03/25 19:15 05/05/25 08:57 0.5 MG Albuterol 2.5 mg Q8HPRN PRN NEB 05/03/25 19:15 05/05/25 08:57 2.5 MG Tobramycin Sulfate 1 drop Q4HR EACHEYE 05/03/25 22:00 05/05/25 18:17 1 DROP Heparin Sodium (Porcine) 5,000 units Q12HR SC 05/04/25 10:00 05/05/25 11:28 5,000 UNITS EZETIMIBE 10 mg DAILY PO 05/04/25 10:00 05/04/25 09:59 10 MG Gabapentin 100 mg HS PO 05/03/25 22:00 05/04/25 22:15 100 MG Hydralazine HCl 25 mg TID PO 05/03/25 22:00 05/05/25 05:29 25 MG Isosorbide Mononitrate 90 mg DAILY PO 05/04/25 10:00 05/04/25 09:56 90 MG Levothyroxine Sodium 25 mcg QAM PO 05/04/25 07:00 05/05/25 05:28 25 MCG Ticagrelor 90 mg BID PO 05/03/25 22:00 05/04/25 22:16 90 MG Meclizine HCl 25 mg BID PRN PO 05/03/25 21:00 Sevelamer HCl 800 mg TIDWM PO 05/04/25 08:00 05/04/25 09:59 800 MG Bumetanide 2 mg DAILY PO 05/04/25 10:00 Ferrous Sulfate 300 mg DAILY PO 05/04/25 10:00 05/05/25 11:21 300 MG Insulin Glargine 8 units HS SC 05/03/25 22:00 05/04/25 22:12 8 UNITS Sodium Bicarbonate 1,300 mg BID PO 05/03/25 22:00 Diagnostic Test (Pha) 1 strip ACHS 05/03/25 22:00 05/05/25 17:00 1 STRIP Insulin Human Regular ACHS SC 05/03/25 22:00 05/05/25 18:40 3 UNITS Dextrose 50 ml UD PRN IV 05/03/25 21:00 Pantoprazole Sodium 40 mg DAILY IV 05/04/25 10:00 05/05/25 18:36 40 MG Nifedipine 60 mg DAILY PO 05/04/25 10:00 05/04/25 09:57 60 MG Tramadol HCl 50 mg Q4HP PRN PO 05/03/25 23:00 05/05/25 06:19 50 MG Examination: GENERAL:Normal, HEENT:Normal, NECK:Normal, LUNGS:Normal, CVS:Normal, ABDOMEN:Normal, MSK:Normal, SKIN:Normal, NEURO:Normal, :Normal laboratory and microbiology Laboratory Tests 05/05/25 04:59 Test 05/05/25 04:59 Range/Units Serum Glucose 81 74-106 mg/dL Microbiology Date/Time Source Procedure Growth Status 05/04/25 02:15 Nose MRSA Screen - Final Complete Problem List/Assessment/Plan Problem List/Assessment/Plan ESRD on hemodialysis Hypertensive urgency Right upper quadrant pain likely secondary to gallstones Diabetes Obesity Hypernatremia Recommendations Seen on dialysis today Dialysis will be arranged tomorrow as well Surgical evaluation for gallstones Rest of the management per primary medical team We will follow closely Plan discussed with: Patient My Orders My Orders Orders - JOVANNY HERNANDES MD Procedure Category Date Status Time Dialysis Nursing [facility] 05/05/25 In Process Message 07:00 Document Fluid Input [facility] 05/05/25 In Process And Outpu 07:00 Hepatitis B Surface LAB 05/05/25 In Process Antigen 12:01 Hemodialysis Orders ORDERS 05/06/25 Verified 04:00 Dietary Evaluation Review Comments: 1) Add 60g CCHO cardiac restriction to renal diet 2) Initiate Nepro qd. Encourage optimal PO intake 3) Refer to outpatient RD/[facility] for weight management 4) Follow-up with cardiology and nephrology 5) Continue to monitor I&O, labs, and skin integrity Expected Outcomes/Goals: 1) appetite and labs to improve 2) GI symptoms to resolve 3) f/u in 3-5 days JOVANNY HERNANDES MD May 05, 2025 18:55
[2025-05-06] VITALS (8 sets, daily range): BP systolic 129–156; BP diastolic 58–79; PULSE 60–75; RESP 16–20; TEMP 97.3–98.6; O2SAT 94–100
[2025-05-06] MEDS ORDERED: KETOROLAC TROMETH 30 MG/ML 1ML VIAL IV ONE (03:00)
[2025-05-06 08:12] LABS: Hematocrit 32.9 % (36.0-46.0); Hemoglobin 11.4 g/dL (12.2-16.2); Mean Corpuscular Hemoglobin 32.2 pg (28.0-32.0); Mean Corpuscular Volume 93.2 fL (80.0-100.0); Nucleated Red Blood Cells % 0.1 %
[2025-05-06 08:17] LABS: Anion Gap 11 (5-15); Carbon Dioxide 28 mmol/L (20-31); Chloride 105 mmol/L (98-107); Potassium 3.6 mmol/L (3.5-5.1); Sodium 144 mmol/L (136-145)
[2025-05-06 08:23] LABS: BUN/Creatinine Ratio 10.1 (10.0-20.0); Calcium 8.3 mg/dL (8.7-10.4); Glucose 74 mg/dL (74-106)
[2025-05-06 08:24] LABS: Blood Urea Nitrogen 31 mg/dL (9-23); Magnesium 1.6 mg/dL (1.6-2.6)
--- NOTE | 2025-05-06 08:56 | DVHPN2 ---
Progress Note Date Seen: May 06, 2025 Medical Necessity Reason Pt with a Central, PICC or Fol: Yes The following are medically ne: Central Line Subjective Patient reports: Feels better Objective vital signs Vital Sign Date Time Temp Pulse Resp B/P (MAP) Pulse Ox O2 Delivery O2 Flow Rate FiO2 05/06/25 06:07 143/62 05/06/25 05:00 98.6 67 19 96 98.6 05/05/25 20:15 Room Air 0.0 05/05/25 20:15 21 Total Intake and Output 05/05/25 05/05/25 05/06/25 15:00 23:00 07:00 Intake Total 450 ml Balance 450 ml medications Current Medications Medications Dose Ordered Sig/Ezequiel Route Start Time Stop Time Status Last Admin Dose Admin Aspirin 81 mg DAILY PO 05/04/25 10:00 05/05/25 11:20 81 MG Atorvastatin Calcium 80 mg HS PO 05/04/25 22:00 05/04/25 22:16 80 MG Ipratropium [place] 0.5 mg Q8HPRN PRN NEB 05/03/25 19:15 05/06/25 08:48 0.5 MG Albuterol 2.5 mg Q8HPRN PRN NEB 05/03/25 19:15 05/06/25 08:48 2.5 MG Tobramycin Sulfate 1 drop Q4HR EACHEYE 05/03/25 22:00 05/06/25 06:02 1 DROP Heparin Sodium (Porcine) 5,000 units Q12HR SC 05/04/25 10:00 05/05/25 22:14 5,000 UNITS EZETIMIBE 10 mg DAILY PO 05/04/25 10:00 05/04/25 09:59 10 MG Gabapentin 100 mg HS PO 05/03/25 22:00 05/05/25 21:56 100 MG Hydralazine HCl 25 mg TID PO 05/03/25 22:00 05/06/25 06:07 25 MG Isosorbide Mononitrate 90 mg DAILY PO 05/04/25 10:00 05/04/25 09:56 90 MG Levothyroxine Sodium 25 mcg QAM PO 05/04/25 07:00 05/06/25 06:07 25 MCG Ticagrelor 90 mg BID PO 05/03/25 22:00 05/05/25 21:56 90 MG Meclizine HCl 25 mg BID PRN PO 05/03/25 21:00 Sevelamer HCl 800 mg TIDWM PO 05/04/25 08:00 05/04/25 09:59 800 MG Bumetanide 2 mg DAILY PO 05/04/25 10:00 Ferrous Sulfate 300 mg DAILY PO 05/04/25 10:00 05/05/25 11:21 300 MG Insulin Glargine 8 units HS SC 05/03/25 22:00 05/05/25 22:15 8 UNITS Sodium Bicarbonate 1,300 mg BID PO 05/03/25 22:00 Diagnostic Test (Pha) 1 strip ACHS 05/03/25 22:00 05/06/25 06:02 1 STRIP Insulin Human Regular ACHS SC 05/03/25 22:00 05/05/25 22:15 2 UNITS Dextrose 50 ml UD PRN IV 05/03/25 21:00 Pantoprazole Sodium 40 mg DAILY IV 05/04/25 10:00 05/05/25 18:36 40 MG Nifedipine 60 mg DAILY PO 05/04/25 10:00 05/04/25 09:57 60 MG Tramadol HCl 50 mg Q4HP PRN PO 05/03/25 23:00 05/05/25 20:28 50 MG Examination: GENERAL:Normal, CVS:Normal, SKIN:Normal laboratory and microbiology Laboratory Tests 05/06/25 06:58 Test 05/06/25 06:58 Range/Units Serum Glucose 74 74-106 mg/dL Microbiology Date/Time Source Procedure Growth Status 05/04/25 02:15 Nose MRSA Screen - Final Complete Problem List/Assessment/Plan Problem List/Assessment/Plan ESRD on hemodialysis Hypertensive urgency Right upper quadrant pain likely secondary to gallstones Diabetes Obesity Hypernatremia dialysis today primary team doing eval for gallbladder stones Rest of the management Plan discussed with: Patient Dietary Evaluation Review Comments: 1) Add 60g CCHO cardiac restriction to renal diet 2) Initiate Nepro qd. Encourage optimal PO intake 3) Refer to outpatient RD/[facility] for weight management 4) Follow-up with cardiology and nephrology 5) Continue to monitor I&O, labs, and skin integrity Expected Outcomes/Goals: 1) appetite and labs to improve 2) GI symptoms to resolve 3) f/u in 3-5 days SHRAVAN VALDEZ MD May 06, 2025 08:56
--- NOTE | 2025-05-06 12:27 | ECG ---
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
[2025-05-06] MEDS: SODIUM CHL 0.9% 1000 ML BAG XX ONE (13:22)
--- NOTE | 2025-05-06 14:41 | DVHDSRES ---
Discharge Summary Date of Admission Resident Creating Document: RANDI SHANKS RESIDENT May 03, 2025 at 16:43 Date of Discharge: May 06, 2025 Admitting Diagnosis Chest pain Labs/Diagnostic Data: Laboratory Results Test 05/06/25 06:58 05/06/25 06:01 05/05/25 04:59 05/04/25 05:08 White Blood Count 6.6 10^3/uL (4.4-10.8) Red Blood Count 3.53 10^6/uL (4.0-5.20) Hemoglobin 11.4 g/dL (12.2-16.2) Hematocrit 32.9 % (36.0-46.0) Mean Corpuscular Volume 93.2 fL (80.0-100.0) Mean Corpuscular Hemoglobin 32.2 pg (28.0-32.0) Mean Corpuscular Hemoglobin Concent 34.6 g/dL (32.0-36.0) Red Cell Distribution Width 16.0 % (11.8-14.3) Platelet Count 155 10^3/uL (140-450) Mean Platelet Volume 9.2 fL (6.9-10.8) Neutrophils (%) (Auto) 70.1 % (37.0-80.0) Lymphocytes (%) (Auto) 20.1 % (10.0-50.0) Monocytes (%) (Auto) 8.0 % (0.0-12.0) Eosinophils (%) (Auto) 1.1 % (0.0-7.0) Basophils (%) (Auto) 0.7 % (0.0-2.0) Neutrophils # (Auto) 4.6 10 ^3/uL (1.6-8.6) Lymphocytes # (Auto) 1.3 10 ^3/uL (0.4-5.4) Monocytes # (Auto) 0.5 10 ^3/uL (0-1.3) Eosinophils # (Auto) 0.1 10 ^3/uL (0-0.8) Basophils # (Auto) 0 10 ^3/uL (0-0.2) Nucleated Red Blood Cells 0.1 % Sodium Level 144 mmol/L (136-145) Potassium Level 3.6 mmol/L (3.5-5.1) Chloride Level 105 mmol/L (98-107) Carbon Dioxide Level 28 mmol/L (20-31) Anion Gap 11 (5-15) Blood Urea Nitrogen 31 mg/dL (9-23) Creatinine 3.06 mg/dL (0.550-1.02) Glomerular Filtration Rate Calc 16 mL/min (>90) BUN/Creatinine Ratio 10.1 (10.0-20.0) Serum Glucose 74 mg/dL (74-106) Calcium Level 8.3 mg/dL (8.7-10.4) Phosphorus Level 4.1 mg/dL (2.4-5.1) Magnesium Level 1.6 mg/dL (1.6-2.6) POC Glucose 71 mg/dl (70-106) Total Bilirubin 0.5 mg/dL (0.2-1.0) Aspartate Amino Transferase (AST) 16 U/L (13-40) Alanine Aminotransferase (ALT) 20 U/L (7-40) Alkaline Phosphatase 72 U/L (46-116) Total Protein 5.7 g/dL (5.7-8.2) Albumin 3.5 g/dL (3.2-4.8) Test 05/03/25 23:00 05/03/25 18:57 05/03/25 17:17 05/03/25 12:57 Urine Color Yellow (Yellow) Urine Clarity Turbid (Clear) Urine pH 6.5 (5.0-9.0) Urine Specific [place] 1.018 (1.001-1.035) Urine Protein 3+ (Negative) Urine Ketones Negative (Negative) Urine Blood Negative /uL (Negative) Urine Nitrite Negative (Negative) Urine Bilirubin Negative (Negative) Urine Urobilinogen Normal mg/dL (Negative) Urine Leukocyte Esterase 1+ /uL (Negative) Urine RBC 3 /hpf (0 - 4) Urine Microscopic WBC 20 /HPF (0-5) Urine Squamous Epithelial Cells Few /hpf (<5) Urine Bacteria Few /hpf (None Seen) Urine Glucose Normal mg/dL (Normal) Urine Opiates Screen Neg (NEGATIVE) Urine Fentanyl Screen Neg (NEGATIVE) Urine Barbiturates Screen Neg (NEGATIVE) Urine Phencyclidine Screen Neg (NEGATIVE) Urine Amphetamines Screen Neg (NEGATIVE) Urine Benzodiazepines Screen Neg (NEGATIVE) Urine Cocaine Screen Neg (NEGATIVE) Urine Cannabinoids Screen Neg (NEGATIVE) Prothrombin Time 10.7 sec (9.3-11.8) Prothrombin Time INR 1.01 (0.9-1.15) Activated Partial Thromboplast Time 22.1 SEC (24.5-34.5) Lactic Acid Level 0.8 mmol/L (0.4-2.0) B-Type Natriuretic Peptide 219.97 pg/mL (0-100) SARS-CoV-2 Antigen (Rapid) Negative (NEGATIVE) Troponin I High Sensitivity 55 ng/L (</=34) Test 05/03/25 10:18 05/03/25 10:15 Lipase 64 U/L (12-53) Vitamin B12 Level 437 pg/mL (211-911) Vitamin D 25-Hydroxy 50.0 ng/mL (30.0-100) Folic Acid 39.21 ng/mL (>5.38) Thyroid Stimulating Hormone (TSH) 2.63 uIU/mL (0.55-4.78) Direct Bilirubin 0.1 mg/dL (<0.3) Other Laboratory Tests 05/06/25 06:58 Brief Hx & Hospital Course: Heena Torres 74-year-old female with past medical history of hypertension, insulin-dependent diabetes mellitus, triple-vessel bypass with 9 stents placed, cardiac pacemaker in place, ESRD on MWF dialysis, presented to the ER with chest pain, which started at 4:00 a.m. on the day of admission, intensity 03/24, the patient woke up with sharp pain radiating to the back, not associated with nausea or diaphoresis. Last Tuesday on 04/30/2025 the patient visited to her PCP, where her blood troponin level was found to be elevated. The patient did an echocardiogram and stress test last month, however the patient is not aware of the test results. She recently completed 7 day course of doxycycline due to lung disease, which the patient could not specify. She also reports having an episode of blurring vision 1 week ago. She reports having cough for 3 weeks, productive. She took benzonatate for the cough. The patient had a dialysis session this morning. She denies any shortness of breath, fever, abdominal pain, sick contacts or recent travel history. Past medical history: Hypertension, diabetes mellitus, ESRD Past surgical history: CABG Home medications: Tobramycin eyedrops, carvedilol, cephalexin, nifedipine, isosorbide dinitrate Allergies: None Smoking: Actively smoking 3-4 cigarettes per day, 11 pack years since age 21. Alcohol: Never Drugs: Never PCP: Dr. Jerry Zheng Full code Brief history of hospitalization: Patient came in with chest pain, and we did an EKG which showed no acute ischemic changes, PVCs consistent with pacemaker placed. We continued the patient on atorvastatin, ticagrelor, aspirin, Ezetimibe, bumetanide. Troponin levels were slightly elevated at 52, 56 and 55- NSTEMI type 2. For symptomatic cholelithiasis an ultrasound of the liver and gallbladder was done which showed cholelithiasis and conservative management was done given stent placement. given the high comorbidities, hypertension, insulin-dependent diabetes mellitus, triple-vessel bypass with 9 stents placed, cardiac pacemaker in place ESRD with MWF dialysi, the patient requires an outpatient cardiac evaluation before elective surgery can be planned. For essential hypertension, nifedipine and hydralazine was given and blood pressure was monitored. We continued levothyroxine for patient's hypothyroidism. For patient's ESRD and missed dialysis on admission, nephrology consult was done and this was done on 05/05/2025. She is scheduled for another dialysis today on 05/06/2025. For exacerbation of asthma we gave her breathing treatment with albuterol and ipratropium med-nebs which improved her breathing. As patient is actively smoking even now, the counseled her regarding smoking cessation extensively. Patient has been counseled to follow up with her relay telegrapher outpatient. During hospitalization we also gave the patient GI prophylaxis- pantoprazole and DVT prophylaxis- heparin. The patient is now stable for discharge and will require outpatient cardiac follow up for clearance before elective cholecystectomy can be planned. Patient communicates understanding and has agreed to the discharge plan. Patient counseled on resuming all home medications, to take Protonix 40 mg daily, Maalox 10 mL thrice a day, and tramadol 50 mg as needed and to follow up with PCP within 10 days, discharge clinic within 7 days and with surgery for outpatient elective surgery, cardiology for clearance. Pt is lying on bed General Appearance: Alert, Oriented X3, Cooperative, Mild distress HEENT: Atraumatic, Mucous membranes moist/pink Respiratory: Normal air movement, No added sounds Cardiovascular: Regular rate, Normal S1, Normal S2, HD catheter placed on right chest Abdominal/ : Active bowel sounds, Soft, no distention, no tenderness Extremities: No edema, Normal pulses, No tenderness/swelling Skin: No Significant rash, except past surgical scars Neuro: Normal speech, sensorimotor deficits none Psych/Mental Status: Mental status NL, Mood NL Nurse was there as scenario writer during examination Operations or Procedures CHEST RADIOGRAPH Indication: CP IMPRESSION: No evidence of acute disease. = PROCEDURE(s): GBUS - GALLBLADDER IMPRESSION: Cholelithiasis. Hepatic steatosis. Bilateral medical renal disease. Condition at Discharge: Stable Final Diagnosis/Problems List Biliary colic secondary to gallstones ESRD on hemodialysis Hypertensive urgency Diabetes type 2 Anemia of Chronic disease due to ESRD Mild hypernatremia likely dehydration Hepatic steatosis Type 2 AZ due to demand ischemia Hypocalcemia Ruled out questionable COPD Asthma exacerbation Obesity Discharge Disposition: Home Discharge Instruct/Medications Diet: Consistent carbohydrate, Cardiac 2g Na,low cholest Activity: No Restrictions, As Tolerated Follow Up/Referral: Follow up with PCP in 10 days Follow up in discharge clinic in 1 week Medications: Resume all home medications Scheduled Aspirin (Aspirin), 81 MG PO DAILY Atorvastatin Calcium (Atorvastatin Calcium), 1 TAB PO DAILY, (Reported) Bumetanide (Bumetanide), 1 TAB PO DAILY, (Reported) Carvedilol (Carvedilol), 1 TAB PO BID, (Reported) Cephalexin (Keflex Capsule), 250 MG PO BID Dicyclomine Hcl (Bentyl Capsule), 1 CAP PO Q6HPRN Ergocalciferol (Vitamin D 29324 Unit), 1 CAP PO QWEEKLY, (Reported) Ezetimibe (Zetia), 1 TAB PO DAILY, (Reported) Ferrous Sulfate (Iron (Ferrous Sulfate)), 50 MG PO DAILY Fluticasone-Salmeterol (Wixela Inhub 100-50 Mcg/Dose), 1 PUFF INH Q12HR, (Reported) Gabapentin (Gabapentin), 1 CAP PO QAM, (Reported) Gabapentin (Gabapentin), 2 CAP PO HS, (Reported) Hydralazine HCl (Hydralazine HCl), 1 TAB PO TID, (Reported) Insulin Glargine (Lantus Solostar), 8 UNIT SC HS, (Reported) Isosorbide Mononitrate (Isosorbide Mononitrate ER), 1.5 TAB PO DAILY, (Reported) Levothyroxine Sodium (Levothyroxine Sodium), 1 TAB PO QAM, (Reported) Loratadine (Claritin Tablet), 1 TAB PO DAILY, (Reported) Pantoprazole Sodium Sesquihydr (Protonix), 40 MG PO DAILY Sevelamer Hydrochloride (Renagel), 800 MG PO TIDWM Sodium Bicarbonate (Sodium Bicarbonate), 2 TAB PO BID, (Reported) Ticagrelor Base (Brilinta), 90 MG PO BID Scheduled PRN Acetaminophen (Acetaminophen), 650 MG PO Q6HP PRN Albuterol Sulfate (Albuterol Sulfate Hfa), 2 PUFF INH Q6HR PRN for WHEEZING, (Reported) Benzonatate (Benzonatate), 1 CAP PO TID PRN for COUGH, (Reported) Calcium Carbonate (Antacid) (Maalox), 600 MG PO TID PRN Diclofenac Sodium (Topical) (Voltaren Arthritis Pain), 1 % EX PRN PRN for PAIN SCALE 1 THRU 6, (Reported) Meclizine Hcl (Meclizine Hcl), 25 MG PO BID PRN Tramadol HCl (Tramadol HCl), 50 MG PO Q8HPRN PRN Discharge Statement: "Patient was advised to return to the ER or call 911 if any headaches, dizziness, shortness of breath, chest pain, abdominal pain, bleeding, fevers, or worsening of medical condition. Patient was counseled about treatment plan, medications, possible side effects, patientverbalized understanding. All questions were answered to the best of my ability. This discharge took greater then 30 minutes in planning, reviewing documentation, counseling the patient, and discussing with other team members." ASSESSMENT ASSESSMENT Assessment Biliary colic due to cholelithiasis RANDI SHANKS RESIDENT May 06, 2025 14:41
[2025-05-06] MEDS ORDERED: PANT40TA2 PO (15:00)
[2025-05-06] MEDS ORDERED: CALC600C PO (15:00)
[2025-05-06] MEDS ORDERED: TRAM-626 PO (15:07)
== END 2025-05-06 15:46 | disposition home or self-care (01) | DRG 444 ==
LOC: ER 09:52 → OVERFLOW 16:43 → TELE-WESTW 22:07
PROVIDERS: ADMIT Student in an Organized Health Care Education/Training Program; ATTEND Student in an Organized Health Care Education/Training Program
PROC: 5A1D70Z Performance of Urinary Filtration, Intermittent, Less than 6 Hours Per Day (ICD-10-PCS; principal; 2025-05-05)
DX: K80.70 Calculus of gallbladder and bile duct without cholecystitis without obstruction (principal); I21.A1 Myocardial infarction type 2; I50.33 Acute on chronic diastolic (congestive) heart failure; N18.6 End stage renal disease; I13.2 Hypertensive heart and chronic kidney disease with heart failure and with stage 5 chronic kidney disease, or end stage renal disease; E87.0 Hyperosmolality and hypernatremia; J45.901 Unspecified asthma with (acute) exacerbation; I16.0 Hypertensive urgency; Z20.822 Contact with and (suspected) exposure to COVID-19; E66.9 Obesity, unspecified; K76.0 Fatty (change of) liver, not elsewhere classified; F17.210 Nicotine dependence, cigarettes, uncomplicated; E11.22 Type 2 diabetes mellitus with diabetic chronic kidney disease; I25.10 Atherosclerotic heart disease of native coronary artery without angina pectoris; E78.5 Hyperlipidemia, unspecified; E03.9 Hypothyroidism, unspecified; D63.1 Anemia in chronic kidney disease; E83.51 Hypocalcemia; E86.0 Dehydration; Z99.2 Dependence on renal dialysis; Z88.5 Allergy status to narcotic agent; Z79.2 Long term (current) use of antibiotics; Z79.82 Long term (current) use of aspirin; Z79.899 Other long term (current) drug therapy; Z79.4 Long term (current) use of insulin; Z90.5 Acquired absence of kidney; Z95.1 Presence of aortocoronary bypass graft; Z95.0 Presence of cardiac pacemaker; Z79.02 Long term (current) use of antithrombotics/antiplatelets; Z80.0 Family history of malignant neoplasm of digestive organs; Z80.3 Family history of malignant neoplasm of breast; Z87.442 Personal history of urinary calculi; Z90.710 Acquired absence of both cervix and uterus; Z68.32 Body mass index [BMI] 32.0-32.9, adult
CPT/HCPCS: 36415; 71046; 76705; 80048; 80053; 80076; 80307; 81001; 82306; 82607; 82746; 82962; 83605; 83690; 83735; 83880; 84100; 84443; 84484; 85025; 85610; 85730; 87081; 87340; 87426; 90935; 93005; 94640; G0378; J1815; J2470